=== PATIENT | female | born 1940 | race Caucasian/White ===

== ENCOUNTER → 2020-04-21 13:33 | Outpatient (BNVA) | payer BC, SELFPAY | PROVIDERS: PCP Family Medicine; Visit Provider Internal Medicine Cardiovascular Disease | DX: Z76.89 Persons encountering health services in other specified circumstances (principal) ==

== ENCOUNTER → 2020-05-27 10:34 | Outpatient (BNVA) | payer BC, SELFPAY | PROVIDERS: PCP Family Medicine; Visit Provider Internal Medicine ==

== ENCOUNTER 2020-05-27 11:09 | Outpatient (REF) | payer BC, SELFPAY ==
--- NOTE | 2020-05-27 17:04 | PFT_ITS ---
INDICATION: Cough. SPIROMETRY: The FEV1 to FVC 86% with an FEV1 of 2.06 L, which is 102% predicted, and an FVC of 2.4 L, which is 89% predicted. Bronchodilators were not used due to the fact the patient had used prior to this study. Maximum voluntary ventilation 101% predicted. LUNG VOLUMES: Total lung capacity 104% predicted with an expiratory reserve volume of only 26% predicted. DIFFUSION CAPACITY: DLCO 52% predicted. COMPARISONS: None. INTERPRETATION: No obstructive nor restrictive ventilatory defects identified. No bronchodilators were used. Normal maximum voluntary ventilation. Lung volumes are normal except for decrease in the expiratory reserve volume. The patient does have a moderate isolated diffusion impairment. Therefore, need to consider underlying pulmonary vascular condition, should also correct for hemoglobin. Clinical correlation is warranted. MD SADA Alvarez/JORGE / [id number]
== END 2020-05-27 11:10 | disposition home or self-care (01) ==
LOC: HO.RESP 11:09
PROVIDERS: Visit Provider Internal Medicine
DX: J44.9 Chronic obstructive pulmonary disease, unspecified (principal); R05 Cough
CPT/HCPCS: 94010; 94727; 94729

== ENCOUNTER 2020-06-25 19:36 | Inpatient (IN) | payer MEDICARE, BC, SELFPAY ==
[2020-06-25] VITALS (12 sets, daily range): BP systolic 159–232; BP diastolic 61–110; PULSE 70–96; RESP 16–38; TEMP 36.6–37.1; O2SAT 3–96; BMI 28.0
--- NOTE | ~2020-06-25 | CT_ITS ---
EXAMINATION: CT ANGIOGRAM OF THE CHEST WITH AND WITHOUT CONTRAST (CT PULMONARY ANGIOGRAM FOR PE) CLINICAL INFORMATION: Reason for Exam hypoxia COMPARISON: Previous chest x-ray most recent from yesterday TECHNIQUE: Prior to contrast administration, noncontrast localization images were obtained. Subsequently, multidetector volumetric imaging was performed from the thoracic inlet to below the diaphragms following the administration of 65 mL Omnipaque 350 intravenous contrast. No contrast reaction reported Sagittal, coronal, and MIP oblique sagittal reformatted images were obtained on the CT workstation, uploaded to PACS, and reviewed. This CT examination was performed using dose optimization techniques as appropriate, variously including the following: *Automated exposure control *Adjustment of mA and/or kV according to patient size (this includes techniques or standardized protocols for targeted exams where dose is matched to indication/reason for exam; i.e. extremities or head) *Use of iterative reconstruction technique Total exam dose-length product 280 mGy-cm FINDINGS: QUALITY OF STUDY/CONTRAST BOLUS: Satisfactory. PULMONARY ARTERIES: No central or segmental pulmonary emboli. Pulmonary arteries are upper normal, main pulmonary artery measuring 3 cm. THORACIC AORTA: No aneurysm or dissection. LUNG: There is bilateral lower lobe compressive atelectasis from the moderate sized pleural effusions. There is bilateral perihilar airspace disease. This is greatest in the left upper lobe. Differential would include pulmonary edema and pneumonia. PLEURA: There are moderate-sized bilateral pleural effusions. MEDIASTINUM: The heart is enlarged. No pericardial effusion. No hilar or mediastinal lymphadenopathy. No evidence of septal bowing or right heart strain. CHEST WALL/AXILLA: No axillary or internal mammary lymphadenopathy. OSSEOUS STRUCTURES: No acute or suspicious osseous abnormality. There are degenerative changes of the spine. UPPER ABDOMEN: There is reflux of contrast into the hepatic veins to suggest elevated right heart pressures. CT/CT angio chest PE protocol IMPRESSION: No evidence of pulmonary embolism. Enlarged heart and perihilar airspace disease, and moderate size bilateral pleural effusions suggestive of CHF. There is compressive atelectasis of the bilateral lower lobes from the pleural effusions. Airspace disease is greatest in the left upper lobe and superimposed infection cannot be excluded. VTE: negative
--- NOTE | ~2020-06-25 | XR_ITS ---
EXAMINATION: XR CHEST CLINICAL INFORMATION: Dyspnea COMPARISON: 01/21/2020 TECHNIQUE: Frontal view of the chest was obtained. FINDINGS: Compared to the prior study, the cardiac silhouette is slightly increased in size and there are bilateral pleural effusions right greater than left. In addition, there is upper zone redistribution and mild interstitial edema. Findings are highly suggestive of CHF. And associated infiltrate cannot be excluded at the left lung base. XR/XR chest 1V IMPRESSION: CHF with interstitial edema and bilateral pleural effusions. Associated infiltrates cannot be excluded at the left lung base.
--- NOTE | 2020-06-25 20:08 | ECG_ITS ---
Test Reason : HIGH BP Blood Pressure : / mmHG Vent. Rate : 076 BPM Atrial Rate : 076 BPM P-R Int : 184 ms QRS Dur : 154 ms QT Int : 464 ms P-R-T Axes : 019 -10 106 degrees QTc Int : 522 ms Sinus rhythm with Premature supraventricular complexes Left bundle branch block Abnormal ECG When compared to the previous EKG of No significant changes seen Referred By: Kofi Plata Electronically Signed By:Kofi Plata
--- NOTE | 2020-06-25 20:25 | ED_ITS ---
HPI - SOB/Dyspnea General Chief Complaint: Dyspnea Stated Complaint: sob Time Seen by Provider: 06/25/20 20:25 Source: patient Mode of arrival: ambulatory Limitations: no limitations History of Present Illness HPI Narrative: Patient history of mild hypersensitive asthma, CVA been feeling more short of breath for last 4 days feels less air in her lungs. Coughing+ No fever unable to take inhaler at home because feel not able to take deep breaths. Patient is saturating 85% on room air increased to 95% on 3 L blood pressure on arrival was 217/97 respiratory rate of 26 pulse 77 saturating 85% at room air afebrile. Patient received COVID vaccination last week. Patient denies any chest pain no leg swelling no history of CHF in the past Related Data Home Medications Medication Instructions Recorded Confirmed sertraline 100 mg tablet 100 mg PO DAILY 02/16/20 04/21/20 meloxicam 15 mg tablet 15 mg PO DAILY 02/17/20 04/21/20 flu vacc 2020-21(64yr 0.5 ml IM DIRECTED 04/27/20 up)-MF59C(PF) 60 mcg(15 mcgx4)/0.5 mL IM syringe Previous Rx's Medication Instructions Recorded albuterol sulfate 90 mcg/actuation 2 puff INHALATION Q6H PRN 30 Days 02/17/20 aerosol inhaler #18 g aspirin 81 mg tablet,delayed 81 mg PO DAILY 90 Days #90 tab 02/17/20 release atorvastatin 20 mg tablet 20 mg PO DAILY 90 Days #90 tab 02/17/20 hydralazine 50 mg tablet 50 mg PO BID 90 Days #180 tab 02/17/20 levothyroxine 25 mcg tablet 25 mcg PO DAILY 90 Days #90 tab 02/17/20 losartan 100 mg tablet 100 mg PO DAILY #90 tab 02/17/20 mometasone 50 mcg/actuation nasal 2 spray INTRANASAL DAILY 30 Days 02/17/20 spray #17 g cetirizine 10 mg tablet 10 mg PO DAILY 90 Days #90 tab 03/09/20 clonidine 0.2 mg/24 hr weekly 1 patch TRANSDERMAL QWEEK #4 ea 04/21/20 transdermal patch donepezil 10 mg tablet 10 mg PO DAILY 90 Days #90 tab 04/27/20 esomeprazole magnesium 20 mg 20 mg PO DAILY 90 Days #90 cap 04/27/20 capsule,delayed release memantine 28 mg capsule 28 mg PO DAILY 90 Days #90 ea 04/27/20 sprinkle,extended release 24hr benzonatate 100 mg capsule 100 mg PO BID-TID PRN 30 Days #60 05/27/20 cap amlodipine 2.5 mg tablet 2.5 mg PO DAILY 90 Days #90 tab 06/01/20 zafirlukast 20 mg tablet 20 mg PO Q12H #60 tab 06/03/20 Allergies Allergy/AdvReac Type Severity Reaction Status Date / Time latex [LATEX] Allergy Unknown RASH, ITCHY Verified 06/01/20 14:12 Review of Systems Review of Systems: Constitutional : No Weight loss, No Fever, No Chills ENT/Mouth : No sore throat, No Rhinorrhea Eyes: No Eye Pain, No Swelling Cardiovascular : No Chest Pain, no palpitations Respiratory : ++Cough, No Sputum, +++shortness of breath Gastrointestinal : no Nausea, No Vomiting, No Diarrhea, No abdominal Pain, no black stools Genitourinary : No Dysuria, No Urinary Frequency Musculoskeletal : No joint pain, No Myalgias, No Joint Swelling Skin : No Skin Lesions, No rash Neuro : No Weakness, No Numbness, No Dizziness, No Headache Psych : No Anxiety/Panic, No Depression Heme/Lymph: No Bruising, No Lymphadenopathy Endocrine : No Polyuria, No Polydipsia All other systems reviewed and are negative [facility] Past Medical History Medical History COPD (chronic obstructive pulmonary disease) Cough CVA (cerebral vascular accident) Surgical History History of hysterectomy Family History Family History Father No problems noted. Mother No problems noted. Brother No problems noted. Brother No problems noted. Sister No problems noted. Son No problems noted. Daughter No problems noted. Daughter No problems noted. Daughter No problems noted. Daughter No problems noted. Social History Social History Smoking Status: Former smoker Advance Directives: No Advance Directives Information Provided: No Physical Exam Vital Signs: Vital Signs: Last Vital Signs Temp 97.8 F 06/25/20 21:48 Pulse 74 06/25/20 23:37 Resp 20 06/25/20 23:37 BP 159/68 H 06/25/20 23:37 Pulse Ox 96 06/25/20 23:37 Body Mass Index 28.0 Const: General: well developed, in distress and ill appearing Nutritional Appearance: average body habitus Orientation/consciousness: patient oriented x3 HENMT: Head: Yes normocephalic and Yes atraumatic Ears: hearing grossly normal bilaterally Mouth: Normal oral and palatal mucosa present Eyes: General: appearance normal, both eyes and all related structures Conjunctivae: conjunctivae normal Sclerae: sclerae normal Pupils: Equal, round and reactive pupils present Neck: Neck: Yes normal visual inspection and Yes no JVD Thyroid: Thyroid normal Carotids: normal carotid upstroke Chest: Chest palpation & inspection: normal inspection of the chest Resp: Effort & Inspection: labored Auscultation: crackles bilateral, rales bilateral, no rhonchi, no wheezes and diminished lung sounds Cardio: Jugular venous distension: no JVD Rate: regular rate Rhythm: regular rhythm Heart sounds: S1 normal heart sound present and S2 normal heart sound present Peripheral pulses: Peripheral pulses 2+ throughout GI: Inspection: Yes normal to inspection Palpation (GI): Soft to palpation, nontender and no guarding Auscultation: normal bowel sounds : General: Yes no CVA tenderness Back/Spine/Pelvis: Back: no CVA tenderness Thoracic/Lumbar Spine: thoracic and lumbar spine normal to inspection Skin: General skin exam: no rashes or lesions noted Neuro: General: patient oriented x3 and no focal motor deficits Cranial nerves: Yes Equal, round and reactive pupils present Extrem: General: Yes normal to inspection, Yes no calf tenderness and No pedal edema MDM - SOB/Dyspnea MDM Narrative Medical decision making narrative: Patient with clinically CHF without any ischemic changes and cardiogram normal high sensitive troponin. Also had el evated blood pressure on arrival patient received IV Lasix and hydralazine breathing has improved will admit patient for CHF and accelerated hypertension Differential Diagnosis Differential diagnosis: Likely congestive heart failure and pneumonia Medical Records Attestation: I reviewed the patient's medical records. Lab Data Attestation: I reviewed the patient's lab results. Result diagrams: 06/25/20 20:45 06/25/20 20:45 Labs: Lab Results 06/25/20 06/25/2006/25/21 Range/Units 20:38 20:45 20:45 WBC 6.4 (4.8-10.8) X10*3/uL RBC 3.14 L (4.20-5.50) X10*6/uL Hgb 8.8 L (12.0-16.0) g/dl Hct 26.9 L (37-47) % MCV 85.7 (80-98) fL MCH 28.0 (27.0-33.0) pg MCHC 32.7 (31.0-35.0) g/dl RDW 14.2 (11.0-16.0) % Plt Count 191 (160-400) X10*3/uL MPV 9.4 (9.4-12.3) fL Immature Gran % (Auto) 0.9 H (0.0-0.4) % Neut % (Auto) 90.1 H (45-73) % Lymph % (Auto) 5.1 L (20-40) % [place] % (Auto) 2.8 (2-11) % Eos % (Auto) 0.6 (0-4) % Baso % (Auto) 0.5 (0-2) % Lymph # (Auto) 0.3 L (1.2-4.9) X10*3/uL [place] # (Auto) 0.2 (0.1-1.2) X10*3/uL Eos # (Auto) 0.0 (0.0-0.4) X10*3/uL Baso # (Auto) 0.0 (0.0-0.2) X10*3/uL Abs Immat Gran (auto) 0.06 H (0.00-0.03) X10*3/uL Absolute Neuts (auto) 5.8 (2.0-8.3) X10*3/uL Absolute Nucleated RBC 0.000 (0.0-0.012) X10*3/uL Nucleated RBC % (auto) 0.0 (0.0-0.2) /100WBC Smear Tech's Comments VERIFIED PT 13.8 H (10.8-13.0) SEC INR 1.2 H (0.9-1.1) APTT 39.2 H (24.1-38.0) SEC Hold Blue Top SEE NOTE Sodium (135-145) mmol/L Potassium (3.3-5.1) mmol/L Chloride (96-108) mmol/L Carbon Dioxide (22-29) mmol/L Anion Gap (12-20) BUN (9-16) mg/dL Creatinine (0.5-1.4) mg/dL Estim Creat Clear Calc Estimated GFR Random Glucose (60-115) mg/dL Lactic Acid (0.5-2.0) mmol/L Calcium (8.4-10.2) mg/dL Troponin I High Sens (<3.5-17.0) ng/L B-Natriuretic Peptide (<100) pg/mL Urine Color Urine Appearance Urine pH (5.0-8.0) Ur Specific [place] (1.005-1.025) Urine Protein (NEG-TRACE) MG/DL Urine Glucose (UA) (NEG) MG/DL Urine Ketones (NEG) MG/DL Urine Blood (NEG) Urine Nitrite (NEG) Ur Leukocyte Esterase (NEG) COVID-19 ([facility]ON) Negative (Negative) COVID-19 Clin Com See Note 06/25/20 06/25/20 06/25/20 Range/Units 20:45 20:45 20:53 WBC (4.8-10.8) X10*3/uL RBC (4.20-5.50) X10*6/uL Hgb (12.0-16.0) g/dl Hct (37-47) % MCV (80-98) fL MCH (27.0-33.0) pg MCHC (31.0-35.0) g/dl RDW (11.0-16.0) % Plt Count (160-400) X10*3/uL MPV (9.4-12.3) fL Immature Gran % (Auto) (0.0-0.4) % Neut % (Auto) (45-73) % Lymph % (Auto) (20-40) % [place] % (Auto) (2-11) % Eos % (Auto) (0-4) % Baso % (Auto) (0-2) % Lymph # (Auto) (1.2-4.9) X10*3/uL [place] # (Auto) (0.1-1.2) X10*3/uL Eos # (Auto) (0.0-0.4) X10*3/uL Baso # (Auto) (0.0-0.2) X10*3/uL Abs Immat Gran (auto) (0.00-0.03) X10*3/uL Absolute Neuts (auto) (2.0-8.3) X10*3/uL Absolute Nucleated RBC (0.0-0.012) X10*3/uL Nucleated RBC % (auto) (0.0-0.2) /100WBC Smear Tech's Comments PT (10.8-13.0) SEC INR (0.9-1.1) APTT (24.1-38.0) SEC Hold Blue Top Sodium 138 (135-145) mmol/L Potassium 3.1 L (3.3-5.1) mmol/L Chloride 107 (96-108) mmol/L Carbon Dioxide 20 L (22-29) mmol/L Anion Gap 14 (12-20) BUN 12 (9-16) mg/dL Creatinine 0.77 (0.5-1.4) mg/dL Estim Creat Clear Calc 60.6 Estimated GFR > 60 Random Glucose 123 H (60-115) mg/dL Lactic Acid 0.6 (0.5-2.0) mmol/L Calcium 8.0 L (8.4-10.2) mg/dL Troponin I High Sens 8.0 (<3.5-17.0) ng/L B-Natriuretic Peptide 850 H (<100) pg/mL Urine Color Urine Appearance Urine pH (5.0-8.0) Ur Specific [place] (1.005-1.025) Urine Protein (NEG-TRACE) MG/DL Urine Glucose (UA) (NEG) MG/DL Urine Ketones (NEG) MG/DL Urine Blood (NEG) Urine Nitrite (NEG) Ur Leukocyte Esterase (NEG) COVID-19 ([facility]NSON) (Negative) COVID-19 Clin Com 06/25/20 Range/Units 21:54 WBC (4.8-10.8) X10*3/uL RBC (4.20-5.50) X10*6/uL Hgb (12.0-16.0) g/dl Hct (37-47) % MCV (80-98) fL MCH (27.0-33.0) pg MCHC (31.0-35.0) g/dl RDW (11.0-16.0) % Plt Count (160-400) X10*3/uL MPV (9.4-12.3) fL Immature Gran % (Auto) (0.0-0.4) % Neut % (Auto) (45-73) % Lymph % (Auto) (20-40) % [place] % (Auto) (2-11) % Eos % (Auto) (0-4) % Baso % (Auto) (0-2) % Lymph # (Auto) (1.2-4.9) X10*3/uL [place] # (Auto) (0.1-1.2) X10*3/uL Eos # (Auto) (0.0-0.4) X10*3/uL Baso # (Auto) (0.0-0.2) X10*3/uL Abs Immat Gran (auto) (0.00-0.03) X10*3/uL Absolute Neuts (auto) (2.0-8.3) X10*3/uL Absolute Nucleated RBC (0.0-0.012) X10*3/uL Nucleated RBC % (auto) (0.0-0.2) /100WBC Smear Tech's Comments PT (10.8-13.0) SEC INR (0.9-1.1) APTT (24.1-38.0) SEC Hold Blue Top Sodium (135-145) mmol/L Potassium (3.3-5.1) mmol/L Chloride (96-108) mmol/L Carbon Dioxide (22-29) mmol/L Anion Gap (12-20) BUN (9-16) mg/dL Creatinine (0.5-1.4) mg/dL Estim Creat Clear Calc Estimated GFR Random Glucose (60-115) mg/dL Lactic Acid (0.5-2.0) mmol/L Calcium (8.4-10.2) mg/dL Troponin I High Sens (<3.5-17.0) ng/L B-Natriuretic Peptide (<100) pg/mL Urine Color YELLOW Urine Appearance CLEAR Urine pH 6.0 (5.0-8.0) Ur Specific [place] 1.010 (1.005-1.025) Urine Protein NEG (NEG-TRACE) MG/DL Urine Glucose (UA) NEG (NEG) MG/DL Urine Ketones NEG (NEG) MG/DL Urine Blood NEG (NEG) Urine Nitrite NEG (NEG) Ur Leukocyte Esterase NEG (NEG) COVID-19 (JOHNSON) (Negative) COVID-19 Clin Com ECG Data Attestation: I personally reviewed and interpreted this ECG as follows: Interpretation: Normal sinus rhythm heart rate 76 beats per minute left bundle- branch block left axis deviation no acute ST T-wave changes no change from previous EKG on 11/23 impression no acute ischemia Discharge Plan Discharge Clinical Impression: CHF (congestive heart failure) Qualifiers: Heart failure type: systolic Heart failure chronicity: acute Qualified Code(s): I50.21 - Acute systolic (congestive) heart failure Patient Disposition: Admitted As Inpatient
[2020-06-25 21:04] LABS: Basophils Percent Auto 0.5 % (0-2); Eosinophils Percent Auto 0.6 % (0-4); Hematocrit 26.9 % (37-47); Hemoglobin 8.8 g/dl (12.0-16.0); Imm Gran Abs Auto 0.06 X10*3/uL (0.00-0.03); Imm Gran Pct Auto 0.9 % (0.0-0.4); Lymphocytes Absolute Auto 0.3 X10*3/uL (1.2-4.9); Lymphocytes Percent Auto 5.1 % (20-40); MANUAL DIFF FLAG SCAN; Mean Corpuscular HGB Conc 32.7 g/dl (31.0-35.0); Mean Corpuscular Volume 85.7 fL (80-98); Mean Platelet Volume 9.4 fL (9.4-12.3); Monocytes Absolute Auto 0.2 X10*3/uL (0.1-1.2); Monocytes Percent Auto 2.8 % (2-11); Neutrophils Absolute Auto 5.8 X10*3/uL (2.0-8.3); Neutrophils Percent Auto 90.1 % (45-73); Platelet Count 191 X10*3/uL (160-400); Red Blood Count 3.14 X10*6/uL (4.20-5.50); Red Cell Distribution Width 14.2 % (11.0-16.0); SCAN SMEAR FLAG 1; White Blood Count 6.4 X10*3/uL (4.8-10.8)
[2020-06-25] MEDS: Nitroglycerin 2 % Oint 1 GM Packet 1 INCH TRANSDERMA (21:06)
[2020-06-25] MEDS: Furosemide 40 MG/4 ML VIAL IVPUSH (21:06)
[2020-06-25 21:20] LABS: COVID-19 Test Negative (Negative); IDNOW Serial# 9DD0AD1C
[2020-06-25 21:26] LABS: SLIDE REVIEW VERIFIED
[2020-06-25 21:29] LABS: Anion Gap 14 (12-20); Blood Urea Nitrogen 12 mg/dL (9-16); Carbon Dioxide 20 mmol/L (22-29); Chloride 107 mmol/L (96-108); Creatinine Clr Calc Pharmacy 60.6; Estimated Glomerular Filt Rate > 60; Glucose Random 123 mg/dL (60-115); Potassium 3.1 mmol/L (3.3-5.1); Sodium 138 mmol/L (135-145)
[2020-06-25 21:34] LABS: B Type Natriuretic Peptide 850 pg/mL (<100)
[2020-06-25 21:44] LABS: Lactic Acid 0.6 mmol/L (0.5-2.0)
--- NOTE | 2020-06-25 21:50 | PC.NURSE ---
RN AWARE OF PATIENT HIGH RESPIRATION AND HIGH BLOOD PRESSURE ,
--- NOTE | 2020-06-25 21:51 | PC.NURSE ---
GUTIERREZ CATHETER PUT IN BY THIS PCT .
--- NOTE | 2020-06-25 21:51 | PC.NURSE ---
PATIENT INCONIENT TIMES 2 WITH LOOSE BOWEL MOVEMENT .
[2020-06-25 22:23] LABS: Glucose Urine UA NEG (NEG); Leukocyte Esterase Urine NEG (NEG); Nitrite Urine NEG (NEG); Urine Blood NEG (NEG); Urine Ketones NEG (NEG); Urine Protein NEG (NEG-TRACE)
[2020-06-25 22:26] LABS: Appearance Urine CLEAR; Color Urine YELLOW
[2020-06-25] MEDS: hydrALAZINE HCl 20 MG/ML VIAL IVPUSH (22:26)
[2020-06-25 22:28] LABS: INTERNATIONAL NORM RATIO 1.2 (0.9-1.1); Prothrombin Time 13.8 SEC (10.8-13.0)
[2020-06-25 22:31] LABS: Partial Thromboplastin Time 39.2 SEC (24.1-38.0)
[2020-06-26] VITALS (18 sets, daily range): BP systolic 135–183; BP diastolic 60–80; PULSE 62–125; RESP 16–24; TEMP 36.2–37.4; O2SAT 94–97
--- NOTE | 2020-06-26 | ECG_ITS ---
Test Reason : CHF Blood Pressure : / mmHG Vent. Rate : 070 BPM Atrial Rate : 070 BPM P-R Int : 188 ms QRS Dur : 156 ms QT Int : 574 ms P-R-T Axes : 017 -30 146 degrees QTc Int : 619 ms Sinus rhythm with Premature atrial complexes Left axis deviation Left bundle branch block Abnormal ECG When compared with ECG of 25-JUN-2020 19:51, T wave inversion more evident in Anterolateral leads QT has lengthened Referred By: Kofi Plata Electronically Signed By:JESSICA GA MD
--- NOTE | 2020-06-26 00:22 | P.HPHOSP_ITS ---
History of Present Illness Date of Service: 06/26/20 Chief Complaint: SOB A 80-year-old female with a past medical history of hypertension, hyperlipidemia, hypothyroidism, dementia, asthma presented to the hospital with a chief complaint of shortness of breath patient reports that for the past 3-4 days she has been having shortness of breath which has been gradually worsening. Denies any cough fevers chills. Denies any numbness tingling. Denies any recent travel or sick contacts. Denies any chest pain palpitations. Review of all other systems is negative except mentioned above ER course: Per ER team patient was noted to be 85% on presentation with improvement of 94% on supplemental oxygen. A chest x-ray showed congestion consistent with CHF) knee onset CHF. Given Lasix. Also showed question pneum onia. Given nitropaste. Patient was noted to have elevated blood pressure her from hypertensive urgency given nitro paste with improvement in blood pressure. EKG was nonischemic. Admitted to the hospital for further [facility] Medical History COPD (chronic obstructive pulmonary disease) Cough CVA (cerebral vascular accident) Family History Father No problems noted. Mother No problems noted. Brother No problems noted. Brother No problems noted. Sister No problems noted. Son No problems noted. Daughter No problems noted. Daughter No problems noted. Daughter No problems noted. Daughter No problems noted. Surgical History History of hysterectomy Social History Alcohol intake: never Smoking Status: Never smoker Smoked in Last 30 Days: No Use of substances other than those prescribed or required for medical reasons: No Advance Directives: No Advance Directives Information Provided: No Meds Allergies Allergy/AdvReac Type Severity Reaction Status Date / Time latex [LATEX] Allergy Unknown RASH, ITCHY Verified 06/26/20 01:55 Active Medications: Current Medications Generic Name Dose Route Start Last Admin Trade Name Freq PRN Reason Stop Dose Admin Acetaminophen 650 mg 06/26/20 00:18 Acetaminophen 325 Mg Tablet PO Q6H PRN Pain, Mild (Pain Scale 1-3) Furosemide 20 mg 06/26/20 09:00 Furosemide 20 Mg/2 Ml Vial IVPUSH DAILY [facility] Protocol Heparin Sodium (Porcine) 5,000 unit 06/26/20 00:30 Heparin Sodium,Porcine 5,000 Unit/Ml Vial SUBCUT Q8H [facility] Potassium Chloride 10 meq in 100 mls @ 100 mls/hr 06/25/20 23:45 IV 06/26/20 01:44 Q1H [facility] Senna 17.2 mg 06/26/20 00:18 Sennosides 8.6 Mg Tablet PO BEDTIME PRN Constipation Sodium Chloride 3 ml 06/26/20 08:00 0.9 % Sodium Chloride Flush 3 Ml Syringe IVFLUSH QSHIFT [facility] Home Medications Medication Instructions Recorded Confirmed Last Taken Type sertraline 100 mg tablet 100 mg PO DAILY 02/16/20 06/26/20 06/25/20 History meloxicam 15 mg tablet 15 mg PO DAILY 02/17/20 06/26/20 06/25/20 History flu vacc 2020-21(64yr 0.5 ml IM DIRECTED 04/27/20 06/26/20 Unknown History up)-MF59C(PF) 60 mcg(15 mcgx4)/0.5 mL IM syringe betamethasone dipropionate 1 appl TOPICAL 06/26/20 06/25/20 History fluticasone propion-salmeterol 1 inh INHALATION BID 06/26/20 06/26/20 06/25/20 History [Wixela Inhub] Physical Exam Vital Signs and Narrative: Vital Signs: Last Vital Signs Temp 97.8 F 06/25/20 21:48 Pulse 70 06/25/20 22:26 Resp 16 06/25/20 21:48 BP 189/76 H 06/25/20 22:26 Pulse Ox 93 06/25/20 21:48 Body Mass Index 28.0 Gen: Appears be in no acute distress HEENT: NCAT, Moist mucosa. Pulmonary: Crackles bilaterally at the CVS: Normal S1-S2 Abdomen: BS+, Soft, Nontender Extremities: Warm well perfused Neuro: Alert and awake. Results Labs CBC and Chem 7: 06/25/20 20:45 06/25/20 20:45 Labs: Laboratory Results - last 24 hr 06/25/20 06/25/20 06/25/20 20:38 20:45 20:45 MCV 85.7 MCH 28.0 MCHC 32.7 RDW 14.2 Plt Count 191 MPV 9.4 Immature Gran % (Auto) 0.9 H Neut % (Auto) 90.1 H Lymph % (Auto) 5.1 L [place] % (Auto) 2.8 Eos % (Auto) 0.6 Baso % (Auto) 0.5 Lymph # (Auto) 0.3 L [place] # (Auto) 0.2 Eos # (Auto) 0.0 Baso # (Auto) 0.0 Abs Immat Gran (auto) 0.06 H Absolute Neuts (auto) 5.8 Absolute Nucleated RBC 0.000 Nucleated RBC % (auto) 0.0 Smear Tech's Comments VERIFIED PT 13.8 H INR 1.2 H APTT 39.2 H Hold Blue Top SEE NOTE Anion Gap Estim Creat Clear Calc Estimated GFR Random Glucose Lactic Acid Calcium Troponin I High Sens B-Natriuretic Peptide Urine Color Urine Appearance Urine pH Ur Specific [place] Urine Protein Urine Glucose (UA) Urine Ketones Urine Blood Urine Nitrite Ur Leukocyte Esterase COVID-19 ([facility]ON) Negative COVID-[employer] IT See Note 06/25/20 06/25/20 06/25/20 20:45 20:45 20:53 MCV MCH MCHC RDW Plt Count MPV Immature Gran % (Auto) Neut % (Auto) Lymph % (Auto) [place] % (Auto) Eos % (Auto) Baso % (Auto) Lymph # (Auto) [place] # (Auto) Eos # (Auto) Baso # (Auto) Abs Immat Gran (auto) Absolute Neuts (auto) Absolute Nucleated RBC Nucleated RBC % (auto) Smear Tech's Comments PT INR APTT Hold Blue Top Anion Gap 14 Estim Creat Clear Calc 60.6 Estimated GFR > 60 Random Glucose 123 H Lactic Acid 0.6 Calcium 8.0 L Troponin I High Sens 8.0 B-Natriuretic Peptide 850 H Urine Color Urine Appearance Urine pH Ur Specific [place] Urine Protein Urine Glucose (UA) Urine Ketones Urine Blood Urine Nitrite Ur Leukocyte Esterase COVID-19 ([facility]ON) COVID-Ring[employer] Com 06/25/20 21:54 MCV MCH MCHC RDW Plt Count MPV Immature Gran % (Auto) Neut % (Auto) Lymph % (Auto) [place] % (Auto) Eos % (Auto) Baso % (Auto) Lymph # (Auto) [place] # (Auto) Eos # (Auto) Baso # (Auto) Abs Immat Gran (auto) Absolute Neuts (auto) Absolute Nucleated RBC Nucleated RBC % (auto) Smear Tech's Comments PT INR APTT Hold Blue Top Anion Gap Estim Creat Clear Calc Estimated GFR Random Glucose Lactic Acid Calcium Troponin I High Sens B-Natriuretic Peptide Urine Color YELLOW Urine Appearance CLEAR Urine pH 6.0 Ur Specific [place] 1.010 Urine Protein NEG Urine Glucose (UA) NEG Urine Ketones NEG Urine Blood NEG Urine Nitrite NEG Ur Leukocyte Esterase NEG COVID-19 ([facility]ON) COVID-19 Clin Com Imaging Radiologist's Impressions: Impressions Chest X-Ray 06/25/20 20:08 IMPRESSION: CHF with interstitial edema and bilateral pleural effusions. Associated infiltrates cannot be excluded at the left lung base. Assessment and Plan (1) CHF (congestive heart failure): Status: Acute 80-year-old female with a past medical history of hypertension, hyperlipidemia, hypothyroidism, dementia, asthma presented to the hospital with a chief complaint of shortness of breath. Noted to be in mild CHF. Admitted to the hospital for further management. New onset CHF: I's and O's and daily weights. Cycle cardiac enzymes. Echocardiogram. Lasix 20 mg IV daily Cardiology consult for further recommendations Hypoxia: Likely in setting of CHF. COVID-[address] chest with PE protocol as well. Hypertensive urgency: Patient denies any headache the blurry visions. Given nitropaste. Improving. History of asthma: Duo palmiras p.r.n.. Pneumonia: Continue antibiotics. History of hypothyroidism: Continue home medications. History of dementia: Continue home medications For other conditions continue home meds. DVT prophylaxis: Subcu heparin Full code
[2020-06-26] MEDS: Heparin Sodium,Porcine 5,000 UNIT/ML VIAL 5000 UNIT SUBCUT ×2 (01:30→11:07)
[2020-06-26] MEDS: Potassium Chloride/H20 10 MEQ/100 ML PIGGYBACK 100 MEQ IV ×2 (01:31→02:50)
--- NOTE | 2020-06-26 06:39 | PC.NURSE ---
PATIENT SLEEPING AT THIS TIME, BUT EASILY AROUSABLE TO VOICE. PATIENT HAS BEEN ALERT & ORIENTED FOR THIS RN THROUGHOUT SHIFT. AROUND 2100, PATIENT HAD 2 LOOSE BOWEL MOVEMENTS AND WAS ALSO INCONTINENT OF URINE. BED LINEN CHANGE COMPLETED. URINARY CATHETER IN PLACE, DRAINING YELLOW URINE. 1000ml CLEAR YELLOW URINE DRAINING INTO GUTIERREZ CATHETER BAG. PATIENT MEDICATED ORDERED THROUGHOUT SHIFT AND DENIES PAIN. PATIENT ON 2LPM NASAL CANNULA, MAINTAINING SAT OF 95%. WHEN ON ROOM AIR, PATIENT BEGINS TO DESAT TO 88%. OXYGEN REMAINS AT 2LPM AT THIS TIME. PATIENT'S GRANDDAUGHTER (BABAK) ON FILE REQUESTING UPDATES, OKAYED BY PATIENT TO DISCUSS CARE/RESULTS. BABAK IS ALSO PATIENT'S HEALTHCARE PROXY. THIS RN TO CONTACT BABAK SHORTLY. WILL CONTINUE TO MONITOR.
[2020-06-26 07:25] LABS: INTERNATIONAL NORM RATIO 1.2 (0.9-1.1); Prothrombin Time 14.4 SEC (10.8-13.0)
[2020-06-26 07:26] LABS: Basophils Percent Auto 0.7 % (0-2); Eosinophils Percent Auto 0.5 % (0-4); Hematocrit 25.4 % (37-47); Hemoglobin 8.2 g/dl (12.0-16.0); Imm Gran Abs Auto 0.07 X10*3/uL (0.00-0.03); Imm Gran Pct Auto 1.2 % (0.0-0.4); Lymphocytes Absolute Auto 0.6 X10*3/uL (1.2-4.9); Lymphocytes Percent Auto 9.4 % (20-40); MANUAL DIFF FLAG SCAN; Mean Corpuscular HGB Conc 32.3 g/dl (31.0-35.0); Mean Corpuscular Hemoglobin 27.8 pg (27.0-33.0); Mean Corpuscular Volume 86.1 fL (80-98); Mean Platelet Volume 9.8 fL (9.4-12.3); Monocytes Absolute Auto 0.2 X10*3/uL (0.1-1.2); Monocytes Percent Auto 4.1 % (2-11); Neutrophils Percent Auto 84.1 % (45-73); Platelet Count 194 X10*3/uL (160-400); Red Blood Count 2.95 X10*6/uL (4.20-5.50); Red Cell Distribution Width 14.3 % (11.0-16.0); SCAN SMEAR FLAG 1; White Blood Count 5.9 X10*3/uL (4.8-10.8)
--- NOTE | 2020-06-26 07:39 | PC.NURSE ---
PT RETURNED FROM CT, ACESSED PATIENT NEEDS, EMPTIED GUTIERREZ BAG 2000ML
[2020-06-26] MEDS: iohexoL 350 MG/ML 100 ML INFUS..BTL 65 ML IV (07:43)
[2020-06-26 07:45] LABS: Anion Gap 14 (12-20); Blood Urea Nitrogen 12 mg/dL (9-16); Calcium 7.9 mg/dL (8.4-10.2); Carbon Dioxide 22 mmol/L (22-29); Chloride 106 mmol/L (96-108); Estimated Glomerular Filt Rate > 60; Glucose Random 99 mg/dL (60-115); Potassium 3.3 mmol/L (3.3-5.1); Sodium 139 mmol/L (135-145)
[2020-06-26 07:58] LABS: SLIDE REVIEW VERIFIED
[2020-06-26] MEDS: Furosemide 20 MG/2 ML VIAL IVPUSH ×2 (09:19→20:17)
[2020-06-26] MEDS: 0.9 % Sodium Chloride Flush 3 ML SYRINGE IVFLUSH ×2 (09:20→20:24)
[2020-06-26] MEDS: Loratadine 10 MG TABLET PO (09:21)
[2020-06-26] MEDS: hydrALAZINE HCl 50 MG TABLET PO ×3 (09:21→21:42)
[2020-06-26] MEDS: Sertraline HCL 100 MG TABLET PO (09:22)
[2020-06-26] MEDS: Levothyroxine Sodium 25 MCG TABLET PO (09:22)
[2020-06-26] MEDS: amLODIPine Besylate 2.5 MG TABLET PO (09:22)
[2020-06-26] MEDS: Aspirin Enteric Coated 81 MG TABLET.DR PO (09:22)
[2020-06-26] MEDS: Losartan Potassium 50 MG TABLET 100 MG PO (09:23)
--- NOTE | 2020-06-26 10:28 | P.CONCA_ITS ---
History of Present Illness History of Present Illness Date of Service: 06/26/20 Requesting physician: Brandan Tavares Consult reason: congestive heart failure Chief complaint: CHF Narrative: 80-year-old female with dyspnea x 3 days and presenting with CHF and elevated blood pressures. She has background history of hypertension, chronic left bundle-branch block and asthma. She said over the last 3 days she has been experiencing worsening sh ortness of breath. She used to inhalers but did not get any relief. She had no chest discomfort. With these symptoms she presented to us. Her blood pressure was significantly elevated and she was in heart failure. Since then she has received her home medications along with some IV blood pressure medications with some much improvement in her status. At the time of interview she was still significantly short of breath. She said she was taking her medications regularly. I spoke to her granddaughter who is a nurse and she said that patient was getting medications and she was personally taking care of the clonidine patch. I was concerned that she probably miss clonidine and that is why she is withdrawing from clonidine which has happened before with her in the past. Echocardiography was performed which is showing moderately reduced ejection fraction which is new. There is wall motion abnormality in the LAD territory with differentials of ischemic disease versus takotsubo cardiomyopathy. Her troponins were negative. ECG was not performed yet. She has chronic left bundle-branch block. She was started on CPAP in the ER because she was really short of breath. She also noticed to be anemic with hemoglobin of 8.2. No bleeding has been reported by the patient or family. Review of Systems Review of Systems: Shortness of breath Yes all other systems are reviewed and are negative [facility] Past Medical History Medical History COPD (chronic obstructive pulmonary disease) Cough CVA (cerebral vascular accident) Family History Family History Father No problems noted. Mother No problems noted. Brother No problems noted. Brother No problems noted. Sister No problems noted. Son No problems noted. Daughter No problems noted. Daughter No problems noted. Daughter No problems noted. Daughter No problems noted. Surgical History Surgical History History of hysterectomy Social History Social History Alcohol intake: never Smoking Status: Never smoker Smoked in Last 30 Days: No Use of substances other than those prescribed or required for medical reasons: No Advance Directives: No Advance Directives Information Provided: No Meds Allergies Allergy/AdvReac Type Severity Reaction Status Date / Time latex [LATEX] Allergy Unknown RASH, ITCHY Verified 06/26/20 01:55 Active Medications: Current Medications Generic Name Dose Route Start Last Admin Trade Name Freq PRN Reason Stop Dose Admin Acetaminophen 650 mg 06/26/20 00:18 Acetaminophen 325 Mg Tablet PO Q6H PRN Pain, Mild (Pain Scale 1-3) Albuterol Sulfate 2 puff 06/26/20 06:26 Albuterol Sulfate 90 Mcg 8 Gm Inhaler INHALE Q6H PRN bronchospasm Amlodipine Besylate 2.5 mg 06/26/20 09:00 06/26/20 09:22 Amlodipine Besylate 2.5 Mg Tablet PO 2.5 mg DAILY [facility] Administration Protocol Aspirin 81 mg 06/26/20 09:00 06/26/20 09:22 Aspirin Enteric Coated 81 Mg Tablet.Dr PO 81 mg DAILY [facility] Administration Atorvastatin Calcium 20 mg 06/26/20 09:00 Atorvastatin Calcium 20 Mg Tablet PO DAILY [facility] Benzonatate 100 mg 06/26/20 06:26 Benzonatate 100 Mg Capsule PO TID PRN cough Clonidine 0.2 mg 06/26/20 09:00 Clonidine 0.2 Mg Patch.Tdwk TRANSDERMA Sa@0900 [facility] Protocol Donepezil HCl 10 mg 06/26/20 09:00 Donepezil Hcl 10 Mg Tablet PO DAILY [facility] Furosemide 20 mg 06/26/20 09:00 06/26/20 09:19 Furosemide 20 Mg/2 Ml Vial IVPUSH 20 mg DAILY [facility] Administration Protocol Heparin Sodium (Porcine) 5,000 unit 06/26/20 00:30 06/26/20 01:30 Heparin Sodium,Porcine 5,000 Unit/Ml Vial SUBCUT 5,000 unit Q8H [facility] Administration Hydralazine HCl 50 mg 06/26/20 09:00 06/26/20 09:21 Hydralazine Hcl 50 Mg Tablet PO 50 mg BID [facility] Administration Protocol Levothyroxine Sodium 25 mcg 06/26/20 06:53 06/26/20 09:22 Levothyroxine Sodium 25 Mcg Tablet PO 25 mcg DAILY@0600 [facility] Administration Loratadine 10 mg 06/26/20 09:00 06/26/20 09:21 Loratadine 10 Mg Tablet PO 10 mg DAILY [facility] Administration Losartan Potassium 100 mg 06/26/20 09:00 06/26/20 09:23 Losartan Potassium 50 Mg Tablet PO 100 mg DAILY [facility] Administration Protocol Non-Formulary Medication 28 mg 06/26/20 09:00 Memantine PO DAILY [facility] Non-Formulary Medication 2 spray 06/26/20 09:00 Mometasone [Nasonex] NOSTRIL-B DAILY [facility] Non-Formulary Medication 20 mg 06/26/20 06:30 Zafirlukast PO Q12H [facility] Senna 17.2 mg 06/26/20 00:18 Sennosides 8.6 Mg Tablet PO BEDTIME PRN Constipation Sertraline HCl 100 mg 06/26/20 09:00 06/26/20 09:22 Sertraline Hcl 100 Mg Tablet PO 100 mg DAILY [facility] Administration Sodium Chloride 3 ml 06/26/20 08:00 06/26/20 09:20 0.9 % Sodium Chloride Flush 3 Ml Syringe IVFLUSH 3 ml QSHIFT [facility] Administration Home Medications Medication Instructions Recorded Confirmed Last Taken Type sertraline 100 mg tablet 100 mg PO DAILY 02/16/20 06/26/20 06/25/20 History meloxicam 15 mg tablet 15 mg PO DAILY 02/17/20 06/26/20 06/25/20 History flu vacc 2020-21(64yr 0.5 ml IM DIRECTED 04/27/20 06/26/20 Unknown History up)-MF59C(PF) 60 mcg(15 mcgx4)/0.5 mL IM syringe betamethasone dipropionate 1 appl TOPICAL 06/26/20 06/25/20 History fluticasone propion-salmeterol 1 inh INHALATION BID 06/26/20 06/26/20 06/25/20 History [Wixela Inhub] Physical Exam Vital Signs: Vital Signs: Last Vital Signs Temp 97.8 F 06/25/20 21:48 Pulse 73 06/26/20 09:26 Resp 24 H 06/26/20 09:26 BP 135/70 06/26/20 09:26 Pulse Ox 96 06/26/20 09:26 Body Mass Index 28.0 GENERAL APPEARANCE: Short of breath, somewhat confused. HEENT: unremarkable. HEAD: normocephalic, atraumatic. NECK/THYROID: no carotid bruit, no significant jugular venous distention. SKIN: no suspicious lesions, warm and dry. HEART: no murmurs, regular rate and rhythm, S1, S2 normal. LUNGS: Bilateral crackles to mid lung rothman. ABDOMEN: normal, bowel sounds present, soft, nontender, nondistended. EXTREMITIES: no clubbing, cyanosis, or edema. PERIPHERAL PULSES: equal. NEUROLOGIC: nonfocal, alert and oriented. PSYCH: mood/affect full range. Results Labs and Meds Result diagrams: 06/26/20 06:53 06/26/20 06:53 Lab results: Laboratory Results - last 24 hr 06/25/20 06/25/20 06/25/20 20:38 20:45 20:45 WBC 6.4 RBC 3.14 L Hgb 8.8 L Hct 26.9 L MCV 85.7 MCH 28.0 MCHC 32.7 RDW 14.2 Plt Count 191 MPV 9.4 Immature Gran % (Auto) 0.9 H Neut % (Auto) 90.1 H Lymph % (Auto) 5.1 L Rooks % (Auto) 2.8 Eos % (Auto) 0.6 Baso % (Auto) 0.5 Lymph # (Auto) 0.3 L Rooks # (Auto) 0.2 Eos # (Auto) 0.0 Baso # (Auto) 0.0 Abs Immat Gran (auto) 0.06 H Absolute Neuts (auto) 5.8 Absolute Nucleated RBC 0.000 Nucleated RBC % (auto) 0.0 Smear Tech's Comments VERIFIED PT 13.8 H INR 1.2 H APTT 39.2 H Hold Blue Top SEE NOTE Sodium Potassium Chloride Carbon Dioxide Anion Gap BUN Creatinine Estim Creat Clear Calc Estimated GFR Random Glucose Lactic Acid Calcium Troponin I High Sens B-Natriuretic Peptide Urine Color Urine Appearance Urine pH Ur Specific Yeoman Urine Protein Urine Glucose (UA) Urine Ketones Urine Blood Urine Nitrite Ur Leukocyte Esterase COVID-19 ([facility]) Negative COVID-19 Clin Com See Note 06/25/20 06/25/20 06/25/20 20:45 20:45 20:53 WBC RBC Hgb Hct MCV MCH MCHC RDW Plt Count MPV Immature Gran % (Auto) Neut % (Auto) Lymph % (Auto) Rooks % (Auto) Eos % (Auto) Baso % (Auto) Lymph # (Auto) Rooks # (Auto) Eos # (Auto) Baso # (Auto) Abs Immat Gran (auto) Absolute Neuts (auto) Absolute Nucleated RBC Nucleated RBC % (auto) Smear Tech's Comments PT INR APTT Hold Blue Top Sodium 138 Potassium 3.1 L Chloride 107 Carbon Dioxide 20 L Anion Gap 14 BUN 12 Creatinine 0.77 Estim Creat Clear Calc 60.6 Estimated GFR > 60 Random Glucose 123 H Lactic Acid 0.6 Calcium 8.0 L Troponin I High Sens 8.0 B-Natriuretic Peptide 850 H Urine Color Urine Appearance Urine pH Ur Specific Yeoman Urine Protein Urine Glucose (UA) Urine Ketones Urine Blood Urine Nitrite Ur Leukocyte Esterase COVID-19 ([facility]) COVSuperLikers 06/25/20 06/26/20 06/26/20 21:54 06:53 06:53 WBC 5.9 RBC 2.95 L Hgb 8.2 L Hct 25.4 L MCV 86.1 MCH 27.8 MCHC 32.3 RDW 14.3 Plt Count 194 MPV 9.8 Immature Gran % (Auto) 1.2 H Neut % (Auto) 84.1 H Lymph % (Auto) 9.4 L Rooks % (Auto) 4.1 Eos % (Auto) 0.5 Baso % (Auto) 0.7 Lymph # (Auto) 0.6 L Rooks # (Auto) 0.2 Eos # (Auto) 0.0 Baso # (Auto) 0.0 Abs Immat Gran (auto) 0.07 H Absolute Neuts (auto) 5.0 Absolute Nucleated RBC 0.000 Nucleated RBC % (auto) 0.0 Smear Tech's Comments VERIFIED PT 14.4 H INR 1.2 H APTT Hold Blue Top Sodium Potassium Chloride Carbon Dioxide Anion Gap BUN Creatinine Estim Creat Clear Calc Estimated GFR Random Glucose Lactic Acid Calcium Troponin I High Sens B-Natriuretic Peptide Urine Color YELLOW Urine Appearance CLEAR Urine pH 6.0 Ur Specific Yeoman 1.010 Urine Protein NEG Urine Glucose (UA) NEG Urine Ketones NEG Urine Blood NEG Urine Nitrite NEG Ur Leukocyte Esterase NEG COVID-19 ([facility]) COVID-[place] 06/26/20 06:53 WBC RBC Hgb Hct MCV MCH MCHC RDW Plt Count MPV Immature Gran % (Auto) Neut % (Auto) Lymph % (Auto) Rooks % (Auto) Eos % (Auto) Baso % (Auto) Lymph # (Auto) Rooks # (Auto) Eos # (Auto) Baso # (Auto) Abs Immat Gran (auto) Absolute Neuts (auto) Absolute Nucleated RBC Nucleated RBC % (auto) Smear Tech's Comments PT INR APTT Hold Blue Top Sodium 139 Potassium 3.3 Chloride 106 Carbon Dioxide 22 Anion Gap 14 BUN 12 Creatinine 0.82 Estim Creat Clear Calc 57.0 Estimated GFR > 60 Random Glucose 99 Lactic Acid Calcium 7.9 L Troponin I High Sens B-Natriuretic Peptide Urine Color Urine Appearance Urine pH Ur Specific Yeoman Urine Protein Urine Glucose (UA) Urine Ketones Urine Blood Urine Nitrite Ur Leukocyte Esterase COVID-19 ([facility]) COVID-19 Clin Com Imaging Radiologist's impression: Impressions Chest X-Ray 06/25/20 20:08 IMPRESSION: CHF with interstitial edema and bilateral pleural effusions. Associated infiltrates cannot be excluded at the left lung base. Chest CTA 06/26/20 07:26 IMPRESSION: No evidence of pulmonary embolism. Enlarged heart and perihilar airspace disease, and moderate size bilateral pleural effusions suggestive of CHF. There is compressive atelectasis of the bilateral lower lobes from the pleural effusions. Airspace disease is greatest in the left upper lobe and superimposed infection cannot be excluded. VTE: negative Assessment and Plan (1) Systolic heart failure: Status: Acute (2) Hypertension: Status: Acute (3) LBBB (left bundle branch block): Status: Acute 80-year-old female with complex presentation with the congestive heart failure, hypertension, regional wall motion abnormalities on echocardiography pointing to her underlying coronary disease versus takotsubo cardiomyopathy as well as anemia. Clinically she is in heart failure right now and has crackles in both lungs. She is quite distressed by that. We have started her on CPAP for this. She should get 40 mg IV Lasix now. I think she should stay on at least once a day Lasix going forward. I do not think this is significant volume overload which is leading to heart failure. I think this is purely hypertension related or underlying ischemic disease. I would not aggressively diurese her. I feel with blood pressure control and CPAP her symptoms should improve. Her blood pressure continues to be elevated. Home medications are resumed. I am increasing the hydralazine to 50 mg 3 times a day. I am adding some nitro paste to decrease the filling pressures and to improve her symptoms. In terms of her wall motion abnormality on the echocardiography I think the likely differentials are takotsubo cardiomyopathy versus ischemic heart disease. 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 Obviously this is a diagnosis by cardiac catheterization which I have explained to patient granddaughter who is a nurse in our hospital. Right now she is also anemic. No bleeding is reported by the patient. I would favor giving her a unit of blood and then consider starting her on heparin drip. She should get IV diuretics if she gets blood transfusion. We will follow along with you. Thank you for allowing me to participate in the care of your patient. Please feel free to contact me if you have any questions.
--- NOTE | 2020-06-26 10:58 | PC.NURSE ---
pt currently getting bedside echo
[2020-06-26] MEDS: Donepezil HCl 10 MG TABLET PO (11:37)
[2020-06-26] MEDS: Atorvastatin Calcium 20 MG TABLET PO (11:42)
[2020-06-26] MEDS: cloNIDine 0.2 MG PATCH.TDWK TRANSDERMA (11:42)
--- NOTE | 2020-06-26 13:00 | CA_ITS ---
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 The visually estimated ejection fraction is between 30-35%. - There is evidence of regional wall motion abnormalities. - Elevated filling pressures. - The left atrium is moderately dilated. - Differentials for cardiomyopathy include CAD vs Takotsubo cardiomyopathy. Findings Left Ventricle Normal left ventricular cavity size. There is moderately increased left ventricular wall thickness. The left ventricular systolic function is moderately decreased. The visually estimated ejection fraction is between 30 35%. There is evidence of regional wall motion abnormalities. There is paradoxical septal motion consistent with a left bundle branch block. Abnormal diastolic function is noted. Spectral Doppler is indicative of an impaired relaxation filling pattern. Elevated filling pressures. Wall Motion Rest Echo Findings The mid inferior and basal inferoseptal segments are hypokinetic. The entire apex, the mid anterior, mid anterolateral, mid inferoseptal, mid anteroseptal, and mid inferolateral segments are akinetic. Right Ventricle Normal right ventricular cavity size and systolic function. Atria The left atrium is moderately dilated. Aortic Valve There is a normal trileaflet aortic valve. There is mild calcification of the aortic valve. There is mild thickening of the aortic valve. There is no aortic valve stenosis. There is no aortic valve regurgitation. Mitral Valve The mitral valve appears normal. There is trace mitral valve regurgitation. There is no mitral valve stenosis. Pulmonic Valve The pulmonic valve is likely normal. Tricuspid Valve Normal tricuspid valve structure and function. There is trace tricuspid valve regurgitation. Normal right atrial pressure. There is no evidence of pulmonary hypertension. Great Vessels All visible segments of the aorta are normal in size. The pulmonary artery was not well visualized. Venous The inferior vena cava is normal in size and collapses greater than 50% with inspiration. Pericardium/Pleural Prominent epicardial adipose tissue noted. There is no evidence of pericardial effusion. Prior Study Comparison Significant changes compared to prior study dated: 12/03/2019. EF 30-35%, RWMA as described. Measurements 2D Linear Measurements IVSd: 1.35 0.6-0.9/0.6-1.0 cm LVIDd: 4.72 3.9-5.3/4.2-5.9 cm LVIDd Index: 2.59 2.4-3.2/2.2-3.1 cm/m2 LVIDs: 3.77 2.0-3.6 cm LVPWd: 1.33 0.7-1.1 cm Ao Root: 3.00 2.1-3.5 cm LA Diam: 3.60 2.7-3.8/3.0-4.0 cm LAIDs Index: 1.98 1.5-2.3 cm/m2 LV Mass: 312.07 67-162/88-224 g LV Mass Index: 171.47 43-95/49-115 g/m2 LVOT Diam: 2.10 3.0+(-)1.3 cm 2D Systolic Function EF 4C: 35.90 >55% EF 2C: 35.80 >55% EF BiP: 35.50 >55% Mitral Valve MV Pk E: 0.76 MV PK A: 1.14 MV Decel Time: 279.00 E/A: 0.70 E'Lateral: 4.79 E'Medial: 3.15 E/E' Med: 24.10 E/E' Lat: 15.80 PHT: 82.00 MVA PHT: 2.68 Decel Sarpy: 2.72 Aortic Valve AoV Pk Cortes: 1.79 AoV Mn Cortes: 1.09 AoV VTI: 0.38 AoV Pk Grad: 13.00 Aov Mn Grad: 6.00 KYLE Cont.VTI: 2.41 LVOT LVOT Pk Cortes: 1.24 LVOT Mn Cortes: 0.81 LVOT VTI: 0.26 LVOT Pk Grad: 6.00 LVOT Mn Grad: 3.00 LVOT Diam: 2.10 LVOT Area: 3.46 Diastolic Function MV Pk E: 0.76 MV Pk A: 1.14 E/A: 0.70 E'Medial: 3.15 E/E' Med: 24.10 E' Laterial: 4.79 E/E' Lat: 15.80 Tricuspid Valve TR Pk Cortes: 2.16 TR Pk Grad: 19.00 RA Press: 3.00 RVSP: 22.00 Great Vessels Aorta Ao Root-2D: 3.00 2.0-3.7 cm Ao Asc: 3.40 2.1-3.4 cm Pulmonary Valve PV Pk Cortes: 1.43 Peak PV Grad: 8.00 Updated in Other Vendor System with Status of Final Kofi Plata MD electronically signed on 06/26/2020 12:27:14 PM with status of Final
--- NOTE | 2020-06-26 13:37 | P.PNIM_ITS ---
Subjective Subjective Date of Service: 06/26/20 Interval History: Patient seen and examined at bedside patient was feeling short of breath placed on BiPAP for few hours per Cardiology patient reporting improvement in shortness of breath Review of Systems Constitutional : No Fever, No Chills ENT/Mouth : No sore throat, No Rhinorrhea Eyes: No Eye Pain, No Swelling Cardiovascular : No Chest Pain, no palpitations Respiratory : ++Cough, No Sputum, +++shortness of breath Gastrointestinal : no Nausea, No Vomiting, No Diarrhea, No abdominal Pain, no black stools Genitourinary : No Dysuria, No Urinary Frequency Musculoskeletal : No joint pain, No Myalgias, No Joint Swelling Skin : No Skin Lesions, No rash Neuro : No Weakness, No Numbness, No Dizziness, No Headache Psych : No Anxiety/Panic, No Depression Heme/Lymph: No Bruising, No Lymphadenopathy Endocrine : No Polyuria, No Polydipsia All other systems reviewed and are negative Physical Exam Vital Signs: Vital Signs: Last Vital Signs Temp 97.8 F 06/25/20 21:48 Pulse 73 06/26/20 09:26 Resp 24 H 06/26/20 10:51 BP 135/70 06/26/20 11:42 Pulse Ox 96 06/26/20 09:26 Body Mass Index 28.0 Const: General: well developed, in distress and ill appearing Nutritional Appearance: average body habitus Orientation/consciousness: patient oriented x3 HENMT: Head: Yes normocephalic and Yes atraumatic Ears: hearing grossly normal bilaterally Mouth: Normal oral and palatal mucosa present Eyes: General: appearance normal, both eyes and all related structures Conjunctivae: conjunctivae normal Sclerae: sclerae normal Pupils: Equal, round and reactive pupils present Neck: Neck: Yes normal visual inspection and Yes no JVD Thyroid: Thyroid normal Carotids: normal carotid upstroke Chest: Chest palpation & inspection: normal inspection of the chest Resp: Effort & Inspection: labored Auscultation: crackles bilateral, rales bilateral, no rhonchi, no wheezes and diminished lung sounds Cardio: Jugular venous distension: no JVD Rate: regular rate Rhythm: regular rhythm Heart sounds: S1 normal heart sound present and S2 normal heart sound present Peripheral pulses: Peripheral pulses 2+ throughout GI: Inspection: Yes normal to inspection Palpation (GI): Soft to palpation, nontender and no guarding Auscultation: normal bowel sounds : General: Yes no CVA tenderness Back/Spine/Pelvis: Back: no CVA tenderness Thoracic/Lumbar Spine: thoracic and lumbar spine normal to inspection Skin: General skin exam: no rashes or lesions noted Neuro: General: patient oriented x3 and no focal motor deficits Cranial nerves: Yes Equal, round and reactive pupils present Extrem: General: Yes normal to inspection, Yes no calf tenderness and No pedal edema Objective Data Current Medications Generic Name Dose Route Start Last Admin Trade Name Freq PRN Reason Stop Dose Admin Acetaminophen 650 mg 06/26/20 00:18 Acetaminophen 325 Mg Tablet PO Q6H PRN Pain, Mild (Pain Scale 1-3) Albuterol Sulfate 2 puff 06/26/20 06:26 Albuterol Sulfate 90 Mcg 8 Gm Inhaler INHALE Q6H PRN bronchospasm Amlodipine Besylate 2.5 mg 06/26/20 09:00 06/26/20 09:22 Amlodipine Besylate 2.5 Mg Tablet PO 2.5 mg DAILY [facility] Administration Protocol Aspirin 81 mg 06/26/20 09:00 06/26/20 09:22 Aspirin Enteric Coated 81 Mg Tablet.Dr PO 81 mg DAILY [facility] Administration Atorvastatin Calcium 20 mg 06/26/20 09:00 06/26/20 11:42 Atorvastatin Calcium 20 Mg Tablet PO 20 mg DAILY [facility] Administration Benzonatate 100 mg 06/26/20 06:26 Benzonatate 100 Mg Capsule PO TID PRN cough Clonidine 0.2 mg 06/26/20 10:52 06/26/20 11:42 Clonidine 0.2 Mg Patch.Tdwk TRANSDERMA 0.2 mg Sa@0900 [facility] Administration Protocol Donepezil HCl 10 mg 06/26/20 09:00 06/26/20 11:37 Donepezil Hcl 10 Mg Tablet PO 10 mg DAILY [facility] Administration Furosemide 20 mg 06/26/20 09:00 06/26/20 09:19 Furosemide 20 Mg/2 Ml Vial IVPUSH 20 mg DAILY [facility] Administration Protocol Heparin Sodium (Porcine) 5,000 unit 06/26/20 00:30 06/26/20 11:07 Heparin Sodium,Porcine 5,000 Unit/Ml Vial SUBCUT 5,000 unit Q8H [facility] Administration Hydralazine HCl 50 mg 06/26/20 09:00 06/26/20 09:21 Hydralazine Hcl 50 Mg Tablet PO 50 mg BID [facility] Administration Protocol Levothyroxine Sodium 25 mcg 06/26/20 06:53 06/26/20 09:22 Levothyroxine Sodium 25 Mcg Tablet PO 25 mcg DAILY@0600 [facility] Administration Loratadine 10 mg 06/26/20 09:00 06/26/20 09:21 Loratadine 10 Mg Tablet PO 10 mg DAILY [facility] Administration Losartan Potassium 100 mg 06/26/20 09:00 06/26/20 09:23 Losartan Potassium 50 Mg Tablet PO 100 mg DAILY [facility] 234 BEDS AT THE [facility] Administration Protocol Non-Formulary Medication 28 mg 06/26/20 09:00 Memantine PO DAILY COUNTS INCLUDE 234 BEDS AT THE [facility] Non-Formulary Medication 2 spray 06/26/20 09:00 Mometasone [Nasonex] NOSTRIL-B DAILY COUNTS INCLUDE 234 BEDS AT THE [facility] Non-Formulary Medication 20 mg 06/26/20 06:30 Zafirlukast PO Q12H COUNTS INCLUDE 234 BEDS AT THE [facility] Senna 17.2 mg 06/26/20 00:18 Sennosides 8.6 Mg Tablet PO BEDTIME PRN Constipation Sertraline HCl 100 mg 06/26/20 09:00 06/26/20 09:22 Sertraline Hcl 100 Mg Tablet PO 100 mg DAILY [facility] Administration Sodium Chloride 3 ml 06/26/20 08:00 06/26/20 09:20 0.9 % Sodium Chloride Flush 3 Ml Syringe IVFLUSH 3 ml QSHIFT COUNTS INCLUDE 234 BEDS AT THE [facility] Administration Labs CBC & Chem 7: 06/26/20 06:53 06/26/20 06:53 Assessment and Plan (1) CHF (congestive heart failure): Status: Acute Assessment and Plan: 80-year-old female with a past medical history of hypertension, hyperlipidemia, hypothyroidism, dementia, asthma presented to the hospital with a chief complaint of shortness of breath. Noted to be in mild CHF. Admitted to the hospital for further management. New onset systolic heart failure likely secondary to NSTEMI continue IV Lasix echocardiogram done shows EF 30-35% and regional wall motion abnormality monitor I's and O's monitor daily weights. cardiology consulted recommended continue IV diuresis Elevated troponin with regional wall motion abnormality likely NSTEMI initial troponin on admission was normal, second troponin 254 trend troponin monitor on telemetry will start heparin drip per Cardiology monitor PTT monitor CBC closely given anemia echocardiogram done shows EF 30-35% and regional wall motion abnormality Acute hypoxic respiratory failure Likely in setting of CHF. COVID-19 negative. CTA chest shows no PE but bilateral pleural effusion patient was placed on BiPAP for few hours with improvement in shortness of breath Hypertensive urgency blood pressure improved given nitropaste in the ER continue clonidine losartan and hydralazine History of asthma: continue Duo nebs p.r.n.. Anemia hemoglobin on admission 8.6 hemoglobin from November 23 was 10.7 denies any dark stool or active bleeding Will check stool for occult blood gastroenterology consult will transfuse 1 unit of PRBCs Pneumonia: Continue antibiotics. supportive management History of hypothyroidism: Continue levothyroxine History of dementia: Continue home medications DVT prophylaxis: heparin Full code
[2020-06-26 14:18] LABS: Troponin-I High Sensitivity 254.3 ng/L (<3.5-17.0)
[2020-06-26 15:04] LABS: Pt Ventilation O2% 3 L
[2020-06-26 15:07] LABS: ABG PCO2 29 mmHg (32-45); Base Excess ABG 0.8; HCO3 ABG 23 mmol/L (22-26); PO2 ABG 88 mmHg (83-108)
[2020-06-26 15:13] LABS: Hematocrit 27.8 % (37-47); Hemoglobin 8.8 g/dl (12.0-16.0); Mean Corpuscular HGB Conc 31.7 g/dl (31.0-35.0); Mean Corpuscular Hemoglobin 27.8 pg (27.0-33.0); Mean Corpuscular Volume 87.7 fL (80-98); Mean Platelet Volume 9.1 fL (9.4-12.3); Platelet Count 205 X10*3/uL (160-400); Red Blood Count 3.17 X10*6/uL (4.20-5.50); Red Cell Distribution Width 14.3 % (11.0-16.0)
[2020-06-26] MEDS: Furosemide 40 MG/4 ML VIAL IVPUSH (15:13)
[2020-06-26 15:20] LABS: INTERNATIONAL NORM RATIO 1.2 (0.9-1.1); Prothrombin Time 13.8 SEC (10.8-13.0)
[2020-06-26 15:23] LABS: PTT Heparin Drip 38.1 SEC (53-77.9)
[2020-06-26] MEDS: Heparin Sodium,Porcine/1/2NS 25,000 UNIT/250 ML IV.SOLN 11.02 UNIT IVCONT (15:28)
--- NOTE | 2020-06-26 16:15 | PC.NURSE ---
x1 attempt to give report- awaiting callback
[2020-06-26 17:21] LABS: OBS Int Ctl Valid YES; OBS1 NEG (NEG)
[2020-06-26] MEDS: Nitroglycerin 2 % Oint 1 GM Packet 1 INCH TRANSDERMA (20:20)
[2020-06-26 21:04] LABS: Troponin-I High Sensitivity 174.4 ng/L (<3.5-17.0)
[2020-06-26 21:57] LABS: PTT Heparin Drip 99.4 SEC (53-77.9)
[2020-06-27] VITALS (13 sets, daily range): BP systolic 134–182; BP diastolic 54–78; PULSE 62–81; RESP 16–18; TEMP 36.2–37.2; O2SAT 95–97
--- NOTE | 2020-06-27 04:21 | PC.NURSE ---
0320 pt had an episode of 8 beat v-tach. notified.continue to monitor.
[2020-06-27 05:01] LABS: Hematocrit 30.8 % (37-47); Hemoglobin 10.2 g/dl (12.0-16.0); Mean Corpuscular HGB Conc 33.1 g/dl (31.0-35.0); Mean Corpuscular Hemoglobin 28.6 pg (27.0-33.0); Mean Corpuscular Volume 86.3 fL (80-98); Mean Platelet Volume 9.6 fL (9.4-12.3); Platelet Count 209 X10*3/uL (160-400); Red Blood Count 3.57 X10*6/uL (4.20-5.50); Red Cell Distribution Width 13.8 % (11.0-16.0)
[2020-06-27 05:10] LABS: INTERNATIONAL NORM RATIO 1.2 (0.9-1.1); Prothrombin Time 14.4 SEC (10.8-13.0)
[2020-06-27 05:13] LABS: PTT Heparin Drip 74.9 SEC (53-77.9)
[2020-06-27 05:32] LABS: Troponin-I High Sensitivity 125.4 ng/L (<3.5-17.0)
--- NOTE | 2020-06-27 05:37 | PC.NURSE ---
0500 PTT-HD 74.9 NO CHANGE MADE.PTT-HD ORDERED FOR 11 AM.
[2020-06-27] MEDS: Levothyroxine Sodium 25 MCG TABLET PO (05:41)
[2020-06-27 05:54] LABS: Anion Gap 17 (12-20); Blood Urea Nitrogen 15 mg/dL (9-16); Calcium 8.3 mg/dL (8.4-10.2); Carbon Dioxide 24 mmol/L (22-29); Chloride 102 mmol/L (96-108); Creatinine Clr Calc Pharmacy 52.4; Estimated Glomerular Filt Rate > 60; Glucose Random 95 mg/dL (60-115); Iron 39 mcg/dL (30-160); Magnesium 1.5 mg/dL (1.6-2.6); Percent Iron Saturation 16 % (15-50); Potassium 2.9 mmol/L (3.3-5.1); Sodium 140 mmol/L (135-145); Total Iron Binding Capacity 251 mcg/dL (228-428); Unsaturated Iron Binding 212 ug/dL
--- NOTE | 2020-06-27 06:01 | PC.NURSE ---
0600 PT HAD A 6 BEAT V-TACH. NOTIFIED.PT HAS A CARDIOLOGY CONSULT ALREADY.TO LET AM DOCTOR AWARE.
[2020-06-27 06:16] LABS: Thyroid Stimulating Hormone 4.69 uIU/mL (0.32-4.0)
--- NOTE | 2020-06-27 07:53 | PM.GICN ---
History of Present Illness Data of Consult Service Date: 06/27/20 Requesting physician: Brandan Tavares Primary Care Provider: Unknown Physician HPI Reason for consult: anemia 80-year-old female with a past medical history of hypertension, hyperlipidemia, hypothyroidism, dementia, asthma who I am seeing for assessment for acute on chronic anemia. Initially presented with hx of 3-4 d of worsening SOB, noted to be hypoxic and imaging and clinical picture thought to be consistent with CHF exacerbation. Placed on BIPAP and diuretics given, BP controlled as was v elevated on admission. Trop also elevated and EF noted to be around 35% on echo. As part of w/u HGB also noted to be low t round 8 g/dl, baseline about 10 g/dl. She denies rectal bleeding, melena, vaginal bleeding, epistaxis or hematuria but does admit to poor appetite and nausea for 1 month, etiology not known. Denies abdominal pain, dysphagia or reflux. Breathing is improved currently but still needed 3 L of nasal O2. Review of Systems Review of Systems: Shortness of breath Yes all other systems are reviewed and are negative Cardiovascular: Cardiovascular: Reports no additional cardiovascular complaints, Denies chest pain at rest and Denies chest pain with activity [facility] Past Medical History Medical History COPD (chronic obstructive pulmonary disease) Cough CVA (cerebral vascular accident) Family History Family History Father No problems noted. Mother No problems noted. Brother No problems noted. Brother No problems noted. Sister No problems noted. Son No problems noted. Daughter No problems noted. Daughter No problems noted. Daughter No problems noted. Daughter No problems noted. Surgical History Surgical History History of hysterectomy Social History Social History Household Members: Spouse Housing: Condominium Alcohol intake: never Smoking Status: Never smoker service: No Current occupational status: retired Meds Allergies Allergy/AdvReac Type Severity Reaction Status Date / Time latex [LATEX] Allergy Unknown RASH, ITCHY Verified 06/26/20 01:55 Active Medications: Current Medications Generic Name Dose Route Start Last Admin Trade Name Freq PRN Reason Stop Dose Admin Acetaminophen 650 mg 06/26/20 00:18 Acetaminophen 325 Mg Tablet PO Q6H PRN Pain, Mild (Pain Scale 1-3) Albuterol Sulfate 2 puff 06/26/20 06:26 Albuterol Sulfate 90 Mcg 8 Gm Inhaler INHALE Q6H PRN bronchospasm Amlodipine Besylate 2.5 mg 06/26/20 09:00 06/26/20 09:22 Amlodipine Besylate 2.5 Mg Tablet PO 2.5 mg DAILY [facility] Administration Protocol Aspirin 81 mg 06/26/20 09:00 06/26/20 09:22 Aspirin Enteric Coated 81 Mg Tablet.Dr PO 81 mg DAILY [facility] Administration Atorvastatin Calcium 20 mg 06/26/20 09:00 06/26/20 11:42 Atorvastatin Calcium 20 Mg Tablet PO 20 mg DAILY [facility] Administration Benzonatate 100 mg 06/26/20 06:26 Benzonatate 100 Mg Capsule PO TID PRN cough Clonidine 0.2 mg 06/26/20 10:52 06/26/20 11:42 Clonidine 0.2 Mg Patch.Tdwk TRANSDERMA 0.2 mg Sa@0900 [facility] Administration Protocol Donepezil HCl 10 mg 06/26/20 09:00 06/26/20 11:37 Donepezil Hcl 10 Mg Tablet PO 10 mg DAILY [facility] Administration Doxycycline Hyclate 100 mg 06/26/20 15:00 06/27/20 02:44 Doxycycline Hyclate 100 Mg Tablet PO 100 mg Q12H [facility] Administration Furosemide 20 mg 06/26/20 18:00 06/26/20 20:17 Furosemide 20 Mg/2 Ml Vial IVPUSH 20 mg BID@0900,1800 [facility] Administration Protocol Hydralazine HCl 50 mg 06/26/20 15:00 06/26/20 21:42 Hydralazine Hcl 50 Mg Tablet PO 50 mg TID [facility] Administration Protocol Heparin Sodium/Sodium Chloride 25,000 unit in 250 mls @ 0 mls/hr 06/26/20 14:30 06/27/20 05:00 IVCONT 11 units/kg/hr .Q0M [facility] 8.66 mls/hr Titration Protocol Per Protocol Levothyroxine Sodium 25 mcg 06/26/20 06:53 06/27/20 05:41 Levothyroxine Sodium 25 Mcg Tablet PO 25 mcg DAILY@0600 [facility] Administration Loratadine 10 mg 06/26/20 09:00 06/26/20 09:21 Loratadine 10 Mg Tablet PO 10 mg DAILY [facility] Administration Losartan Potassium 100 mg 06/26/20 09:00 06/26/20 09:23 Losartan Potassium 50 Mg Tablet PO 100 mg DAILY [facility] Administration Protocol Nitroglycerin 1 inch 06/26/20 20:00 06/26/20 20:20 Nitroglycerin 2 % Oint 1 Gm Packet TRANSDERMA 1 inch RQ6H WHILE AWAKE [facility] Administration Non-Formulary Medication 28 mg 06/26/20 09:00 Memantine PO DAILY [facility] Non-Formulary Medication 2 spray 06/26/20 09:00 Mometasone [Nasonex] NOSTRIL-B DAILY [facility] Non-Formulary Medication 20 mg 06/26/20 06:30 Zafirlukast PO Q12H [facility] Senna 17.2 mg 06/26/20 00:18 Sennosides 8.6 Mg Tablet PO BEDTIME PRN Constipation Sertraline HCl 100 mg 06/26/20 09:00 06/26/20 09:22 Sertraline Hcl 100 Mg Tablet PO 100 mg DAILY [facility] Administration Sodium Chloride 3 ml 06/26/20 08:00 06/26/20 20:24 0.9 % Sodium Chloride Flush 3 Ml Syringe IVFLUSH 3 ml QSHIFT [facility] Administration Home Medications Medication Instructions Recorded Confirmed Last Taken Type sertraline 100 mg tablet 100 mg PO DAILY 02/16/20 06/26/20 06/25/20 History meloxicam 15 mg tablet 15 mg PO DAILY 02/17/20 06/26/20 06/25/20 History flu vacc 2020-21(64yr 0.5 ml IM DIRECTED 04/27/20 06/26/20 Unknown History up)-MF59C(PF) 60 mcg(15 mcgx4)/0.5 mL IM syringe betamethasone dipropionate 1 appl TOPICAL 06/26/20 06/25/20 History fluticasone propion-salmeterol 1 inh INHALATION BID 06/26/20 06/26/20 06/25/20 History [Wixela Inhub] Physical Exam Vital Signs: Vital Signs: Last Vital Signs Temp 97.9 F 06/27/20 03:23 Pulse 62 06/27/20 03:23 Resp 18 02/21/21 03:23 BP 166/78 H 06/27/20 03:23 Pulse Ox 95 06/27/20 03:23 Body Mass Index 28.0 Const: General: well developed, in distress and ill appearing Nutritional Appearance: average body habitus Orientation/consciousness: patient oriented x3 HENMT: Head: Yes normocephalic and Yes atraumatic Ears: hearing grossly normal bilaterally Mouth: Normal oral and palatal mucosa present Eyes: General: appearance normal, both eyes and all related structures Conjunctivae: conjunctivae normal Sclerae: sclerae normal Pupils: Equal, round and reactive pupils present Neck: Neck: Yes normal visual inspection and Yes no JVD Thyroid: Thyroid normal Carotids: normal carotid upstroke Chest: Chest palpation & inspection: normal inspection of the chest Resp: Effort & Inspection: able to speak in complete sentences and no nasal flaring Auscultation: crackles bilateral, rales bilateral, no rhonchi, no wheezes and diminished lung sounds Percussion: dullness Lower: right Cardio: Jugular venous distension: no JVD Rate: regular rate Rhythm: regular rhythm Heart sounds: S1 normal heart sound present and S2 normal heart sound present Peripheral pulses: Peripheral pulses 2+ throughout GI: Inspection: Yes normal to inspection Palpation (GI): Soft to palpation, nontender and no guarding Auscultation: normal bowel sounds : General: Yes no CVA tenderness Back/Spine/Pelvis: Back: no CVA tenderness Thoracic/Lumbar Spine: thoracic and lumbar spine normal to inspection Skin: General skin exam: no rashes or lesions noted Neuro: General: patient oriented x3 and no focal motor deficits Cranial nerves: Yes Equal, round and reactive pupils present Extrem: General: Yes normal to inspection, Yes no calf tenderness and No pedal edema Results Labs CBC & Chem 7: 06/27/20 04:50 06/27/20 04:50 Labs: Short CBC 06/26/20 06/26/20 06/27/20 Range/Units 06:53 15:05 04:50 WBC 5.9 7.0 8.0 (4.8-10.8) X10*3/uL Hgb 8.2 L 8.8 L 10.2 L (12.0-16.0) g/dl Hct 25.4 L 27.8 L 30.8 L (37-47) % Plt Count 194 205 209 (160-400) X10*3/uL BMP 06/27/20 04:50 Sodium 140 Potassium 2.9 L Chloride 102 Carbon Dioxide 24 BUN 15 Creatinine 0.89 Calcium 8.3 L Microbiology Microbiology Results: Microbiology 06/25/20 20:54 Blood - Venous Blood Culture - Preliminary No growth after 24 hours. 06/25/20 20:53 Blood - Venous Blood Culture - Preliminary No growth after 24 hours. Assessment and Plan (1) Acute on chronic anemia: Status: Acute 1/ Acute on chronic occult Gi blood loss anemia, no overt signs of blood loss. Anemia may have exacerbated her cardiac issues. She is improving with diuresis but still needs O2 PLAN: 1/ recommend further diuresis and weaning O2 as appropriate, once weaned then can plan for egd, colonoscopy, possibly Wed. 2/ meantime can use PPI -pantoprazole 40 mg bid 3/ if really needs anticoagulation for cardiac purposes then continue with close observation fo vitals and HGB 4/ check LDH, haptoglobin, retics and peripheral smear, b12, folic, ferritin
[2020-06-27] MEDS: Donepezil HCl 10 MG TABLET PO (09:08)
[2020-06-27] MEDS: Losartan Potassium 50 MG TABLET 100 MG PO (09:08)
[2020-06-27] MEDS: Atorvastatin Calcium 20 MG TABLET PO (09:08)
[2020-06-27] MEDS: hydrALAZINE HCl 50 MG TABLET PO ×3 (09:08→20:27)
[2020-06-27] MEDS: Aspirin Enteric Coated 81 MG TABLET.DR PO (09:08)
[2020-06-27] MEDS: Sertraline HCL 100 MG TABLET PO (09:08)
[2020-06-27] MEDS: Loratadine 10 MG TABLET PO (09:08)
[2020-06-27] MEDS: amLODIPine Besylate 2.5 MG TABLET PO ×2 (09:09→12:17)
[2020-06-27] MEDS: Furosemide 20 MG/2 ML VIAL IVPUSH (09:09)
[2020-06-27] MEDS: Nitroglycerin 2 % Oint 1 GM Packet 1 INCH TRANSDERMA ×3 (09:09→20:23)
[2020-06-27] MEDS: Potassium Chloride ER 20 MEQ TAB.ER.PRT 40 MEQ PO (09:09)
[2020-06-27] MEDS: 0.9 % Sodium Chloride Flush 3 ML SYRINGE IVFLUSH ×3 (09:09→20:27)
--- NOTE | 2020-06-27 10:51 | P.PNIM_ITS ---
Subjective Subjective Date of Service: 06/27/20 Interval History: Patient seen and examined at bedside. patient was reporting some improvement in shortness of breath Review of Systems Constitutional : No Fever, No Chills ENT/Mouth : No sore throat, No Rhinorrhea Eyes: No Eye Pain, No Swelling Cardiovascular : No Chest Pain, no palpitations Respiratory : ++Cough, No Sputum, +++shortness of breath Gastrointestinal : no Nausea, No Vomiting, No Diarrhea, No abdominal Pain, no black stools Genitourinary : No Dysuria, No Urinary Frequency Musculoskeletal : No joint pain, No Myalgias, No Joint Swelling Skin : No Skin Lesions, No rash Neuro : No Weakness, No Numbness, No Dizziness, No Headache Psych : No Anxiety/Panic, No Depression Heme/Lymph: No Bruising, No Lymphadenopathy Endocrine : No Polyuria, No Polydipsia All other systems reviewed and are negative Physical Exam Vital Signs: Vital Signs: Last Vital Signs Temp 98.1 F 06/27/20 09:01 Pulse 63 06/27/20 09:09 Resp 18 06/27/20 09:01 BP 165/72 H 06/27/20 09:09 Pulse Ox 95 06/27/20 09:01 Body Mass Index 28.0 Const: General: well developed, in distress and ill appearing Nutritional Appearance: average body habitus Orientation/consciousness: patient oriented x3 HENMT: Head: Yes normocephalic and Yes atraumatic Ears: hearing grossly normal bilaterally Mouth: Normal oral and palatal mucosa present Eyes: General: appearance normal, both eyes and all related structures Conjunctivae: conjunctivae normal Sclerae: sclerae normal Pupils: Equal, round and reactive pupils present Neck: Neck: Yes normal visual inspection and Yes no JVD Thyroid: Thyroid normal Carotids: normal carotid upstroke Chest: Chest palpation & inspection: normal inspection of the chest Resp: Effort & Inspection: labored Auscultation: crackles bilateral, rales bilateral, no rhonchi, no wheezes and diminished lung sounds Cardio: Jugular venous distension: no JVD Rate: regular rate Rhythm: regular rhythm Heart sounds: S1 normal heart sound present and S2 normal heart sound present Peripheral pulses: Peripheral pulses 2+ throughout GI: Inspection: Yes normal to inspection Palpation (GI): Soft to palpation, nontender and no guarding Auscultation: normal bowel sounds : General: Yes no CVA tenderness Back/Spine/Pelvis: Back: no CVA tenderness Thoracic/Lumbar Spine: thoracic and lumbar spine normal to inspection Skin: General skin exam: no rashes or lesions noted Neuro: General: patient oriented x3 and no focal motor deficits Cranial nerves: Yes Equal, round and reactive pupils present Extrem: General: Yes normal to inspection, Yes no calf tenderness and No pedal edema Objective Data Current Medications Generic Name Dose Route Start Last Admin Trade Name Freq PRN Reason Stop Dose Admin Acetaminophen 650 mg 06/26/20 00:18 Acetaminophen 325 Mg Tablet PO Q6H PRN Pain, Mild (Pain Scale 1-3) Albuterol Sulfate 2 puff 06/26/20 06:26 Albuterol Sulfate 90 Mcg 8 Gm Inhaler INHALE Q6H PRN bronchospasm Amlodipine Besylate 5 mg 06/27/20 10:00 Amlodipine Besylate 5 Mg Tablet PO DAILY [facility] Protocol Aspirin 81 mg 06/26/20 09:00 06/27/20 09:08 Aspirin Enteric Coated 81 Mg Tablet. PO 81 mg DAILY [facility] Administration Atorvastatin Calcium 20 mg 06/26/20 09:00 06/27/20 09:08 Atorvastatin Calcium 20 Mg Tablet PO 20 mg DAILY [facility] Administration Benzonatate 100 mg 06/26/20 06:26 Benzonatate 100 Mg Capsule PO TID PRN cough Clonidine 0.2 mg 06/26/20 10:52 06/26/20 11:42 Clonidine 0.2 Mg Patch.Tdwk TRANSDERMA 0.2 mg Sa@0900 [facility] Administration Protocol Donepezil HCl 10 mg 06/26/20 09:00 06/27/20 09:08 Donepezil Hcl 10 Mg Tablet PO 10 mg DAILY [facility] Administration Doxycycline Hyclate 100 mg 06/26/20 15:00 06/27/20 02:44 Doxycycline Hyclate 100 Mg Tablet PO 100 mg Q12H [facility] Administration Furosemide 20 mg 06/26/20 18:00 06/27/20 09:09 Furosemide 20 Mg/2 Ml Vial IVPUSH 20 mg BID@0900,1800 [facility] Administration Protocol Hydralazine HCl 50 mg 06/26/20 15:00 06/27/20 09:08 Hydralazine Hcl 50 Mg Tablet PO 50 mg TID [facility] Administration Protocol Heparin Sodium/Sodium Chloride 25,000 unit in 250 mls @ 0 mls/hr 06/26/20 14:30 06/27/20 05:00 IVCONT 11 units/kg/hr .Q0M [facility] 8.66 mls/hr Titration Protocol Per Protocol Levothyroxine Sodium 25 mcg 06/26/20 06:53 06/27/20 05:41 Levothyroxine Sodium 25 Mcg Tablet PO 25 mcg DAILY@0600 [facility] Administration Loratadine 10 mg 06/26/20 09:00 06/27/20 09:08 Loratadine 10 Mg Tablet PO 10 mg DAILY [facility] Administration Losartan Potassium 100 mg 06/26/20 09:00 06/27/20 09:08 Losartan Potassium 50 Mg Tablet PO 100 mg DAILY [facility] Administration Protocol Nitroglycerin 1 inch 06/26/20 20:00 06/27/20 09:09 Nitroglycerin 2 % Oint 1 Gm Packet TRANSDERMA 1 inch RQ6H WHILE AWAKE [facility] Administration Non-Formulary Medication 28 mg 06/26/20 09:00 Memantine PO DAILY [facility] Non-Formulary Medication 2 spray 06/26/20 09:00 Mometasone [Nasonex] NOSTRIL-B DAILY [facility] Non-Formulary Medication 20 mg 06/26/20 06:30 Zafirlukast PO Q12H [facility] Senna 17.2 mg 06/26/20 00:18 Sennosides 8.6 Mg Tablet PO BEDTIME PRN Constipation Sertraline HCl 100 mg 06/26/20 09:00 06/27/20 09:08 Sertraline Hcl 100 Mg Tablet PO 100 mg DAILY [facility] Administration Sodium Chloride 3 ml 06/26/20 08:00 06/27/20 09:09 0.9 % Sodium Chloride Flush 3 Ml Syringe IVFLUSH 3 ml QSHIFT [facility] Administration Labs CBC & Chem 7: 06/27/20 04:50 06/27/20 04:50 Microbiology Microbiology Results: Microbiology 06/25/20 20:54 Blood - Venous Blood Culture - Preliminary No growth after 24 hours. 06/25/20 20:53 Blood - Venous Blood Culture - Preliminary No growth after 24 hours. Assessment and Plan (1) CHF (congestive heart failure): Status: Acute Assessment and Plan: 80-year-old female with a past medical history of hypertension, hyperlipidemia, hypothyroidism, dementia, asthma presented to the hospital with a chief complaint of shortness of breath. Noted to be in mild CHF. Admitted to the hospital for further management. New onset systolic heart failure likely secondary to NSTEMI shortness of breath with some improvement continue IV Lasix echocardiogram done shows EF 30-35% and regional wall motion abnormality monitor I's and O's monitor daily weights. cardiology consulted recommended continue IV diuresis Elevated troponin with regional wall motion abnormality likely NSTEMI initial troponin on admission was normal, second troponin 254 trending down trend troponin monitor on telemetry continue heparin drip monitor PTT monitor CBC closely given anemia echocardiogram done shows EF 30-35% and regional wall motion abnormality hypokalemia replaced monitor potassium Acute hypoxic respiratory failure Likely in setting of CHF. COVID-19 negative. CTA chest shows no PE but bilateral pleural effusion patient was placed on BiPAP for few hours with improvement in shortness of breath Hypertensive urgency improving blood pressure improved continue clonidine losartan and hydralazine History of asthma: continue Duo nebs p.r.n.. Anemia hemoglobin on admission 8.6 received 1 unit of PRBCs given CHF hemoglobin improved to 10 denies any dark stool or active bleeding stool for occult blood pending gastroenterology consult Pneumonia: Continue antibiotics. supportive management History of hypothyroidism: Continue levothyroxine History of dementia: Continue home medications DVT prophylaxis: heparin Full code
[2020-06-27 11:26] LABS: PTT Heparin Drip 68.3 SEC (53-77.9)
--- NOTE | 2020-06-27 13:16 | P.PNCA_ITS ---
Subjective Subjective Date of Service: 06/27/20 Principal diagnosis: CHF, elevated BP, cardiomyopathy Interval history: She is saying she is feeling better today. She was given 1 unit of packed red blood cells last night. No chest pain. Blood pressure is improving. No orthopnea. Review of Systems Review of Systems No active symptoms right now. Yes all other systems are reviewed and are negative Physical Exam Vital Signs: Last Vital Signs Temp 98.9 F 06/27/20 11:59 Pulse 81 06/27/20 12:17 Resp 18 06/27/20 11:59 BP 135/54 L 06/27/20 12:17 Pulse Ox 95 06/27/20 11:59 Body Mass Index 28.0 GENERAL APPEARANCE: in no acute distress. HEENT: unremarkable. HEAD: normocephalic, atraumatic. NECK/THYROID: no carotid bruit, no jugular venous distention. Positive hepatojugular reflux. SKIN: no suspicious lesions, warm and dry. HEART: no murmurs, regular rate and rhythm, S1, S2 normal. LUNGS: Few crackles at bases. ABDOMEN: normal, bowel sounds present, soft, nontender, nondistended. EXTREMITIES: no clubbing, cyanosis, or edema. PERIPHERAL PULSES: equal. NEUROLOGIC: nonfocal, alert and oriented. PSYCH: mood/affect full range. Results Labs and Meds Result diagrams: 06/27/20 04:50 06/27/20 04:50 Lab results: Laboratory Results - last 24 hr 06/26/20 06/26/20 06/26/20 13:45 14:53 15:05 WBC 7.0 RBC 3.17 L Hgb 8.8 L Hct 27.8 L MCV 87.7 MCH 27.8 MCHC 31.7 RDW 14.3 Plt Count 205 MPV 9.1 L Absolute Nucleated RBC 0.000 Nucleated RBC % (auto) 0.0 PT INR PTT (Heparin Protocol) ABG pH 7.50 H ABG pCO2 29 L ABG pO2 88 ABG HCO3 23 ABG O2 Saturation 98.0 ABG Base Excess 0.8 Oxygen Given 3 L Sodium Potassium Chloride Carbon Dioxide Anion Gap BUN Creatinine Estim Creat Clear Calc Estimated GFR Random Glucose Calcium Magnesium Iron TIBC % Saturation Unsat Iron Binding Troponin I High Sens 254.3 H D TSH Stool Occult Blood Blood Type Antibody Screen Crossmatch 02/06/26/20 06/26/20 15:05 15:36 17:14 WBC RBC Hgb Hct MCV MCH MCHC RDW Plt Count MPV Absolute Nucleated RBC Nucleated RBC % (auto) PT 13.8 H INR 1.2 H PTT (Heparin Protocol) 38.1 L ABG pH ABG pCO2 ABG pO2 ABG HCO3 ABG O2 Saturation ABG Base Excess Oxygen Given Sodium Potassium Chloride Carbon Dioxide Anion Gap BUN Creatinine Estim Creat Clear Calc Estimated GFR Random Glucose Calcium Magnesium Iron TIBC % Saturation Unsat Iron Binding Troponin I High Sens TSH Stool Occult Blood NEG Blood Type A Positive Antibody Screen NEGATIVE Crossmatch See Detail 06/26/20 06/26/20 06/27/20 19:55 21:30 04:50 WBC RBC Hgb Hct MCV MCH MCHC RDW Plt Count MPV Absolute Nucleated RBC Nucleated RBC % (auto) PT INR PTT (Heparin Protocol) 99.4 H D ABG pH ABG pCO2 ABG pO2 ABG HCO3 ABG O2 Saturation ABG Base Excess Oxygen Given Sodium 140 Potassium 2.9 L Chloride 102 Carbon Dioxide 24 Anion Gap 17 BUN 15 Creatinine 0.89 Estim Creat Clear Calc 52.4 Estimated GFR > 60 Random Glucose 95 Calcium 8.3 L Magnesium 1.5 L Iron 39 TIBC 251 % Saturation 16 Unsat Iron Binding 212 Troponin I High Sens 174.4 H TSH 4.69 H Stool Occult Blood Blood Type Antibody Screen Crossmatch 06/27/20 06/27/20 06/27/20 04:50 04:50 04:50 WBC 8.0 RBC 3.57 L Hgb 10.2 L Hct 30.8 L MCV 86.3 MCH 28.6 MCHC 33.1 RDW 13.8 Plt Count 209 MPV 9.6 Absolute Nucleated RBC 0.000 Nucleated RBC % (auto) 0.0 PT 14.4 H INR 1.2 H PTT (Heparin Protocol) 74.9 D ABG pH ABG pCO2 ABG pO2 ABG HCO3 ABG O2 Saturation ABG Base Excess Oxygen Given Sodium Potassium Chloride Carbon Dioxide Anion Gap BUN Creatinine Estim Creat Clear Calc Estimated GFR Random Glucose Calcium Magnesium Iron TIBC % Saturation Unsat Iron Binding Troponin I High Sens 125.4 H TSH Stool Occult Blood Blood Type Antibody Screen Crossmatch 06/27/20 11:03 WBC RBC Hgb Hct MCV MCH MCHC RDW Plt Count MPV Absolute Nucleated RBC Nucleated RBC % (auto) PT INR PTT (Heparin Protocol) 68.3 ABG pH ABG pCO2 ABG pO2 ABG HCO3 ABG O2 Saturation ABG Base Excess Oxygen Given Sodium Potassium Chloride Carbon Dioxide Anion Gap BUN Creatinine Estim Creat Clear Calc Estimated GFR Random Glucose Calcium Magnesium Iron TIBC % Saturation Unsat Iron Binding Troponin I High Sens TSH Stool Occult Blood Blood Type Antibody Screen Crossmatch Progress Note: A&P Assessment and plan (1) Systolic heart failure: Status: Acute (2) Hypertension: Status: Acute (3) LBBB (left bundle branch block): Status: Acute Assessment and Plan: 80-year-old female with background history of hypertension, CVA and left bundle- branch block who presented with 3 days history of progressive shortness of breath with elevated blood pressures and came to [facility] for congestive heart failure. Echocardiography has shown moderately reduced ejection fraction with wall motion abnormality in the LAD territory with differentials of coronary artery disease versus takotsubo cardiomyopathy. Her troponin level is slightly abnormal. She has known chronic left bundle-branch block. She was treated with CPAP initially and was given IV diuretics. Her blood pressure control is improving with adjustment of medications. She was also noticed to be anemic with last comparison hemoglobin from November 2019. No GI bleed reported by the patient. She was given 1 unit of blood. Due to concern for wall motion abnormality and uncertainty whether this is true plaque rupture versus takotsubo cardiomyopathy, she was started on heparin drip. She has been stable on heparin at this point. Her amlodipine was increased to 5 mg this morning. Her blood pressure is responding well to that. She does not seem volume overloaded. I do not think she needs further IV diuretics. I think the heart failure is purely related to elevated blood pressure and afterload. She is hypokalemic and hypomagnesemic and she should get repletion for potassium and magnesium. For her anemia she was seen by Gastroenterology who are recommending her to undergo EGD and colonoscopy. I had a detailed discussion with the patient and her granddaughter about further management plan. In my opinion, we have to understand whether she truly had takotsubo cardiomyopathy or it was a plaque rupture in the left anterior descending artery. I think we should pursue a diagnostic cardiac catheterization on her. She is clinically looking better and can lay flat and I think she can tolerate the procedure. If in fact she has coronary disease then I think we treat that and then pursue EGD/colonoscopy on her. There is no history of black stools or blood in her stools. She had also has been quite stable on heparin drip and is not actively bleeding right now. I am not sure how she will react to anesthesia with this presentation if she truly had plaque rupture in LAD. The patient wishes to discuss this with her family to come to a conclusion. I think her blood pressure is well controlled on the current regimen and we should not titrated further. I am changing her Lasix to p.o. 40 mg once a day. We will follow along with you. Thank you for allowing me to participate in the care of your patient. Please feel free to contact me if you have any questions. Fall Risk Details Current Medications: Current Medications Generic Name Dose Route Start Last Admin Trade Name Freq PRN Reason Stop Dose Admin Acetaminophen 650 mg 06/26/20 00:18 Acetaminophen 325 Mg Tablet PO Q6H PRN Pain, Mild (Pain Scale 1-3) Albuterol Sulfate 2 puff 06/26/20 06:26 Albuterol Sulfate 90 Mcg 8 Gm Inhaler INHALE Q6H PRN bronchospasm Amlodipine Besylate 5 mg 06/27/20 10:00 06/27/20 12:17 Amlodipine Besylate 5 Mg Tablet PO Not Given DAILY RORY Protocol Aspirin 81 mg 06/26/20 09:00 06/27/20 09:08 Aspirin Enteric Coated 81 Mg Tablet.Dr PO 81 mg DAILY RORY Administration Atorvastatin Calcium 20 mg 06/26/20 09:00 06/27/20 09:08 Atorvastatin Calcium 20 Mg Tablet PO 20 mg DAILY RORY Administration Benzonatate 100 mg 06/26/20 06:26 Benzonatate 100 Mg Capsule PO TID PRN cough Clonidine 0.2 mg 06/26/20 10:52 06/26/20 11:42 Clonidine 0.2 Mg Patch.Tdwk TRANSDERMA 0.2 mg Sa@0900 RORY Administration Protocol Donepezil HCl 10 mg 06/26/20 09:00 06/27/20 09:08 Donepezil Hcl 10 Mg Tablet PO 10 mg DAILY RORY Administration Doxycycline Hyclate 100 mg 06/26/20 15:00 06/27/20 02:44 Doxycycline Hyclate 100 Mg Tablet PO 100 mg Q12H RORY Administration Furosemide 20 mg 06/26/20 18:00 06/27/20 09:09 Furosemide 20 Mg/2 Ml Vial IVPUSH 20 mg BID@0900,1800 [facility] Administration Protocol Hydralazine HCl 50 mg 06/26/20 15:00 06/27/20 09:08 Hydralazine Hcl 50 Mg Tablet PO 50 mg TID RORY Administration Protocol Heparin Sodium/Sodium Chloride 25,000 unit in 250 mls @ 0 mls/hr 06/26/20 14:30 06/27/20 05:00 IVCONT 11 units/kg/hr .Q0M RORY 8.66 mls/hr Titration Protocol Per Protocol Levothyroxine Sodium 25 mcg 06/26/20 06:53 06/27/20 05:41 Levothyroxine Sodium 25 Mcg Tablet PO 25 mcg DAILY@0600 RORY Administration Loratadine 10 mg 06/26/20 09:00 06/27/20 09:08 Loratadine 10 Mg Tablet PO 10 mg DAILY RORY Administration Losartan Potassium 100 mg 06/26/20 09:00 06/27/20 09:08 Losartan Potassium 50 Mg Tablet PO 100 mg DAILY RORY Administration Protocol Magnesium Oxide 400 mg 06/27/20 17:30 Magnesium Oxide 400 Mg Tablet PO BIDPC [facility] Nitroglycerin 1 inch 06/26/20 20:00 06/27/20 09:09 Nitroglycerin 2 % Oint 1 Gm Packet TRANSDERMA 1 inch RQ6H WHILE AWAKE RORY Administration Non-Formulary Medication 28 mg 06/26/20 09:00 Memantine PO DAILY [facility] Non-Formulary Medication 2 spray 06/26/20 09:00 Mometasone [Nasonex] NOSTRIL-B DAILY [facility] Non-Formulary Medication 20 mg 06/26/20 06:30 Zafirlukast PO Q12H RORY Senna 17.2 mg 06/26/20 00:18 Sennosides 8.6 Mg Tablet PO BEDTIME PRN Constipation Sertraline HCl 100 mg 06/26/20 09:00 06/27/20 09:08 Sertraline Hcl 100 Mg Tablet PO 100 mg DAILY RORY Administration Sodium Chloride 3 ml 06/26/20 08:00 06/27/20 09:09 0.9 % Sodium Chloride Flush 3 Ml Syringe IVFLUSH 3 ml QSHIFT RORY Administration Time Spent With Patient Time: Total time spent is greater than 50% in coordination of care (as documented) at patient's floor/unit and/or counseling patient: Time with patient: Greater than 35 minutes
--- NOTE | 2020-06-27 14:53 | MHC.CM.PN ---
CM MET WITH PT AND HER HCP WHO WAS PRESENT. PT RESIDES IN [facility] WITH HER . PT IS INDEPENDENT WITH ALL CARE AND USES A CANE ONLY WHEN SHE GOES OUT. [facility] PROVIDES A CLEANING PERSON ONCE EVERY TWO WEEKS FOR MOPPING AND HEAVY CLEANING. 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 PT REPORTS HER PCP IS AKILAH MORROW AND SHE HAS A HCP ON FILE NAMING HER GRAND DAUGHTER, BABAK AND SON IN LAW, MOY HER AGENTS. IMM WAS VERBALLY REVIEWED AND PT INDICATED UNDERSTANDING CURRENT DC PLAN IS HOME. PT IS AGREEABLE TO [facility] IF SERVICES ARE RECOMMENDED AT DC. FAMILY WILL PROVIDE TRANSPORTATION
[2020-06-27] MEDS: Magnesium Oxide 400 MG TABLET PO (17:20)
[2020-06-27] MEDS: Furosemide 40 MG TABLET PO (17:20)
[2020-06-27] MEDS: Heparin Sodium,Porcine/1/2NS 25,000 UNIT/250 ML IV.SOLN 8.66 UNIT IVCONT (20:22)
--- NOTE | 2020-06-28 | ECG_ITS ---
Test Reason : CP Blood Pressure : / mmHG Vent. Rate : 070 BPM Atrial Rate : 070 BPM P-R Int : 184 ms QRS Dur : 150 ms QT Int : 458 ms P-R-T Axes : 022 -33 124 degrees QTc Int : 494 ms Normal sinus rhythm Left axis deviation Left bundle branch block Abnormal ECG When compared with ECG of 27-JUN-2020 14:30, Premature atrial complexes are no longer Present T wave inversion no longer evident in Anterior leads QT has shortened Referred By: Nica Christie Electronically Signed By:JESSICA GA MD
[2020-06-28 04:00] VITALS: BP 154/59; PULSE 94; RESP 16; TEMP 36.6; O2SAT 97
[2020-06-28] MEDS: Levothyroxine Sodium 25 MCG TABLET PO (05:39)
[2020-06-28 06:10] LABS: Basophils Percent Auto 0.6 % (0-2); Eosinophils Absolute Auto 0.3 X10*3/uL (0.0-0.4); Hematocrit 30.8 % (37-47); Hemoglobin 9.9 g/dl (12.0-16.0); Imm Gran Abs Auto 0.03 X10*3/uL (0.00-0.03); Imm Gran Pct Auto 0.4 % (0.0-0.4); Lymphocytes Absolute Auto 0.5 X10*3/uL (1.2-4.9); Lymphocytes Percent Auto 6.9 % (20-40); MANUAL DIFF FLAG SCAN; Mean Corpuscular HGB Conc 32.1 g/dl (31.0-35.0); Mean Corpuscular Volume 87.3 fL (80-98); Mean Platelet Volume 9.3 fL (9.4-12.3); Monocytes Absolute Auto 0.3 X10*3/uL (0.1-1.2); Monocytes Percent Auto 4.5 % (2-11); Neutrophils Absolute Auto 5.7 X10*3/uL (2.0-8.3); Neutrophils Percent Auto 83.6 % (45-73); Platelet Count 217 X10*3/uL (160-400); Red Blood Count 3.53 X10*6/uL (4.20-5.50); Red Cell Distribution Width 14.3 % (11.0-16.0); SCAN SMEAR FLAG 1; White Blood Count 6.8 X10*3/uL (4.8-10.8)
[2020-06-28 06:29] LABS: Anion Gap 14 (12-20); Blood Urea Nitrogen 19 mg/dL (9-16); Calcium 8.2 mg/dL (8.4-10.2); Carbon Dioxide 24 mmol/L (22-29); Chloride 105 mmol/L (96-108); Creatinine Clr Calc Pharmacy 51.9; Estimated Glomerular Filt Rate > 60; Glucose Random 98 mg/dL (60-115); Potassium 3.2 mmol/L (3.3-5.1); Sodium 140 mmol/L (135-145)
[2020-06-28 06:52] LABS: SLIDE REVIEW VERIFIED
[2020-06-28 07:39] VITALS: BP 189/73; PULSE 67; RESP 19; TEMP 36.1; O2SAT 96
[2020-06-28] MEDS: Donepezil HCl 10 MG TABLET PO (09:28)
[2020-06-28] MEDS: Potassium Chloride ER 20 MEQ TAB.ER.PRT 40 MEQ PO (09:28)
[2020-06-28] MEDS: Sertraline HCL 100 MG TABLET PO (09:28)
[2020-06-28] MEDS: Furosemide 40 MG TABLET PO (09:28)
[2020-06-28] MEDS: amLODIPine Besylate 5 MG TABLET PO (09:28)
[2020-06-28] MEDS: hydrALAZINE HCl 50 MG TABLET PO (09:28)
[2020-06-28] MEDS: Atorvastatin Calcium 20 MG TABLET PO (09:28)
[2020-06-28] MEDS: Aspirin Enteric Coated 81 MG TABLET.DR PO (09:28)
[2020-06-28] MEDS: Loratadine 10 MG TABLET PO (09:28)
[2020-06-28] MEDS: Losartan Potassium 50 MG TABLET 100 MG PO (09:28)
[2020-06-28] MEDS: Magnesium Oxide 400 MG TABLET PO (09:28)
[2020-06-28 09:29] VITALS: PULSE 92
[2020-06-28] MEDS: Nitroglycerin 2 % Oint 1 GM Packet 1 INCH TRANSDERMA (09:29)
[2020-06-28] MEDS: 0.9 % Sodium Chloride Flush 3 ML SYRINGE IVFLUSH (09:29)
[2020-06-28] MEDS: Potassium Chloride ER 20 MEQ TAB.ER.PRT PO (09:35)
[2020-06-28 11:30] VITALS: BP 169/85; PULSE 65; RESP 17; TEMP 36.4; O2SAT 95
--- NOTE | 2020-06-28 11:30 | PM.DS ---
DS: Providers Provider Date of Service: 06/29/20 Date of admission: 06/26/20 00:18 Primary care physician: Unknown Physician Consults: 06/26/20 00:17 Consult to Cardiology Routine Consulting Provider: Kofi Plata Reason for consultation: chf 06/27/20 07:39 Consult to Gastroenterology Routine Consulting Provider: Dara Comer Reason for consultation: anemia DS: Diagnosis Discharge Diagnosis (1) Acute on chronic anemia: Status: Acute DS: Medications Discharge Medications Home Medications: Home Medications Medication Instructions Recorded Confirmed sertraline 100 mg tablet 100 mg PO DAILY 02/16/20 06/26/20 flu vacc 2020-21(65yr 0.5 ml IM DIRECTED 04/27/20 06/26/20 up)-MF59C(PF) 60 mcg(15 mcgx4)/0.5 mL IM syringe betamethasone dipropionate 1 appl TOPICAL 06/26/20 fluticasone propion-salmeterol 1 inh INHALATION BID 06/26/20 06/26/20 [Domenica Rondon] Previous Rx's Medication Instructions Recorded albuterol sulfate 90 mcg/actuation 2 puff INHALATION Q6H PRN 30 Days 02/17/20 aerosol inhaler #18 g aspirin 81 mg tablet,delayed 81 mg PO DAILY 90 Days #90 tab 02/17/20 release levothyroxine 25 mcg tablet 25 mcg PO DAILY 90 Days #90 tab 02/17/20 losartan 100 mg tablet 100 mg PO DAILY #90 tab 02/17/20 mometasone 50 mcg/actuation nasal 2 spray INTRANASAL DAILY 30 Days 02/17/20 spray #17 g cetirizine 10 mg tablet 10 mg PO DAILY 90 Days #90 tab 03/09/20 donepezil 10 mg tablet 10 mg PO DAILY 90 Days #90 tab 04/27/20 esomeprazole magnesium 20 mg 20 mg PO DAILY 90 Days #90 cap 04/27/20 capsule,delayed release memantine 28 mg capsule 28 mg PO DAILY 90 Days #90 ea 04/27/20 sprinkle,extended release 24hr benzonatate 100 mg capsule 100 mg PO BID-TID PRN 30 Days #60 05/27/20 cap zafirlukast 20 mg tablet 20 mg PO Q12H #60 tab 06/03/20 amlodipine 5 mg PO DAILY #30 tab 06/28/20 atorvastatin 20 mg PO DAILY #30 tab 06/28/20 clonidine 0.2 mg TRANSDERMAL Sa@0900 #10 ea 06/28/20 furosemide 40 mg PO DAILY #30 tab 06/28/20 hydralazine 50 mg PO TID #90 tab 06/28/20 nitroglycerin [Nitro-Bid] 1 inch TRANSDERMAL RQ6H WHILE 06/28/20 AWAKE #20 g DS: Summary Hospital Course Hospital Course: HPI 80-year-old female with a past medical history of hypertension, hyperlipidemia, hypothyroidism, dementia, asthma presented to the hospital with a chief complaint of shortness of breath patient reports that for the past 3-4 days she has been having shortness of breath which has been gradually worsening. Denies any cough fevers chills. Denies any numbness tingling. Denies any recent travel or sick contacts. Denies any chest pain palpitations. Review of all other systems is negative except mentioned above ER course: Per ER team patient was noted to be 85% on presentation with improvement of 94% on supplemental oxygen. A chest x-ray showed congestion consistent with CHF) knee onset CHF. Given Lasix. Also showed question pneumonia. Given nitropaste. Patient was noted to have elevated blood pressure her from hypertensive urgency given nitro paste with improvement in blood pressure. EKG was nonischemic. Admitted to the hospital for further Hospital course 80-year-old female admitted with Acute Congestive heart failure and Acute hypoxic respiratory failure, patient was started on IV Lasix, fluid restriction, Patient was placed temporarily on BiPAP with improvement and weaned down to 2 L of oxygen, patient's high sensitivity troponin trended up from 8 to 254 <154 , EKG shows chronic LBBB ,patient was seen by Cardiology patient was started on heparin drip for NSTEMI , Echocardiogram was done shows EF 30-35% with regional wall motion abnormality, patient was continued on heparin drip, patient was diuresed well with IV diuresis, Lasix were switched to p.o. 40 mg daily During the hospital course patient blood pressure remains uncontrolled , clonidine patch was increased to 0.2 mg, patient was started on nitro patch q.6 hours, hydralazine dose was increased from 15 mg b.i.d. to 15 mg t.i.d., amlodipine was increased from 2.5-5 mg, patient was continued on losartan 100 mg daily, blood pressure improved cardiology recommended transferring patient to [facility] for cardiac catheterization for NSTEMI, patient was stable transferred to [facility] for cardiac catheterization for NSTEMI patient was continued on heparin dripon transfer . Patient was also noted to be anemic on admission with hemoglobin around 8.2 on admission and baseline around 10, patient denies any dark-colored stool or active GI bleed, patient received 1 unit of PRBCs given CHF in NSTEMI, Hemoglobin improved to 10 and remains stable while on heparin drip, patient was seen by Gastroenterology recommended continue PPI and patient will need EGD and colonoscopy after the cardiac issues resolved, patient will need follow-up with Dr. Comer [facility] [place] patient on discharge Echocardiogram Conclusions: - The left ventricular systolic function is moderately decreased. The visually estimated ejection fraction is between 30-35%. - There is evidence of regional wall motion abnormalities. - Elevated filling pressures. - The left atrium is moderately dilated. - Differentials for cardiomyopathy include CAD vs Takotsubo cardiomyopathy. Findings Left Ventricle Normal left ventricular cavity size. There is moderately increased left ventricular wall thickness. The left ventricular systolic function is moderately decreased. The visually estimated ejection fraction is between 30 35%. There is evidence of regional wall motion abnormalities. There is paradoxical septal motion consistent with a left bundle branch block. Abnormal diastolic function is noted. Spectral Doppler is indicative of an impaired relaxation filling pattern. Elevated filling pressures. Wall Motion Rest Echo Findings The mid inferior and basal inferoseptal segments are hypokinetic. The entire apex, the mid anterior, mid anterolateral, mid inferoseptal, mid anteroseptal, and mid inferolateral segments are akinetic. Time Spent with Patient Time attestation: Total time spent providing and/or coordinating discharge services: Discharge coordination time: Greater than 30 minutes Physical Exam Vital Signs: Vital Signs: Last Vital Signs Temp 97.0 F 06/28/20 07:39 Pulse 92 06/28/20 09:29 Resp 19 06/28/20 07:39 BP 189/73 H 06/28/20 07:39 Pulse Ox 96 06/28/20 07:39 Body Mass Index 28.0 DS: Data Data Completed and Pending Labs on day of discharge: Laboratory Results - last 24 hr 06/27/20 06/28/20 06/28/20 11:03 05:45 05:45 WBC 6.8 RBC 3.53 L Hgb 9.9 L Hct 30.8 L MCV 87.3 MCH 28.0 MCHC 32.1 RDW 14.3 Plt Count 217 MPV 9.3 L Immature Gran % (Auto) 0.4 Neut % (Auto) 83.6 H Lymph % (Auto) 6.9 L [place] % (Auto) 4.5 Eos % (Auto) 4.0 Baso % (Auto) 0.6 Lymph # (Auto) 0.5 L [place] # (Auto) 0.3 Eos # (Auto) 0.3 Baso # (Auto) 0.0 Abs Immat Gran (auto) 0.03 Absolute Neuts (auto) 5.7 Absolute Nucleated RBC 0.000 Nucleated RBC % (auto) 0.0 Smear Tech's Comments VERIFIED PTT (Heparin Protocol) 68.3 Sodium 140 Potassium 3.2 L Chloride 105 Carbon Dioxide 24 Anion Gap 14 BUN 19 H Creatinine 0.90 Estim Creat Clear Calc 51.9 Estimated GFR > 60 Random Glucose 98 Calcium 8.2 L 06/28/20 05:45 WBC RBC Hgb Hct MCV MCH MCHC RDW Plt Count MPV Immature Gran % (Auto) Neut % (Auto) Lymph % (Auto) [place] % (Auto) Eos % (Auto) Baso % (Auto) Lymph # (Auto) [place] # (Auto) Eos # (Auto) Baso # (Auto) Abs Immat Gran (auto) Absolute Neuts (auto) Absolute Nucleated RBC Nucleated RBC % (auto) Smear Tech's Comments PTT (Heparin Protocol) 55.0 Sodium Potassium Chloride Carbon Dioxide Anion Gap BUN Creatinine Estim Creat Clear Calc Estimated GFR Random Glucose Calcium Preliminary micro results at discharge 06/25/20 20:54 Blood Culture - Preliminary Blood - Venous No growth after 48 hours. 06/25/20 20:53 Blood Culture - Preliminary Blood - Venous No growth after 48 hours. Discharge Plan Discharge Anticipated Discharge Date/Time: 06/28/20 11:08 Patient Disposition: Xfer Acute Care Hospital Referrals: [facility] [Outside] Physician,Unknown [Primary Care Provider] - Discharge Medications: New atorvastatin 20 mg Tablet 20 mg PO DAILY Qty: 30 RF: 0 clonidine 0.2 mg/24 hr Patch Weekly 0.2 mg transdermal Sa@0900 Qty: 10 RF: 0 hydralazine 50 mg Tablet 50 mg PO TID Qty: 90 RF: 0 Nitro-Bid 2 % Ointment 1 inch transdermal RQ6H WHILE AWAKE Qty: 20 RF: 0 amlodipine 5 mg Tablet 5 mg PO DAILY Qty: 30 RF: 0 furosemide 40 mg Tablet 40 mg PO DAILY Qty: 30 RF: 0 Continued sertraline 100 mg tablet 100 mg PO DAILY RF: 0 albuterol sulfate [Proventil HFA] 90 mcg/actuation HFA aerosol inhaler 2 puff inhalation Q6H PRN (Reason: bronchospasm) 30 Days Qty: 18 RF: 4 levothyroxine [Synthroid] 25 mcg tablet 25 mcg PO DAILY 90 Days Qty: 90 RF: 3 mometasone [Nasonex] 50 mcg/actuation spray,non-aerosol 2 spray intranasal DAILY 30 Days Qty: 17 RF: 3 aspirin [Adult Low Dose Aspirin] 81 mg tablet,delayed release (DR/EC) 81 mg PO DAILY 90 Days Qty: 90 RF: 3 losartan 100 mg tablet 100 mg PO DAILY Qty: 90 RF: 3 cetirizine [Zyrtec] 10 mg tablet 10 mg PO DAILY 90 Days Qty: 90 RF: 5 esomeprazole magnesium [Nexium] 20 mg capsule,delayed release(DR/EC) 20 mg PO DAILY 90 Days Qty: 90 RF: 3 zafirlukast 20 mg tablet 20 mg PO Q12H Qty: 60 RF: 5 fluticasone propion-salmeterol [Wixela Inhub] 500-50 mcg/dose blister with device 1 inh inhalation BID RF: 0 betamethasone dipropionate 0.05 % cream 1 appl topical RF: 0 flu vac 2020 [id number](PF) 60 mcg (15 mcg x 4)/0.5 mL syringe 0.5 ml IM DIRECTED RF: 0 memantine 28 mg capsule,sprinkle,ER 24hr 28 mg PO DAILY 90 Days Qty: 90 RF: 3 donepezil 10 mg tablet 10 mg PO DAILY 90 Days Qty: 90 RF: 3 benzonatate 100 mg capsule 100 mg PO BID-TID PRN (Reason: cough) 30 Days Qty: 60 RF: 2 Discontinued meloxicam [Mobic] 15 mg tablet 15 mg PO DAILY RF: 0 hydralazine 50 mg tablet 50 mg PO BID 90 Days Qty: 180 RF: 3 atorvastatin [Lipitor] 20 mg tablet 20 mg PO DAILY 90 Days Qty: 90 RF: 3 amlodipine 2.5 mg tablet 2.5 mg PO DAILY 90 Days Qty: 90 RF: 3 clonidine 0.2 mg/24 hr patch weekly 1 patch transdermal QWEEK Qty: 4 RF: 3 Discharge Orders: Discharge Order (Routine); Ordered 06/28/20 Ordered By: Brandan Tavares Activity on Discharge: As tolerated Stand Alone Forms: Patient Portal Discharge page Care Plan Goals: treat NSTEMi Health Concerns: NSTEMI heart failure Plan of Treatment: transfer to [facility] Discharge Date/Time: 06/28/20 14:43
--- NOTE | 2020-06-28 11:36 | MHC.CM.PN ---
PATIENT IS TRANSFERRED TO [facility] TODAY. HCP IS AWARE OF PLANS.
--- NOTE | 2020-06-28 12:13 | P.PNCA_ITS ---
Subjective Subjective Date of Service: 06/28/20 <ROBIN Soto - Last Filed: 06/28/20 12:39> 06/28/20 <Alcides Schwartz MD - Last Filed: 06/28/20 15:59> Principal diagnosis: CHF, elevated BP, elevated troponin, cardiomyopathy, <MICHELE Soto - Last Filed: 06/28/20 12:39> Interval history: Cardiology follow up for the above. Seen at 0845. Today she reports her breathing is improved to near normal. She has no chest pains or pressure. She denies palpitations or lightheadedness. No PND, edema. Slept well with HOB elevated around 30 degrees. <ROBIN Soto - Last Filed: 06/28/20 12:39> Review of Systems Review of Systems as above <ROBIN Soto - Last Filed: 06/28/20 12:39> Yes all other systems are reviewed and are negative <ROBIN Soto - Last Filed: 06/28/20 12:39> Physical Exam Vital Signs: Last Vital Signs Temp 97.6 F 06/28/20 11:30 Pulse 65 06/28/20 11:30 Resp 17 06/28/20 11:30 BP 169/85 H 06/28/20 11:30 Pulse Ox 95 06/28/20 11:30 Body Mass Index 28.0 <ROBIN Soto - Last Filed: 06/28/20 12:39> Const General: cooperative, no acute distress, alert and awake <ROBIN Soto - Last Filed: 06/28/20 12:39> Orientation/consciousness: patient oriented x3 <ROBIN Soto - Last Filed: 06/28/20 12:39> Neck Neck: Yes normal visual inspection and Yes no JVD <ROBIN Soto Last Filed: 06/28/20 12:39> Resp Other: Lung sound diminished posterior lung rothman. Clear anterior upper rothman. Wearing O2 3 liters <ROBIN Soto - Last Filed: 06/28/20 12:39> Effort & Inspection: normal respiratory effort, able to speak in complete sentences and not labored <MICHELE SotoC - Last Filed: 06/28/20 12:39> Cardio Palpation: normal PMI <MICHELE SotoC - Last Filed: 06/28/20 12:39> Rate: regular rate <MICHELE SotoC - Last Filed: 06/28/20 12:39> Rhythm: regular rhythm <MICHELE SotoC - Last Filed: 06/28/20 12:39> Heart sounds: S1 normal heart sound present and S2 normal heart sound present <MICHELE SotoC - Last Filed: 06/28/20 12:39> Peripheral pulses: Peripheral pulses 2+ throughout <MICHELE SotoC - Last Filed: 06/28/20 12:39> GI Inspection: Yes normal to inspection <MICHELE SotoC - Last Filed: 06/28/20 12:39> Skin General skin exam: no rashes or lesions noted <MICHELE SotoC - Last Filed: 06/28/20 12:39> Neuro General: patient oriented x3 <MICHELE SotoC - Last Filed: 06/28/20 12:39> Extrem General: Yes normal to inspection and No edema <MICHELE SotoC - Last Filed: 06/28/20 12:39> Results Labs and Meds Result diagrams: : 06/28/20 05:45 06/28/20 05:45 <MICHELE SotoC - Last Filed: 06/28/20 12:39> Lab results: Laboratory Results - last 24 hr 06/28/20 06/28/20 06/28/20 05:45 05:45 05:45 WBC 6.8 RBC 3.53 L Hgb 9.9 L Hct 30.8 L MCV 87.3 MCH 28.0 MCHC 32.1 RDW 14.3 Plt Count 217 MPV 9.3 L Immature Gran % (Auto) 0.4 Neut % (Auto) 83.6 H Lymph % (Auto) 6.9 L [place] % (Auto) 4.5 Eos % (Auto) 4.0 Baso % (Auto) 0.6 Lymph # (Auto) 0.5 L [place] # (Auto) 0.3 Eos # (Auto) 0.3 Baso # (Auto) 0.0 Abs Immat Gran (auto) 0.03 Absolute Neuts (auto) 5.7 Absolute Nucleated RBC 0.000 Nucleated RBC % (auto) 0.0 Smear Tech's Comments VERIFIED PTT (Heparin Protocol) 55.0 Sodium 140 Potassium 3.2 L Chloride 105 Carbon Dioxide 24 Anion Gap 14 BUN 19 H Creatinine 0.90 Estim Creat Clear Calc 51.9 Estimated GFR > 60 Random Glucose 98 Calcium 8.2 L <ROBIN Soto - Last Filed: 06/28/20 12:39> Progress Note: A&P Assessment and plan (1) Systolic heart failure: Status: Acute <ROBIN Soto - Last Filed: 06/28/20 12:39> Assessment and Plan: Admit with sob. Acute systolic HF. New finding of reduced EF. Echo shows EF 30-35%, WMA present. EKGs nondiagnostic for ischemia due to LBBB, which is not new. CMP could be ischemic Vs Takotsubo. She was diuresed with IV Lasix and then changed to PO. Breathing improved to near baseline. Still wearing O2 supplement. Lungs are dim posteriorly. She did have bilateral pleural effusions on admit which may persist. Plan to T[place] to [facility] [place] for cardiac cath tomorrow. Risks of the procedure reviewed with her. She has spoken with family and is agreeable to proceed. Report given to [facility] Hospitalist, They will call S3 when bed is available. Continue Heparin drip. Continue Lasix, aspirin, atorvastatin, amlodipine, hydralazine, NTP. Will start on Carvedilol 3.125mg bid. <ROBIN Soto - Last Filed: 06/28/20 12:39> Patient seen and examined. Case discussed with Nica Christie. Patient with abnormal EKG left bundle-branch block with new T-wave inversions. Patient with severe LV systolic dysfunction. Currently not having any overt heart failure. Has bilateral pleural effusion. Echocardiogram with wall motion abnormality. Underlying significant obstructive CAD needs to be ruled out. Other possibility includes takotsubo cardiomyopathy. Detailed discussion about risks, benefits, alternatives 2nd opinion to the procedure. She is agreeable for transfer to [facility]. Start Coreg 3.125 mg b.i.d. for better blood pressure control as well as neurohormonal modulation. Further treatment based on the findings of cardiac catheterization. Will follow up as outpatient. <Alcides Schwartz MD - Last Filed: 06/28/20 15:59> (2) LBBB (left bundle branch block): Status: Acute <ROBIN Soto - Last Filed: 06/28/20 12:39> Assessment and Plan: EKG today for comparison, still pending. ST/ T wave abnormality noted on 06/27 EKG <ROBIN Soto - Last Filed: 06/28/20 12:39> (3) NSTEMI (non-ST elevated myocardial infarction): Status: Acute <ROBIN Soto - Last Filed: 06/28/20 12:39> Assessment and Plan: Trop elevation - NSTEMI vs Takotsubo as above <ROBIN Soto - Last Filed: 06/28/20 12:39> (4) Troponin level elevated: Status: Acute <ROBIN Soto - Last Filed: 06/28/20 12:39> (5) Abnormal echocardiogram: Status: Acute <ROBIN Soto - Last Filed: 06/28/20 12:39> (6) Hypertension: Status: Acute <ROBIN Soto - Last Filed: 06/28/20 12:39> Assessment and Plan: BP elevated this admit. Home amlodipine and hydralazine have been i ncreased. NTP was added. Continues on usual Losartan, Clonidine. Carvedilol is being added. Continue close BP monitoring. If becomes hypotensive then Clonidine should be first med to reduce/stop. <ROBIN Soto - Last Filed: 06/28/20 12:39> (7) Acute on chronic anemia: Status: Acute <ROBIN Soto - Last Filed: 06/28/20 12:39> Assessment and Plan: Hgb 8.2 on admit. No reports of bleeding. Heme neg stool. Was given 1 unit PC. Heparin drip as above which she has tolerated. Hgb today 9.9. Had GI eval - recommendation for EGD and colonoscopy noted. Plan for cardiac eval/ cath as above first. <ROBIN Soto - Last Filed: 06/28/20 12:39> Fall Risk Details Current Medications: Current Medications Generic Name Dose Route Start Last Admin Trade Name Freq PRN Reason Stop Dose Admin Acetaminophen 650 mg 06/26/20 00:18 Acetaminophen 325 Mg Tablet PO Q6H PRN Pain, Mild (Pain Scale 1-3) Albuterol Sulfate 2 puff 06/26/20 06:26 Albuterol Sulfate 90 Mcg 8 Gm Inhaler INHALE Q6H PRN bronchospasm Amlodipine Besylate 5 mg 06/27/20 10:00 06/28/20 09:28 Amlodipine Besylate 5 Mg Tablet PO 5 mg DAILY RORY Administration Protocol Aspirin 81 mg 06/26/20 09:00 06/28/20 09:28 Aspirin Enteric Coated 81 Mg Tablet.Dr PO 81 mg DAILY RORY Administration Atorvastatin Calcium 20 mg 06/26/20 09:00 06/28/20 09:28 Atorvastatin Calcium 20 Mg Tablet PO 20 mg DAILY RORY Administration Benzonatate 100 mg 06/26/20 06:26 Benzonatate 100 Mg Capsule PO TID PRN cough Carvedilol 3.125 mg 06/28/20 12:15 Carvedilol 3.125 Mg Tablet PO BID RORY Protocol Clonidine 0.2 mg 06/26/20 10:52 06/26/20 11:42 Clonidine 0.2 Mg Patch.Tdwk TRANSDERMA 0.2 mg Sa@0900 RORY Administration Protocol Donepezil HCl 10 mg 06/26/20 09:00 06/28/20 09:28 Donepezil Hcl 10 Mg Tablet PO 10 mg DAILY RORY Administration Doxycycline Hyclate 100 mg 06/26/20 15:00 06/28/20 03:48 Doxycycline Hyclate 100 Mg Tablet PO 100 mg Q12H RORY Administration Furosemide 40 mg 06/27/20 17:00 06/28/20 09:28 Furosemide 40 Mg Tablet PO 40 mg DAILY RORY Administration Protocol Hydralazine HCl 50 mg 06/26/20 15:00 06/28/20 09:28 Hydralazine Hcl 50 Mg Tablet PO 50 mg TID RORY Administration Protocol Heparin Sodium/Sodium Chloride 25,000 unit in 250 mls @ 0 mls/hr 06/26/20 14:30 06/28/20 07:21 IVCONT 11 units/kg/hr .Q0M RORY 8.66 mls/hr Titration Protocol Per Protocol Levothyroxine Sodium 25 mcg 06/26/20 06:53 06/28/20 05:39 Levothyroxine Sodium 25 Mcg Tablet PO 25 mcg DAILY@0600 RORY Administration Loratadine 10 mg 06/26/20 09:00 06/28/20 09:28 Loratadine 10 Mg Tablet PO 10 mg DAILY RORY Administration Losartan Potassium 100 mg 06/26/20 09:00 06/28/20 09:28 Losartan Potassium 50 Mg Tablet PO 100 mg DAILY RORY Administration Protocol Magnesium Oxide 400 mg 06/27/20 17:30 06/28/20 09:28 Magnesium Oxide 400 Mg Tablet PO 400 mg BIDPC RORY Administration Nitroglycerin 1 inch 06/26/20 20:00 06/28/20 09:29 Nitroglycerin 2 % Oint 1 Gm Packet TRANSDERMA 1 inch RQ6H WHILE AWAKE RORY Administration Non-Formulary Medication 28 mg 06/26/20 09:00 Memantine PO DAILY [facility] Non-Formulary Medication 2 spray 06/26/20 09:00 Mometasone [Nasonex] NOSTRIL-B DAILY [facility] Non-Formulary Medication 20 mg 06/26/20 06:30 Zafirlukast PO Q12H RORY Senna 17.2 mg 06/26/20 00:18 Sennosides 8.6 Mg Tablet PO BEDTIME PRN Constipation Sertraline HCl 100 mg 06/26/20 09:00 06/28/20 09:28 Sertraline Hcl 100 Mg Tablet PO 100 mg DAILY RORY Administration Sodium Chloride 3 ml 06/26/20 08:00 06/28/20 09:29 0.9 % Sodium Chloride Flush 3 Ml Syringe IVFLUSH 3 ml QSHIFT RORY Administration <ROBIN Soto - Last Filed: 06/28/20 12:39> Time Spent With Patient Time: Total time spent is greater than 50% in coordination of care (as documented) at patient's floor/unit and/or counseling patient: <ROBIN Soto - Last Filed: 06/28/20 12:39> Time with patient: 15 - 24 minutes <ROBIN Soto - Last Filed: 06/28/20 12:39>
[2020-06-28 12:22] LABS: Magnesium 1.5 mg/dL (1.6-2.6)
[2020-06-28] MEDS: carvediloL 3.125 MG TABLET PO (12:46)
== END 2020-06-28 14:43 | disposition short-term general hospital (02) | DRG 280 ==
LOC: HO.ED 20:25 → HO.EDOVER 06-26 00:36 → HO.S3 06-26 16:00
PROVIDERS: Admitting Provider Hospitalist; Emergency Provider Internal Medicine; Visit Provider Internal Medicine
DX: I11.0 Hypertensive heart disease with heart failure (principal); I50.21 Acute systolic (congestive) heart failure; I21.4 Non-ST elevation (NSTEMI) myocardial infarction; J18.9 Pneumonia, unspecified organism; J96.01 Acute respiratory failure with hypoxia; E78.5 Hyperlipidemia, unspecified; E03.9 Hypothyroidism, unspecified; I44.7 Left bundle-branch block, unspecified; I16.0 Hypertensive urgency; E87.6 Hypokalemia; D64.9 Anemia, unspecified; F03.90 Unspecified dementia, unspecified severity, without behavioral disturbance, psychotic disturbance, mood disturbance, and anxiety; Z20.822 Contact with and (suspected) exposure to COVID-19; Z86.73 Personal history of transient ischemic attack (TIA), and cerebral infarction without residual deficits; Z79.51 Long term (current) use of inhaled steroids; Z79.82 Long term (current) use of aspirin; Z79.890 Hormone replacement therapy; Z79.899 Other long term (current) drug therapy
CPT/HCPCS: 36415; 36600; 71045; 71275; 80048; 81003; 82272; 82803; 83540; 83605; 83735; 83880; 84443; 84484; 85025; 85027; 85610; 85730; 86850; 86900; 86901; 86923; 87040; 87086; 87635; 93005; 93306; 96365; 96375; 99285; J1940; P9016; Q9967

== ENCOUNTER → 2020-07-21 15:07 | Outpatient (BNVA) | payer BC, SELFPAY | PROVIDERS: PCP Family Medicine; Visit Provider Internal Medicine Cardiovascular Disease | DX: I11.0 Hypertensive heart disease with heart failure (principal); I50.20 Unspecified systolic (congestive) heart failure; I21.4 Non-ST elevation (NSTEMI) myocardial infarction | CPT/HCPCS: 99212 ==

== ENCOUNTER 2020-07-26 11:02 | Outpatient (REF) | payer MEDICARE, BC, SELFPAY ==
[2020-07-26 13:56] LABS: Basophils Percent Auto 0.5 % (0-2); Eosinophils Absolute Auto 0.1 X10*3/uL (0.0-0.4); Eosinophils Percent Auto 2.4 % (0-4); Hematocrit 31.8 % (37-47); Hemoglobin 9.7 g/dl (12.0-16.0); Imm Gran Abs Auto 0.04 X10*3/uL (0.00-0.03); Imm Gran Pct Auto 0.7 % (0.0-0.4); Lymphocytes Absolute Auto 0.4 X10*3/uL (1.2-4.9); Lymphocytes Percent Auto 6.4 % (20-40); MANUAL DIFF FLAG SCAN; Mean Corpuscular HGB Conc 30.5 g/dl (31.0-35.0); Mean Corpuscular Hemoglobin 27.2 pg (27.0-33.0); Mean Corpuscular Volume 89.1 fL (80-98); Monocytes Absolute Auto 0.2 X10*3/uL (0.1-1.2); Monocytes Percent Auto 3.6 % (2-11); Neutrophils Percent Auto 86.4 % (45-73); Platelet Count 237 X10*3/uL (160-400); Red Blood Count 3.57 X10*6/uL (4.20-5.50); SCAN SMEAR FLAG 1; White Blood Count 5.8 X10*3/uL (4.8-10.8)
[2020-07-26 14:19] LABS: SLIDE REVIEW VERIFIED
[2020-07-26 14:54] LABS: TSH reflex Free T4 4.62 uIU/mL (0.32-4.0)
[2020-07-26 15:00] LABS: Alanine Aminotransferase 14 U/L (0-31); Albumin Level 3.8 g/dL (3.5-5.0); Alkaline Phosphatase 134 U/L (39-117); Anion Gap 16 (12-20); Aspartate Amino Transferase 17 U/L (5-31); Bilirubin Total 0.6 mg/dL (0.0-1.0); Blood Urea Nitrogen 35 mg/dL (9-16); Calcium 8.9 mg/dL (8.4-10.2); Carbon Dioxide 22 mmol/L (22-29); Chloride 104 mmol/L (96-108); Estimated Glomerular Filt Rate 26; Glucose Random 101 mg/dL (60-115); Potassium 6.6 mmol/L (3.3-5.1); Sodium 135 mmol/L (135-145); Total Protein 6.7 g/dL (6.5-8.0)
[2020-07-26 15:43] LABS: Free T4 (Free Thyroxine) 0.94 ng/dL (0.71-1.85)
== END 2020-07-26 11:03 | disposition home or self-care (01) ==
LOC: HO.WFDLDS 11:02
PROVIDERS: Visit Provider Family Medicine
DX: Z13.89 Encounter for screening for other disorder (principal)
CPT/HCPCS: 36415; 80053; 84439; 84443; 85025

== ENCOUNTER 2020-07-26 16:08 | Inpatient (IN) | payer MEDICARE, BC, SELFPAY ==
--- NOTE | ~2020-07-26 | XR_ITS ---
EXAMINATION: XR CHEST CLINICAL INFORMATION: Cough. COMPARISON: Chest x-ray 06/25/2020 TECHNIQUE: Frontal portable view of the chest was obtained. 9:16 PM FINDINGS: Lungs are clear. No pulmonary vascular congestion. There is no pleural effusion. The heart size is normal. The cardiac and mediastinal contours are normal. There is a small hiatal hernia. There are calcifications of the thoracic aorta. There is no acute osseous abnormality. XR/XR chest 1V IMPRESSION: Unremarkable examination.
[2020-07-26 16:13] VITALS: BP 104/41; PULSE 63; RESP 16; TEMP 36.4; O2SAT 97; BMI 25.4
--- NOTE | 2020-07-26 16:20 | ECG_ITS ---
Test Reason : ELEVATED K Blood Pressure : / mmHG Vent. Rate : 063 BPM Atrial Rate : 063 BPM P-R Int : 218 ms QRS Dur : 160 ms QT Int : 458 ms P-R-T Axes : 032 -41 087 degrees QTc Int : 468 ms Sinus rhythm with 1st degree A-V block Left axis deviation Left bundle branch block Abnormal ECG When compared with ECG of 28-JUN-2020 12:17, LA interval has increased T wave inversion less evident in Lateral leads Referred By: Generic ED Physician Electronically Signed By:BON NAPOLES
[2020-07-26 16:44] LABS: Basophils Percent Auto 0.4 % (0-2); Eosinophils Absolute Auto 0.1 X10*3/uL (0.0-0.4); Eosinophils Percent Auto 1.3 % (0-4); Hematocrit 28.4 % (37-47); Imm Gran Abs Auto 0.03 X10*3/uL (0.00-0.03); Imm Gran Pct Auto 0.6 % (0.0-0.4); Lymphocytes Absolute Auto 0.4 X10*3/uL (1.2-4.9); Lymphocytes Percent Auto 7.4 % (20-40); MANUAL DIFF FLAG SCAN; Mean Corpuscular HGB Conc 31.7 g/dl (31.0-35.0); Mean Corpuscular Hemoglobin 27.9 pg (27.0-33.0); Mean Corpuscular Volume 87.9 fL (80-98); Mean Platelet Volume 9.8 fL (9.4-12.3); Monocytes Absolute Auto 0.2 X10*3/uL (0.1-1.2); Monocytes Percent Auto 3.6 % (2-11); Neutrophils Absolute Auto 4.1 X10*3/uL (2.0-8.3); Neutrophils Percent Auto 86.7 % (45-73); Platelet Count 196 X10*3/uL (160-400); Red Blood Count 3.23 X10*6/uL (4.20-5.50); Red Cell Distribution Width 15.9 % (11.0-16.0); SCAN SMEAR FLAG 1; White Blood Count 4.7 X10*3/uL (4.8-10.8)
--- NOTE | 2020-07-26 16:51 | ED_ITS ---
HPI - General Adult General Chief complaint: Recheck/Abnormal Lab/Rx Stated complaint: abnormal labs Time Seen by Provider: 07/26/20 16:47 Source: patient and family Mode of arrival: ambulatory Limitations: no limitations History of Present Illness HPI narrative: Patient with coronary artery disease congestive heart failure had cardiac stent placed on 06/29/20 since then she has been feeling weak and tired she is on potassium 40 mg daily since then today she had the labs done which showed potassium 6.6 and creatinine of 1.83 her usual creatinine was 0.9. Patient has poor appetite and bad taste no chest pain or shortness of breath feels weak and tired Related Data Home Medications Medication Instructions Recorded Confirmed sertraline 100 mg tablet 100 mg PO BEDTIME 02/16/20 07/26/20 atorvastatin 80 mg tablet 80 mg PO BEDTIME 07/20/20 07/26/20 fluticasone furoate 200 1 inh INHALATION BEDTIME 07/20/20 07/26/20 mcg-vilanterol 25 mcg/dose inhalation powder aspirin [Adult Low Dose Aspirin] 81 mg PO BEDTIME 07/26/20 07/26/20 clonidine 0.2 mg TRANSDERMAL SA@2100 07/26/20 07/26/20 donepezil 10 mg PO BEDTIME 07/26/20 07/26/20 mometasone [Nasonex] 2 spray INTRANASAL BEDTIME 07/26/20 07/26/20 Previous Rx's Medication Instructions Recorded levothyroxine 25 mcg tablet 25 mcg PO DAILY 90 Days #90 tab 02/17/20 losartan 100 mg tablet 100 mg PO DAILY #90 tab 02/17/20 esomeprazole magnesium 20 mg 20 mg PO DAILY 90 Days #90 cap 04/27/20 capsule,delayed release amlodipine 10 mg tablet 10 mg PO DAILY #30 tab 07/23/20 clopidogrel 75 mg tablet 75 mg PO DAILY #30 tab 07/23/20 furosemide 40 mg tablet 40 mg PO DAILY #30 tab 07/23/20 hydralazine 50 mg tablet 50 mg PO TID #90 tab 07/23/20 magnesium oxide 400 mg PO BID #60 cap 07/23/20 memantine 10 mg tablet 10 mg PO BID #60 tab 07/23/20 montelukast 10 mg tablet 10 mg PO BEDTIME #30 tab 07/23/20 potassium chloride 10 mEq 40 meq PO DAILY #120 tab 07/23/20 tablet,extended release spironolactone 50 mg tablet 50 mg PO QAM #30 tab 07/23/20 Allergies Allergy/AdvReac Type Severity Reaction Status Date / Time latex [LATEX] Allergy Unknown RASH, ITCHY Verified 07/26/20 16:13 Review of Systems Review of Systems: Constitutional : No Weight loss, No Fever, No Chills ENT/Mouth : No sore throat, No Rhinorrhea Eyes: No Eye Pain, No Swelling Cardiovascular : No Chest Pain, no palpitations Respiratory : No Cough, No Sputum, no shortness of breath Gastrointestinal : no Nausea, No Vomiting, No Diarrhea, No abdominal Pain, no black stools Genitourinary : No Dysuria, No Urinary Frequency Musculoskeletal : No joint pain, No Myalgias, No Joint Swelling Skin : No Skin Lesions, No rash Neuro : No Weakness, No Numbness, No Dizziness, No Headache Psych : No Anxiety/Panic, No Depression Heme/Lymph: No Bruising, No Lymphadenopathy Endocrine : No Polyuria, No Polydipsia All other systems reviewed and are negative [facility] Past Medical History Medical History COPD (chronic obstructive pulmonary disease) Cough CVA (cerebral vascular accident) H/O placement of stent in anterior descending branch of left coronary artery Surgical History History of hysterectomy Family History Family History Father No problems noted. Mother No problems noted. Brother No problems noted. Brother No problems noted. Sister No problems noted. Son No problems noted. Daughter No problems noted. Daughter No problems noted. Daughter No problems noted. Daughter No problems noted. Social History Social History Household Members: Spouse Housing: Assisted Living Facility Do you presently have visiting nurse or other home services: No Alcohol intake: never Smoking Status: Former smoker Smoked in Last 30 Days: No Use of substances other than those prescribed or required for medical reasons: No Have you been hit, kicked, punched, or otherwise hurt by someone within the past year? If so, by whom?: No Do you feel safe in your current relationship?: Yes Is there a partner from a previous relationship who is making you feel unsafe now?: No Are you made to feel afraid or neglected: No Advance Directives: No Advance Directives Information Provided: No Do you have thoughts of harming others: None Do you have a plan to hurt others: No Plan Recently lost weight without trying: No service: No Current occupational status: retired Physical Exam Vital Signs: Vital Signs: Last Vital Signs Temp 98 F 07/26/20 22:58 Pulse 66 07/26/20 22:58 Resp 19 07/26/20 22:58 BP 151/59 H 07/26/20 22:58 Pulse Ox 99 07/26/20 22:58 Body Mass Index 25.4 Appearance: Alert. Oriented X3. No acute distress. Eyes: Pupils equal, round and reactive to light. ENT: Pharynx normal. Neck: Normal inspection. Neck supple. CVS: Normal heart rate and rhythm. Pulses normal. Respiratory: No respiratory distress. Breath sounds normal. Abdomen: Soft and nontender. Bowel sounds are present, no mass palpable, no CVA tenderness Skin: Skin warm and dry. Normal skin color. Normal skin turgor. Extremities: No lower extremity edema. Neuro: Oriented X 3. No motor deficit. No sensory deficit. Course Course Course Narrative: Patient repeat lab showed improved potassium to 5.7 now patient received insulin and calcium gluconate and p.o. Kayexalate. Will admit patient for acute renal failure and hyperkalemia Medical Decision Making MDM Narrative Medical decision making narrative: Patient acute renal failure with elevated potassium etiology not very clear other than patient taking p.o. potassium and had a cardiac catheterization a month ago. Will give patient IV fluids calcium gluconate IV insulin IV and Kayexalate by mouth and repeated chemistry plan to admit patient for further evaluation for acute renal failure with hyperkalemia Lab Data Lab results reviewed: Yes I reviewed the patient's lab results. Result diagrams: 07/26/20 16:35 07/26/20 19:43 Labs: Lab Results 07/26/20 07/26/20 07/26/20 Range/Units 16:35 16:35 16:35 WBC 4.7 L (4.8-10.8) X10*3/uL RBC 3.23 L (4.20-5.50) X10*6/uL Hgb 9.0 L (12.0-16.0) g/dl Hct 28.4 L (37-47) % MCV 87.9 (80-98) fL MCH 27.9 (27.0-33.0) pg MCHC 31.7 (31.0-35.0) g/dl RDW 15.9 (11.0-16.0) % Plt Count 196 (160-400) X10*3/uL MPV 9.8 (9.4-12.3) fL Immature Gran % (Auto) 0.6 H (0.0-0.4) % Neut % (Auto) 86.7 H (45-73) % Lymph % (Auto) 7.4 L (20-40) % [place] % (Auto) 3.6 (2-11) % Eos % (Auto) 1.3 (0-4) % Baso % (Auto) 0.4 (0-2) % Lymph # (Auto) 0.4 L (1.2-4.9) X10*3/uL [place] # (Auto) 0.2 (0.1-1.2) X10*3/uL Eos # (Auto) 0.1 (0.0-0.4) X10*3/uL Baso # (Auto) 0.0 (0.0-0.2) X10*3/uL Abs Immat Gran (auto) 0.03 (0.00-0.03) X10*3/uL Absolute Neuts (auto) 4.1 (2.0-8.3) X10*3/uL Absolute Nucleated RBC 0.000 (0.0-0.012) X10*3/uL Nucleated RBC % (auto) 0.0 (0.0-0.2) /100WBC Hold Blue Top SEE NOTE Sodium (135-145) mmol/L Potassium (3.3-5.1) mmol/L Chloride (96-108) mmol/L Carbon Dioxide (22-29) mmol/L Anion Gap (12-20) BUN (9-16) mg/dL Creatinine (0.5-1.4) mg/dL Estim Creat Clear Calc Estimated GFR POC Glucose (60-115) mg/dL Random Glucose (60-115) mg/dL Calcium (8.4-10.2) mg/dL Troponin I High Sens 4.4 D (<3.5-17.0) ng/L 07/26/20 07/26/20 07/26/20 Range/Units 16:37 18:45 19:43 WBC (4.8-10.8) X10*3/uL RBC (4.20-5.50) X10*6/uL Hgb (12.0-16.0) g/dl Hct (37-47) % MCV (80-98) fL MCH (27.0-33.0) pg MCHC (31.0-35.0) g/dl RDW (11.0-16.0) % Plt Count (160-400) X10*3/uL MPV (9.4-12.3) fL Immature Gran % (Auto) (0.0-0.4) % Neut % (Auto) (45-73) % Lymph % (Auto) (20-40) % [place] % (Auto) (2-11) % Eos % (Auto) (0-4) % Baso % (Auto) (0-2) % Lymph # (Auto) (1.2-4.9) X10*3/uL [place] # (Auto) (0.1-1.2) X10*3/uL Eos # (Auto) (0.0-0.4) X10*3/uL Baso # (Auto) (0.0-0.2) X10*3/uL Abs Immat Gran (auto) (0.00-0.03) X10*3/uL Absolute Neuts (auto) (2.0-8.3) X10*3/uL Absolute Nucleated RBC (0.0-0.012) X10*3/uL Nucleated RBC % (auto) (0.0-0.2) /100WBC Hold Blue Top Sodium 135 138 (135-145) mmol/L Potassium 6.5 H* 5.7 H (3.3-5.1) mmol/L Chloride 105 109 H (96-108) mmol/L Carbon Dioxide 19 L 18 L (22-29) mmol/L Anion Gap 18 17 (12-20) BUN 39 H 37 H (9-16) mg/dL Creatinine 2.25 H 2.04 H (0.5-1.4) mg/dL Estim Creat Clear Calc 19.1 21.1 Estimated GFR 21 23 POC Glucose 96 (60-115) mg/dL Random Glucose 111 140 H (60-115) mg/dL Calcium 8.5 8.7 (8.4-10.2) mg/dL Troponin I High Sens (<3.5-17.0) ng/L ECG Data Attestation: I personally reviewed and interpreted this ECG as follows: Interpretation: Normal sinus rhythm heart rate 63 beats per minute left axis deviation left bundle branch block slight tenting of T-waves in lateral leads no acute ischemia Discharge Plan Discharge Clinical Impression: Acute hyperkalemia Acute renal failure Qualifiers: Acute renal failure type: unspecified Qualified Code(s): N17.9 - Acute kidney failure, unspecified Patient Disposition: Admitted As Inpatient Interventions: Admission Worksheet (ED) Last Done: 07/27/20 00:23 Discharge Date/Time: 07/26/20 23:30
[2020-07-26] MEDS: 0.9 % Sodium Chloride 1,000 ML 999 ML IVCONT (17:02)
[2020-07-26] MEDS: Calcium Gluconate/NaCl,Iso-Osm 2 GM/100 ML PLAST..BAG IV (17:04)
[2020-07-26] MEDS: Sodium Polystyrene Sulfon/Sorb 15 GM/60 ML ORAL.SUSP 30 GM PO (17:06)
[2020-07-26 17:15] LABS: Blood Urea Nitrogen 39 mg/dL (9-16); Calcium 8.5 mg/dL (8.4-10.2); Creatinine Clr Calc Pharmacy 19.1; Estimated Glomerular Filt Rate 21; Glucose Random 111 mg/dL (60-115)
[2020-07-26 17:17] LABS: Troponin-I High Sensitivity 4.4 ng/L (<3.5-17.0)
[2020-07-26 17:26] LABS: Anion Gap 18 (12-20); Carbon Dioxide 19 mmol/L (22-29); Chloride 105 mmol/L (96-108); Potassium 6.5 mmol/L (3.3-5.1); Sodium 135 mmol/L (135-145)
[2020-07-26] MEDS: Insulin Regular, Human 100 UNIT/ML 3 ML VIAL IVPUSH (18:48)
[2020-07-26 18:49] LABS: Glucose, Whole Blood 96 mg/dL (60-115)
[2020-07-26 18:56] VITALS: BP 136/40; PULSE 76; RESP 18
[2020-07-26 20:00] VITALS: BP 139/52; PULSE 70; RESP 15; O2SAT 95
[2020-07-26 20:06] LABS: Anion Gap 17 (12-20); Blood Urea Nitrogen 37 mg/dL (9-16); Calcium 8.7 mg/dL (8.4-10.2); Carbon Dioxide 18 mmol/L (22-29); Chloride 109 mmol/L (96-108); Creatinine Clr Calc Pharmacy 21.1; Estimated Glomerular Filt Rate 23; Glucose Random 140 mg/dL (60-115); Potassium 5.7 mmol/L (3.3-5.1); Sodium 138 mmol/L (135-145)
--- NOTE | 2020-07-26 20:10 | PC.NURSE ---
Hospitalist at bedside to evaluate the patient for admission to the floor
--- NOTE | 2020-07-26 21:18 | PM.IMHP ---
History of Present Illness Date of Service: 07/26/20 Chief Complaint: generalized weakness This is an 80-year-old female with past medical history of CAD status post stent placed on 06/29/2020, hypertension, CHF, dementia, hypothyroidism, depression who presents to the hospital for generalized weakness. Patient has been at acute rehab after placement of stent on the of last month but has not been doing too well for the past few days. She has been feeling generally weak, and has had diarrhea once daily, she has had low appetite and oral intake, and is complaining of urinary urgency for the past 1 month. She also has a cough, that is productive this been going on for few days, no fever no chills, no chest pain, no shortness of breath, no abdominal pain, no urinary symptoms except the urgency, no frequency, dysuria, and no lower extremity edema. Patient's potassium on 06/28 was found to be 3.2, patient was discharged with potassium supplement home. She reports that she has been taking 40 mg mEq every day. On arrival to the ED patient vitals are significant for temp of 97.5?, heart rate of 63, respiratory rate of 16, blood pressure 104/41, satting 97% on room air, Labs are significant for WBC count of 4.7, hemoglobin of 9, hematocrit of 28.4, potassium of 6.6, with no EKG changes, chloride of 109, BUN of 37, creatinine of 2.25 from a baseline of 0.9, troponin negative, UA negative, chest x-ray negative for any acute disease Past medical history per EMR and confirmed with patient Review of Systems Review of Systems: Yes all other systems are reviewed and are negative [facility] Medical History (Updated 07/27/20 @ 05:03 by Vidal Us MD) Asthma CHF (congestive heart failure) COPD (chronic obstructive pulmonary disease) Cough CVA (cerebral vascular accident) Dementia H/O placement of stent in anterior descending branch of left coronary artery History of non-ST elevation myocardial infarction (NSTEMI) Hypertension Hypothyroidism LBBB (left bundle branch block) Systolic heart failure Family History Father No problems noted. Mother No problems noted. Brother No problems noted. Brother No problems noted. Sister No problems noted. Son No problems noted. Daughter No problems noted. Daughter No problems noted. Daughter No problems noted. Daughter No problems noted. Surgical History History of hysterectomy Social History Household Members: Spouse Housing: Assisted Living Facility Do you presently have visiting nurse or other home services: No Alcohol intake: never Smoking Status: Former smoker Smoked in Last 30 Days: No Use of substances other than those prescribed or required for medical reasons: No Have you been hit, kicked, punched, or otherwise hurt by someone within the past year? If so, by whom?: No Do you feel safe in your current relationship?: Yes Is there a partner from a previous relationship who is making you feel unsafe now?: No Are you made to feel afraid or neglected: No Advance Directives: No Advance Directives Information Provided: No Do you have thoughts of harming others: None Do you have a plan to hurt others: No Plan Recently lost weight without trying: No service: No Current occupational status: retired [employer] Allergies Allergy/AdvReac Type Severity Reaction Status Date / Time latex [LATEX] Allergy Unknown RASH, ITCHY Verified 07/26/20 16:13 Active Medications: Current Medications Generic Name Dose Route Start Last Admin Trade Name Freq PRN Reason Stop Dose Admin Pharmacy Consult 1 each 07/26/20 19:03 Consult Rx Perform Med Rec MISCELLANE ONCE PRN Consult order Home Medications Medication Instructions Recorded Confirmed Last Taken Type sertraline 100 mg tablet 100 mg PO BEDTIME 02/16/20 07/26/20 06/25/20 History atorvastatin 80 mg tablet 80 mg PO BEDTIME 07/20/20 07/26/20 Unknown History fluticasone furoate 200 1 inh INHALATION BEDTIME 07/20/20 07/26/20 Unknown History mcg-vilanterol 25 mcg/dose inhalation powder aspirin [Adult Low Dose Aspirin] 81 mg PO BEDTIME 07/26/20 07/26/20 Unknown History clonidine 0.2 mg TRANSDERMAL SA@2100 07/26/20 07/26/20 Unknown History donepezil 10 mg PO BEDTIME 07/26/20 07/26/20 Unknown History mometasone [Nasonex] 2 spray INTRANASAL BEDTIME 07/26/20 07/26/20 Unknown History Physical Exam Vital Signs and Narrative: Vital Signs: Last Vital Signs Temp 97.5 F 07/26/20 16:13 Pulse 70 07/26/20 20:00 Resp 15 07/26/20 20:00 BP 139/52 L 07/26/20 20:00 Pulse Ox 95 07/26/20 20:00 Body Mass Index 25.4 Const: General: cooperative, no acute distress and ill appearing Orientation/consciousness: patient oriented x3 Eyes: General: appearance normal, both eyes and all related structures Resp: Effort & Inspection: normal respiratory effort and able to speak in complete sentences Auscultation: clear to auscultation bilaterally Cardio: Rate: regular rate Rhythm: regular rhythm GI: Palpation (GI): Soft to palpation Auscultation: normal bowel sounds Skin: General skin exam: no rashes or lesions noted Neuro: General: patient oriented x3 Cognition (Neuro): normal cognition Extrem: General: Yes normal to inspection and Yes no pedal edema Results Labs CBC and Chem 7: 07/26/20 16:35 07/27/20 00:42 Labs: Laboratory Results - last 24 hr 07/26/20 07/26/20 07/26/20 16:35 16:35 16:35 MCV 87.9 MCH 27.9 MCHC 31.7 RDW 15.9 Plt Count 196 MPV 9.8 Immature Gran % (Auto) 0.6 H Neut % (Auto) 86.7 H Lymph % (Auto) 7.4 L Fleming % (Auto) 3.6 Eos % (Auto) 1.3 Baso % (Auto) 0.4 Lymph # (Auto) 0.4 L Fleming # (Auto) 0.2 Eos # (Auto) 0.1 Baso # (Auto) 0.0 Abs Immat Gran (auto) 0.03 Absolute Neuts (auto) 4.1 Absolute Nucleated RBC 0.000 Nucleated RBC % (auto) 0.0 Hold Blue Top SEE NOTE Anion Gap Estim Creat Clear Calc Estimated GFR POC Glucose Random Glucose Calcium Troponin I High Sens 4.4 D 07/26/20 07/26/20 07/26/20 16:37 18:45 19:43 MCV MCH MCHC RDW Plt Count MPV Immature Gran % (Auto) Neut % (Auto) Lymph % (Auto) Fleming % (Auto) Eos % (Auto) Baso % (Auto) Lymph # (Auto) Fleming # (Auto) Eos # (Auto) Baso # (Auto) Abs Immat Gran (auto) Absolute Neuts (auto) Absolute Nucleated RBC Nucleated RBC % (auto) Hold Blue Top Anion Gap 18 17 Estim Creat Clear Calc 19.1 21.1 Estimated GFR 21 23 POC Glucose 96 Random Glucose 111 140 H Calcium 8.5 8.7 Troponin I High Sens Assessment and Plan (1) JESUS (acute kidney injury): Status: Acute (2) Dehydration: Status: Acute (3) Hyperkalemia: Status: Acute (4) Diarrhea: Status: Acute (5) Generalized weakness: Status: Acute This is an 80-year-old female with past medical history of CAD status post stent last month, CHF, hypothyroidism, asthma, hypertension who presents to the hospital with generalized weakness found to have JESUS # JESUS - most likely secondary to dehydration, due to low oral intake and diarrhea - slightly improved with IV fluids received in the ED - continue IV fluids - hold off on a any nephrotoxic agent at this time, including her antihypertensive and resume once her creatinine returns to baseline - follow BMP # diarrhea - patient complaining of diarrhea for the past few days with 1 episode daily - will send for stool cultures - rule out C diff # hyperkalemia - no EKG changes - was taking 40 mEq of potassium daily - will stop potassium supplement - received insulin and glucose in the ED as well as Kayexalate with improvement of her potassium - follow BMP q.12 hours - IV fluids # generalized weakness - no evidence of infection, UA negative, chest x-ray negative, afebrile, no leukocytosis - most likely secondary to dehydration and poor oral intake - will start on IV fluids - PT OT # coronary artery disease - status post stent - continue DAPT a statin # CHF - no exacerbation - will hold off on spironolactone, lisinopril, and Lasix due to JESUS - resume once creatinine function back to baseline # hypertension - stable - will hold off losartan, lisinopril, and furosemide due to JESUS - continue hydralazine and amlodipine - monitor BP # hypothyroidism - continue levothyroxine
--- NOTE | 2020-07-26 21:47 | PC.NURSE ---
report given. Imc overflow pt
[2020-07-26 22:15] LABS: COVID-19 Test Negative (Negative)
[2020-07-26 22:52] LABS: Glucose Urine UA NEG (NEG); Leukocyte Esterase Urine NEG (NEG); Nitrite Urine NEG (NEG); PH 5.5 (5.0-8.0); Specific Gravity - Urine 1.015 (1.005-1.025); Urine Blood NEG (NEG); Urine Ketones NEG (NEG); Urine Protein NEG (NEG-TRACE)
[2020-07-26 22:54] LABS: Appearance Urine CLEAR; Color Urine STRAW
[2020-07-26] MEDS: 0.9 % Sodium Chloride Flush 3 ML SYRINGE IVFLUSH (22:57)
[2020-07-26] MEDS: Lactated Ringers 1,000 ML 100 ML IVCONT (22:57)
[2020-07-26 22:58] VITALS: BP 151/59; PULSE 66; RESP 19; TEMP 36.6; O2SAT 99
[2020-07-26 23:15] VITALS: BMI 24.3
[2020-07-27] VITALS (10 sets, daily range): BP systolic 116–152; BP diastolic 48–61; PULSE 58–67; RESP 14–18; TEMP 36.3–37.5; O2SAT 93–96
[2020-07-27 01:14] LABS: Potassium 5.2 mmol/L (3.3-5.1)
[2020-07-27] MEDS: Omeprazole 20 MG CAPSULE.DR PO (05:28)
[2020-07-27 06:52] LABS: Basophils Percent Auto 0.8 % (0-2); Eosinophils Absolute Auto 0.2 X10*3/uL (0.0-0.4); Eosinophils Percent Auto 6.3 % (0-4); Hemoglobin 8.4 g/dl (12.0-16.0); Imm Gran Abs Auto 0.03 X10*3/uL (0.00-0.03); Imm Gran Pct Auto 0.8 % (0.0-0.4); Lymphocytes Absolute Auto 0.6 X10*3/uL (1.2-4.9); Lymphocytes Percent Auto 16.3 % (20-40); MANUAL DIFF FLAG SCAN; Mean Corpuscular HGB Conc 31.1 g/dl (31.0-35.0); Mean Corpuscular Hemoglobin 27.4 pg (27.0-33.0); Mean Corpuscular Volume 87.9 fL (80-98); Monocytes Absolute Auto 0.2 X10*3/uL (0.1-1.2); Monocytes Percent Auto 5.8 % (2-11); Neutrophils Absolute Auto 2.5 X10*3/uL (2.0-8.3); Platelet Count 172 X10*3/uL (160-400); Red Blood Count 3.07 X10*6/uL (4.20-5.50); SCAN SMEAR FLAG 1; White Blood Count 3.6 X10*3/uL (4.8-10.8)
[2020-07-27 07:07] LABS: Anion Gap 17 (12-20); Blood Urea Nitrogen 30 mg/dL (9-16); Calcium 8.2 mg/dL (8.4-10.2); Carbon Dioxide 20 mmol/L (22-29); Chloride 107 mmol/L (96-108); Creatinine Clr Calc Pharmacy 28.1; Estimated Glomerular Filt Rate 36; Glucose Random 99 mg/dL (60-115); Potassium 4.6 mmol/L (3.3-5.1); Sodium 139 mmol/L (135-145)
[2020-07-27 07:29] LABS: SLIDE REVIEW VERIFIED
[2020-07-27] MEDS: Clopidogrel Bisulfate 75 MG TABLET PO (07:57)
[2020-07-27] MEDS: hydrALAZINE HCl 50 MG TABLET PO ×3 (07:58→20:47)
[2020-07-27] MEDS: amLODIPine Besylate 10 MG TABLET PO (07:58)
[2020-07-27] MEDS: Magnesium Oxide 400 MG TABLET PO ×2 (07:58→20:47)
[2020-07-27] MEDS: Memantine HCl 10 MG TABLET PO ×2 (07:59→20:47)
[2020-07-27] MEDS: Levothyroxine Sodium 25 MCG TABLET PO (07:59)
[2020-07-27] MEDS: Fluticasone/Vilanterol 200/25 BLST.W.DEV 1 PUFF INHALE (08:01)
[2020-07-27] MEDS: 0.9 % Sodium Chloride Flush 3 ML SYRINGE IVFLUSH (09:10)
[2020-07-27] MEDS: Lactated Ringers 1,000 ML 100 ML IVCONT (09:10)
--- NOTE | 2020-07-27 11:34 | MHC.CM.PN ---
IMM 07/27/20, EMR REVIEWED, PT ADMITTED W/ JESUS AND DEHYDRATION, CM MET W/PT WHO IS ALERT AND ORIENTED AND REPORTS SHE LIVES W/HER AT [facility], PT REPORTS SHE IS INDEPENDENT AT HOME AND ONLY HAS A CLEANING LADY EVERY TWO WEEKS WHICH IS PROVIDED BY [facility], PT REPORTS THEY ALSO PROVIDE A LIGHT BREAKFAST AND DINNERS, PT DID REQUEST CM CALL GRANDDAUGHTER BABAK AT [employer] 11:20AM ([phone]) AND ASK HER TO VISIT, WHEN CM CONTACTED PT'S GRANDDAUGHTER SHE HAD JUST LEFT PT'S ROOM, GRANDDAUGHTER REPORTED PT WAS STARTED W/[facility] FOR [facility] AND HOME OT/PT LAST WEEK AND REFERRAL FOR RESUMPTION OF CARE SENT. DISCHARGE PLAN: HOME W/[facility] FOR [facility], HOME OT/PT, FAMILY FOR TRANSPORT. HCP: MOY MCKEON ([place]) [phone] ALTERANTE: BABAK HERNANDEZ [phone] PCP: AKILAH MORROW
--- NOTE | 2020-07-27 12:26 | HO.PM.IMPN ---
Subjective Subjective Date of Service: 07/27/20 <Frannie Ly NP - Last Filed: 07/27/20 15:41> 07/27/20 <Rustam Mattson MD - Last Filed: 07/27/20 16:01> Interval History: Follow up for diarrhea. She had formed stool today and feels well. <Frannie Ly NP - Last Filed: 07/27/20 15:41> Physical Exam Vital Signs: Vital Signs: Last Vital Signs Temp 98.0 F 07/27/20 11:08 Pulse 61 07/27/20 11:08 Resp 18 07/27/20 11:08 BP 116/58 L 07/27/20 11:08 Pulse Ox 96 07/27/20 11:08 Body Mass Index 24.3 <Frannie Ly NP - Last Filed: 07/27/20 15:41> Appearing in no acute distress lung sounds are clear to auscultation heart regular rate rhythm, clear S1, S2 positive bowel sounds, abdomen is soft, nontender neuro patient is alert x3, no focal deficits <Frannie Ly NP - Last Filed: 07/27/20 15:41> Objective Data Current Medications Generic Name Dose Route Start Last Admin Trade Name Freq PRN Reason Stop Dose Admin Acetaminophen 650 mg 07/26/20 21:48 Acetaminophen 325 Mg Tablet PO Q6H PRN Pain, Mild (Pain Scale 1-3) Amlodipine Besylate 10 mg 07/27/20 09:00 07/27/20 07:58 Amlodipine Besylate 10 Mg Tablet PO 10 mg DAILY [facility] Administration Protocol Aspirin 81 mg 07/27/20 21:00 Aspirin Enteric Coated 81 Mg Tablet. PO BEDTIME [facility] Atorvastatin Calcium 80 mg 07/27/20 21:00 Atorvastatin Calcium 80 Mg Tablet PO BEDTIME [facility] Clonidine 0.2 mg 07/31/20 21:00 Clonidine 0.2 Mg Patch.Tdwk TRANSDERMA SA@2100 [facility] Protocol Clopidogrel Bisulfate 75 mg 07/27/20 09:00 07/27/20 07:57 Clopidogrel Bisulfate 75 Mg Tablet PO 75 mg DAILY [facility] Administration Docusate Sodium 100 mg 07/26/20 21:48 Docusate Sodium 100 Mg Capsule PO DAILY PRN Constipation Donepezil HCl 10 mg 07/27/20 21:00 Donepezil Hcl 10 Mg Tablet PO BEDTIME [facility] Fluticasone/Vilanterol 1 puff 07/27/20 08:00 07/27/20 08:01 Fluticasone/Vilanterol 200/25 Blst.W.Dev INHALE 1 puff RDAILY [facility] Administration Hydralazine HCl 50 mg 07/27/20 09:00 07/27/20 07:58 Hydralazine Hcl 50 Mg Tablet PO 50 mg TID [facility] Administration Protocol Lactated Ringer's 1,000 mls @ 100 mls/hr 07/26/20 21:48 07/27/20 09:10 Lr IVCONT 100 mls/hr .Q10H [facility] Administration Levothyroxine Sodium 25 mcg 07/27/20 09:00 07/27/20 07:59 Levothyroxine Sodium 25 Mcg Tablet PO 25 mcg DAILY@0600 [facility] Administration Magnesium Oxide 400 mg 07/27/20 09:00 07/27/20 07:58 Magnesium Oxide 400 Mg Tablet PO 400 mg BID [facility] Administration Memantine 10 mg 07/27/20 09:00 07/27/20 07:59 Memantine Hcl 10 Mg Tablet PO 10 mg BID [facility] Administration Montelukast Sodium 10 mg 07/27/20 21:00 Montelukast Sodium 10 Mg Tablet PO BEDTIME [facility] Non-Formulary Medication 2 spray 07/27/20 21:00 Mometasone [Nasonex] NOSTRIL-B BEDTIME [facility] Omeprazole 20 mg 07/27/20 06:30 07/27/20 05:28 Omeprazole 20 Mg Capsule.Dr PO 20 mg DAILY@0630 [facility] Administration Ondansetron HCl 4 mg 07/26/20 21:48 Ondansetron Hcl 4 Mg/2 Ml Vial IVPUSH Q8H PRN Nausea and Vomiting Pharmacy Consult 1 each 07/26/20 19:03 Consult Rx Perform Med Rec MISCELLANE ONCE PRN Consult order Sertraline HCl 100 mg 07/27/20 21:00 Sertraline Hcl 100 Mg Tablet PO BEDTIME [facility] Sodium Chloride 3 ml 07/27/20 00:00 07/27/20 09:10 0.9 % Sodium Chloride Flush 3 Ml Syringe IVFLUSH 3 ml QSHIFT [facility] Administration <Frannie Ly NP - Last Filed: 07/27/20 15:41> Labs CBC & Chem 7: : 07/27/20 06:06 07/27/20 06:06 <Frannie Ly NP - Last Filed: 07/27/20 15:41> Assessment and Plan (1) JESUS (acute kidney injury): Status: Acute <Frannie Ly NP - Last Filed: 07/27/20 15:41> (2) Dehydration: Status: Acute <Frannie Ly NP - Last Filed: 07/27/20 15:41> (3) Hyperkalemia: Status: Acute <Frannie Ly NP - Last Filed: 07/27/20 15:41> (4) Diarrhea: Status: Acute <Frannie yL NP - Last Filed: 07/27/20 15:41> (5) Generalized weakness: Status: Acute <Frannie Ly NP - Last Filed: 07/27/20 15:41> Assessment and Plan: This is an 80-year-old female with past medical history of CAD status post stent last month, CHF, hypothyroidism, asthma, hypertension who presents to the hospital with generalized weakness found to have JESUS # JESUS - most likely secondary to dehydration, due to low oral intake and diarrhea - slightly improved with IV fluids received in the ED - continue IV fluids - hold off on a any nephrotoxic agent at this time, including her antihypertensive and resume once her creatinine returns to baseline - follow BMP - Home with services when medically safe # diarrhea-Formed stool today - patient complaining of diarrhea for the past few days with 1 episode daily - Cx pending - rule out C diff # hyperkalemia. Resolved. received insulin and glucose in the ED as well as Kayexalate with improvement of her potassium - no EKG changes - was taking 40 mEq of potassium daily, stop. - follow BMP q.12 hours - IV fluids # generalized weakness - no evidence of infection, UA negative, chest x-ray negative, afebrile, no leukocytosis - most likely secondary to dehydration and poor oral intake - will start on IV fluids - PT/OT # coronary artery disease - status post stent - continue asa and statin # CHF - no exacerbation - will hold off on spironolactone, lisinopril, and Lasix due to JESUS - resume once creatinine function back to baseline # hypertension - stable - will hold off losartan, lisinopril, and furosemide due to JESUS - continue hydralazine and amlodipine - monitor BP # hypothyroidism - continue levothyroxine Attending: Dr. Mattson <Frannie Ly NP - Last Filed: 07/27/20 15:41>
[2020-07-27] MEDS: Aspirin Enteric Coated 81 MG TABLET.DR PO (20:47)
[2020-07-27] MEDS: Atorvastatin Calcium 80 MG TABLET PO (20:47)
[2020-07-27] MEDS: Donepezil HCl 10 MG TABLET PO (20:47)
[2020-07-27] MEDS: Sertraline HCL 100 MG TABLET PO (20:47)
[2020-07-27] MEDS: Montelukast Sodium 10 MG TABLET PO (20:47)
[2020-07-28] VITALS (8 sets, daily range): BP systolic 135–162; BP diastolic 45–77; PULSE 59–78; RESP 14–16; TEMP 36.2–37.6; O2SAT 92–95
[2020-07-28] MEDS: 0.9 % Sodium Chloride Flush 3 ML SYRINGE IVFLUSH ×2 (00:46→09:23)
[2020-07-28] MEDS: Omeprazole 20 MG CAPSULE.DR PO (06:19)
[2020-07-28] MEDS: Levothyroxine Sodium 25 MCG TABLET PO (06:19)
[2020-07-28] MEDS: Fluticasone/Vilanterol 200/25 BLST.W.DEV 1 PUFF INHALE (07:28)
[2020-07-28] MEDS: Memantine HCl 10 MG TABLET PO (09:20)
[2020-07-28] MEDS: Clopidogrel Bisulfate 75 MG TABLET PO (09:20)
[2020-07-28] MEDS: amLODIPine Besylate 10 MG TABLET PO (09:20)
[2020-07-28] MEDS: Magnesium Oxide 400 MG TABLET PO (09:20)
[2020-07-28] MEDS: hydrALAZINE HCl 50 MG TABLET PO (09:21)
[2020-07-28 09:34] LABS: Blood Urea Nitrogen 19 mg/dL (9-16); Calcium 8.2 mg/dL (8.4-10.2); Creatinine Clr Calc Pharmacy 37.7; Estimated Glomerular Filt Rate 50; Glucose Random 140 mg/dL (60-115)
[2020-07-28 09:45] LABS: Anion Gap 15 (12-20); Carbon Dioxide 24 mmol/L (22-29); Chloride 103 mmol/L (96-108); Potassium 3.8 mmol/L (3.3-5.1); Sodium 138 mmol/L (135-145)
--- NOTE | 2020-07-28 11:08 | P.DS_ITS ---
DS: Providers Provider Date of Service: 07/28/20 <MAMTA Silveira - Last Filed: 07/28/20 11:17> 07/28/20 <Rustam Mattson MD - Last Filed: 07/28/20 14:24> Date of admission: 07/26/20 21:17 <MAMTA Silveira - Last Filed: 07/28/20 11:17> Primary care physician: Claus Lockwood MD <MAMTA Silveira - Last Filed: 07/28/20 11:17> DS: Diagnosis Discharge Diagnosis (1) JESUS (acute kidney injury): Status: Acute <MAMTA Silveira - Last Filed: 07/28/20 11:17> (2) Dehydration: Status: Acute <MAMTA Silveira - Last Filed: 07/28/20 11:17> (3) Hyperkalemia: Status: Acute <MAMTA Silveira - Last Filed: 07/28/20 11:17> (4) Diarrhea: Status: Acute <MAMTA Silveira - Last Filed: 07/28/20 11:17> (5) Generalized weakness: Status: Acute <MAMTA Silveira - Last Filed: 07/28/20 11:17> DS: Medications Discharge Medications Home Medications: Home Medications Medication Instructions Recorded Confirmed sertraline 100 mg tablet 100 mg PO BEDTIME 02/16/20 07/26/20 atorvastatin 80 mg tablet 80 mg PO BEDTIME 07/20/20 07/26/20 fluticasone furoate 200 1 inh INHALATION BEDTIME 07/20/20 07/26/20 mcg-vilanterol 25 mcg/dose inhalation powder aspirin [Adult Low Dose Aspirin] 81 mg PO BEDTIME 07/26/20 07/26/20 clonidine 0.2 mg TRANSDERMAL SA@2100 07/26/20 07/26/20 donepezil 10 mg PO BEDTIME 07/26/20 07/26/20 mometasone [Nasonex] 2 spray INTRANASAL BEDTIME 07/26/20 07/26/20 Previous Rx's Medication Instructions Recorded levothyroxine 25 mcg tablet 25 mcg PO DAILY 90 Days #90 tab 02/17/20 losartan 100 mg tablet 100 mg PO DAILY #90 tab 02/17/20 esomeprazole magnesium 20 mg 20 mg PO DAILY 90 Days #90 cap 04/27/20 capsule,delayed release amlodipine 10 mg tablet 10 mg PO DAILY #30 tab 07/23/20 clopidogrel 75 mg tablet 75 mg PO DAILY #30 tab 07/23/20 furosemide 40 mg tablet 40 mg PO DAILY #30 tab 07/23/20 hydralazine 50 mg tablet 50 mg PO TID #90 tab 07/23/20 magnesium oxide 400 mg PO BID #60 cap 07/23/20 memantine 10 mg tablet 10 mg PO BID #60 tab 07/23/20 montelukast 10 mg tablet 10 mg PO BEDTIME #30 tab 07/23/20 spironolactone 50 mg tablet 50 mg PO QAM #30 tab 07/23/20 <MAMTA Silveira - Last Filed: 07/28/20 11:17> DS: Summary Hospital Course Hospital Course: This is an 80-year-old female with history of coronary artery disease status post stent, CHF, hypothyroidism, asthma, hypertension who presented with generalized weakness found JESUS and hyperkalemia. JESUS with thought to be secondary to dehydration, decreased p.o. intake and diarrhea. Her renal function improved with IV fluid. Her losartan, Lasix, Aldactone were initially held due to JESUS. Creatinine has improved from 2.25 to 1.05, hyperkalemia resolved and she is now stable for discharge. Her diarrhea has also resolved. Lasix and spironolactone should be held for the next 1 week. Potassium supplementation has been discontinued. She should repeat labs in 1 week and call PCP to schedule follow-up appointment. Attending Attestation: Patient seen and examined independently and I was present during sinha portion of E/M service. Agree with MAMTA Patel's history, physical, assessment, and plan. Pt improved on IVF alone. Stool formed, C. Diff testing not performed. Restarted Losartan as BP was rounding back. Also noted by family to be apenic during sleep at time in the past, referred to Pulmonary as outpatient for sleep study. <MAMTA Silveira - Last Filed: 07/28/20 11:17> Time Spent with Patient Time attestation: Total time spent providing and/or coordinating discharge services: <MAMTA Silveira - Last Filed: 07/28/20 11:17> Discharge coordination time: Greater than 30 minutes <MAMTA Silveira - Last Filed: 07/28/20 11:17> Physical Exam Vital Signs: Vital Signs: Last Vital Signs Temp 99.7 F 07/28/20 08:00 Pulse 59 07/28/20 09:46 Resp 14 07/28/20 08:00 BP 162/72 H 07/28/20 09:46 Pulse Ox 94 07/28/20 08:00 Body Mass Index 24.3 <MAMTA Silveira - Last Filed: 07/28/20 11:17> Const: Nutritional Appearance: well nourished <MAMTA Silveira - Last Filed: 07/28/20 11:17> HENMT: Head: Yes normocephalic and Yes atraumatic <MAMTA Silveira - Last Filed: 07/28/20 11:17> Eyes: Sclerae: sclerae normal <MAMTA Silveira - Last Filed: 07/28/20 11:17> Chest: Chest palpation & inspection: normal inspection of the chest <MAMTA Silveira - Last Filed: 07/28/20 11:17> Resp: Effort & Inspection: normal respiratory effort and no respiratory distress <MAMTA Silveira - Last Filed: 07/28/20 11:17> Cardio: Rate: regular rate <MAMTA Silveira - Last Filed: 07/28/20 11:17> Rhythm: regular rhythm <MAMTA Silveira - Last Filed: 07/28/20 11:17> GI: Palpation (GI): Soft to palpation and nontender <MAMTA Silveira - Last Filed: 07/28/20 11:17> Skin: General skin exam: no rashes or lesions noted <MAMTA Silveira - Last Filed: 07/28/20 11:17> Neuro: Cranial nerves: Yes CN's II-XII intact bilaterally and Yes Bilaterally intact EOM present <MAMTA Silveira - Last Filed: 07/28/20 11:17> Extrem: General: Yes normal to inspection <MAMTA Silveira - Last Filed: 07/28/20 11:17> DS: Data Data Completed and Pending Completed studies during hospitalization [Text1]: Procedures Transfusion of Nonautologous Red Blood Cells into Peripheral Vein, Percutaneous Approach (06/26/20) <MAMTA Silveira - Last Filed: 07/28/20 11:17> Labs on day of discharge: Laboratory Results - last 24 hr 07/28/20 08:41 Sodium 138 Potassium 3.8 Chloride 103 Carbon Dioxide 24 Anion Gap 15 BUN 19 H Creatinine 1.05 Estim Creat Clear Calc 37.7 Estimated GFR 50 Random Glucose 140 H D Calcium 8.2 L <MAMTA Silveira - Last Filed: 07/28/20 11:17> Discharge Plan Discharge Patient Disposition: Home Health Service <MAMTA Silveira - Last Filed: 07/28/20 11:17> Referrals: [facility] [Outside] ([facility], HOME PT/PT) Claus Lockwood MD [Primary Care Provider] - 1 Week (Please call and schedule a follow up appointment.) Mark Ly MD [Physician] - (Sleep study per family request) <MAMTA Silveira - Last Filed: 07/28/20 11:17> Discharge Medications: Continued sertraline 100 mg tablet 100 mg PO BEDTIME RF: 0 levothyroxine [Synthroid] 25 mcg tablet 25 mcg PO DAILY 90 Days Qty: 90 RF: 3 losartan 100 mg tablet 100 mg PO DAILY Qty: 90 RF: 3 esomeprazole magnesium [Nexium] 20 mg capsule,delayed release(DR/EC) 20 mg PO DAILY 90 Days Qty: 90 RF: 3 montelukast 10 mg tablet 10 mg PO BEDTIME Qty: 30 RF: 2 amlodipine 10 mg tablet 10 mg PO DAILY Qty: 30 RF: 2 clopidogrel 75 mg tablet 75 mg PO DAILY Qty: 30 RF: 2 hydralazine 50 mg tablet 50 mg PO TID Qty: 90 RF: 2 memantine 10 mg tablet 10 mg PO BID Qty: 60 RF: 2 magnesium oxide 400 mg magnesium capsule 400 mg PO BID Qty: 60 RF: 2 clonidine 0.2 mg/24 hr patch weekly 0.2 mg transdermal SA@2100 RF: 0 donepezil 10 mg tablet 10 mg PO BEDTIME RF: 0 aspirin [Adult Low Dose Aspirin] 81 mg tablet,delayed release (DR/EC) 81 mg PO BEDTIME RF: 0 mometasone [Nasonex] 50 mcg/actuation spray,non-aerosol 2 spray intranasal BEDTIME RF: 0 atorvastatin 80 mg tablet 80 mg PO BEDTIME RF: 0 Breo Ellipta 200-25 mcg/dose blister with device 1 inh inhalation BEDTIME RF: 0 Held spironolactone 50 mg tablet 50 mg PO QAM Qty: 30 RF: 2 Hold Instructions: Resume on 08/04/20. furosemide 40 mg tablet 40 mg PO DAILY Qty: 30 RF: 2 Hold Instructions: Resume on 08/04/20. Discontinued potassium chloride 10 mEq tablet extended release 40 meq PO DAILY Qty: 120 RF: 2 <MAMTA Silveira - Last Filed: 07/28/20 11:17> Discharge Orders: Discharge Order (Routine); Ordered 07/28/20 Ordered By: Binta Davalos <MAMTA Silveira - Last Filed: 07/28/20 11:17> Diet: advance to usual diet <MAMTA Silveira - Last Filed: 07/28/20 11:17> advance to usual diet <Rustam Mattson MD - Last Filed: 07/28/20 14:24> Activity on Discharge: As tolerated <MAMTA Silveira - Last Filed: 07/28/20 11:17> As tolerated <Rustam Mattson MD - Last Filed: 07/28/20 14:24> Stand Alone Forms: Patient Portal Discharge page <MAMTA Silveira - Last Filed: 07/28/20 11:17> Other Ambulatory Orders: Basic Metabolic Panel (Routine) Timeframe: [id number] Facility: [facility] - Location: Laboratory Ordered By: Binta Davalos <MAMTA Silveira - Last Filed: 07/28/20 11:17> Care Plan Goals: See below <MAMTA Silveira - Last Filed: 07/28/20 11:17> Health Concerns: JESUS Hyperkalemia <MAMTA Silveira - Last Filed: 07/28/20 11:17> Plan of Treatment: Acute kidney injury - kidney function has improved. Resume taking your spironolactone and Lasix 1 week from now (08/04) Hyperkalemia- Resolved. Please stop taking potassium replacement. Please call your PCP to schedule a follow up appointment and to follow your kidney function and potassium levels. Recheck your labs in one week as ordered. <MAMTA Silveira - Last Filed: 07/28/20 11:17> Discharge Date/Time: 07/28/20 12:50 <MAMTA Silveira - Last Filed: 07/28/20 11:17>
[2020-07-28] MEDS: Losartan Potassium 50 MG TABLET 100 MG PO (11:40)
--- NOTE | 2020-07-28 13:58 | MHC.CM.PN ---
PT DISCHARGED TODAY HOME W/[facility] FOR SN, HOME OT/PT, [facility] FOR TRANSPORT.
== END 2020-07-28 12:50 | disposition home health service (06) | DRG 641 ==
LOC: HO.ED 19:50 → HO.S3 21:35
PROVIDERS: Physician Assistant Medical; Admitting Provider Internal Medicine; Emergency Provider Internal Medicine; PCP Family Medicine; Visit Provider Family Medicine
DX: E87.5 Hyperkalemia (principal); N17.9 Acute kidney failure, unspecified; E03.9 Hypothyroidism, unspecified; F03.90 Unspecified dementia, unspecified severity, without behavioral disturbance, psychotic disturbance, mood disturbance, and anxiety; I25.10 Atherosclerotic heart disease of native coronary artery without angina pectoris; I11.0 Hypertensive heart disease with heart failure; E86.0 Dehydration; Z86.73 Personal history of transient ischemic attack (TIA), and cerebral infarction without residual deficits; I50.9 Heart failure, unspecified; J44.9 Chronic obstructive pulmonary disease, unspecified; Z20.822 Contact with and (suspected) exposure to COVID-19; Z95.5 Presence of coronary angioplasty implant and graft; Z79.02 Long term (current) use of antithrombotics/antiplatelets; Z79.52 Long term (current) use of systemic steroids; Z79.82 Long term (current) use of aspirin; Z79.890 Hormone replacement therapy; Z79.899 Other long term (current) drug therapy
CPT/HCPCS: 36415; 71045; 80048; 80053; 81003; 82947; 84132; 84439; 84443; 84484; 85025; 87635; 93005; 96365; 96366; 96375; 97116; 97162; 97530; 99284; 99285; J0610

== ENCOUNTER 2020-08-04 10:22 | Outpatient (REF) | payer MEDICARE, BC, SELFPAY ==
[2020-08-04 11:12] LABS: Alanine Aminotransferase 21 U/L (0-31); Albumin Level 3.4 g/dL (3.5-5.0); Alkaline Phosphatase 109 U/L (39-117); Anion Gap 18 (12-20); Aspartate Amino Transferase 20 U/L (5-31); Bilirubin Total 0.3 mg/dL (0.0-1.0); Blood Urea Nitrogen 25 mg/dL (9-16); Calcium 8.3 mg/dL (8.4-10.2); Carbon Dioxide 22 mmol/L (22-29); Chloride 101 mmol/L (96-108); Estimated Glomerular Filt Rate 48; Glucose Random 120 mg/dL (60-115); Potassium 4.3 mmol/L (3.3-5.1); Sodium 137 mmol/L (135-145); Total Protein 5.9 g/dL (6.5-8.0)
== END 2020-08-04 10:23 | disposition home or self-care (01) ==
LOC: HO.LNP 10:22
PROVIDERS: Visit Provider Family Medicine
DX: Z13.89 Encounter for screening for other disorder (principal)
CPT/HCPCS: 80053

== ENCOUNTER 2020-08-04 15:08 | Outpatient (REF) | payer BC, SELFPAY ==
--- NOTE | ~2020-08-04 | US_ITS ---
EXAMINATION: US RETROPERITONEAL LIMITED (RENAL ONLY) CLINICAL INFORMATION: Essential hypertension. COMPARISON: None TECHNIQUE: Routine jc-scale imaging of kidneys was performed. Subsequently, retroperitoneal Doppler imaging of the abdominal aorta and kidneys was performed. FINDINGS: RIGHT KIDNEY: 9.8 x 4.1 x 4.2 cm (SAG x AP x TRV). The kidney is normal in size, contour, and echogenicity. Renal cortical thickness is normal. There 2 anechoic cysts in the midpole measuring 0.3 x 0.3 x 0.3 cm and 2.4 x 1.8 x 2.3 cm. No echogenic stones or hydronephrosis seen. LEFT KIDNEY: 9.8 x 4.3 x 3.7 cm (SAG x AP x TRV). The kidney is normal in size, contour, and echogenicity. Renal cortical thickness is normal. No calculi or focal parenchymal lesions. No hydronephrosis. There is an anechoic cyst in the upper pole measuring 0.9 x 0.8 x 0.8 cm. On Doppler exam, RIGHT KIDNEY: Renal artery velocity proximal segment measures 133 cm/s, mid segment measures to 212 cm/s, distal segment measures 262 cm/s. The average resistive index is 0.8. Due to elevated mid aorta systolic velocity of 110 cm/s, renal artery ratio cannot be calculated. LEFT KIDNEY: Renal artery velocity proximal segment measures 79.3 cm/s, mid segment measures 200 cm/s, distal segment measures 197 cm/s. Average resistive index is 0.82. The renal artery ratio cannot be calculated due to elevated peak systolic velocity of mid abdominal aorta of 110 cm/s. US/US renal doppler IMPRESSION: Elevated renal artery velocities in the right kidney and increased resistive index more so than the left kidney, suspicious for renal artery narrowing. The renal aortic ratio cannot be calculated due to elevated aortic velocity. If BUN, GFR and creatinine are normal, further evaluation with CTA or MRA with contrast is recommended. The left kidney velocities and resistive index are within normal limits. There are bilateral renal cysts but no echogenic renal calculi or hydronephrosis.
== END 2020-08-04 15:09 | disposition home or self-care (01) ==
LOC: HO.US 15:08
PROVIDERS: Visit Provider Internal Medicine Cardiovascular Disease
DX: I10 Essential (primary) hypertension (principal)
CPT/HCPCS: 76775; 80053; 93975

== ENCOUNTER 2020-08-11 14:09 | Outpatient (REF) | payer BC, SELFPAY ==
--- NOTE | ~2020-08-11 | XR_ITS ---
EXAMINATION: XR CHEST CLINICAL INFORMATION: Cough COMPARISON: Previous chest x-rays most recent July 2020 TECHNIQUE: 2 views of the chest were obtained. FINDINGS: The cardiac silhouette is enlarged but stable. There may be pulmonary venous redistribution. The lungs are clear. There are small bilateral pleural effusions. Bony structures are unremarkable. XR/XR chest 2V IMPRESSION: Enlarged heart, pulmonary venous redistribution and small bilateral pleural effusions. Findings are suggestive of mild CHF.
[2020-08-11 18:37] LABS: Anion Gap 13 (12-20); Blood Urea Nitrogen 39 mg/dL (9-16); Calcium 8.4 mg/dL (8.4-10.2); Carbon Dioxide 25 mmol/L (22-29); Chloride 103 mmol/L (96-108); Estimated Glomerular Filt Rate 30; Glucose Random 134 mg/dL (60-115); Potassium 4.8 mmol/L (3.3-5.1); Sodium 136 mmol/L (135-145)
== END 2020-08-11 14:10 | disposition home or self-care (01) ==
LOC: HO.XRAY 14:09
PROVIDERS: PCP Family Medicine; Visit Provider Family Medicine
DX: Z00.00 Encounter for general adult medical examination without abnormal findings (principal); R05 Cough; E87.5 Hyperkalemia
CPT/HCPCS: 36415; 71046; 80048

== ENCOUNTER → 2020-08-19 15:26 | Outpatient (BNVA) | payer BC, MEDICARE, SELFPAY | PROVIDERS: PCP Family Medicine; Visit Provider Internal Medicine Cardiovascular Disease ==

== ENCOUNTER 2020-08-24 08:28 | Outpatient (REF) | payer BC, MEDICARE, SELFPAY ==
[2020-08-24 12:07] LABS: B Type Natriuretic Peptide 41 pg/mL (<100)
[2020-08-24 12:09] LABS: Anion Gap 15 (12-20); Blood Urea Nitrogen 35 mg/dL (9-16); Calcium 9.2 mg/dL (8.4-10.2); Carbon Dioxide 26 mmol/L (22-29); Chloride 101 mmol/L (96-108); Estimated Glomerular Filt Rate 33; Glucose Random 99 mg/dL (60-115); Potassium 4.5 mmol/L (3.3-5.1); Sodium 137 mmol/L (135-145)
== END 2020-08-24 08:29 | disposition home or self-care (01) ==
LOC: HO.WFDLDS 08:28
PROVIDERS: Physician Assistant Medical; Visit Provider Family Medicine
DX: E87.5 Hyperkalemia (principal); N17.9 Acute kidney failure, unspecified; I50.9 Heart failure, unspecified
CPT/HCPCS: 36415; 80048; 83880

== ENCOUNTER → 2020-09-09 14:22 | Outpatient (BNVA) | payer BC, MEDICARE, SELFPAY | PROVIDERS: PCP Family Medicine; Visit Provider Internal Medicine Cardiovascular Disease ==

== ENCOUNTER 2020-09-14 07:48 | Outpatient (REF) | payer BC, MEDICARE, SELFPAY ==
--- NOTE | ~2020-09-14 | XR_ITS ---
EXAMINATION: XR KNEE, LEFT CLINICAL INFORMATION: Left knee pain. COMPARISON: None. TECHNIQUE: 3 views of the left knee. 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 The prosthetic components are in satisfactory alignment. There is severe loss of medial and moderate loss of lateral compartment left knee joint space. There is moderate medial compartment periarticular spurring. On the single lateral view of the left knee, there is moderate loss of patellofemoral compartment joint space with inferior patellar spurring and mild suprapatellar joint effusion. There is a small anterior superior patellar enthesophyte at the insertion of the quadriceps tendon. There are no loose bodies identified. XR/XR knee LT 3V IMPRESSION: Severe degenerative changes medial and moderate degenerative changes lateral and patellofemoral compartments left knee. Mild suprapatellar joint effusion seen. There is a total right knee prosthesis with prosthetic components in satisfactory alignment.
== END 2020-09-14 07:49 | disposition home or self-care (01) ==
LOC: HO.HOSX 07:48
PROVIDERS: Visit Provider Physician Assistant
DX: M17.12 Unilateral primary osteoarthritis, left knee (principal); Z96.651 Presence of right artificial knee joint
CPT/HCPCS: 73562

== ENCOUNTER → 2020-09-15 14:56 | Outpatient (REF) | payer BC, MEDICARE, SELFPAY ==
--- NOTE | 2020-09-15 15:03 | CA_ITS ---
Transthoracic Echocardiogram Patient (Last, First, Middle): Ann Webster, Gender: Female Date of : 1940 Age: 80 Procedure Date: 09/15/2020 Procedure Type: Transthoracic Echocardiogram Location: OP Height: 162.56 cm Weight: 62.14 kg BSA: 1.67 m2 Heart Rate: bpm BP: 134 / 68 mmHg Brake Drum Molder: Referring MD: Kofi Plata MD Glove Parts Inspector: Alcides Schwartz MD Symptoms: I50.20 - Unspecified systolic (congestive) heart failure Study Quality: Good ECG Rhythm: Sinus Conclusions: - 1. Normal LV systolic function with moderate LVH with impaired relaxation filling pattern 2. Normal cardiac valvular Doppler 3. Normal RV systolic pressure 4. Trivial pericardial effusion Findings Left Ventricle Normal left ventricular size and systolic function. There is moderately increased left ventricular wall thickness. The visually estimated ejection fraction is between 60-65%. Spectral Doppler is indicative of an impaired relaxation filling pattern. E/E prime ratio is between 8 and 15 consistent with indeterminate filling pressures. Right Ventricle Normal right ventricular cavity size and systolic function. Atria The left atrium is likely dilated. There is lipomatous hypertrophy of the interatrial septum. There is no evidence of interatrial shunt. The right atrium is normal in size. Aortic Valve Normal aortic valve structure and function. There is no aortic valve stenosis. There is no aortic valve regurgitation. Mitral Valve Normal mitral valve structure and function. There is mild mitral annular calcification. There is trace mitral valve regurgitation. There is no mitral valve stenosis. Pulmonic Valve The pulmonic valve is likely normal. There is trace pulmonic valve regurgitation. Tricuspid Valve Normal tricuspid valve structure. There is trace tricuspid valve regurgitation. The right ventricular systolic pressure is normal. The right ventricular systolic pressure is 13 mmHg. There is no evidence of pulmonary hypertension. Great Vessels All visible segments of the aorta are normal in size. The pulmonary artery was not well visualized. Venous The inferior vena cava is normal in size and collapses greater than 50% with inspiration. Pericardium/Pleural There is a trivial loculated pericardial effusion overlying the left ventricle. Measurements 2D Linear Measurements IVSd: 1.49 0.6-0.9/0.6-1.0 cm LVIDd: 4.22 3.9-5.3/4.2-5.9 cm LVIDd Index: 2.53 2.4-3.2/2.2-3.1 cm/m2 LVIDs: 2.39 2.0-3.6 cm LVPWd: 1.35 0.7-1.1 cm LV Mass: 287.81 67-162/88-224 g LV Mass Index: 172.34 43-95/49-115 g/m2 Mitral Valve MV Pk E: 0.64 MV PK A: 1.18 MV Decel Time: 269.00 E/A: 0.50 E'Lateral: 5.51 E'Medial: 4.25 E/E' Med: 15.10 E/E' Lat: 11.60 PHT: 79.00 MVA PHT: 2.78 Decel Comal: 2.38 Diastolic Function MV Pk E: 0.64 MV Pk A: 1.18 E/A: 0.50 E'Medial: 4.25 E/E' Med: 15.10 E' Laterial: 5.51 E/E' Lat: 11.60 Tricuspid Valve TR Pk Cortes: 1.58 TR Pk Grad: 10.00 RA Press: 3.00 RVSP: 13.00 Updated in Other Vendor System with Status of Final Alcides Schwartz MD electronically signed on 09/16/2020 9:02:55 AM with status of Final
== END ==
LOC: HO.CARD 14:56
PROVIDERS: PCP Family Medicine; Visit Provider Internal Medicine Cardiovascular Disease
DX: I50.20 Unspecified systolic (congestive) heart failure (principal)
CPT/HCPCS: 93308

== ENCOUNTER → 2020-11-01 15:19 | Outpatient (BNVA) | payer BC, MEDICARE, SELFPAY | PROVIDERS: PCP Family Medicine; Referring Provider Family Medicine; Visit Provider Internal Medicine Cardiovascular Disease ==

== ENCOUNTER → 2020-11-16 15:45 | Outpatient (BNVA) | payer BC, SELFPAY | PROVIDERS: PCP Family Medicine; Visit Provider Physician Assistant | DX: M17.12 Unilateral primary osteoarthritis, left knee (principal); I11.0 Hypertensive heart disease with heart failure; I50.20 Unspecified systolic (congestive) heart failure; E03.9 Hypothyroidism, unspecified; Z87.891 Personal history of nicotine dependence; Z91.040 Latex allergy status | CPT/HCPCS: 20610 ==

== ENCOUNTER → 2021-02-16 14:29 | Outpatient (BNVA) | payer BC, MEDICARE, SELFPAY | PROVIDERS: PCP Family Medicine; Referring Provider Family Medicine; Visit Provider Internal Medicine Cardiovascular Disease ==

== ENCOUNTER 2021-03-07 18:25 | Outpatient (REF) | payer BC, SELFPAY ==
[2021-03-07 18:42] LABS: Appearance Urine CLEAR; Color Urine YELLOW; Glucose Urine UA NEG (NEG); Leukocyte Esterase Urine 2+ (NEG); Nitrite Urine NEG (NEG); Specific Gravity - Urine <= 1.005 (1.005-1.025); Urine Blood NEG (NEG); Urine Ketones NEG (NEG); Urine Protein NEG (NEG-TRACE)
[2021-03-07 18:50] LABS: Bacteria Urine TRACE /LPF; RBC Urine 0 /HPF (0); Squamous Epithelial Cell Urine 1+ /LPF
== END 2021-03-07 18:26 | disposition home or self-care (01) ==
LOC: HO.LNP 18:25
PROVIDERS: Visit Provider Family Medicine
DX: R30.0 Dysuria (principal)
CPT/HCPCS: 81001; 87086

== ENCOUNTER → 2021-05-23 13:50 | Outpatient (BNVA) | payer BC, SELFPAY | PROVIDERS: PCP Family Medicine; Referring Provider Family Medicine; Visit Provider Internal Medicine Cardiovascular Disease | DX: I50.9 Heart failure, unspecified (principal); I25.2 Old myocardial infarction | CPT/HCPCS: 93005 ==

== ENCOUNTER 2021-07-21 07:51 | Outpatient (REF) | payer BC, SELFPAY ==
[2021-07-21 11:16] LABS: MANUAL DIFF FLAG NO
[2021-07-21 11:26] LABS: Basophils Absolute Auto 0.1 X10*3/uL (0.0-0.2); Eosinophils Absolute Auto 0.2 X10*3/uL (0.0-0.4); Eosinophils Percent Auto 3.8 % (0-4); Hematocrit 33.9 % (37.0-47.0); Hemoglobin 10.8 g/dl (12.0-16.0); Imm Gran Abs Auto 0.06 X10*3/uL (0.00-0.03); Lymphocytes Absolute Auto 0.7 X10*3/uL (1.2-4.9); Lymphocytes Percent Auto 12.2 % (20-40); Mean Corpuscular HGB Conc 31.9 g/dl (31.0-35.0); Mean Corpuscular Hemoglobin 30.4 pg (27.0-33.0); Mean Corpuscular Volume 95.5 fL (80.0-98.0); Mean Platelet Volume 10.5 fL (9.4-12.3); Monocytes Absolute Auto 0.3 X10*3/uL (0.1-1.2); Monocytes Percent Auto 4.8 % (2-11); Neutrophils Absolute Auto 4.6 x10*3/uL (2.0-8.3); Neutrophils Percent Auto 77.2 % (45-73); Platelet Count 207 X10*3/uL (160-400); Red Blood Count 3.55 X10*6/uL (4.20-5.50); Red Cell Distribution Width 13.2 % (11.0-16.0)
[2021-07-21 11:48] LABS: Alanine Aminotransferase 23 U/L (0-31); Albumin Level 4.1 g/dL (3.5-5.0); Alkaline Phosphatase 145 U/L (39-117); Anion Gap 14 (12-20); Aspartate Amino Transferase 22 U/L (5-31); Bilirubin Total 0.3 mg/dL (0.0-1.0); Blood Urea Nitrogen 26 mg/dL (9-16); Carbon Dioxide 25 mmol/L (22-29); Chloride 105 mmol/L (96-108); Cholesterol 102 mg/dL; Estimated Glomerular Filt Rate 39; Glucose Fasting 92 mg/dL (60-99); HDL Cholesterol 44 mg/dL; LDL Cholesterol Calculated 41 mg/dl; Potassium 4.4 mmol/L (3.3-5.1); Sodium 140 mmol/L (135-145); Total Protein 6.4 g/dL (6.5-8.0); Triglycerides 89 mg/dL
[2021-07-21 11:54] LABS: TSH reflex Free T4 4.86 uIU/mL (0.32-4.0)
[2021-07-21 12:45] LABS: Appearance Urine CLEAR; Color Urine YELLOW; Glucose Urine UA NEG (NEG); Leukocyte Esterase Urine 1+ (NEG); Nitrite Urine NEG (NEG); PH 6.5 (5.0-8.0); Specific Gravity - Urine <= 1.005 (1.005-1.025); Urine Blood NEG (NEG); Urine Ketones NEG (NEG); Urine Protein NEG (NEG-TRACE)
[2021-07-21 12:48] LABS: Free T4 (Free Thyroxine) 0.82 ng/dL (0.71-1.85)
[2021-07-21 12:58] LABS: Creatinine Urine 48.11 mg/dL; Microalbum/Creatinine Ratio Ur 35.3 ug/mg cr
[2021-07-21 13:10] LABS: RBC Urine 0-2 /HPF (0)
[2021-07-21 13:14] LABS: Bacteria Urine TRACE /LPF; Squamous Epithelial Cell Urine TRACE /LPF
== END 2021-07-21 07:52 | disposition home or self-care (01) ==
LOC: HO.WFDLDS 07:51
PROVIDERS: Visit Provider Family Medicine
DX: Z00.00 Encounter for general adult medical examination without abnormal findings (principal); I10 Essential (primary) hypertension
CPT/HCPCS: 36415; 80053; 80061; 81001; 81003; 82043; 84439; 84443; 85025

== ENCOUNTER → 2021-09-09 13:01 | Outpatient (BNVA) | payer BC, SELFPAY | PROVIDERS: PCP Family Medicine | DX: Z13.89 Encounter for screening for other disorder (principal) ==

== ENCOUNTER → 2021-09-19 14:39 | Outpatient (BNVA) | payer BC, SELFPAY | PROVIDERS: PCP Family Medicine; Visit Provider Physician Assistant | DX: I11.0 Hypertensive heart disease with heart failure (principal); I50.9 Heart failure, unspecified; I20.8 Other forms of angina pectoris; M17.12 Unilateral primary osteoarthritis, left knee | CPT/HCPCS: 20610; 99212 ==

== ENCOUNTER 2021-10-28 08:51 | Outpatient (REF) | payer BC, SELFPAY ==
[2021-10-28 10:54] LABS: MANUAL DIFF FLAG NO
[2021-10-28 11:03] LABS: Basophils Absolute Auto 0.1 X10*3/uL (0.0-0.2); Eosinophils Absolute Auto 0.2 X10*3/uL (0.0-0.4); Eosinophils Percent Auto 2.5 % (0-4); Hemoglobin 10.9 g/dl (12.0-16.0); Imm Gran Abs Auto 0.04 X10*3/uL (0.00-0.03); Imm Gran Pct Auto 0.7 % (0.0-0.4); Lymphocytes Absolute Auto 0.5 X10*3/uL (1.2-4.9); Lymphocytes Percent Auto 7.9 % (20-40); Mean Corpuscular HGB Conc 32.1 g/dl (31.0-35.0); Mean Corpuscular Hemoglobin 29.9 pg (27.0-33.0); Mean Corpuscular Volume 93.4 fL (80.0-98.0); Mean Platelet Volume 10.1 fL (9.4-12.3); Monocytes Absolute Auto 0.3 X10*3/uL (0.1-1.2); Monocytes Percent Auto 5.5 % (2-11); Neutrophils Absolute Auto 4.9 x10*3/uL (2.0-8.3); Neutrophils Percent Auto 82.4 % (45-73); Platelet Count 225 X10*3/uL (160-400); Red Blood Count 3.64 X10*6/uL (4.20-5.50); Red Cell Distribution Width 13.5 % (11.0-16.0)
[2021-10-28 11:18] LABS: Alanine Aminotransferase 22 U/L (0-31); Albumin Level 4.2 g/dL (3.5-5.0); Alkaline Phosphatase 130 U/L (39-117); Anion Gap 13 (12-20); Aspartate Amino Transferase 20 U/L (5-31); Bilirubin Total 0.5 mg/dL (0.0-1.0); Blood Urea Nitrogen 34 mg/dL (9-16); Calcium 8.9 mg/dL (8.4-10.2); Carbon Dioxide 26 mmol/L (22-29); Chloride 104 mmol/L (96-108); Estimated Glomerular Filt Rate 32; Glucose Fasting 95 mg/dL (60-99); Potassium 4.6 mmol/L (3.3-5.1); Sodium 138 mmol/L (135-145); Total Protein 6.6 g/dL (6.5-8.0)
[2021-10-28 11:32] LABS: Thyroid Stimulating Hormone 4.04 uIU/mL (0.32-4.0)
[2021-10-28 11:38] LABS: TSH reflex Free T4 3.97 uIU/mL (0.32-4.0)
[2021-10-28 11:56] LABS: Creatinine Urine 34.89 mg/dL
[2021-10-29 22:27] LABS: Triiodothyronine T3 Total 72 ng/dL (76-181)
== END 2021-10-28 08:52 | disposition home or self-care (01) ==
LOC: HO.WFDLDS 08:51
PROVIDERS: Visit Provider Family Medicine
DX: Z00.00 Encounter for general adult medical examination without abnormal findings (principal); I12.9 Hypertensive chronic kidney disease with stage 1 through stage 4 chronic kidney disease, or unspecified chronic kidney disease; N18.9 Chronic kidney disease, unspecified; E03.9 Hypothyroidism, unspecified; R05.9 Cough, unspecified
CPT/HCPCS: 36415; 80053; 82043; 84443; 84480; 85025

== ENCOUNTER 2021-10-28 09:34 | Outpatient (REF) | payer BC, SELFPAY ==
--- NOTE | ~2021-10-28 | XR_ITS ---
EXAMINATION: XR CHEST CLINICAL INFORMATION: Other specified symptoms and signs involving the circulatory and respiratory system COMPARISON: Previous chest x-ray August 2020 TECHNIQUE: 2 views of the chest were obtained. FINDINGS: The heart does not appear enlarged. There is a small air-fluid level projecting over the heart questionable for esophageal hernia. Hilar and mediastinal contours are otherwise unremarkable. The lungs are clear. There is no pleural effusion or pneumothorax. There are degenerative changes of the spine. XR/XR chest 2V IMPRESSION: No evidence for acute disease in the chest. Probable small esophageal hernia.
== END 2021-10-28 09:35 | disposition home or self-care (01) ==
LOC: HO.XRAY 09:34
PROVIDERS: PCP Family Medicine; Visit Provider Family Medicine
DX: R09.89 Other specified symptoms and signs involving the circulatory and respiratory systems (principal); R05.9 Cough, unspecified
CPT/HCPCS: 71046

== ENCOUNTER 2021-11-17 18:16 | Outpatient (REF) | payer BC, SELFPAY | END 2021-11-17 18:17 | disposition home or self-care (01) | LOC: HO.LNP 18:16 | PROVIDERS: Visit Provider Nurse Practitioner Family | DX: N39.0 Urinary tract infection, site not specified (principal); R39.9 Unspecified symptoms and signs involving the genitourinary system | CPT/HCPCS: 87086; 87088; 87186 ==

== ENCOUNTER → 2022-01-25 15:13 | Outpatient (BNVA) | payer BC, SELFPAY | PROVIDERS: PCP Family Medicine; Referring Provider Family Medicine; Visit Provider Internal Medicine Cardiovascular Disease | DX: I20.8 Other forms of angina pectoris (principal); I10 Essential (primary) hypertension | CPT/HCPCS: 93005 ==

== ENCOUNTER → 2022-06-09 13:49 | Outpatient (BNVA) | payer BC, SELFPAY | PROVIDERS: PCP Family Medicine; Visit Provider Nurse Practitioner Family | DX: Z13.89 Encounter for screening for other disorder (principal) ==

== ENCOUNTER → 2022-06-27 16:04 | Outpatient (BNVA) | payer BC, SELFPAY | PROVIDERS: PCP Family Medicine; Visit Provider Internal Medicine | DX: Z13.89 Encounter for screening for other disorder (principal) ==

== ENCOUNTER 2022-06-28 14:13 | Outpatient (REF) | payer BC, SELFPAY | END 2022-06-28 14:14 | disposition home or self-care (01) | LOC: HO.LAB 14:13 | PROVIDERS: PCP Family Medicine; Visit Provider Internal Medicine | DX: R21 Rash and other nonspecific skin eruption (principal) | CPT/HCPCS: 87040 ==

== ENCOUNTER 2022-08-28 13:54 | Outpatient (REF) | payer BC, SELFPAY ==
--- NOTE | ~2022-08-28 | US_ITS ---
EXAMINATION: US VENOUS ULTRASOUND WITH DOPPLER LOWER EXTREMITY, RIGHT CLINICAL INFORMATION: Swelling COMPARISON: None available. TECHNIQUE: Ultrasound of the deep veins is performed from the hip to the calf with compression sonography and color and pulse Doppler assessment. Spectral analysis with color-flow imaging is performed. FINDINGS: There is normal venous compression and respiratory variation and augmented flow. The visualized common femoral vein, superficial femoral vein, profunda femoral vein, popliteal vein, and the trifurcation region shows no evidence of deep venous thrombosis. There is no significant popliteal fossa cyst. The contralateral left common femoral vein is patent. US/US venous duplex LE RT IMPRESSION: No DVT demonstrated in the right lower extremity.
== END 2022-08-28 13:55 | disposition home or self-care (01) ==
LOC: HO.US 13:54
PROVIDERS: PCP Family Medicine; Visit Provider Internal Medicine Cardiovascular Disease
DX: M79.89 Other specified soft tissue disorders (principal)
CPT/HCPCS: 93971

== ENCOUNTER → 2022-08-31 14:48 | Outpatient (BNVA) | payer BC, SELFPAY | PROVIDERS: PCP Family Medicine; Referring Provider Family Medicine; Visit Provider Nurse Practitioner Family | DX: Z13.89 Encounter for screening for other disorder (principal) ==

== ENCOUNTER 2022-12-22 10:46 | Outpatient (AMB) | payer BC, SELFPAY ==
--- NOTE | 2022-12-22 10:53 | A.OFFVIS_ITS ---
Intake Intake Visit Reasons: follow up in office in 6 months with PVR Intake Note: Patient presents for follow up OAB/[facility] Medication: Myrbetriq Blood Thinner: aspirin PVR: 0ml Dobby Looms Pegger Required: No Accompanied by: Unknown Allergies latex [LATEX] Allergy (Unknown, Verified 12/23/22 17:54) RASH, ITCHY Medication List - Last Reconciled 12/23/22 by TERESA Mann- albuterol sulfate 90 mcg/actuation (Proventil HFA) 2 puffs inhalation Q4-6H PRN amlodipine 10 mg PO DAILY 90 days amoxicillin 875 mg PO ONCE PRN 1 day aspirin 81 mg PO DAILY atorvastatin 80 mg PO BEDTIME 90 days betamethasone dipropionate 0.05% 1 appl topical BID 30 days cetirizine 10 mg PO DAILY PRN 30 days clonidine 1 patch topical QWEEK donepezil 10 mg PO DAILY fluticasone furoate-vilanterol 100-25 mcg/dose (Breo Ellipta) 1 inh inhalation DAILY 30 days furosemide 40 mg PO DAILY hydralazine 50 mg See Protocol PO BID 30 days levothyroxine (Synthroid) 37.5 mcg (1.5 x 25 mcg) PO DAILY 90 days magnesium oxide 400 mg PO BID 90 days memantine 10 mg PO BID 90 days mirabegron ER (Myrbetriq) 25 mg PO DAILY 90 days mometasone 50 mcg/actuation 2 sprays intranasal BID 30 days montelukast 10 mg PO BEDTIME 90 days olopatadine 0.2% (Pataday Once Daily Relief) 1 drp ophthalmic (eye) BEDTIME 30 days omeprazole 20 mg PO DAILY 90 days prednisone 40 mg (2 x 20 mg) PO DAILY 4 days sertraline 100 mg PO BEDTIME 90 days spironolactone 50 mg PO DAILY 90 days HPI HPI Comments History of Present Illness Details Ann Padilla is a 82 year old female patient of Dr. Lockwood who is accompanied by her daughter at todays visit. She has a past medical history of asthma, CHF/systolic heart failure, COPD, CVA, dementia, NSTEMI, hypertension, hypothyroidism, left bundle-branch block, and overactive bladder. She is being followed up on today regarding her overactive bladder and recurrent urinary tract infections. When asked patient reports to be doing and feeling well. She reports to be happy with her current voiding parameters on Myrbetriq 25 mg daily. She denies any urinary issues or concerns at this time. Of note, patient was switched from Gemtesa to Myrbetriq due to cost. She denies any UTI like symptoms or having had a UTI since her last follow up. She denies urinary urgency, urinary frequency, incontinence, nocturia, hematuria, dysuria, foul smelling urine, changes to urinary stream, flank pain, fever, and or chills. In office urinalysis results reviewed with the patient today. PVR 0ml's. She discuss living at [facility] with her in the independent living and has help from her daughters. She otherwise offers no other issues or con cerns at this time. [facility] Medical History Asthma CHF (congestive heart failure) COPD (chronic obstructive pulmonary disease) Cough CVA (cerebral vascular accident) Dementia H/O placement of stent in anterior descending branch of left coronary artery History of non-ST elevation myocardial infarction (NSTEMI) Hypertension Hypothyroidism LBBB (left bundle branch block) OAB (overactive bladder) Rash Systolic heart failure Surgical History History of hysterectomy History of knee replacement procedure of right knee Hx of cataract surgery Hx of heart artery stent Family History Father No problems noted. Mother No problems noted. Brother No problems noted. Brother No problems noted. Sister No problems noted. Son No problems noted. Daughter No problems noted. Daughter No problems noted. Daughter No problems noted. Daughter No problems noted. Social History Household Members: Spouse Housing: Assisted Living Facility Do you presently have visiting nurse or other home services: No Alcohol intake: never Patient Tobacco Use Status: Former Tobacco user e-Cigarette/Vaping Use: Never Used Second Hand Smoke Exposure: No service: No Current occupational status: retired Current occupational exposures/hazards: No Cognitive needs: No Hearing needs: No Vision needs: No Review of Systems Const Reports as per HPI Eyes Reports no additional complaints ENT Reports no additional complaints Card Reports as per HPI Resp Reports as per HPI GI Reports no additional complaints Reports as per HPI Neuro Reports as per [facility] Psych Reports as per [facility] Endo Reports no additional complaints Physical Exam Const General: cooperative, healthy appearing, comfortable, no acute distress, well developed, alert and awake Orientation/consciousness: patient oriented x3 Limitations: ambulation with walker HEENT Head: Yes normal to inspection, Yes normocephalic and Yes atraumatic Ears: hearing grossly normal bilaterally Eyes General: appearance normal, both eyes and all related structures Neck Neck: Yes normal visual inspection and Yes trachea midline Chest Chest palpation & inspection: normal inspection of the chest Resp Effort & Inspection: normal respiratory effort and able to speak in complete sentences Cardio Rate: regular rate GI Inspection: Yes normal to inspection General: Yes no CVA tenderness Back/Spine/Pelvis Back: no CVA tenderness Skin General skin exam: no rashes or lesions noted Neuro General: patient oriented x3 Extrem General: Yes normal to inspection Psych Appearance: grossly normal and well kempt Mental Status: mental status grossly normal Speech and movement: Normal speech and movement present and Clear speech present Affect: normal affect Attitude: cooperative Thought process: Normal thought process present Thought content: Normal thought content present Insight: Fair insight present (Psych) Judgement: Fair judgement present (Psych) Office Procedures Post Void Residual Post Residual Void Post Void Residual (PVR): 0 [id number]-[id number] Void Residual by ultrasound Results AMB Urinalysis, Automated UA Leukoctes 15 Stephany/uL Last Edit by [employer] on 12/22/22 11:17 UA Nitrite Last Edit by [employer] on 12/22/22 11:17 UA Urobilinogen 0.2 mg/dL Last Edit by [employer] on 12/22/22 11:17 UA Protein 0 mg/dL Last Edit by [employer] on 12/22/22 11:17 UA pH 6.5 Last Edit by [employer] on 12/22/22 11:17 UA Blood 0 Chalino/uL Last Edit by [employer] on 12/22/22 11:17 UA Specific [place] 1.010 Last Edit by [employer] on 12/22/22 11:17 UA Ketone Last Edit by [employer] on 12/22/22 11:17 UA Bilirubin 0 mg/dL Last Edit by [employer] on 12/22/22 11:17 UA Glucose 0 mg/dL Last Edit by Diamond Yarbrough on 12/22/22 11:17 Results Reviewed Results Reviewed: Laboratory Last Values Urine pH (Auto) 6.5 12/22/22 10:55 Specific [place] (Auto) 1.010 12/22/22 10:55 Urine Protein (Auto) 0 mg/dL 12/22/22 10:55 Glucose (UA)(Auto) 0 mg/dL 12/22/22 10:55 Urine Blood (Auto) 0 Chal[place]/uL 12/22/22 10:55 Urine Bilirubin (Auto) 0 mg/dL 12/22/22 10:55 Urine Urobilinogen (Auto) 0.2 mg/dL 12/22/22 10:55 Leukocyte Esterase (Auto) 15 Stephany/uL 12/22/22 10:55 Assessment & Plan Assessment & Plan (1) OAB (overactive bladder): Code(s): N32.81 - Overactive bladder Plan In office urinalysis results reviewed with the patient today. PVR 0 mL. Continue Myrbetriq 25 mg daily as patient reports to be happy with current voiding parameters. Patient denies any urinary issues or concerns at this time. Discussed UTI prevention with D mannose supplement, vitamin-C, increasing fluid intake, behavioral therapy with timed voiding, perineal hygiene and postcoital voiding, and management of constipation with stool softeners and increased fiber intake. Follow-up in 1 year with PVR; or sooner with any issues, concerns, and or questions. Orders: Orders AMB Urinalysis Automated 12/22/22 Z13.9 - Encounter for screening, unspecified AMB Post Void Residual by ultrasound 12/22/22 N39.0 - Urinary tract infection, site not specified Patient Instructions: The patient had an opportunity to ask questions regarding the treatment plan. All questions were answered. Physical exam, labs, and imaging were discussed and reviewed in detail. As well as risks, benefits, and discussion of treatment choices. No major barriers to understanding were identified. The patient expressed understanding and agreement with the above treatment plan. The patient was made aware they should contact our office by phone for worsening of their current condition, the appearance of new symptoms, or with any questions or concerns. Compliance is encouraged with any medications and follow up testing that is ordered. It is a privilege to be allowed the opportunity to participate in? your urological care.? Again, if you have any questions or concerns If you have any questions or concerns please do not hesitate to contact me. The office is [phone]. This note is constructed using voice recognition software. While every effort has been made to ensure accuracy showplace manager errors may have been included. Yours sincerely, JAYA Mann Coding Level of Care Code Est Pt Level 3 (28553) Diagnoses OAB (overactive bladder) N32.81 CPT Codes Post Residual Void - PVR CPT Code: 06761-Nyxj Void Residual by ultrasound ([id number])
== END 2022-12-22 12:11 | disposition home or self-care (01) ==
PROVIDERS: PCP Family Medicine; Visit Provider Nurse Practitioner Family
DX: N32.81 Overactive bladder (principal)
CPT/HCPCS: 99213

== ENCOUNTER → 2022-12-22 10:46 | Outpatient (BNVA) | payer BC, SELFPAY | PROVIDERS: Visit Provider Nurse Practitioner Family | DX: N32.81 Overactive bladder (principal) | CPT/HCPCS: 51798; 81003 ==

== ENCOUNTER 2022-12-25 10:58 | Outpatient (AMB) | payer BC, SELFPAY ==
--- NOTE | 2022-12-25 11:01 | MHC.OFFVIS ---
Intake Vital Signs 12/25/22 11:02 Height 5 ft 5 in Weight 149 lb 14.629 oz BMI 24.9 BP 140/62 H Blood Pressure Location Lt brachial Position Sitting Pulse 65 Pulse Source Pulse Oximeter Pulse Oximetry (%) 97 Oxygen Delivery Method Room Air Intake Visit Reasons: Cough Allergies latex [LATEX] Allergy (Unknown, Verified 12/25/22 11:22) RASH, ITCHY Medication List - Last Reconciled 12/25/22 by Belén Sierra MD albuterol sulfate 90 mcg/actuation (Proventil HFA) 2 puffs inhalation Q4-6H PRN amlodipine 10 mg PO DAILY 90 days amoxicillin 875 mg PO ONCE PRN 1 day aspirin 81 mg PO DAILY atorvastatin 80 mg PO BEDTIME 90 days betamethasone dipropionate 0.05% 1 appl topical BID 30 days cetirizine 10 mg PO DAILY PRN 30 days clonidine 1 patch topical QWEEK donepezil 10 mg PO DAILY fluticasone furoate-vilanterol 100-25 mcg/dose (Breo Ellipta) 1 inh inhalation DAILY 30 days furosemide 40 mg PO DAILY hydralazine 50 mg See Protocol PO BID 30 days levothyroxine (Synthroid) 37.5 mcg (1.5 x 25 mcg) PO DAILY 90 days magnesium oxide 400 mg PO BID 90 days memantine 10 mg PO BID 90 days mirabegron ER (Myrbetriq) 25 mg PO DAILY 90 days mometasone 50 mcg/actuation 2 sprays intranasal BID 30 days montelukast 10 mg PO BEDTIME 90 days olopatadine 0.2% (Pataday Once Daily Relief) 1 drp ophthalmic (eye) BEDTIME 30 days omeprazole 20 mg PO DAILY 90 days prednisone 40 mg (2 x 20 mg) PO DAILY 4 days sertraline 100 mg PO BEDTIME 90 days spironolactone 50 mg PO DAILY 90 days Do you need a note to return to daycare/school/sports/work: No HPI Cough HPI Details 82 years old very pleasant female, comes for follow-up after 6 months for her bronchial asthma. She has been very stable without any respiratory infection are any increase in respiratory symptoms. Has intermittent bouts of cough which or helped by taking Mucinex p.r.n.. No wheezing attacks. No shortness of breath as she does not walk around much. Uses Breo-100 1 inhalation daily. Has not needed to use the rescue inhaler. [facility] Medical History Asthma CHF (congestive heart failure) COPD (chronic obstructive pulmonary disease) Cough CVA (cerebral vascular accident) Dementia H/O placement of stent in anterior descending branch of left coronary artery History of non-ST elevation myocardial infarction (NSTEMI) Hypertension Hypothyroidism LBBB (left bundle branch block) OAB (overactive bladder) Rash Systolic heart failure Surgical History History of hysterectomy History of knee replacement procedure of right knee Hx of cataract surgery Hx of heart artery stent Family History Father No problems noted. Mother No problems noted. Brother No problems noted. Brother No problems noted. Sister No problems noted. Son No problems noted. Daughter No problems noted. Daughter No problems noted. Daughter No problems noted. Daughter No problems noted. Social History Household Members: Spouse Housing: Assisted Living Facility Do you presently have visiting nurse or other home services: No Alcohol intake: never Patient Tobacco Use Status: Former Tobacco user e-Cigarette/Vaping Use: Never Used Second Hand Smoke Exposure: No service: No Current occupational status: retired Current occupational exposures/hazards: No Cognitive needs: No Hearing needs: No Vision needs: No Review of Systems Const All systems reviewed & are unremarkable except as noted in HPI and below ENT Reports nasal congestion and Reports nasal discharge Card Denies chest pain and Reports dyspnea on exertion (mild, as the activity is generally slow .) Resp Reports cough (as decribed above) and Reports dyspnea on exertion (mild, as the activity is generally slow .) Neuro Reports memory loss Psych Reports memory loss Physical Exam Vital Signs: Last Vital Signs Pulse 65 12/25/22 11:02 BP 140/62 H 12/25/22 11:02 Pulse Ox 97 12/25/22 11:02 Oxygen Delivery Method Room Air 12/25/22 11:02 BMI result Body Mass Index 24.9 Const General: healthy appearing, comfortable, no acute distress, alert, awake and other (but slow in conversation . ) Orientation/consciousness: patient oriented x3 HEENT Head: Yes normal to inspection General nose exam: No nasal polyps present and No nasal discharge present Face and sinus: Yes sinuses nontender Mouth: oropharynx normal Throat: Yes posterior oropharynx normal Eyes General: appearance normal, both eyes and all related structures Neck Neck: Yes normal visual inspection, Yes no lymphadenopathy, Yes trachea midline and Yes no JVD Thyroid: Thyroid normal Chest Chest palpation & inspection: normal inspection of the chest, normal palpation of entire chest wall and no tenderness Resp Effort & Inspection: prolonged expiratory phase Auscultation: no crackles, no rales, no wheezes and diminished lung sounds Cardio Palpation: normal PMI Rate: regular rate Rhythm: regular rhythm Heart sounds: no gallops and no murmurs Peripheral pulses: Peripheral pulses 2+ throughout GI Palpation (GI): Soft to palpation, nontender, No hepatosplenomegaly present and no masses Auscultation: normal bowel sounds Back/Spine/Pelvis Thoracic/Lumbar Spine: thoracic and lumbar spine normal to inspection Skin General skin exam: no rashes or lesions noted Neuro General: patient oriented x3 and no focal motor deficits Cranial nerves: Yes CN's II-XII intact bilaterally Extrem General: Yes normal to inspection, Yes no clubbing, cyanosis or edema, Yes no calf tenderness and No venous stasis dermatitis Psych Appearance: grossly normal and well kempt Speech and movement: Normal speech and movement present Assessment & Plan Assessment & Plan (1) COPD (chronic obstructive pulmonary disease): Comment: PULMONARY FUNCTION TEST DID NOT GO ALONG WITH COPD. WORKING DX : HYPERSENSITIVITY BRONCHIAL ASTHMA IS MORE LIKELY . [place] : BREO 100-251 INHALATION DAILY , IS ADVISED. PROVENTIL HFA 2 PUFFS Q 4-6 HOURS ONLY P.R.N.. 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 SHE DOES NOT HAVE ANY EVIDENCE OF SIGNIFICANT OBSTRUCTIVE AIRWAY DISORDER. SOMETIME SHE HAS A FEELING OF THICK MUCUS WHICH SHE CAN ARE CLEAR, I SUGGESTED THAT SHE SHOULD USE LIQUID MUCINEX 200 MG B.I.D..THIS HAS BEEN VERY HELPFUL . PATIENT WOULD LIKE TO BE SEEN MORE OFTEN, AND I THINK Q 6 MONTHS WILL BE OKAY. Code(s): R05 - Cough Coding Level of Care Code Est Pt Level 3 (62394) Diagnoses COPD (chronic obstructive pulmonary disease) J44.9 Cough R05
[2022-12-25 11:02] VITALS: BP 140/62; PULSE 65; O2SAT 97; BMI 24.9
== END 2022-12-25 11:24 | disposition home or self-care (01) ==
PROVIDERS: PCP Family Medicine; Visit Provider Internal Medicine
DX: J44.9 Chronic obstructive pulmonary disease, unspecified (principal); R05.9 Cough, unspecified
CPT/HCPCS: 99213

== ENCOUNTER → 2022-12-25 10:58 | Outpatient (BNVA) | payer BC, SELFPAY | PROVIDERS: PCP Family Medicine; Visit Provider Internal Medicine ==

== ENCOUNTER 2023-01-30 15:29 | Outpatient (AMB) | payer BC, SELFPAY ==
[2023-01-30 15:37] VITALS: BP 108/48; PULSE 63; RESP 14; TEMP 37.1; O2SAT 96; BMI 25.0
--- NOTE | 2023-01-30 15:37 | MHC.PC.OV ---
Vital Signs 01/30/23 15:37 Height 5 ft 5 in Weight 150 lb 8 oz BMI 25.0 BP 108/48 L Blood Pressure Location Rt brachial Position Sitting Respiration 14 Pulse 63 Pulse Source Pulse Oximeter Temp 98.7 F Temp Source Oral Pulse Oximetry (%) 96 Oxygen Delivery Method Room Air Intake Visit Reasons: f/u chronic conditions Intake Note: Patient is here to follow up with chronic conditions. Patient is accompanied by her and her daughter. Patient reports bruising on bilateral legs and reports she does not fall a lot or bump into anything. Daughter reports patients legs previously appeared raw and she saw [facility] and was prescribed a topical steroid cream. [facility] Office Assistant Required: No Accompanied by: Self / Same As Patient Allergies latex [LATEX] Allergy (Unknown, Verified 01/30/23 16:03) RASH, ITCHY Tobacco use date assessed: 06/27/22 Fall risk assessment: No Falls in past year Last assessed Fall Risk: 01/30/23 Dental Screening Dental Screen Date: 01/30/23 Did you have a dental visit in the last 12 months?: Yes Did you have a dental problem in the last 6 months where you did not have access to dental care?: No Was dental information given to patient?: Patient has dentist HPI f/u chronic conditions HPI Details 83 y/o female presents to f/u chronic conditions. Pt reports bruising bilateral legs. Pt denies any nose bleeds, excessive bleeding, blood in stools. Had seen Pulmonology Dr. Sierra - they report breathing issues is more of an asthmatic bronchitis than a COPD. Pt reports an ongoing rash. Had seen [facility] and was prescribed a topical steroid cream. [facility] Medical History Rash OAB (overactive bladder) H/O placement of stent in anterior descending branch of left coronary artery Dementia Hypothyroidism History of non-ST elevation myocardial infarction (NSTEMI) Systolic heart failure CHF (congestive heart failure) COPD (chronic obstructive pulmonary disease) Cough Asthma CVA (cerebral vascular accident) Hypertension LBBB (left bundle branch block) Surgical History Hx of heart artery stent History of knee replacement procedure of right knee Hx of cataract surgery History of hysterectomy Family History Father No problems noted. Mother No problems noted. Brother No problems noted. Brother No problems noted. Sister No problems noted. Son No problems noted. Daughter No problems noted. Daughter No problems noted. Daughter No problems noted. Daughter No problems noted. Social History Household Members: Spouse Housing: Assisted Living Facility Do you presently have visiting nurse or other home services: No Alcohol intake: never Patient Tobacco Use Status: Former Tobacco user e-Cigarette/Vaping Use: Never Used Second Hand Smoke Exposure: No service: No Current occupational status: retired Current occupational exposures/hazards: No Cognitive needs: No Hearing needs: No Vision needs: No Questionnaire ANNA-7 AMB Questionnaire ANNA-7 Date ANNA - 7 assessed: 06/27/22 Source: Developed by Drs. Rashad Ramirez, Carola Rutherford, Jaun Reeves and colleagues, with an educational berto from [employer]. Physical exam (Primary Care) Vital Signs: Last Vital Signs Temp 98.7 F 01/30/23 15:37 Pulse 63 01/30/23 15:37 Resp 14 01/30/23 15:37 BP 108/48 L 01/30/23 15:37 Pulse Ox 96 01/30/23 15:37 Oxygen Delivery Method Room Air 01/30/23 15:37 BMI result Body Mass Index 25.0 Tobacco/Smoking Status: Tobacco use Status Tobacco use date assessed 06/27/22 01/30/23 15:38 Patient Tobacco Use Status Former Tobacco user 01/30/23 15:38 e-Cigarette/Vaping Use Never Used 01/30/23 15:38 Assessment and Plan Assessment & Plan (1) Asthma: Comment: Patient does have history consistent with reactive airways, [place]: See under COPD Code(s): J45.909 - Unspecified asthma, uncomplicated Plan: Hypersensitivity bronchial asthma Avoid triggers Continue Zyrtec and Singulair Continue inhaled meds (2) Dermatitis: Code(s): L30.9 - Dermatitis, unspecified Plan: Eczema and dermatitis of lower extremities Physician Coder changed betamethasone to triamcinolone which is helping. She has difficulty applying this and would benefit from VNA assistance Should also be using a moisturizer twice a day Follow-up with Dermatology as recommended (3) Bruising: Code(s): T14.8XXA - Other injury of unspecified body region, initial encounter Plan: Appears to be due to thinning skin as she ages along with scratching from dermatitis and some bumps. She has no bleeding of her gums and no nose bleeds. Also no GI bleeding. Does not appear to be a coagulopathy. She is on aspirin which may be contributing to this a little. (4) Immunization counseling: Code(s): Z71.85 - Encounter for immunization safety counseling Plan: Due for flu shot, COVID shot and can get pneumonia shot at her pharmacy. Coding Level of Care Code Est Pt Level 4 (01782) Diagnoses Asthma J45.909 Dermatitis L30.9 Bruising T14.8XXA Immunization counseling Z71.85
== END 2023-01-30 17:04 | disposition home or self-care (01) ==
PROVIDERS: PCP Family Medicine; Visit Provider Family Medicine
DX: J45.909 Unspecified asthma, uncomplicated (principal); L30.9 Dermatitis, unspecified; T14.8XXA Other injury of unspecified body region, initial encounter; Z71.85 Encounter for immunization safety counseling
CPT/HCPCS: 99214

== ENCOUNTER 2023-02-09 14:53 | Outpatient (AMB) | payer BC, SELFPAY ==
--- NOTE | 2023-02-09 14:54 | MHC.OFFVIS ---
Intake Intake Visit Reasons: OV, L knee follow up Intake Note: Patient presents at home for her telehealth appt followup s/p left knee gel injection. This gave her great relief an is looking for repeat gel injections. Allergies latex [LATEX] Allergy (Unknown, Verified 01/30/23 16:03) RASH, ITCHY HPI OV, L knee follow up HPI Details Patient presents at home for her telehealth appt followup s/p left knee gel injection. This gave her great relief an is looking for repeat gel injections. [facility] Medical History Rash OAB (overactive bladder) H/O placement of stent in anterior descending branch of left coronary artery Dementia Hypothyroidism History of non-ST elevation myocardial infarction (NSTEMI) Systolic heart failure CHF (congestive heart failure) COPD (chronic obstructive pulmonary disease) Cough Asthma CVA (cerebral vascular accident) Hypertension LBBB (left bundle branch block) Surgical History Hx of heart artery stent History of knee replacement procedure of right knee Hx of cataract surgery History of hysterectomy Family History Father No problems noted. Mother No problems noted. Brother No problems noted. Brother No problems noted. Sister No problems noted. Son No problems noted. Daughter No problems noted. Daughter No problems noted. Daughter No problems noted. Daughter No problems noted. Social History Household Members: Spouse Housing: Assisted Living Facility Do you presently have visiting nurse or other home services: No Alcohol intake: never Patient Tobacco Use Status: Former Tobacco user e-Cigarette/Vaping Use: Never Used Second Hand Smoke Exposure: No service: No Current occupational status: retired Current occupational exposures/hazards: No Cognitive needs: No Hearing needs: No Vision needs: No Review of Systems Const All systems reviewed & are unremarkable except as noted in HPI and below Physical Exam Extrem Other: Left knee normal to inspection. No ecchymosis, erythema, or joint effusion. Full knee ROM. NVI. Assessment & Plan Assessment & Plan (1) Osteoarthritis of left knee: Code(s): M17.12 - Unilateral primary osteoarthritis, left knee Plan: Ms. Webster is an 81-year-old female who presents in the office for an evaluation of the left knee. The patient received her last Gel One injection on 09/14/2020. The patient reports that she had great relief with this injection and would like to begin the process to petition the insurance company for repeat gel injections. Follow up will be pending gel injection approval, or sooner if needed. Plan Scribed for Gypsy Arauz PA-C by Nory Jauregui medical device sales representative, on 09/19/2021. I, Gypsy Arauz PA-C, have personally reviewed and agreed with the information entered by the medical device sales representative. Telehealth Telehealth Location of provider rendering services: practice address Location of patient: address on file Patient Identification confirmed using: Name, : Yes Telehealth method: voice only Patient verbally consented to treatment: Yes Patient verbally consented to billing insurance company: Yes Patient informed of any privacy concerns related to visit: Yes Minutes spent on Phone/Video with Pt.: 10 Coding Level of Care Code Tele Est Pt Level 3 (13995) Diagnoses Osteoarthritis of left knee M17.12
== END 2023-02-09 14:58 | disposition home or self-care (01) ==
LOC: HO.HOS 14:53
PROVIDERS: PCP Family Medicine; Visit Provider Physician Assistant
DX: M17.12 Unilateral primary osteoarthritis, left knee (principal)
CPT/HCPCS: 99441

== ENCOUNTER → 2023-02-09 14:53 | Outpatient (BNVA) | payer BC, SELFPAY | PROVIDERS: PCP Family Medicine; Visit Provider Physician Assistant ==

== ENCOUNTER → 2023-02-28 14:07 | Outpatient (BNVA) | payer BC, SELFPAY | PROVIDERS: PCP Family Medicine; Referring Provider Family Medicine; Visit Provider Internal Medicine Cardiovascular Disease ==

== ENCOUNTER 2023-05-03 11:48 | Outpatient (AMB) | payer BC, SELFPAY ==
[2023-05-03 12:06] VITALS: BP 126/62; PULSE 61; RESP 13; O2SAT 96; BMI 25.1
--- NOTE | 2023-05-03 12:06 | A.OFFPC_ITS ---
Vital Signs 05/03/23 12:06 Height 5 ft 5 in Weight 151 lb BMI 25.1 BP 126/62 Blood Pressure Location Rt brachial Position Sitting Respiration 13 Pulse 61 Pulse Source Pulse Oximeter Pulse Oximetry (%) 96 Oxygen Delivery Method Room Air Intake Visit Reasons: f/u chronic conditions Intake Note: Patient is here to follow up hypertension, hypersensitivity bronchial asthma and eczema. Referral made for VNA for application of steroid creams and moisturizers on her legs as she is unable to reach her lower legs to apply this consistently. Patient needs refills on asthma inhalers. Patient reports rash on legs bilaterally, worse on the right leg. 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 Pt reports rash on legs bilaterally, worse on R leg. She reports she has seen dermatology and had been diagnosed with eczema. They also report her scalp has been irritating her. They question whether or not her hypertensive medications could be causing these. Blood pressure today 126/62. She is on hydralazine 50mg b.i.d., amlodipine 10mg, spironolactone 50mg daily. Her around . She states she has good family support and does note that she feels like she needs to re-establish her identity but is taking as much time as she needs for this. HPI Comments History of Present Illness Details Documentation assistance for Claus Lockwood MD, was provided by Kenn Dixon,? Retail Department Reset on 05/03/2023 1:08 PM CECI. I, Dr. Lockwood, have read, observed, and verified documentation. [facility] Medical History Rash OAB (overactive bladder) H/O placement of stent in anterior descending branch of left coronary artery Dementia Hypothyroidism History of non-ST elevation myocardial infarction (NSTEMI) Systolic heart failure CHF (congestive heart failure) COPD (chronic obstructive pulmonary disease) Cough Asthma CVA (cerebral vascular accident) Hypertension LBBB (left bundle branch block) Surgical History Hx of heart artery stent History of knee replacement procedure of right knee Hx of cataract surgery History of hysterectomy Family History Father No problems noted. Mother No problems noted. Brother No problems noted. Brother No problems noted. Sister No problems noted. Son No problems noted. Daughter No problems noted. Daughter No problems noted. Daughter No problems noted. Daughter No problems noted. Social History Household Members: Spouse Housing: Assisted Living Facility Do you presently have visiting nurse or other home services: No Alcohol intake: never Patient Tobacco Use Status: Former Tobacco user e-Cigarette/Vaping Use: Never Used Second Hand Smoke Exposure: No service: No Current occupational status: retired Current occupational exposures/hazards: No Cognitive needs: No Hearing needs: No Vision needs: No Questionnaire ANNA-7 AMB Questionnaire ANNA-7 Date ANNA - 7 assessed: 06/27/22 Source: Developed by Drs. Rashad Ramirez, Carola Rutherford, Jaun Reeves and colleagues, with an educational berto from [employer]. Review of Systems Const Denies chills, Denies fatigue, Denies fever(s), Denies headache(s) and Denies weakness ENT Denies dizziness and Denies headache(s) Card Denies dyspnea Resp Denies cough, Denies dyspnea, Denies wheezing and Denies other (shortness of breath) Musc Denies numbness and Denies tingling Skin/Breast Reports rash Neuro Denies dizziness, Denies headache(s), Denies numbness, Denies tingling and Denies weakness Psych Denies anxiety and Denies depression Endo Denies fatigue Aller/Immun Denies wheezing Physical exam (Primary Care) Vital Signs: Last Vital Signs Pulse 61 05/03/23 12:06 Resp 13 05/03/23 12:06 BP 126/62 05/03/23 12:06 Pulse Ox 96 05/03/23 12:06 Oxygen Delivery Method Room Air 05/03/23 12:06 BMI result Body Mass Index 25.1 Tobacco/Smoking Status: Tobacco use Status Tobacco use date assessed 06/27/22 05/03/23 12:12 Patient Tobacco Use Status Former Tobacco user 05/03/23 12:12 e-Cigarette/Vaping Use Never Used 05/03/23 12:12 Const General: well developed; No acute distress Nutritional Appearance: well nourished Orientation/consciousness: patient oriented x3 HENMT Head: Yes normocephalic and Yes atraumatic Eyes General: appearance normal, both eyes and all related structures Pupils: Equal, round and reactive pupils present EOM: EOMs intact bilaterally Resp Effort & Inspection: normal respiratory effort Auscultation: clear to auscultation bilaterally Cardio Rate: regular rate Rhythm: regular rhythm Heart sounds: S1 normal heart sound present, S2 normal heart sound present, no gallops, no murmurs and no rubs Neuro General: patient oriented x3 and gait normal Cranial nerves: Yes Equal, round and reactive pupils present Psych Affect: normal affect Assessment and Plan Assessment & Plan (1) Essential hypertension: Code(s): I10 - Essential (primary) hypertension Plan: Blood?pressure?is?well?controlled.??Goal?is?less?than 130/80 Continue?current?medication?regimen (2) CAD (coronary artery disease): Code(s): I25.10 - Atherosclerotic heart disease of [place] coronary artery without angina pectoris Plan: Stable Follow-up?with?Cardiology?as?recommended (3) Reactive airway disease: Code(s): J45.909 - Unspecified asthma, uncomplicated Plan: Continue?inhaled?medications.??Lungs?are?clear?today. Will?refill?medication (4) Eczema: Code(s): L30.9 - Dermatitis, unspecified Plan: Ongoing,?severe?dermatitis?or?eczema?on?bilateral?shins. Will?change?to?clobetasol Call?or?return?to?office?if?worsening?or?not?improving (5) Acute adjustment disorder: Code(s): F43.20 - Adjustment disorder, unspecified Plan: Patient?recently?lost?her??Carlos We?discussed?family?support?and?also?briefly?discussed?therapy?and?medications?w hich?are?available?if?she?needs?them. Medications: New clobetasol 0.05% 1 appl topical BID 2 weeks 60 grams 2RF fluticasone propion-salmeterol 250-50 mcg/dose (Wixela Inhub) 1 inh inhalation Q12H 30 days 60 ea 3RF Refilled albuterol sulfate 90 mcg/actuation (Proventil HFA) 2 puffs inhalation Q4-6H PRN 8.5 grams 5RF shortness of breath or wheezing J45.909 - Unspecified asthma, uncomplicated Discontinued fluticasone furoate-vilanterol 100-25 mcg/dose (Breo Ellipta) Discontinued Reason: Doctor's Order 1 inh inhalation DAILY 60 ea 3RF COPD 30 days Coding Level of Care Code Est Pt Level 4 (34502) Diagnoses Essential hypertension I10 CAD (coronary artery disease) I25.10 Reactive airway disease J45.909 Eczema L30.9 Acute adjustment disorder F43.20
== END 2023-05-03 13:12 | disposition home or self-care (01) ==
PROVIDERS: PCP Family Medicine; Visit Provider Family Medicine
DX: I10 Essential (primary) hypertension (principal); I25.10 Atherosclerotic heart disease of native coronary artery without angina pectoris; J45.909 Unspecified asthma, uncomplicated; L30.9 Dermatitis, unspecified; F43.20 Adjustment disorder, unspecified
CPT/HCPCS: 99214

== ENCOUNTER 2023-05-04 12:50 | Outpatient (AMB) | payer BC, SELFPAY ==
--- NOTE | 2023-05-04 12:53 | A.OFFVIS_ITS ---
Intake Vital Signs 05/04/23 12:55 Height 5 ft 5 in Weight 151 lb BMI 25.1 Intake Visit Reasons: EP,Gel inject of left knee, last injection 09/19/21 Intake Note: Ann is an 83 year old female who presents today for a Left knee gel one injection. Patient states that her right knee is causing her pain as well, she also had her right knee replaced about 15 years ago. Allergies latex [LATEX] Allergy (Unknown, Verified 05/04/23 12:55) RASH, ITCHY HPI EP,Gel inject of left knee, last injection 09/19/21 HPI Details 83-year-old female who returns to the [facility] today for a follow-up of left knee pain. She had her last injection on 09/19/21. She states she has pain in her right knee as well. She has a history of right TKA about 15 years ago. COUNT INCLUDES THE [facility] Medical History Rash OAB (overactive bladder) H/O placement of stent in anterior descending branch of left coronary artery Dementia Hypothyroidism History of non-ST elevation myocardial infarction (NSTEMI) Systolic heart failure CHF (congestive heart failure) COPD (chronic obstructive pulmonary disease) Cough Asthma CVA (cerebral vascular accident) Hypertension LBBB (left bundle branch block) Surgical History Hx of heart artery stent History of knee replacement procedure of right knee Hx of cataract surgery History of hysterectomy Family History Father No problems noted. Mother No problems noted. Brother No problems noted. Brother No problems noted. Sister No problems noted. Son No problems noted. Daughter No problems noted. Daughter No problems noted. Daughter No problems noted. Daughter No problems noted. Social History (Reviewed 01/30/23 @ 16:08 by Cathy Langford, [facility]) Household Members: Spouse Housing: Assisted Living Facility Do you presently have visiting nurse or other home services: No Alcohol intake: never Patient Tobacco Use Status: Former Tobacco user e-Cigarette/Vaping Use: Never Used Second Hand Smoke Exposure: No service: No Current occupational status: retired Current occupational exposures/hazards: No Cognitive needs: No Hearing needs: No Vision needs: No Review of Systems Const All systems reviewed & are unremarkable except as noted in HPI and below Physical Exam Vital Signs: BMI result Body Mass Index 25.1 Extrem Other: Left knee: Skin intact, no erythema or joint effusion. Tenderness along the med ial and lateral joint line. Full ROM with crepitus. Negative Deyanira?s. No ligamentous laxity. NVI. Office Procedures Joint Injection/Drain Joint Injection/Drain Details: gel one Primary Site: left knee Prep: site was prepped using aseptic technique, ethochloride spray was applied and injection warnings given Injected: in the joint Approach Used: anterolateral Procedure: The patient tolerated the procedure well Coding 20869 - Glenohumeral/Tronchanteric Bursa/Intraarticular Procedure code (CPT) selection complete Assessment & Plan Assessment & Plan (1) Osteoarthritis of left knee: Code(s): M17.12 - Unilateral primary osteoarthritis, left knee Qualifiers: Osteoarthritis type: primary Qualified Code(s): M17.12 - Unilateral primary osteoarthritis, left knee Plan We discussed options today which include steroid injection. They did consent to move forward with the left knee injection, which was tolerated well. I recommended rest, ice and elevation and OTC anti-inflammatories PRN for discomfort. If symptoms persist or worsens, patient will contact the office, ot herwise follow-up as needed. Patient Instructions: Scribed for Odayls Wagner PA-C, by Micheal James medical technologist prn, on 05/04/2023 at 1:00 PM EST. IOdalys PA-C, have personally reviewed and agree with the information entered by the scribe. Coding Level of Care Code Procedure Only Diagnoses Primary osteoarthritis of left knee M17.12 Osteoarthritis type: primary CPT Codes Coding - Joint 7: 71974 - Glenohumeral/Tronchanteric Bursa/Intraarticular ([id number])
[2023-05-04 12:55] VITALS: BMI 25.1
== END 2023-05-04 13:06 | disposition home or self-care (01) ==
PROVIDERS: PCP Family Medicine; Visit Provider Physician Assistant
DX: M17.12 Unilateral primary osteoarthritis, left knee (principal)
CPT/HCPCS: 20610

== ENCOUNTER → 2023-05-04 12:50 | Outpatient (BNVA) | payer BC, SELFPAY | PROVIDERS: PCP Family Medicine; Visit Provider Physician Assistant | DX: M17.12 Unilateral primary osteoarthritis, left knee (principal); Z96.651 Presence of right artificial knee joint | CPT/HCPCS: 20610; J7326 ==

== ENCOUNTER 2023-06-15 11:41 | Outpatient (AMB) | payer BC, SELFPAY ==
--- NOTE | 2023-06-15 11:45 | AM.OFFWIN_ITS ---
Intake Vital Signs 06/15/23 11:46 Height 5 ft 5 in Weight 149 lb 4 oz BMI 24.8 BP 130/62 Blood Pressure Location Rt brachial Position Sitting Pulse 67 Pulse Source Pulse Oximeter Pulse Oximetry (%) 95 Oxygen Delivery Method Room Air Intake Visit Reasons: Hives Intake Note: Patient is here today for hives all over body, very itchy. no new diet, no new soap, no new medication, no new plants. OTC benadrly tried with some relief and aquafor cream. Patient Tobacco Use Status: Former Tobacco user Dinner Cook Required: No Dehydrogenation Operator: Present Accompanied by: Daughter Allergies latex [LATEX] Allergy (Unknown, Verified 06/15/23 12:01) RASH, ITCHY Medication List - Last Reconciled 06/15/23 by Sherry Cole, [facility]- albuterol sulfate 90 mcg/actuation (Proventil HFA) 2 puffs inhalation Q4-6H PRN amlodipine 10 mg PO DAILY 90 days amoxicillin 875 mg PO ONCE PRN 1 day aspirin 81 mg PO DAILY atorvastatin 80 mg PO BEDTIME 90 days cetirizine 10 mg PO DAILY PRN 30 days clobetasol 0.05% 1 appl topical BID 2 weeks clonidine 1 patch topical QWEEK donepezil 10 mg PO DAILY fluticasone propion-salmeterol 250-50 mcg/dose (Wixela Inhub) 1 inh inhalation Q12H 30 days furosemide 40 mg PO DAILY hydralazine 50 mg See Protocol PO BID 30 days levothyroxine (Synthroid) 37.5 mcg (1.5 x 25 mcg) PO DAILY 90 days magnesium oxide 400 mg PO BID 90 days memantine 10 mg PO BID 90 days mirabegron ER (Myrbetriq) 25 mg PO DAILY 90 days mometasone 50 mcg/actuation 2 sprays intranasal BID 30 days montelukast 10 mg PO BEDTIME 90 days omeprazole 20 mg PO DAILY 90 days prednisone 40 mg (2 x 20 mg) PO DAILY 4 days sertraline 100 mg PO BEDTIME 90 days spironolactone 50 mg PO DAILY 90 days triamcinolone acetonide 0.1% appl topical Do you need a note to return to daycare/school/sports/work: No HPI HPI Comments History of Present Illness Details 83-year-old female who presents today wi th her daughter for chief complaints of a new onset hives like rash affecting her trunk front and back, bilat legs, bilat arms, bilat hands that started yesterday. The patient reports that she is a poor historian as her memory is not that good. The daughter does not provide a great deal of history however they both tell me this rash is new. She took Benadryl x1 yesterday with some relief. Review of her chart however shows that she was seen by infectious disease 06/28/2022 for this same exact rash. It was thought that she could have Edmond disease at that time. She was also referred to Dermatology for the same exact rash 08/24/2022 [place] [facility]ology referral reviewed. Also reports chronicity of this rash. It was deemed dermatitis of uncertain etiology at that time. It also looks like she was seen by her primary care provider several times in 2022 for this same rash. She states that she does have clobetasol cream that she uses sometimes as presc ribed by the natural resource technician. She is also on prednisone 40 mg daily she reports this for her breathing. She does take a daily Zyrtec. She denies any new exposures that includes environmental, topical, food. Denies travel. Denies any exposure to others with similar rash. Denies systemic symptoms. Reports that her breathing is fine. Her swallowing is fine. COUNTS INCLUDE 234 BEDS AT THE [facility] Medical History Rash OAB (overactive bladder) H/O placement of stent in anterior descending branch of left coronary artery Dementia Hypothyroidism History of non-ST elevation myocardial infarction (NSTEMI) Systolic heart failure CHF (congestive heart failure) COPD (chronic obstructive pulmonary disease) Cough Asthma CVA (cerebral vascular accident) Hypertension LBBB (left bundle branch block) Surgical History Hx of heart artery stent History of knee replacement procedure of right knee Hx of cataract surgery History of hysterectomy Family History Father No problems noted. Mother No problems noted. Brother No problems noted. Brother No problems noted. Sister No problems noted. Son No problems noted. Daughter No problems noted. Daughter No problems noted. Daughter No problems noted. Daughter No problems noted. Social History Household Members: Spouse Housing: Assisted Living Facility Do you presently have visiting nurse or other home services: No Alcohol intake: never Patient Tobacco Use Status: Former Tobacco user e-Cigarette/Vaping Use: Never Used Second Hand Smoke Exposure: No service: No Current occupational status: retired Current occupational exposures/hazards: No Cognitive needs: No Hearing needs: No Vision needs: No Review of Systems Const All systems reviewed & are unremarkable except as noted in HPI and below Physical Exam Vital Signs: Last Vital Signs Pulse 67 06/15/23 11:46 BP 130/62 06/15/23 11:46 Pulse Ox 95 06/15/23 11:46 Oxygen Delivery Method Room Air 06/15/23 11:46 BMI result Body Mass Index 24.8 Const Other: Awake alert oriented in no acute distress accompanied by her daughter erythematous superficial plaques with clear dusky centers, confluent in nature annular borders affecting posterior and anterior trunk sparing the breasts and face. Bilateral lower extremities worse on the right lower leg than the left lower leg, right upper extremity worse than the left upper extremity. No signs or symptoms associated with secondary infectious process Assessment & Plan Assessment & Plan (1) Urticaria: Code(s): L50.9 - Urticaria, unspecified Plan: This appears to be chronic in nature. I have placed a stat referral to Allergy and immunology. I have prescribed hydroxyzine to use to help the itch. The Allergy group I referred her to was literally across the street. I told the daughter to bring her there and perhaps they can see her for a same-day visit. This is a chronic and not acute issue after review of the chart and needs follow-up with the same care provider for treatment. This note is constructed using voice recognition software. While every effort has been made to ensure accuracy in tinner automatic, still errors may have been included Sometimes, these errors may affect the content or meaning of the given sentence . Total time spent caring for the patient today was 60 minutes. This includes time spent before the visit reviewing the chart, time spent during the visit, and time spent after the visit on documentation Orders: Referrals Allergy & Immunology Referral L50.9 - Urticaria, unspecified Medications: New hydroxyzine HCl 25 mg PO QID PRN 40 tabs 0RF itching Coding Level of Care Code Est Pt Level 5 (17436) Diagnoses Urticaria L50.9
[2023-06-15 11:46] VITALS: BP 130/62; PULSE 67; O2SAT 95; BMI 24.8
== END 2023-06-15 12:35 | disposition home or self-care (01) ==
PROVIDERS: PCP Family Medicine; Visit Provider Nurse Practitioner Family
DX: L50.9 Urticaria, unspecified (principal)
CPT/HCPCS: 99215

== ENCOUNTER 2023-07-02 15:46 | Outpatient (AMB) | payer BC, SELFPAY ==
--- NOTE | 2023-07-02 16:04 | MHC.OFFVIS ---
Intake Vital Signs 07/02/23 16:05 Height 5 ft 5 in Weight 147 lb BMI 24.5 BP 130/52 L Blood Pressure Location Lt brachial Position Sitting Pulse 66 Pulse Source Pulse Oximeter Pulse Oximetry (%) 95 Oxygen Delivery Method Room Air Intake Visit Reasons: Cough Intake Note: pt is here for follow up and states she is using mucinex DM every night and it seems to take care of it. 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 Allergies latex [LATEX] Allergy (Unknown, Verified 07/02/23 16:28) RASH, ITCHY Medication List - Last Reconciled 07/02/23 by Belén Sierra MD albuterol sulfate 90 mcg/actuation (Proventil HFA) 2 puffs inhalation Q4-6H PRN amlodipine 10 mg PO DAILY 90 days amoxicillin 875 mg PO ONCE PRN 1 day aspirin 81 mg PO DAILY atorvastatin 80 mg PO BEDTIME 90 days cetirizine 10 mg PO DAILY PRN 30 days clobetasol 0.05% 1 appl topical BID 2 weeks clonidine 1 patch topical QWEEK donepezil 10 mg PO DAILY fluticasone propion-salmeterol 250-50 mcg/dose (Wixela Inhub) 1 inh inhalation Q12H 30 days furosemide 40 mg PO DAILY hydralazine 50 mg See Protocol PO BID 30 days hydroxyzine HCl 25 mg PO QID PRN levothyroxine (Synthroid) 37.5 mcg (1.5 x 25 mcg) PO DAILY 90 days magnesium oxide 400 mg PO BID 90 days memantine 10 mg PO BID 90 days mirabegron ER (Myrbetriq) 25 mg PO DAILY 90 days mometasone 50 mcg/actuation 2 sprays intranasal BID 30 days montelukast 10 mg PO BEDTIME 90 days omeprazole 20 mg PO DAILY 90 days sertraline 100 mg PO BEDTIME 90 days spironolactone 50 mg PO DAILY 90 days triamcinolone acetonide 0.1% appl topical Do you need a note to return to daycare/school/sports/work: No HPI Cough HPI Details 83 YEARS OLD VERY PLEASANT FEMALE IS HERE FOR FOLLOW-UP AFTER 6 MONTHS. HER MAIN COMPLAINT IS INTERMITTENT COUGH, . WITH SOME WHEEZING SHE IS KNOWN TO HAVE MILD CHRONIC OBSTRUCTIVE PULMONARY DISEASE. HAS DONE VERY WELL WITH THE USE OF BREO-100 ONCE A DAY. HOWEVER IT IS NOW CHANGED TO WIXELA 250-50, SHE IS STILL USING ONLY. 1 INHALATION A DAY SHE DOES HAVE VENTOLIN ON HAND BUT USES ONLY RARELY. HER COUGH BOUTS AT NIGHT OR CONTROLLED BY TAKING MUCINEX DM. 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 SO SHE REMEMBERS. ME WELL SINCE THOSE DAYS FORMERLY [facility], [facility] Medical History Rash OAB (overactive bladder) H/O placement of stent in anterior descending branch of left coronary artery Dementia Hypothyroidism History of non-ST elevation myocardial infarction (NSTEMI) Systolic heart failure CHF (congestive heart failure) COPD (chronic obstructive pulmonary disease) Cough Asthma CVA (cerebral vascular accident) Hypertension LBBB (left bundle branch block) Surgical History Hx of heart artery stent History of knee replacement procedure of right knee Hx of cataract surgery History of hysterectomy Family History Father No problems noted. Mother No problems noted. Brother No problems noted. Brother No problems noted. Sister No problems noted. Son No problems noted. Daughter No problems noted. Daughter No problems noted. Daughter No problems noted. Daughter No problems noted. Social History Household Members: Spouse Housing: Assisted Living Facility Do you presently have visiting nurse or other home services: No Alcohol intake: never Patient Tobacco Use Status: Former Tobacco user e-Cigarette/Vaping Use: Never Used Second Hand Smoke Exposure: No service: No Current occupational status: retired Current occupational exposures/hazards: No Cognitive needs: No Hearing needs: No Vision needs: No Review of Systems Const All systems reviewed & are unremarkable except as noted in HPI and below ENT Reports nasal congestion and Reports nasal discharge Card Denies chest pain and Reports dyspnea on exertion (mild, as the activity is generally slow .) Resp Reports cough (as decribed above) and Reports dyspnea on exertion (mild, as the activity is generally slow .) Neuro Reports memory loss Psych Reports memory loss Physical Exam Vital Signs: Last Vital Signs Pulse 66 07/02/23 16:05 BP 130/52 L 07/02/23 16:05 Pulse Ox 95 07/02/23 16:05 Oxygen Delivery Method Room Air 07/02/23 16:05 BMI result Body Mass Index 24.5 Const General: healthy appearing, comfortable, no acute distress, alert, awake and other (but slow in conversation . ) Orientation/consciousness: patient oriented x3 HEENT Head: Yes normal to inspection General nose exam: No nasal polyps present and No nasal discharge present Face and sinus: Yes sinuses nontender Mouth: oropharynx normal Throat: Yes posterior oropharynx normal Eyes General: appearance normal, both eyes and all related structures Neck Neck: Yes normal visual inspection, Yes no lymphadenopathy, Yes trachea midline and Yes no JVD Thyroid: Thyroid normal Chest Chest palpation & inspection: normal inspection of the chest, normal palpation of entire chest wall and no tenderness Resp Effort & Inspection: prolonged expiratory phase Auscultation: no crackles, no rales, no wheezes and diminished lung sounds Cardio Palpation: normal PMI Rate: regular rate Rhythm: regular rhythm Heart sounds: no gallops and no murmurs Peripheral pulses: Peripheral pulses 2+ throughout GI Palpation (GI): Soft to palpation, nontender, No hepatosplenomegaly present and no masses Auscultation: normal bowel sounds Back/Spine/Pelvis Thoracic/Lumbar Spine: thoracic and lumbar spine normal to inspection Skin General skin exam: no rashes or lesions noted Neuro General: patient oriented x3 and no focal motor deficits Cranial nerves: Yes CN's II-XII intact bilaterally Extrem General: Yes normal to inspection, Yes no clubbing, cyanosis or edema, Yes no calf tenderness and No venous stasis dermatitis Psych Appearance: grossly normal and well kempt Speech and movement: Normal speech and movement present Assessment & Plan Assessment & Plan (1) Asthma: Comment: Patient does have history consistent with reactive airways, TX: See under COPD Code(s): J45.909 - Unspecified asthma, uncomplicated Plan: ABOVE (2) Seasonal allergies: Comment: TX : SHE HAS SOME NASAL CONGESTION WITH POSTNASAL DRIP AND COUGH, USUALLY AT THE CHANGE. OF SEASONS, CONTROLLED WITH P.R.N. USE OF ANTIHISTAMINIC AGENT, . AND MONTELUKAST 10 MG DAILY Code(s): J30.2 - Other seasonal allergic rhinitis Plan: CONTINUE MONTELUKAST 10 MG DAILY. USE CETIRIZINE 10 MG ONCE A DAY P.R.N. (3) COPD (chronic obstructive pulmonary disease): Comment: PULMONARY FUNCTION TEST DID NOT GO ALONG WITH COPD. WORKING DX : HYPERSENSITIVITY BRONCHIAL ASTHMA IS MORE LIKELY . TX : Code(s): J44.9 - Chronic obstructive pulmonary disease, unspecified Plan: WIXELA 250-50. ONE INHALATION ONLY ONCE A DAY. AND INCREASED TO B.I.D. IF SYMPTOMS GET. ANY WORSE Coding Level of Care Code Est Pt Level 3 (10709) Diagnoses Asthma J45.909 Seasonal allergies J30.2 COPD (chronic obstructive pulmonary disease) J44.9
[2023-07-02 16:05] VITALS: BP 130/52; PULSE 66; O2SAT 95; BMI 24.5
== END 2023-07-02 16:25 | disposition home or self-care (01) ==
PROVIDERS: PCP Family Medicine; Visit Provider Internal Medicine
DX: J45.909 Unspecified asthma, uncomplicated (principal)
CPT/HCPCS: 99213

== ENCOUNTER → 2023-07-02 15:46 | Outpatient (BNVA) | payer BC, SELFPAY | PROVIDERS: PCP Family Medicine; Visit Provider Internal Medicine ==

== ENCOUNTER 2023-12-24 11:06 | Outpatient (AMB) | payer BC, SELFPAY ==
[2023-12-24 11:24] VITALS: BP 130/58; PULSE 65; O2SAT 96; BMI 25.7
--- NOTE | 2023-12-24 11:24 | MHC.OFFVIS ---
Vital Signs 12/24/23 11:24 Height 5 ft 5 in Weight 154 lb 5.177 oz BMI 25.7 BP 130/58 L Blood Pressure Location Lt brachial Position Sitting Pulse 65 Pulse Source Pulse Oximeter Pulse Oximetry (%) 96 Oxygen Delivery Method Room Air Intake Visit Reasons: Cough Intake Note: pt is here for follow up and states she feels good. 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 Allergies latex [LATEX] Allergy (Unknown, Verified 12/24/23 11:38) RASH, ITCHY Medication List - Last Reconciled 12/24/23 by Belén Sierra MD albuterol sulfate 90 mcg/actuation (Proventil HFA) 2 puffs inhalation Q4-6H PRN amlodipine 10 mg PO DAILY 90 days amoxicillin 875 mg PO ONCE PRN 1 day aspirin 81 mg PO DAILY 90 days atorvastatin 80 mg PO BEDTIME 90 days cetirizine 10 mg PO DAILY PRN 30 days clobetasol 0.05% 1 appl topical BID 2 weeks clonidine 1 patch topical QWEEK donepezil 10 mg PO DAILY fluticasone propion-salmeterol 250-50 mcg/dose (Wixela Inhub) 1 inh inhalation Q12H 30 days furosemide 40 mg PO DAILY hydralazine 50 mg See Protocol PO BID 30 days hydroxyzine HCl 25 mg PO QID PRN levothyroxine (Synthroid) 37.5 mcg (1.5 x 25 mcg) PO DAILY 90 days magnesium oxide 400 mg PO BID 90 days memantine 10 mg PO BID 90 days mirabegron ER (Myrbetriq) 25 mg PO DAILY 90 days mometasone 50 mcg/actuation 2 sprays intranasal BID 30 days montelukast 10 mg PO BEDTIME 90 days omeprazole 20 mg PO DAILY 90 days sertraline 100 mg PO BEDTIME 90 days spironolactone 50 mg PO DAILY 90 days triamcinolone acetonide 0.1% appl topical Do you need a note to return to daycare/school/sports/work: No HPI HPI Cough: Details: THIS 83 YEARS OLD VERY PLEASANT FEMALE COMES AFTER 6 MONTHS FOR FOLLOW-UP. SHE HAS ONLY MILD AMOUNT OF COUGH DURING THE DAYTIME AND SOMEWHAT WORSE AT NIGHT, WHICH IS RELIEVED BY TAKING MUCINEX 1 TABLET AT NIGHT. SHE CONTINUES TO USE WIXELA INHALER TWICE A DAY AND USES ALBUTEROL INHALER ONLY ONCE IN A WHILE. SHE HAS FREQUENT NASAL CONGESTION WITH SOME POSTNASAL DISCHARGE WHICH IS CONTROLLED WITH THE USE OF MONTELUKAST 10 MG AT NIGHT AND CETIRIZINE 10 MG P.R.N. RESPIRATORY COLE HAS REMAINED VERY STABLE WITHOUT ANY ACUTE EXACERBATION. HER BALANCE IS POOR AND SHE HAS TO USE THE WALKER, LUCKILY SHE HAS HAD NO FALLS. SHE DOES HAVE SOME MENTAL IMPAIRMENT AND IS ON MEMANTINE 10 MG B.I.D. [facility] Medical History Rash OAB (overactive bladder) H/O placement of stent in anterior descending branch of left coronary artery Dementia Hypothyroidism History of non-ST elevation myocardial infarction (NSTEMI) Systolic heart failure CHF (congestive heart failure) COPD (chronic obstructive pulmonary disease) Cough Asthma CVA (cerebral vascular accident) Hypertension LBBB (left bundle branch block) Surgical History Hx of heart artery stent History of knee replacement procedure of right knee Hx of cataract surgery History of hysterectomy Family History Father No problems noted. Mother No problems noted. Brother No problems noted. Brother No problems noted. Sister No problems noted. Son No problems noted. Daughter No problems noted. Daughter No problems noted. Daughter No problems noted. Daughter No problems noted. Social History Household Members: Spouse Housing: Assisted Living Facility Do you presently have visiting nurse or other home services: No Alcohol intake: never Patient Tobacco Use Status: Former Tobacco user e-Cigarette/Vaping Use: Never Used Second Hand Smoke Exposure: No service: No Current occupational status: retired Current occupational exposures/hazards: No Cognitive needs: No Hearing needs: No Vision needs: No Review of Systems Const All systems reviewed & are unremarkable except as noted in HPI and below ENT Reports nasal congestion and Reports nasal discharge Card Denies chest pain and Reports dyspnea on exertion (mild, as the activity is generally slow .) Resp Reports cough (as decribed above) and Reports dyspnea on exertion (mild, as the activity is generally slow .) Neuro Reports memory loss Psych Reports memory loss Physical Exam Vital Signs: Last Vital Signs Pulse 65 12/24/23 11:24 BP 130/58 L 12/24/23 11:24 Pulse Ox 96 12/24/23 11:24 Oxygen Delivery Method Room Air 12/24/23 11:24 BMI result Body Mass Index 25.7 Const General: healthy appearing, comfortable, no acute distress, alert, awake and other (but slow in conversation . ) Orientation/consciousness: patient oriented x3 HEENT Head: Yes normal to inspection General nose exam: No nasal polyps present and No nasal discharge present Face and sinus: Yes sinuses nontender Mouth: oropharynx normal Throat: Yes posterior oropharynx normal Eyes General: appearance normal, both eyes and all related structures Neck Neck: Yes normal visual inspection, Yes no lymphadenopathy, Yes trachea midline and Yes no JVD Thyroid: Thyroid normal Chest Chest palpation & inspection: normal inspection of the chest, normal palpation of entire chest wall and no tenderness Resp Effort & Inspection: prolonged expiratory phase Auscultation: no crackles, no rales, no wheezes and diminished lung sounds Cardio Palpation: normal PMI Rate: regular rate Rhythm: regular rhythm Heart sounds: no gallops and no murmurs Peripheral pulses: Peripheral pulses 2+ throughout GI Palpation (GI): Soft to palpation, nontender, No hepatosplenomegaly present and no masses Auscultation: normal bowel sounds Back/Spine/Pelvis Thoracic/Lumbar Spine: thoracic and lumbar spine normal to inspection Skin General skin exam: no rashes or lesions noted Neuro General: patient oriented x3 and no focal motor deficits Cranial nerves: Yes CN's II-XII intact bilaterally Extrem General: Yes normal to inspection, Yes no clubbing, cyanosis or edema, Yes no calf tenderness and No venous stasis dermatitis Psych Appearance: grossly normal and well kempt Speech and movement: Normal speech and movement present Assessment & Plan Assessment & Plan (1) Seasonal allergies: Comment: TX : SHE HAS SOME NASAL CONGESTION WITH POSTNASAL DRIP AND COUGH, USUALLY AT THE CHANGE OF SEASONS, CONTROLLED WITH P.R.N. USE OF ANTIHISTAMINIC AGENT, . AND MONTELUKAST 10 MG DAILY Code(s): J30.2 - Other seasonal allergic rhinitis Category: Medical Plan: CONTINUE TO TAKE MONTELUKAST 10 MG DAILY, AND CETIRIZINE 10 MG ONCE A DAY P.R.N.. (2) Asthma: Comment: Patient does have history consistent with reactive airways, Code(s): J45.909 - Unspecified asthma, uncomplicated Category: Medical Plan: [place]: See under COPD (3) COPD (chronic obstructive pulmonary disease): Comment: PULMONARY FUNCTION TEST DID NOT GO ALONG WITH COPD. WORKING DX : HYPERSENSITIVITY BRONCHIAL ASTHMA IS MORE LIKELY . Code(s): J44.9 - Chronic obstructive pulmonary disease, unspecified Category: Medical Plan: WIXELA 250-51 INHALATION B.I.D. ALBUTEROL HFA 2 PUFFS Q 6 HOURS P.R.N. 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 SHE DOES NOT HAVE ANY EVIDENCE OF SIGNIFICANT OBSTRUCTIVE AIRWAY DISORDER. SOMETIME SHE HAS A FEELING OF THICK MUCUS WHICH SHE CAN ARE CLEAR, Code(s): R05 - Cough Category: Medical Plan: I SUGGESTED THAT SHE SHOULD USE LIQUID MUCINEX 200 MG B.I.D..THIS HAS BEEN VERY HELPFUL . PATIENT WOULD LIKE TO BE SEEN MORE OFTEN, AND I THINK Q 6 MONTHS WILL BE OKAY. Coding Level of Care Code Est Pt Level 3 (91257) Diagnoses Seasonal allergies J30.2 Asthma J45.909 COPD (chronic obstructive pulmonary disease) J44.9 Cough R05
== END 2023-12-24 11:40 | disposition home or self-care (01) ==
PROVIDERS: PCP Family Medicine; Visit Provider Internal Medicine
DX: R05.9 Cough, unspecified (principal); J45.909 Unspecified asthma, uncomplicated
CPT/HCPCS: 99213

== ENCOUNTER → 2023-12-24 11:06 | Outpatient (BNVA) | payer BC, SELFPAY | PROVIDERS: PCP Family Medicine; Visit Provider Internal Medicine ==

== ENCOUNTER 2024-01-16 08:45 | Outpatient (AMB) | payer BC, SELFPAY ==
--- NOTE | 2024-01-16 08:52 | MHC.PC.OV ---
Vital Signs 01/16/24 08:55 Height 5 ft 5 in Weight 155 lb 2 oz BMI 25.8 BP 120/58 L Blood Pressure Location Lt brachial Position Sitting Respiration 16 Pulse 54 Pulse Source Pulse Oximeter Temp 97.7 F Temp Source Tympanic Pulse Oximetry (%) 95 Oxygen Delivery Method Room Air Intake Visit Reasons: MEDICATION FOLLOW UP/REFILLS /HTN Intake Note: F/U htn and med refill Allergies latex [LATEX] Allergy (Unknown, Verified 01/16/24 08:53) RASH, ITCHY Medication List - Last Reconciled 01/16/24 by Claus Lockwood MD albuterol sulfate 90 mcg/actuation (Proventil HFA) 2 puffs inhalation Q4-6H PRN amlodipine 10 mg PO DAILY 90 days amoxicillin 875 mg PO ONCE PRN 1 day aspirin 81 mg PO DAILY 90 days atorvastatin 80 mg PO BEDTIME 90 days cetirizine 10 mg PO DAILY PRN 30 days clobetasol 0.05% 1 appl topical BID 2 weeks clonidine 1 patch topical QWEEK donepezil 10 mg PO DAILY fluticasone propion-salmeterol 250-50 mcg/dose (Wixela Inhub) 1 inh inhalation Q12H 30 days furosemide 40 mg PO DAILY hydralazine 50 mg See Protocol PO BID 30 days hydroxyzine HCl 25 mg PO QID PRN levothyroxine (Synthroid) 37.5 mcg (1.5 x 25 mcg) PO DAILY 90 days magnesium oxide 400 mg PO BID 90 days memantine 10 mg PO BID 90 days mirabegron ER (Myrbetriq) 25 mg PO DAILY 90 days mometasone 50 mcg/actuation 2 sprays intranasal BID 30 days montelukast 10 mg PO BEDTIME 90 days omeprazole 20 mg PO DAILY 90 days sertraline 100 mg PO BEDTIME 90 days spironolactone 50 mg PO DAILY 90 days triamcinolone acetonide 0.1% appl topical Tobacco use date assessed: 06/27/22 Dental Screening Dental Screen Date: 01/30/23 HPI MEDICATION FOLLOW UP/REFILLS /HTN HPI Details 84 y/o female presents to f/u hypertension, chronic conditions. Recently seen Pulmonology - per note pulmonary function test did not go along with COPD. Hypersensitivity bronchial asthma more likely. Blood pressure today 120/58, 54p. She is on spironolactone 50mg, amlodipine 10mg daily. Ongoing issues of eczema - had prescribed her clobetasol and is also now on hydroxyzine. [facility] Medical History Rash OAB (overactive bladder) H/O placement of stent in anterior descending branch of left coronary artery Dementia Hypothyroidism History of non-ST elevation myocardial infarction (NSTEMI) Systolic heart failure CHF (congestive heart failure) COPD (chronic obstructive pulmonary disease) Cough Asthma CVA (cerebral vascular accident) Hypertension LBBB (left bundle branch block) Surgical History Hx of heart artery stent History of knee replacement procedure of right knee Hx of cataract surgery History of hysterectomy Family History Father No problems noted. Mother No problems noted. Brother No problems noted. Brother No problems noted. Sister No problems noted. Son No problems noted. Daughter No problems noted. Daughter No problems noted. Daughter No problems noted. Daughter No problems noted. Social History Household Members: Spouse Housing: Assisted Living Facility Do you presently have visiting nurse or other home services: No Alcohol intake: never Patient Tobacco Use Status: Former Tobacco user e-Cigarette/Vaping Use: Never Used Second Hand Smoke Exposure: No service: No Current occupational status: retired Current occupational exposures/hazards: No Cognitive needs: No Hearing needs: No Vision needs: No Questionnaire ANNA-7 AMB Questionnaire ANNA-7 Date ANNA - 7 assessed: 06/27/22 Source: Developed by Drs. Rashad Ramirez, Carola Rutherford, Jaun Reeves and colleagues, with an educational berto from [employer]. Review of Systems Const Denies chills, Denies fatigue, Denies fever(s), Denies headache(s) and Denies weakness ENT Denies dizziness and Denies headache(s) Card Denies chest pain, Denies lightheadedness, Denies dyspnea and Denies other (Palpitations) Resp Denies cough, Denies dyspnea, Denies wheezing and Denies other ( shortness of breath) Musc Denies numbness and Denies tingling Neuro Denies dizziness, Denies headache(s), Denies numbness, Denies tingling, Denies paresthesias and Denies weakness Psych Denies anxiety and Denies depression Endo Denies fatigue Aller/Immun Denies wheezing Physical exam (Primary Care) Vital Signs: Last Vital Signs Temp 97.7 F 01/16/24 08:55 Pulse 54 01/16/24 08:55 Resp 16 01/16/24 08:55 BP 120/58 L 01/16/24 08:55 Pulse Ox 95 01/16/24 08:55 Oxygen Delivery Method Room Air 01/16/24 08:55 BMI result Body Mass Index 25.8 Tobacco/Smoking Status: Tobacco use Status Tobacco use date assessed 06/27/22 01/16/24 08:58 Patient Tobacco Use Status Former Tobacco user 01/16/24 08:58 e-Cigarette/Vaping Use Never Used 01/16/24 08:58 Const General: no acute distress and well developed Nutritional Appearance: well nourished Orientation/consciousness: patient oriented x3 [facility]: Yes normocephalic and Yes atraumatic Eyes General: appearance normal, both eyes and all related structures Pupils: Equal, round and reactive pupils present EOM: EOMs intact bilaterally Resp Effort & Inspection: normal respiratory effort Auscultation: clear to auscultation bilaterally Cardio Rate: regular rate Rhythm: regular rhythm Heart sounds: S1 normal heart sound present, S2 normal heart sound present, no gallops, no murmurs and no rubs Neuro General: patient oriented x3 and gait normal Cranial nerves: Yes Equal, round and reactive pupils present Psych Affect: normal affect Assessment and Plan Assessment & Plan (1) Essential hypertension: Code(s): I10 - Essential (primary) hypertension Plan: Blood?pressure?is?controlled.??Goal?is?less?than?130/80. Continue?current?medications (2) CAD (coronary artery disease): Code(s): I25.10 - Atherosclerotic heart disease of [place] coronary artery without angina pectoris Plan: Stable Follow-up?with?Cardiology?as?recommended (3) Eczema: Code(s): L30.9 - Dermatitis, unspecified Plan: Ongoing?eczema/contact?dermatitis?and?pruritus Her?daughter?is?concerned?that?this?may?have?an?underlying?medication?reaction?for?a?cause. Reviewed?medications?with?patient?and?her?daughter. Furosemide?and?spironolactone?can?cause?rash?and?pruritus?however?these?are?important?medications?for?this?patient?for?her?blood?pressure?and?CHF. Advise?she?discuss?these?medications?with?Cardiology. Ultimately?her?skin?looks?better?than?prior?visits. Continue?hydroxyzine?and?clobetasol?for?now. (4) Reactive airway disease: Code(s): J45.909 - Unspecified asthma, uncomplicated Plan: Lungs?are?clear.??Patient?is?breathing?well Follow-up?with?pulmonology?as?recommended Medications: Refilled mometasone 50 mcg/actuation administer into each nostril 2 sprays intranasal BID 30 days 17 grams 3RF Coding Level of Care Code Est Pt Level 4 (20170) Diagnoses Essential hypertension I10 CAD (coronary artery disease) I25.10 Eczema L30.9 Reactive airway disease J45.909
[2024-01-16 08:55] VITALS: BP 120/58; PULSE 54; RESP 16; TEMP 36.5; O2SAT 95; BMI 25.8
== END 2024-01-16 09:35 | disposition home or self-care (01) ==
PROVIDERS: PCP Family Medicine; Visit Provider Family Medicine
DX: I10 Essential (primary) hypertension (principal); I25.10 Atherosclerotic heart disease of native coronary artery without angina pectoris; L30.9 Dermatitis, unspecified; J45.909 Unspecified asthma, uncomplicated
CPT/HCPCS: 99214

== ENCOUNTER 2024-01-30 15:31 | Outpatient (AMB) | payer BC, SELFPAY ==
--- NOTE | 2024-01-30 15:31 | MHC.OFFVIS ---
Intake Visit Reasons: one year follow up Intake Note: Patient presents for follow up OAB/uti Urology Medication: Myrbetriq Blood Thinner: aspirin PVR: 0ml Yeast Pusher Required: No Accompanied by: Unknown Allergies latex [LATEX] Allergy (Unknown, Verified 01/30/24 15:48) RASH, ITCHY Medication List - Last Reconciled 01/30/24 by Thu Gallegos CARTRIDGE ASSEMBLER- albuterol sulfate 90 mcg/actuation (Proventil HFA) 2 puffs inhalation Q4-6H PRN amlodipine 10 mg PO DAILY 90 days amoxicillin 875 mg PO ONCE PRN 1 day aspirin 81 mg PO DAILY 90 days atorvastatin 80 mg PO BEDTIME 90 days cetirizine 10 mg PO DAILY PRN 30 days clobetasol 0.05% 1 appl topical BID 2 weeks clonidine 1 patch topical QWEEK donepezil 10 mg PO DAILY fluticasone propion-salmeterol 250-50 mcg/dose (Wixela Inhub) 1 inh inhalation Q12H 30 days furosemide 40 mg PO DAILY hydralazine 50 mg See Protocol PO BID 30 days levothyroxine (Synthroid) 37.5 mcg (1.5 x 25 mcg) PO DAILY 90 days magnesium oxide 400 mg PO BID 90 days memantine 10 mg PO BID 90 days mirabegron ER (Myrbetriq) 25 mg PO DAILY 90 days mometasone 50 mcg/actuation 2 sprays intranasal BID 30 days montelukast 10 mg PO BEDTIME 90 days omeprazole 20 mg PO DAILY 90 days sertraline 100 mg PO BEDTIME 90 days spironolactone 50 mg PO DAILY 90 days triamcinolone acetonide 0.1% appl topical HPI Comments Details: Ann Padilla is a 84 year old female patient of Dr. Lockwood who is accompanied by her [facility]. She has a past medical history of asthma, CHF/systolic heart failure, COPD, CVA, dementia, NSTEMI, hypertension, hypothyroidism, left bundle-branch block, and overactive bladder. She is being followed up on today regarding her overactive bladder and recurrent urinary tract infections. In discussion with the patient today she reports feeling Gemtesa was better and feels more helpful in treating her lower urinary tract symptoms. She reports although she is compliant with Myrbetriq 25 mg daily she continues with episodes of urinary incontinence at night as well as urinary frequency. Of note, gemtesa was stopped due to increase in co-pay of 100 dollars. When asked she currently denies any UTI like symptoms. She reports last urinary tract infection was 2-3 years ago. She reports feeling lower urinary tract symptoms are variable and discusses at times she is able to perform ADL's and or go to congregational with no bothersome urinary issues or concerns. We discussed bladder triggers/irritants. We discussed urodynamics for further assessment evaluation. When asked she denies hematuria, dysuria, foul smelling urine, changes to urinary stream, flank pain, fever, and or chills. She discuss living at [facility] with her in the independent living and has help from her daughters. She otherwise offers no other issues or concerns at this time. [facility] Medical History Rash OAB (overactive bladder) H/O placement of stent in anterior descending branch of left coronary artery Dementia Hypothyroidism History of non-ST elevation myocardial infarction (NSTEMI) Systolic heart failure CHF (congestive heart failure) COPD (chronic obstructive pulmonary disease) Cough Asthma CVA (cerebral vascular accident) Hypertension LBBB (left bundle branch block) Surgical History Hx of heart artery stent History of knee replacement procedure of right knee Hx of cataract surgery History of hysterectomy Family History Father No problems noted. Mother No problems noted. Brother No problems noted. Brother No problems noted. Sister No problems noted. Son No problems noted. Daughter No problems noted. Daughter No problems noted. Daughter No problems noted. Daughter No problems noted. Social History Household Members: Spouse Housing: Assisted Living Facility Do you presently have visiting nurse or other home services: No Alcohol intake: never Patient Tobacco Use Status: Former Tobacco user e-Cigarette/Vaping Use: Never Used Second Hand Smoke Exposure: No service: No Current occupational status: retired Current occupational exposures/hazards: No Cognitive needs: No Hearing needs: No Vision needs: No Review of Systems Const Reports as per HPI Eyes Reports no additional complaints ENT Reports no additional complaints Card Reports as per HPI Resp Reports as per [facility] GI Reports no additional complaints Reports as per [facility] Neuro Reports as per [facility] Psych Reports as per [facility] Endo Reports no additional complaints Physical Exam Const General: cooperative Orientation/consciousness: patient oriented x3 Resp Effort & Inspection: normal respiratory effort Neuro General: patient oriented x3 Psych Speech and movement: Clear speech present Affect: normal affect Attitude: cooperative Thought process: Normal thought process present Thought content: Normal thought content present Insight: Fair insight present (Psych) Judgement: Fair judgement present (Psych) Telehealth Telehealth Telehealth Platform: [employer] Location of provider rendering services: practice address Location of patient: address on file Patient Identification confirmed using: Name, : Yes Telehealth method: voice only Patient verbally consented to treatment: Yes Patient verbally consented to billing insurance company: Yes Patient informed of any privacy concerns related to visit: Yes Minutes spent on Phone/Video with Pt.: 22 Assessment & Plan Assessment & Plan (1) OAB (overactive bladder): Code(s): N32.81 - Overactive bladder Category: Medical (2) Urinary incontinence: Code(s): R32 - Unspecified urinary incontinence Category: Medical Plan Continue Myrbetriq 25 mg daily as discussed and prescribed. Start VESIcare 5 mg daily as discussed and prescribed. We discussed at length potential causes of lower urinary tract symptoms patient is experiencing. Discuss trial of another medication verses dual therapy verses in office urodynamics for further assessment evaluation; risks and benefits of these interventions were discussed. She denies any UTI like symptoms. Discussed possible near future retroperitoneal ultrasound for further assessment evaluation. Discussed bladder triggers/irritants. Follow-up in 6 weeks with PVR; or sooner with any issues, concerns, and or questions. Medications: New solifenacin (Vesicare) 5 mg PO DAILY 30 tabs 2RF 30 days Patient Instructions: The patient had an opportunity to ask questions regarding the treatment plan. All questions were answered. Physical exam, labs, and imaging were discussed and reviewed in detail. As well as risks, benefits, and discussion of treatment choices. No major barriers to understanding were identified. The patient expressed understanding and agreement with the above treatment plan. The patient was made aware they should contact our office by phone for worsening of their current condition, the appearance of new symptoms, or with any questions or concerns. Compliance is encouraged with any medications and follow up testing that is ordered. It is a privilege to be allowed the opportunity to participate in? your urological care.? Again, if you have any questions or concerns If you have any questions or concerns please do not hesitate to contact me. The office is [phone]. This note is constructed using voice recognition software. While every effort has been made to ensure accuracy electric needle specialist errors may have been included. Yours sincerely, JAYA Mann Coding Level of Care Code Tele Est Pt Level 4 (91722) Complex EM visit Add On G2211 Diagnoses OAB (overactive bladder) N32.81 Urinary incontinence R32 Time Spent (min) 22
== END 2024-01-30 16:38 | disposition home or self-care (01) ==
PROVIDERS: PCP Family Medicine; Visit Provider Nurse Practitioner Family
DX: N32.81 Overactive bladder (principal); R32 Unspecified urinary incontinence
CPT/HCPCS: 99214

== ENCOUNTER → 2024-01-30 15:31 | Outpatient (BNVA) | payer BC, SELFPAY | PROVIDERS: PCP Family Medicine; Visit Provider Nurse Practitioner Family ==

== ENCOUNTER 2024-03-20 15:36 | Outpatient (AMB) | payer BC, SELFPAY ==
--- NOTE | 2024-03-20 16:04 | A.OFFVIS_ITS ---
Intake Visit Reasons: 6W PVR- Intake Note: Patient presents today for follow up on: OAB/uti Urology Medication: Myrbetriq, vesicare Blood Thinner: aspirin PVR: 145ml's Flask Maker Required: No Accompanied by: Unknown Allergies latex [LATEX] Allergy (Unknown, Verified 03/20/24 19:03) RASH, ITCHY Medication List - Last Reconciled 03/20/24 by JAYA Mann albuterol sulfate 90 mcg/actuation (Proventil HFA) 2 puffs inhalation Q4-6H PRN amlodipine 10 mg PO DAILY 90 days amoxicillin 875 mg PO ONCE PRN 1 day aspirin 81 mg PO DAILY 90 days atorvastatin 80 mg PO BEDTIME 90 days cetirizine 10 mg PO DAILY PRN 30 days clobetasol 0.05% 1 appl topical BID 2 weeks clonidine 1 patch topical QWEEK donepezil 10 mg PO DAILY fluticasone propion-salmeterol 250-50 mcg/dose (Wixela Inhub) 1 inh inhalation Q12H 30 days furosemide 40 mg PO DAILY hydralazine 50 mg See Protocol PO BID 30 days levothyroxine (Synthroid) 37.5 mcg (1.5 x 25 mcg) PO DAILY 90 days magnesium oxide 400 mg PO BID 90 days memantine 10 mg PO BID 90 days mirabegron ER (Myrbetriq) 25 mg PO DAILY 90 days mometasone 50 mcg/actuation 2 sprays intranasal BID 30 days montelukast 10 mg PO BEDTIME 90 days omeprazole 20 mg PO DAILY 90 days sertraline 100 mg PO BEDTIME 90 days solifenacin (Vesicare) 5 mg PO DAILY 30 days spironolactone 50 mg PO DAILY 90 days triamcinolone acetonide 0.1% appl topical HPI Comments Details: Ann Padilla is a 84 year old female patient of Dr. Lockwood [facility] She has a past medical history of asthma, CHF/systolic heart failure, COPD, CVA, dementia, NSTEMI, hypertension, hypothyroidism, left bundle-branch block, and overactive bladder. She presents to the office today for follow-up of her overactive bladder. Of note, patient was seen approximately 6 weeks ago at which time she was started on VESIcare in addition to her 25 mg of Myrbetriq daily. In discussion with the patient today she reports since been helpful in lower urinary tract symptoms she had been experiencing. She does continue to report feeling Gemtetsa was more helpful in treating her lower urinary tract symptoms however she has since stopped taking the medication due to increase in co-payment of approximately 100 dollars. Unable to obtain urine for urinalysis as patient was unable to void however PVR 145 mL. We discussed increase in PVR and correlation with overactive bladder medications. We discussed urodynamics for further assessment evaluation. When asked she denies hematuria, dysuria, foul smelling urine, changes to urinary stream, flank pain, fever, and or chills. She discuss living at [facility] with her in the independent living and has help from her daughters. She otherwise offers no other issues or concerns at this time. [facility] Medical History Rash OAB (overactive bladder) H/O placement of stent in anterior descending branch of left coronary artery Dementia Hypothyroidism History of non-ST elevation myocardial infarction (NSTEMI) Systolic heart failure CHF (congestive heart failure) COPD (chronic obstructive pulmonary disease) Cough Asthma CVA (cerebral vascular accident) Hypertension LBBB (left bundle branch block) Surgical History Hx of heart artery stent History of knee replacement procedure of right knee Hx of cataract surgery History of hysterectomy Family History Father No problems noted. Mother No problems noted. Brother No problems noted. Brother No problems noted. Sister No problems noted. Son No problems noted. Daughter No problems noted. Daughter No problems noted. Daughter No problems noted. Daughter No problems noted. Social History Household Members: Spouse Housing: Assisted Living Facility Do you presently have visiting nurse or other home services: No Alcohol intake: never Patient Tobacco Use Status: Former Tobacco user e-Cigarette/Vaping Use: Never Used Second Hand Smoke Exposure: No service: No Current occupational status: retired Current occupational exposures/hazards: No Cognitive needs: No Hearing needs: No Vision needs: No Review of Systems Const Reports as per [facility] Eyes Reports no additional complaints ENT Reports no additional complaints Card Reports as per [facility] Resp Reports as per [facility] GI Reports no additional complaints Reports as per HPI Neuro Reports as per [facility] Psych Reports as per [facility] Endo Reports no additional complaints Physical Exam Const General: cooperative, healthy appearing, comfortable, no acute distress, well developed, alert and awake Orientation/consciousness: patient oriented x3 Limitations: ambulation with walker HEENT Head: Yes normal to inspection, Yes normocephalic and Yes atraumatic Ears: hearing grossly normal bilaterally Eyes General: appearance normal, both eyes and all related structures Neck Neck: Yes normal visual inspection and Yes trachea midline Chest Chest palpation & inspection: normal inspection of the chest Resp Effort & Inspection: normal respiratory effort Cardio Rate: regular rate GI Inspection: Yes normal to inspection General: Yes no CVA tenderness Back/Spine/Pelvis Back: no CVA tenderness Skin General skin exam: no rashes or lesions noted Neuro General: patient oriented x3 Extrem General: Yes normal to inspection Psych Appearance: grossly normal and well kempt Mental Status: mental status grossly normal Speech and movement: Clear speech present Affect: normal affect Attitude: cooperative Thought process: Normal thought process present Thought content: Normal thought content present Insight: Fair insight present (Psych) Judgement: Fair judgement present (Psych) Office Procedures Post Void Residual Post Residual Void Post Void Residual (PVR): 145 [id number] Void Residual by ultrasound Assessment & Plan Assessment & Plan (1) Urinary incontinence: Code(s): R32 - Unspecified urinary incontinence Category: Medical (2) OAB (overactive bladder): Code(s): N32.81 - Overactive bladder Category: Medical Plan Unable to obtain urine for urinalysis PVR 147ml's. We discussed correlation of increased PVR and overactive bladder medication. Discussed possible discontinuation of dual therapy if PVR remains elevated. We discussed affects of increased PVR. Continue Myrbetriq and VESIcare as prescribed. Follow-up with nursing in 2 weeks for PVR. Will reassess follow-up appointment at time of nursing visit. Orders: Orders AMB Post Void Residual by ultrasound Today R32 - Unspecified urinary incontinence Patient Instructions: The patient had an opportunity to ask questions regarding the treatment plan. All questions were answered. Physical exam, labs, and imaging were discussed and reviewed in detail. As well as risks, benefits, and discussion of treatment choices. No major barriers to understanding were identified. The patient expressed understanding and agreement with the above treatment plan. The patient was made aware they should contact our office by phone for worsening of their current condition, the appearance of new symptoms, or with any questions or concerns. Compliance is encouraged with any medications and follow up testing that is ordered. It is a privilege to be allowed the opportunity to participate in? your urological care.? Again, if you have any questions or concerns If you have any questions or concerns please do not hesitate to contact me. The office is [phone]. This note is constructed using voice recognition software. While every effort has been made to ensure accuracy machine wedger errors may have been included. Yours sincerely, JAYA Mann Coding Level of Care Code Est Pt Level 3 (71014) Complex EM visit Add On G2211 Diagnoses Urinary incontinence R32 OAB (overactive bladder) N32.81 CPT Codes Post Residual Void - PVR CPT Code: 30366-Bbng Void Residual by ultrasound ([id number])
== END 2024-03-20 16:30 | disposition home or self-care (01) ==
PROVIDERS: PCP Family Medicine; Visit Provider Nurse Practitioner Family
DX: R32 Unspecified urinary incontinence (principal); N32.81 Overactive bladder
CPT/HCPCS: 99213

== ENCOUNTER → 2024-03-20 | Outpatient (BNVA) | payer BC, SELFPAY | PROVIDERS: PCP Family Medicine; Visit Provider Nurse Practitioner Family | DX: R32 Unspecified urinary incontinence (principal); N32.81 Overactive bladder; Z79.899 Other long term (current) drug therapy | CPT/HCPCS: 51798 ==

== ENCOUNTER → 2024-04-07 11:23 | Outpatient (BNVA) | payer BC, SELFPAY | PROVIDERS: PCP Family Medicine; Visit Provider Nurse Practitioner Family | DX: N32.81 Overactive bladder (principal); R32 Unspecified urinary incontinence | CPT/HCPCS: 51798 ==

== ENCOUNTER 2024-04-16 11:13 | Outpatient (REF) | payer BC, SELFPAY ==
--- NOTE | ~2024-04-16 | XR_ITS ---
EXAMINATION: XR CHEST CLINICAL INFORMATION: R05 - Cough COMPARISON: Chest x-ray on 10/28/2021 TECHNIQUE: 2 views of the chest were obtained. FINDINGS: No significant abnormality is noted involving the heart, lungs, mediastinum, bony thorax or soft tissues. Moderate hiatal hernia. XR/XR chest 2V IMPRESSION: No acute disease. Electronically signed by: Abby Manzanares MD 04/16/2024 08:16 PM [facility]
== END 2024-04-16 11:14 | disposition home or self-care (01) ==
LOC: HO.XRAY 11:13
PROVIDERS: PCP Family Medicine; Visit Provider Family Medicine
DX: R05.9 Cough, unspecified (principal)
CPT/HCPCS: 71046

== ENCOUNTER 2024-04-16 11:13 | Outpatient (AMB) | payer BC, SELFPAY ==
--- NOTE | 2024-04-16 11:29 | A.OFFPC_ITS ---
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 Blood pressure today 116/50, 57p. She is on amlodipine 10mg, spironolactone 50mg daily. Reports an ongoing rash/eczema. Reports cough after eating. [facility] Medical History Rash OAB (overactive bladder) H/O placement of stent in anterior descending branch of left coronary artery Dementia Hypothyroidism History of non-ST elevation myocardial infarction (NSTEMI) Systolic heart failure CHF (congestive heart failure) COPD (chronic obstructive pulmonary disease) Cough Asthma CVA (cerebral vascular accident) Hypertension LBBB (left bundle branch block) Surgical History Hx of heart artery stent History of knee replacement procedure of right knee Hx of cataract surgery History of hysterectomy Family History Father No problems noted. Mother No problems noted. Brother No problems noted. Brother No problems noted. Sister No problems noted. Son No problems noted. Daughter No problems noted. Daughter No problems noted. Daughter No problems noted. Daughter No problems noted. Social History Household Members: Spouse Housing: Assisted Living Facility Do you presently have visiting nurse or other home services: No Alcohol intake: never Patient Tobacco Use Status: Former Tobacco user e-Cigarette/Vaping Use: Never Used Second Hand Smoke Exposure: No service: No Current occupational status: retired Current occupational exposures/hazards: No Cognitive needs: No Hearing needs: No Vision needs: No Questionnaire PHQ-9 Over the last 2 weeks, how often have you been bothered by any of the following problems? 1. Little interest or pleasure in doing things: not at all 2. Feeling down, depressed, or hopeless: not at all 3. Trouble falling or staying asleep, or sleeping too much: several days 4. Feeling tired or having little energy: several days 5. Poor appetite or overeating: not at all 6. Feeling bad about yourself - or that you are a failure or have let yourself or your family down: not at all 7. Trouble concentrating on things, such as reading the newspaper or watching television: several days 8. Moving or speaking so slowly that other people could have noticed. Or the opposite - being so fidgety or restless that you have been moving around a lot more than usual: not at all 9. Thoughts that you would be better off or of hurting yourself in some way: not at all Total score: 3 Source: Developed by Drs. Rashad Ramirez, Carola Rutherford, Jaun Reeves and colleagues, with an educational berto from [employer]. Thrive Questionnaire Date Thrive assessed: 04/10/24 I am a: Patient What is your living situation today?: I have a steady place to live Within the past 12 months, did the food you bought not last and you didn't have the money to get more?: Never true Within the past 12 months, did you worry whether your food would run out before you got money to buy more?: Never true Do you have trouble paying for medicines?: No Do you have trouble getting transportation to medical appointments?: No Do you have trouble paying your heating and electricity bill?: No Do you have trouble taking care of your child, family member or friend?: No Do you have trouble with day-to-day activities such as bathing, preparing meals, shopping, managing finances, etc.?: No Are you currently unemployed and looking for a job?: No Are you interested in more education?: No Please select the resources that you would like help with: None Currently or been in a relationship where the following occur: No concerns reported THRIVE Score: 0 AUDIT C Alcohol Use Questionnaire (AUDIT-C) 1. How often do you have a drink containing alcohol?: Monthly or less 2. How many drinks containing alcohol do you have on a typical day when you are drinking?: 1 or 2 3. How often do you have six or more drinks on one occasion?: Never Total Score: 1 ANNA-7 AMB Questionnaire ANNA-7 Date ANNA - 7 assessed: 06/27/22 Feeling nervous, anxious, or on edge: 1 = Several days Not being able to stop or control worryin = Not at all Worrying too much about different things: 0 = Not at all Trouble relaxin = Not at all Being so restless that it is hard to sit still: 0 = Not at all Becoming easily annoyed or irritable: 0 = Not at all Feeling afraid as if something awful might happen: 0 = Not at all Total ANNA-7 score (0-4 normal; 5-9 mild; 10-14 moderate; 15-21 severe): 1 Source: Developed by Drs. Rashad Ramirez, Carola Rutherford, Jaun Reeves and colleagues, with an educational berto from [employer]. Review of Systems Const Denies chills, Denies fatigue, Denies fever(s), Denies headache(s) and Denies weakness ENT Denies dizziness and Denies headache(s) Card Denies dyspnea Resp Reports cough, Denies dyspnea and Denies wheezing Musc Denies numbness and Denies tingling Skin/Breast Reports rash Neuro Denies dizziness, Denies headache(s), Denies numbness, Denies tingling and Denies weakness Psych Denies anxiety and Denies depression Endo Denies fatigue Aller/Immun Denies wheezing Physical exam (Primary Care) Vital Signs: Last Vital Signs Temp 97.8 F 04/16/24 11:39 Pulse 57 04/16/24 11:39 Resp 14 04/16/24 11:39 BP 116/50 L 04/16/24 11:39 Pulse Ox 96 04/16/24 11:39 Oxygen Delivery Method Room Air 04/16/24 11:39 BMI result Body Mass Index 26.0 Tobacco/Smoking Status: Tobacco use Status Tobacco use date assessed 06/27/22 04/16/24 11:30 Patient Tobacco Use Status Former Tobacco user 04/16/24 11:30 e-Cigarette/Vaping Use Never Used 04/16/24 11:30 PHQ-9: PHQ-9 Score PHQ-9: Total score 3 04/16/24 11:30 Thrive Assessment: Date of Thrive Assessment Date Thrive assessed 04/10/24 04/16/24 11:30 Currently or been in a relationship where the following occur: No concerns reported Const General: well developed; No acute distress Nutritional Appearance: well nourished Orientation/consciousness: patient oriented x3 HENMT Head: Yes normocephalic and Yes atraumatic Eyes General: appearance normal, both eyes and all related structures Pupils: Equal, round and reactive pupils present EOM: EOMs intact bilaterally Resp Other: Crackles at L base Effort & Inspection: normal respiratory effort Auscultation: not clear to auscultation bilaterally Neuro General: patient oriented x3 and gait normal Cranial nerves: Yes Equal, round and reactive pupils present Psych Affect: normal affect Coding Level of Care Code Est Pt Level 4 (40786) Diagnoses Essential hypertension I10 CAD (coronary artery disease) I25.10 Asthma J45.909 Eczema L30.9 Cough R05 Abnormal lung sounds R09.89 Assessment & Plan Assessment & Plan (1) Essential hypertension: Code(s): I10 - Essential (primary) hypertension Category: Medical Plan: Blood?pressure?is?controlled.??Goal?is?less?than?130/80 Continue?current?medications (2) CAD (coronary artery disease): Code(s): I25.10 - Atherosclerotic heart disease of [place] coronary artery without angina pectoris Category: Medical Plan: Stable (3) Asthma: Comment: Patient does have history consistent with reactive airways, Code(s): J45.909 - Unspecified asthma, uncomplicated Category: Medical Plan: No?wheezing?but?patient?does?have?a?recent?cough.??She?notes?that?it?is?worse ?after?eating?in?bed. Continue?inhaled?medications He?does?have?mild?crackles?at?base?and?checking?an?x-ray - see?below (4) Eczema: Code(s): L30.9 - Dermatitis, unspecified Category: Medical Plan: Encouraged?good?hydration?as?tolerated Use?moisturizer?cream?liberally Use?steroid?cream?twice?a?day?for?flare-ups Follow-up?with?dermatology Send?a?script?for?betamethasone (5) Cough: Code(s): R05 - Cough Category: Medical Plan: Worsening?cough?with?patient?notes?is?worse?after?dinner?at?bedtime Giving?her?a?script?for?famotidine?to?decrease?acid?reduction?dinner However?patient?does?have?mild?crackles?at?left?base?an?and?shaky?chest?x-ray.?? Will?start?her?on?a?Z-Nakul?and?discontinue?if?chest?x-ray?negative (6) Abnormal lung sounds: Code(s): R09.89 - Other specified symptoms and signs involving the circulatory and respiratory systems Category: Medical Plan: As?above Orders: Orders XR chest 2V Today R05 - Cough Medications: New famotidine 20 mg PO DAILY 14 days 14 tabs 0RF betamethasone valerate 0.1% 1 appl topical BID 14 days PRN 45 grams 2RF skin irritation azithromycin (Zithromax Z-Nakul) take 500 mg today (day 1), then 250 mg for 4 days (days 2-5) PO 5 days 6 tabs 0RF
[2024-04-16 11:39] VITALS: BP 116/50; PULSE 57; RESP 14; TEMP 36.6; O2SAT 96; BMI 26.0
== END 2024-04-16 12:32 | disposition home or self-care (01) ==
PROVIDERS: PCP Family Medicine; Visit Provider Family Medicine
DX: I10 Essential (primary) hypertension (principal); I25.10 Atherosclerotic heart disease of native coronary artery without angina pectoris; J45.909 Unspecified asthma, uncomplicated; L30.9 Dermatitis, unspecified; R05.9 Cough, unspecified; R09.89 Other specified symptoms and signs involving the circulatory and respiratory systems

== ENCOUNTER → 2024-04-18 14:34 | Outpatient (BNVA) | payer BC, SELFPAY | PROVIDERS: PCP Family Medicine; Visit Provider Family Medicine ==

== ENCOUNTER → 2024-04-18 14:34 | Outpatient (BNVA) | payer BC, SELFPAY | PROVIDERS: PCP Family Medicine; Visit Provider Family Medicine | DX: R09.89 Other specified symptoms and signs involving the circulatory and respiratory systems (principal); R05 Cough ==

== ENCOUNTER 2024-06-05 14:26 | Outpatient (AMB) | payer BC, SELFPAY ==
--- NOTE | 2024-06-05 14:36 | MHC.OFFVIS ---
Intake Visit Reasons: 6 Wk follow up Intake Note: Patient presents today for follow up on: OAB/[facility] Medication: Myrbetriq, vesicare Blood Thinner: aspirin PVR: 110ml's Concrete Block Layer Required: No Accompanied by: Daughter Allergies peanut Allergy (Severe, Verified 06/05/24 15:38) Facial Swelling latex [LATEX] Allergy (Unknown, Verified 06/05/24 15:38) RASH, ITCHY Medication List - Last Reconciled 06/05/24 by TERESA Mann- albuterol sulfate 90 mcg/actuation (Proventil HFA) 2 puffs inhalation Q4-6H PRN amlodipine 10 mg PO DAILY 90 days amoxicillin 875 mg PO ONCE PRN 1 day aspirin 81 mg PO DAILY 90 days atorvastatin 80 mg PO BEDTIME 90 days azithromycin (Zithromax Z-Nakul) take 500 mg today (day 1), then 250 mg for 4 days (days 2-5) PO 5 days betamethasone valerate 0.1% 1 appl topical BID PRN 14 days cetirizine 10 mg PO DAILY PRN 30 days clonidine 1 patch topical QWEEK donepezil 10 mg PO DAILY famotidine 20 mg PO DAILY 14 days fluticasone propion-salmeterol 250-50 mcg/dose (Wixela Inhub) 1 inh inhalation Q12H 30 days furosemide 40 mg PO DAILY hydralazine 50 mg See Protocol PO BID 30 days levothyroxine (Synthroid) 37.5 mcg (1.5 x 25 mcg) PO DAILY 90 days magnesium oxide 400 mg PO BID 90 days memantine 10 mg PO BID 90 days mometasone 50 mcg/actuation 2 sprays intranasal BID 30 days montelukast 10 mg PO BEDTIME 90 days omeprazole 20 mg PO DAILY 90 days sertraline 100 mg PO BEDTIME 90 days spironolactone 50 mg PO DAILY 90 days HPI Comments Details: Ann Padilla is a 84 year old female patient of Dr. Lockwood who is accompanied by her daughter at today's office visit. She has a past medical history of asthma, CHF/systolic heart failure, COPD, CVA, dementia, NSTEMI, hypertension, hypothyroidism, left bundle-branch block, and overactive bladder. She presents to the office today for follow-up of her overactive bladder. In discussion with the patient today she reports having stopped VESIcare and Myrbetriq due to increased postvoid residuals and feels that although she has not been taking any urological medications she has not had any bothersome urinary issues or concerns. She reports feeling episodes of incontinence she had been experiencing have subsided as she has been performing timed/scheduled voiding. She reports getting up 1 time per night. She otherwise denies urinary urgency, urinary frequency, incontinence, nocturia, hematuria, dysuria, foul smelling urine, changes to urinary stream, flank pain, fever, and or chills. She is happy with her current voiding parameters. In office urinalysis results reviewed with the patient today. PVR 110 mL. She has also previously trialed Gemtesa however had increased copayments of over 100 dollars. She continues to live at [facility] with her in the independent living. She otherwise offers no other issues or concerns at this time. [facility] Medical History Rash OAB (overactive bladder) H/O placement of stent in anterior descending branch of left coronary artery Dementia Hypothyroidism History of non-ST elevation myocardial infarction (NSTEMI) Systolic heart failure CHF (congestive heart failure) COPD (chronic obstructive pulmonary disease) Cough Asthma CVA (cerebral vascular accident) Hypertension LBBB (left bundle branch block) Surgical History Hx of heart artery stent History of knee replacement procedure of right knee Hx of cataract surgery History of hysterectomy Family History Father No problems noted. Mother No problems noted. Brother No problems noted. Brother No problems noted. Sister No problems noted. Son No problems noted. Daughter No problems noted. Daughter No problems noted. Daughter No problems noted. Daughter No problems noted. Social History Household Members: Spouse Housing: Assisted Living Facility Do you presently have visiting nurse or other home services: No Alcohol intake: never Patient Tobacco Use Status: Former Tobacco user e-Cigarette/Vaping Use: Never Used Second Hand Smoke Exposure: No service: No Current occupational status: retired Current occupational exposures/hazards: No Cognitive needs: No Hearing needs: No Vision needs: No Review of Systems Const Reports as per [facility] Eyes Reports no additional complaints ENT Reports no additional complaints Card Reports as per [facility] Resp Reports as per [facility] GI Reports no additional complaints Reports as per [facility] Neuro Reports as per [facility] Psych Reports as per [facility] Endo Reports no additional complaints Physical Exam Const General: cooperative, healthy appearing, comfortable, no acute distress, well developed, alert and awake Orientation/consciousness: patient oriented x3 Limitations: ambulation with walker HEENT Head: Yes normal to inspection, Yes normocephalic and Yes atraumatic Ears: hearing grossly normal bilaterally Eyes General: appearance normal, both eyes and all related structures Neck Neck: Yes normal visual inspection and Yes trachea midline Chest Chest palpation & inspection: normal inspection of the chest Resp Effort & Inspection: normal respiratory effort Cardio Rate: regular rate GI Inspection: Yes normal to inspection General: Yes no CVA tenderness Back/Spine/Pelvis Back: no CVA tenderness Skin General skin exam: no rashes or lesions noted Neuro General: patient oriented x3 Extrem General: Yes normal to inspection Psych Appearance: grossly normal and well kempt Mental Status: mental status grossly normal Speech and movement: Clear speech present Affect: normal affect Attitude: cooperative Thought process: Normal thought process present Thought content: Normal thought content present Insight: Fair insight present (Psych) Judgement: Fair judgement present (Psych) Office Procedures Post Void Residual Post Residual Void Post Void Residual (PVR): 110 31524-[id number] Void Residual by ultrasound Results AMB Urinalysis, Automated UA Leukoctes 0 Stephany/uL Last Edit by [employer] on 06/05/24 15:02 UA Nitrite Last Edit by [employer] on 06/05/24 15:02 UA Urobilinogen 0.2 mg/dL Last Edit by [employer] on 06/05/24 15:02 UA Protein 15 mg/dL Last Edit by [employer] on 06/05/24 15:02 UA pH 6.0 Last Edit by [employer] on 06/05/24 15:02 UA Blood 0 Chalino/uL Last Edit by [employer] on 06/05/24 15:02 UA Specific [place] 1.010 Last Edit by [employer] on 06/05/24 15:02 UA Ketone Last Edit by [employer] on 06/05/24 15:02 UA Bilirubin 0 mg/dL Last Edit by Diamond Yarbrough on 06/05/24 15:02 UA Glucose 0 mg/dL Last Edit by Diamond Yarbrough on 06/05/24 15:02 Results Reviewed Results Reviewed: Laboratory Last Values Urine pH (Auto) 6.0 06/05/24 15:01 Specific [place] (Auto) 1.010 06/05/24 15:01 Urine Protein (Auto) 15 mg/dL 06/05/24 15:01 Glucose (UA)(Auto) 0 mg/dL 06/05/24 15:01 Urine Blood (Auto) 0 Chalino/uL 06/05/24 15:01 Urine Bilirubin (Auto) 0 mg/dL 06/05/24 15:01 Urine Urobilinogen (Auto) 0.2 mg/dL 06/05/24 15:01 Leukocyte Esterase (Auto) 0 Stephany/uL 06/05/24 15:01 Assessment & Plan Assessment & Plan (1) Urinary incontinence: Code(s): R32 - Unspecified urinary incontinence Category: Medical (2) OAB (overactive bladder): Code(s): N32.81 - Overactive bladder Category: Medical Plan In office urinalysis results reviewed with the patient today; as noted above. PVR 110 mL. Continue timed/scheduled voiding. Will continue with surveillance monitoring. We discussed bladder triggers/irritants. Patient currently denies any bothersome urinary issues or concerns. She reports be happy with current voiding parameters. Follow-up in 3 months; or sooner with any issues, concerns, and or questions. Orders: Orders AMB Urinalysis Automated Today Z13.9 - Encounter for screening, unspecified AMB Post Void Residual by ultrasound Today R32 - Unspecified urinary incontinence Patient Instructions: The patient had an opportunity to ask questions regarding the treatment plan. All questions were answered. Physical exam, labs, and imaging were discussed and reviewed in detail. As well as risks, benefits, and discussion of treatment choices. No major barriers to understanding were identified. The patient expressed understanding and agreement with the above treatment plan. The patient was made aware they should contact our office by phone for worsening of their current condition, the appearance of new symptoms, or with any questions or concerns. Compliance is encouraged with any medications and follow up testing that is ordered. It is a privilege to be allowed the opportunity to participate in? your urological care.? Again, if you have any questions or concerns If you have any questions or concerns please do not hesitate to contact me. The office is [phone]. This note is constructed using voice recognition software. While every effort has been made to ensure accuracy senior service technician errors may have been included. Yours sincerely, JAYA Mann Coding Level of Care Code Est Pt Level 3 (58703) Complex EM visit Add On G2211 Diagnoses Urinary incontinence R32 OAB (overactive bladder) N32.81 CPT Codes Post Residual Void - PVR CPT Code: 47072-[id number] Void Residual by ultrasound ([id number])
--- OUTSIDE RECORDS SUMMARY | 2024-06-05 18:23 | XMS_ITS | Patient Health Record ---
Author Organization [facility] Billing Info Address [address] [place] [address] [place] [address] Care Team Providers Care Plant Propagator Name Role Phone DR TERRENCE NATH Primary Care Provider Unavai lable Allergies Allergen (clinical drug ingredient) Drug/Non Drug Allergy documented on EMR Reaction Allergy Type Onset Date Status LATEX itching Drug Allergy Active Reason For Referral No Information Medications Medication SIG (Take, Route, Frequency, Duration) Notes Start Date End Date Status Zafirlukast 20 MG 1 tablet Orally Twic e a day for 90 days Active Mobic 15 MG 1 tablet Orally Once a day for 90 days 05/25/2017 Active HydrALAZINE HCl 50 MG 1 tablet with food Orally Two times a day for 90 days 01/15/2019 Active Hyzaar 100-25 MG 1 tablet Orally Once a day for 90 days Active Lipitor 40 MG 1 tablet Orally Once a day for 30 day(s) Active Advair Diskus 500-50 MCG/DOSE 1 inhalati on orally Twice a day for 90 days Active Namzaric 21-10 MG 1 capsule in the evening Orally Once a day for 30 day(s) Active Clonidine HCl 0.2 MG 1 tablet Orally Twi ce a day Active Hydrochlorothiazide 25 MG 1 tablet in th e morning Orally Once a day for 30 day(s) Active Nexium 20 MG 1 capsule Orally Onc e a day Active Proventil HFA 108 (90 Base) MCG/ACT 2 puffs as needed Inhalation every 4 hrs for 90 days Active Synthroid 25 MCG 1 tablet on an empty stomach in the morning Orally Once a day Active Aspirin 81 MG 1 tablet Orally Once a day for 30 day(s) Active Nasonex 50 MCG/ACT 2 sprays in each nostril Nasally Once a day for 90 days Active Losartan Potassium 100 MG 1 tablet Orall y Once a day for 30 day(s) Active HydrALAZINE HCl 100 MG TAKE 1 TABLET BY MOUTH TWICE A DAY W/FOOD for 90 Active Immunizations Vaccine Route Administration Date Status Comme nts PNEUMOCOCCAL 13 CONJ ([id number]) IM Intramuscular 04/16/2015 Administered FLU (Past vaccine of unknown type) Unknown 08/21/2013 Administered FLU (Past vaccine of unknown type) Unknown 02/07/2017 Administered PNEUMOCOCCAL (Past vaccine of unknown type) Unknown 08/21/2013 Administered TDAP (BOOSTRIX) IM Intramuscular 02/18/2016 Administered zFLU 3V (FLUZONE HIGH DOSE), 65 YRS+, NO PRES - ALL PAYORS IM Intramuscular 03/25/2014 Administered Double Dose zFLU 3V (FLUZONE HIGH DOSE), 65 YRS+, NO PRES - ALL PAYORS IM Intramuscular 03/01/2015 Administered Problems Problem Type SNOMED Code ICD Code Onset Dates Problem Status W/U Status Risk Notes Problem 539292622 Other hyperlipidemia (E78.4) Active confirmed Problem 9603392 Unspecified osteoarthritis, unspecified site (M19.90) Active confirmed Problem 55008193 Pain in left kne e (M25.562) Active confirmed pt to follow up with ortho Problem 755794525 Localized edema (R60.0) Active confirmed Problem 481678666 Asthma (J45.909) Active confirmed Problem 503398510 SOB (shortness o f breath) (R06.02) Active confirmed Problem 08298962 Essential hypertension (I10) Active confirmed Problem 045157271 TIA (transient ischemic attack) (G45.9) Active confirmed Problem 374904772 Unsteady gait (R26.81) Active confirmed Problem Amnesia (40510254) Memory changes (R41.3) Active confirmed Problem 00407208 LBBB (left bundl e branch block) (I44.7) Active confirmed Problem 470198415 Non-cardiac ches t pain (R07.89) Active confirmed Problem 895403500 Acute hand eczem a (L30.9) 09/23/19 17 Active confirmed Problem 52976185 Bakers cyst, lef t (M71.22) 07/15/19 17 Active confirmed Problem 235122849 Seasonal allergi c rhinitis, unspecified allergic rhinitis trigger (J30.2) Active confirmed Plan Of Treatment Future Test Test Name Order Date Basic Metabolic Panel (8) ([id number] ) 12/27/2017 US- CAROTID DOPPLER (59163)(AIC-CAROTID) 03/17/2019 Insurance Providers Payer Name Payer Address Payer Phone Subscriber Number Group Number Insured Name Patient Relationship to Insured Coverage Start Date Coverage End Date [facility] [employer] [address] [place] [address] [id number] Carlos King Spouse - patient is the spouse of the insured 5 6 Medications Administered Medication Instructions Date of Administration Dosage Notes Methylprednisolone Acetate 4 0 mg (Depo Medrol) 02/29/2016 1 mL Dexamethasone Na Phosphate 02/29/2016 1 mL Medical (General) History Medical History History ICD Code 1. Noncardiac chest pain a. 10/1999 stress echocardiog taina: [facility] cardiology: No resting wall motion abnormalities. No exercise-induced abnormalities. b. 01/22/2009 Exercise stress test: Abnormal stress test, normal perfusion, EF 55%. c. 07/13/2016 Echocardiogram: Left ventricle: Systolic function was normal. Ejection fraction was estimated in the range of 55% to 65%. There was no regional wall motion abnormalities. d. 09/12/16 Nuclear Stress T est: SPECT images show no evidence of persistent or reversible perfusion defect. Wall motion is normal. Ejection fraction is calculated at 68%. 2. Hyperlipidemia 3. Hypertension 4. Menopausal and postmenopausal disorde r 5. Asthma 6. Colon polyp 7. TIA a. 03/25/2019 echo: Normal w all motion and ejection fraction estimated at 55-65%. There were no regional wall motion abnormalities. Wall thickness mildly to moderately increased. Doppler parameters show grade 1 diastolic dysfunction b. 03/25/2019 carotid ultras ound: Atherosclerotic changes without hemodynamically significant stenosis Surgical History Surgery Date(Month/Year) Hysterectomy; BSO 1982 Total right knee replacement 2009 colonoscopy colon polyps 2006 Pterygium of left Eye 08/2015 Cataract Removal on Both Eyes 11/2015 Hospitalization History Reason Date(Month/Year) childbirth X's 4 TIA 03/2019
== END 2024-06-05 15:32 | disposition home or self-care (01) ==
PROVIDERS: PCP Family Medicine; Visit Provider Nurse Practitioner Family
DX: R32 Unspecified urinary incontinence (principal); N32.81 Overactive bladder; Z13.9 Encounter for screening, unspecified
CPT/HCPCS: 99213

== ENCOUNTER → 2024-06-05 14:26 | Outpatient (BNVA) | payer BC, SELFPAY | PROVIDERS: PCP Family Medicine; Visit Provider Nurse Practitioner Family | DX: N32.81 Overactive bladder (principal); R32 Unspecified urinary incontinence | CPT/HCPCS: 51798; 81003 ==

== ENCOUNTER 2024-06-06 10:34 | Emergency (ER) | payer BC, SELFPAY ==
--- NOTE | ~2024-06-06 | XR_ITS ---
EXAMINATION: XR KNEE, RIGHT CLINICAL INFORMATION: pain, injury COMPARISON: 09/14/2020. TECHNIQUE: Two views of the right knee. FINDINGS: There has been a total right knee arthroplasty. Femoral condyle and tibial components are intact, anatomically aligned, without evidence of periprosthetic lucency or fracture. No focal bone lesions. There is prepatellar soft tissue swelling overlying the patellar tendon suggestive of a small hematoma. There is a tiny joint effusion. Soft tissues demonstrate vascular calcifications. XR/XR knee RT 2V IMPRESSION: 1. Right knee arthroplasty without complication. No fracture or malalignment. 2. Prepatellar soft tissue hematoma suspected. Electronically signed by: Tom Rizzo MD 06/06/2024 11:43 AM [facility]
--- NOTE | ~2024-06-06 | CT_ITS ---
EXAMINATION: CT HEAD WITHOUT CONTRAST CLINICAL INFORMATION: Head trauma, fall. COMPARISON: None available. TECHNIQUE: Contiguous axial imaging was performed from the skull base to vertex without intravenous administration of contrast. This CT examination was performed using dose optimization techniques as appropriate, variously including the following: *Automated exposure control *Adjustment of mA and/or kV according to patient size (this includes techniques or standardized protocols for targeted exams where dose is matched to indication/reason for exam; i.e. extremities or head) *Use of iterative reconstruction technique FINDINGS: There is no evidence of intracranial hemorrhage or extra-axial fluid collection. There is no mass effect, or edema. No CT evidence of acute territorial infarct. Ventricles, sulci, and cisterns are normal in size and configuration for patient age. No hydrocephalus. No midline shift. Negative hyperdense MCA sign. Negative insular ribbon sign. There are moderate patchy and confluent foci of white matter hypoattenuation in the deep white matter, keeping with small vessel ischemic changes. There are numerous old lacunar type infarctions in the bilateral ganglial capsular regions and thalami. There is atheromatous calcification of the bilateral carotid siphons and V4 segments vertebral arteries bilaterally. Globes and orbital contents image normally. There've been bilateral lens replacements. Extra cranial soft tissues demonstrate mild focal right temporal scalp swelling. The paranasal sinuses, mastoid air cells, and tympanic cavities are normally aerated. No suspicious bony abnormalities. CT/CT head/brain wo IV con IMPRESSION: 1. No acute intracranial abnormalities. Chronic changes as detailed. 2. No fractures evident. 3. Small focus of right temporal scalp soft tissue swelling. Electronically signed by: Tom Rizzo MD 06/06/2024 01:07 PM [facility]
--- NOTE | ~2024-06-06 | CT_ITS ---
EXAMINATION: CT CERVICAL SPINE WITHOUT CONTRAST CLINICAL INFORMATION: Fall, head strike COMPARISON: None available. TECHNIQUE: Spiral CT imaging of the cervical spine was performed in the axial plane without IV contrast. Sagittal, coronal, and thin section axial reformatted images were constructed from the axial data set. This CT examination was performed using dose optimization techniques as appropriate, variously including the following: *Automated exposure control *Adjustment of mA and/or kV according to patient size (this includes techniques or standardized protocols for targeted exams where dose is matched to indication/reason for exam; i.e. extremities or head) *Use of iterative reconstruction technique FINDINGS: There is a mild right convex scoliosis. There is a normal lordosis. There is no fracture, compression deformity, evidence of traumatic subluxation, or suspicious bone lesion. The craniocervical junction and C1-2 articulation are intact and normally aligned. Moderate degenerative disc changes most notable at C5-6 and C6-7. There is a 2 mm degenerative anterolisthesis C7 on T1. This appears based on degenerative facet and disc changes. Normal facet alignment. Mild multilevel degenerative facet changes left greater than right, most significant on the right C7-T1 and T1-T2. No noncontrast CT evidence of a large disc herniation or central canal stenosis. There is no prevertebral soft tissue abnormality. There are moderate left greater than right carotid bulb calcifications. The thyroid is normal in appearance. The imaged lung apices are clear bilaterally. There are mild bilateral foci of pleural-based scarring with centrilobular emphysematous changes. CT/CT cervical spine wo IV con IMPRESSION: 1. No CT evidence of acute cervical spine fracture or injury. 2. Mild to moderate degenerative spondylosis. 3. Additional ancillary findings as discussed. Electronically signed by: Tom Rizzo MD 06/06/2024 01:16 PM [facility]
[2024-06-06 10:47] VITALS: BP 115/54; BP 132/58; PULSE 52; PULSE 59; RESP 18; TEMP 36.5; O2SAT 95; BMI 36.3
--- NOTE | 2024-06-06 10:47 | ED_ITS ---
HPI - General Adult General Chief complaint: Fall Stated complaint: FALL,+HS,+COLLAR PER EMS Time Seen by Provider: 06/06/24 10:47 Source: patient, family (patient's granddaughter) and EMS Mode of arrival: EMS Limitations: no limitations History of Present Illness ED Provider: Vero Santana PA-C HPI narrative: Patient is an 84 year old assigned female at with a history of CAD, COPD, eczema, hypothyroidism, CHF, HTN, NSTEMI, and right knee replacement presenting to the emergency department today after a trip and fall. Patient states that she got out of bed, walked around her bed, felt her legs get weak and fell onto her right knee. Patient states that she also hit her head but did not lose consciousness. Patient denies any dizziness, lightheadedness, abdominal pain, nausea, vomiting, fever, chills, blurry vision, double vision, loss of vision, chest pain, difficulty breathing, shortness of breath, back pain, night sweats, pain with urination, increased urinary frequency, increased urinary urgency, blood in her urine or stool, syncope or a near syncopal episode, bowel incontinence, bladder incontinence, or any other complaints at this time. Relieving factors: none Exacerbating factors: none Associated symptoms: denies other symptoms Treatments prior to arrival: none Related Data Previous Rx's ?Medication ?Instructions ?Recorded cetirizine 10 mg tablet 10 mg PO DAILY PRN allergy 06/20/22 symptoms 30 days #30 tabs amoxicillin 875 mg tablet 875 mg PO ONCE PRN Dental 10/27/22 procedure 1 day #1 tab albuterol sulfate 90 mcg/actuation 2 puff inhalation Q4-6H PRN 05/03/23 aerosol inhaler (Proventil HFA) shortness of breath or wheezing #8.5 grams magnesium oxide 400 mg PO BID 90 days #180 caps 07/30/23 aspirin 81 mg tablet,delayed 81 mg PO DAILY 90 days #90 tabs 12/18/23 release fluticasone 250 mcg-salmeterol 50 1 inh inhalation Q12H 30 days #60 04/10/24 mcg/dose blistr powdr for ea inhalation (Wixela Inhub) azithromycin 250 mg tablet See Rx Instructions PO .COMPLEX 5 04/16/24 (Zithromax Z-Nakul) days #6 tabs betamethasone valerate 0.1 % 1 appl topical BID PRN skin 04/16/24 topical cream irritation 14 days #45 grams famotidine 20 mg tablet 20 mg PO DAILY 14 days #14 tabs 04/16/24 atorvastatin 80 mg tablet 80 mg PO BEDTIME 90 days #90 tabs 04/29/24 furosemide 40 mg tablet 40 mg PO DAILY #90 tabs 04/29/24 omeprazole 20 mg capsule,delayed 20 mg PO DAILY 90 days #90 caps 04/29/24 release donepezil 10 mg tablet 10 mg PO DAILY #90 tabs 05/01/24 sertraline 100 mg tablet 100 mg PO BEDTIME 90 days #90 tabs 05/01/24 amlodipine 10 mg tablet 10 mg PO DAILY 90 days #90 tabs 05/30/24 clonidine 0.2 mg/24 hr weekly 1 patch topical QWEEK #4 patches 05/30/24 transdermal patch hydralazine 50 mg tablet 50 mg PO BID 30 days #60 tabs 05/30/24 levothyroxine 25 mcg tablet 37.5 mcg (1.5 x 25 mcg) PO DAILY 05/30/24 (Synthroid) 90 days #135 tabs memantine 10 mg tablet 10 mg PO BID 90 days #180 tabs 05/30/24 mometasone 50 mcg/actuation nasal 2 spray intranasal BID 30 days #17 05/30/24 spray grams montelukast 10 mg tablet 10 mg PO BEDTIME 90 days #90 tabs 05/30/24 spironolactone 50 mg tablet 50 mg PO DAILY 90 days #90 tabs 05/30/24 amoxicillin 875 mg-potassium 1 tab PO BID 10 days #20 tabs 06/06/24 clavulanate 125 mg tablet Allergies Allergy/AdvReac Type Severity Reaction Status Date / Time peanut Allergy Severe Facial Verified 06/06/24 10:49 Swelling latex [LATEX] Allergy Unknown RASH, ITCHY Verified 06/06/24 10:49 Review of Systems 2 Constitutional: Constitutional: Reports no additional constitutional complaints, Denies chills, Denies fever(s) and Denies night sweats Eyes: Eyes: Reports no additional eye complaints, Denies blurry vision, Denies change in vision, Denies diplopia, Denies eye discharge, Denies loss of vision and Denies eye pain ENT: Denies dizziness Cardiovascular: Cardiovascular: Reports no additional cardiovascular complaints, Denies chest pain, Denies lightheadedness, Denies Loss of Consciousness and Denies dyspnea Respiratory: Respiratory: Reports no additional respiratory complaints and Denies dyspnea Gastrointestinal: Gastrointestinal: Reports no additional gastrointestinal complaints, Denies abdominal pain, Denies melena, Denies hematochezia, Denies change in bowel habits and Denies change in stool character Genitourinary: Genitourinary: Denies hematuria, Denies urinary frequency, Denies dysuria, Denies urinary incontinence, Denies urinary hesitancy and Denies urinary urgency Musculoskeletal: Musculoskeletal: Reports no additional musculoskeletal complaints, Denies numbness and Denies tingling Comments: right knee pain Neurologic: Denies dizziness, Denies loss of vision, Denies numbness and Denies tingling Psychiatric: Psychiatric: Reports no additional psychiatric complaints Endocrine: Endocrine: Reports no additional endocrine complaints Hematologic/Lymphatic: Hematologic/Lymphatic: Reports no additional hematologic/lymphatic complaints Allergic/Immunologic: Allergic/Immunologic: Reports no additional allergic/immunologic complaints [facility] Past Medical History Attestation statement: The following information was validated with the patient. (all information validated with the patient's granddaughter) Source: old records reviewed, obtained from family (patient's granddaughter provided additional history and confirmed the history provided by the patient) and nursing notes reviewed Medical History (Updated 06/06/24 @ 14:21 by MAMTA Marcus) Dermatitis Contact dermatitis Rash Rash Respiratory failure Cough Cough Abnormal lung sounds Productive cough Cellulitis Acute on chronic anemia UTI (urinary tract infection) Dysuria Increased frequency of urination Dehydration JESUS (acute kidney injury) Hypokalemia Hyperkalemia Troponin level elevated Essential hypertension OAB (overactive bladder) H/O placement of stent in anterior descending branch of left coronary artery Dementia Hypothyroidism History of non-ST elevation myocardial infarction (NSTEMI) Systolic heart failure CHF (congestive heart failure) COPD (chronic obstructive pulmonary disease) Asthma CVA (cerebral vascular accident) Hypertension LBBB (left bundle branch block) Surgical History Hx of heart artery stent History of knee replacement procedure of right knee Hx of cataract surgery History of hysterectomy Family History Family History Father No problems noted. Mother No problems noted. Brother No problems noted. Brother No problems noted. Sister No problems noted. Son No problems noted. Daughter No problems noted. Daughter No problems noted. Daughter No problems noted. Daughter No problems noted. Social History Social History Household Members: Spouse Housing: Assisted Living Facility Do you presently have visiting nurse or other home services: No Alcohol intake: former Patient Tobacco Use Status: Former Tobacco user Smoked in Last 30 Days: No e-Cigarette/Vaping Use: Never Used Second Hand Smoke Exposure: No Use of substances other than those prescribed or required for medical reasons: No Advance Directives: No Advance Directives Information Provided: Yes Do you have a plan to hurt others: No Plan service: No Current occupational status: retired Current occupational exposures/hazards: No Cognitive needs: No Hearing needs: No Vision needs: No Physical Exam ED Vital Signs: Vital Signs - 24 hr 06/06/24 10:47 06/06/24 11:10 06/06/24 11:13 Temperature 97.7 F Pulse Rate 52 50 51 Respiratory Rate 18 18 Blood Pressure 115/54 L 115/54 L Pulse Oximetry 95 97 Oxygen Delivery Method Room Air 06/06/24 13:37 06/06/24 14:33 Temperature 97.4 F 97.4 F Pulse Rate 48 L 48 L Respiratory Rate 17 17 Blood Pressure 129/69 129/69 Pulse Oximetry 97 97 Oxygen Delivery Method Room Air Room Air BMI result Body Mass Index 36.3 Const General: cooperative, no acute distress, alert and awake Nutritional Appearance: well nourished Orientation/consciousness: patient oriented x3 Limitations: no limitations [facility] Head: Yes normal to inspection and Yes atraumatic Ears: hearing grossly normal bilaterally and external ears normal General nose exam: Normal external nose present, no nasal discharge noted and no epistaxis Face and sinus: Yes normal facial exam, No abrasion and No laceration Mouth: Normal oral and palatal mucosa present, no drooling and no muffled voice Eyes General: appearance normal, both eyes and all related structures Periorbital: periorbital findings normal Eyelids: Yes eyelids normal Conjunctivae: conjunctivae normal Pupils: Equal, round and reactive pupils present EOM: EOMs intact bilaterally Neck Neck: Yes normal visual inspection, Yes full ROM and Yes no lymphadenopathy Chest Chest palpation & inspection: normal inspection of the chest Resp Effort & Inspection: normal respiratory effort and able to speak in complete sentences GI Inspection: Yes normal to inspection Neuro General: patient oriented x3 and moves all extremities Cranial nerves: Yes Equal, round and reactive pupils present Cognition (Neuro): normal cognition Extrem Other: General: Yes full ROM and Yes capillary refill normal Psych Appearance: grossly normal Mental Status: mental status grossly normal Affect: normal affect Attitude: cooperative Thought process: Normal thought process present Thought content: Normal thought content present Insight: Good insight present (Psych) Medications Administered Discontinued Medications Generic Name Dose Route Start Last Admin Trade Name Danny PRN Reason Stop Dose Admin Amoxicillin/Clavulanate Potassium 875 mg 06/06/24 14:14 06/06/24 14:22 Amoxicillin/Potassium Clav 875 Mg Tablet PO 06/06/24 14:15 875 mg ONCE ONE Administration Diphtheria/Tetanus/Acell Pertussis 0.5 ml 06/06/24 10:59 06/06/24 12:24 Diphth,Pertus(Acell),Tet Adult 0.5 Ml Syringe IM 06/06/24 11:00 0.5 ml .ONCE ONE Administration Lidocaine HCl 15 ml 06/06/24 12:57 06/06/24 13:30 Lidocaine Hcl 1 % Mpf 5 Ml Vial SUBCUT 06/06/24 12:58 15 ml ONCE ONE Administration Procedures Laceration Laceration 1: Side (If applicable): right Size (cm): 7.5 Description: irregular Depth: simple, single layer Local Anesthetic: lidocaine 1% Amount of anesthesia used (mL): 10 Pre-repair: wound explored and deep structures intact Skin layer closed with: other (prolene) Size (cm): 4-0 Number of sutures: 6 Technique: simple, interrupted Medical Decision Making Medical Decision Making MDM Narrative: Patient is an 84 year old assigned female at with a history of CAD, COPD, eczema, hypothyroidism, CHF, HTN, NSTEMI, and right knee replacement presenting to the emergency department today after a trip and fall. Patient's physical exam was as noted in the physical exam portion of this note. Patient's blood work was unremarkable. Patient's EKG was unremarkable. Patient's right knee x-ray showed no acute process. Patient's CT head and c-spine showed no acute process. I explained my physical exam findings as well as all test results to the patient and the patient's granddaughter. I answered all questions asked by the patient and the patient's granddaughter. I repaired the patient's right knee laceration with 6 sutures and numerous steri strips. Patient's laceration repair was complicated by a developing hematoma of the knee. I was able to remove the clots and approximate the wound edges. After the wound was approximated, the area was covered with an ABD pad and an KAMLA wrap compression dressing. I stressed the importance of the patient taking her medication as directed (either prescribed or as the over the counter packaging recommends) - and holding her ASA for 3 days while the right knee hematoma resolves. I stressed the importance of the patient following up with her primary care provider. I stressed the importance of the patient returning to the emergency department immediately if her symptoms were to worsen or if she were to develop any dizziness, shortness of breath, difficulty breathing, chest pain, blurry vision, loss of vision, nausea, vomiting, abdominal pain, fever, chills, back pain, or any other complaints. Patient and the patient's granddaughter verbalized agreement and understanding with this treatment plan and discharge. Differential Diagnosis Differential Diagnoses: The differential diagnosis associated with the presentation includes Fall Laceration Fracture Admission/Observation Consideration of admission/observation: Escalation of care including admission/observation considered Patient would have been admitted to the hospital had her work up had any findings where hospital admission was appropriate and her clinical presentation warranted hospital admission. Lab Data [facility] Lab Attestation statement: I reviewed the patient's lab results. My interpretation of these results are in the [facility] Rationale portion of this note. 06/06/24 11:06 06/06/24 11:06 Labs: Lab Results 06/06/24 Range/Units 11:06 WBC 4.3 L (4.8-10.8) X10*3/uL RBC 3.95 L (4.20-5.50) X10*6/uL Hgb 10.3 L (12.0-16.0) g/dl Hct 33.0 L (37.0-47.0) % MCV 83.5 (80.0-98.0) fL MCH 26.1 L (27.0-33.0) pg MCHC 31.2 (31.0-35.0) g/dl RDW 16.1 H (11.0-16.0) % Plt Count 188 (160-400) X10*3/uL MPV 9.9 (9.4-12.3) fL Immature Gran % (Auto) 0.9 H (0.0-0.4) % Neut % (Auto) 75.0 H (45-73) % Lymph % (Auto) 12.9 L (20-40) % [place] % (Auto) 6.3 (2-11) % Eos % (Auto) 4.0 (0-4) % Baso % (Auto) 0.9 (0-2) % Lymph # (Auto) 0.6 L (1.2-4.9) X10*3/uL [place] # (Auto) 0.3 (0.1-1.2) X10*3/uL Eos # (Auto) 0.2 (0.0-0.4) X10*3/uL Baso # (Auto) 0.0 (0.0-0.2) X10*3/uL Abs Immat Gran (auto) 0.04 H (0.00-0.03) X10*3/uL Absolute Neuts (auto) 3.2 (2.0-8.3) x10*3/uL Absolute Nucleated RBC 0.000 (0.0-0.012) X10*3/uL Nucleated RBC % (auto) 0.0 (0.0-0.2) /100WBC PT 11.6 (10.9-12.4) SEC INR 1.0 (0.9-1.1) APTT 30.9 (26.0-36.8) SEC Sodium 142 (135-145) mmol/L Potassium 4.6 (3.3-5.1) mmol/L Chloride 109 H (96-108) mmol/L Carbon Dioxide 25 (22-29) mmol/L Anion Gap 13 (12-20) BUN 31 H (9-16) mg/dL Creatinine 1.47 H (0.5-1.4) mg/dL Estim Creat Clear Calc 31.5 Estimated GFR 34 Random Glucose 96 (60-115) mg/dL Calcium 9.4 (8.4-10.2) mg/dL Magnesium 2.9 H (1.6-2.6) mg/dL Total Bilirubin 0.5 (0.0-1.0) mg/dL AST 28 (5-31) U/L ALT 21 (0-31) U/L Alkaline Phosphatase 149 H (39-117) U/L Troponin I High Sens < 2.7 (<3.5-17.0) ng/L Total Protein 7.0 (6.5-8.0) g/dL Albumin 4.0 (3.5-5.0) g/dL Independent Interpretation I performed an independent interpretation of an: EKG, Plain X-Ray and CT Scan Interpretation: My interpretation is in agreement with the radiologist's impression of these imaging studies. L Report Number: [id number]: Total DLP = 719.08 mGy-cm EXAMINATION: CT HEAD WITHOUT CONTRAST CLINICAL INFORMATION: Head trauma, fall. COMPARISON: None available. TECHNIQUE: Contiguous axial imaging was performed from the skull base to vertex without intravenous administration of contrast. This CT examination was performed using dose optimization techniques as appropriate, variously including the following: *Automated exposure control *Adjustment of mA and/or kV according to patient size (this includes techniques or standardized protocols for targeted exams where dose is matched to indication/reason for exam; i.e. extremities or head) *Use of iterative reconstruction technique FINDINGS: There is no evidence of intracranial hemorrhage or extra-axial fluid collection. There is no mass effect, or edema. No CT evidence of acute territorial infarct. Ventricles, sulci, and cisterns are normal in size and configuration for patient age. No hydrocephalus. No midline shift. Negative hyperdense MCA sign. Negative insular ribbon sign. There are moderate patchy and confluent foci of white matter hypoattenuation in the deep white matter, keeping with small vessel ischemic changes. There are numerous old lacunar type infarctions in the bilateral ganglial capsular regions and thalami. There is atheromatous calcification of the bilateral carotid siphons and V4 segments vertebral arteries bilaterally. Globes and orbital contents image normally. There've been bilateral lens replacements. Extra cranial soft tissues demonstrate mild focal right temporal scalp swelling. The paranasal sinuses, mastoid air cells, and tympanic cavities are normally aerated. No suspicious bony abnormalities. CT/CT head/brain wo IV con IMPRESSION: 1. No acute intracranial abnormalities. Chronic changes as detailed. 2. No fractures evident. 3. Small focus of right temporal scalp soft tissue swelling. Electronically signed by: Tom Rizzo MD 06/06/2024 01:07 PM EST RP Dictated By: Tom Rizzo MD Signed By: Electronically signed by Tom Rizzo MD 06/06/24 1307 EXAMINATION: XR KNEE, RIGHT CLINICAL INFORMATION: pain, injury COMPARISON: 09/14/2020. TECHNIQUE: Two views of the right knee. FINDINGS: There has been a total right knee arthroplasty. Femoral condyle and tibial components are intact, anatomically aligned, without evidence of periprosthetic lucency or fracture. No focal bone lesions. There is prepatellar soft tissue swelling overlying the patellar tendon suggestive of a small hematoma. There is a tiny joint effusion. Soft tissues demonstrate vascular calcifications. XR/XR knee RT 2V IMPRESSION: 1. Right knee arthroplasty without complication. No fracture or malalignment. 2. Prepatellar soft tissue hematoma suspected. Electronically signed by: Tom Rizzo MD 06/06/2024 11:43 AM EST RP Dictated By: Tom Rizzo MD Signed By: Electronically signed by Tom Rizzo MD 06/06/24 1143 Report Number: [id number]: Total DLP = 243.65 mGy-cm EXAMINATION: CT CERVICAL SPINE WITHOUT CONTRAST CLINICAL INFORMATION: Fall, head strike COMPARISON: None available. TECHNIQUE: Spiral CT imaging of the cervical spine was performed in the axial plane without IV contrast. Sagittal, coronal, and thin section axial reformatted images were constructed from the axial data set. This CT examination was performed using dose optimization techniques as appropriate, variously including the following: *Automated exposure control *Adjustment of mA and/or kV according to patient size (this includes techniques or standardized protocols for targeted exams where dose is matched to indication/reason for exam; i.e. extremities or head) *Use of iterative reconstruction technique FINDINGS: There is a mild right convex scoliosis. There is a normal lordosis. There is no fracture, compression deformity, evidence of traumatic subluxation, or suspicious bone lesion. The craniocervical junction and C1-2 articulation are intact and normally aligned. Moderate degenerative disc changes most notable at C5-6 and C6-7. There is a 2 mm degenerative anterolisthesis C7 on T1. This appears based on degenerative facet and disc changes. Normal facet alignment. Mild multilevel degenerative facet changes left greater than right, most significant on the right C7-T1 and T1-T2. No noncontrast CT evidence of a large disc herniation or central canal stenosis. There is no prevertebral soft tissue abnormality. There are moderate left greater than right carotid bulb calcifications. The thyroid is normal in appearance. The imaged lung apices are clear bilaterally. There are mild bilateral foci of pleural-based scarring with centrilobular emphysematous changes. CT/CT cervical spine wo IV con IMPRESSION: 1. No CT evidence of acute cervical spine fracture or injury. 2. Mild to moderate degenerative spondylosis. 3. Additional ancillary findings as discussed. Electronically signed by: Tom Rizzo MD 06/06/2024 01:16 PM [facility] Dictated By: Tom Rizzo MD Signed By: Electronically signed by Tom Rizzo MD 06/06/24 1316 Vent. Rate: 49 BPM Atrial Rate: 49 BPM P-R Int: 210 ms QRS Dur: 152 ms QT Int: 540 ms P-R-T Axes: 30 -21 67 degrees QTcB Int: 487 ms Sinus bradycardia with 1st degree A-V block Left bundle branch block When compared with ECG of 26-Jul-2020 16:54, No significant change was found DD/ 1255 Radiology Impression Discussion of test interpretation with radiology: I have reviewed the radiologist's reading. Independent Historian Clinical information obtained from an independent historian. History obtained from or confirmed by: EMS (EMS provided additional history and confirmed the history provided by the patient.) and Other (Patient's granddaughter provided additional history and confirmed the history provided by the patient.) Prescription Management I considered prescription management with: Antibiotic (patient prescribed an antibiotic given her knee laceration is over prior knee replacement.) Critical Care Time Critical Care Time Critical Care Time: Yes Total Critical Care Time: 38 Attestation: I spent 38 minutes of Critical Care Time with this patient. This does not include time spent on separately reported billable procedures. Discharge Plan Discharge Clinical Impression: Fall, Knee laceration Patient Disposition: Home, Self-Care Instructions: Care For Your Stitches (DC), Laceration (DC), Fall Prevention for Older Adults (ED), Steristrips (ED) Additional Instructions: Keep the dressing on your knee for the next 3 days. However, IF your right lower extremity starts to tingle, feel numb, have any change in sensation or color - IMMEDIATELY loosen the outer KAMLA wraps. If you find yourself loosening the KAMLA wraps to the point of seeing the banadage underneath - STOP and return to the ER immediately. Every time you are stationary - your right lower extremity should be elevated. Please hold your aspirin for the next 3 days. Have your (6) sutures removed in 10-14 days. Follow up with your primary care provider and the wound center. Take your antibiotic as prescribed. Return to the emergency department immediately if your symptoms worsen or if you develop any dizziness, shortness of breath, difficulty breathing, chest pain, blurry vision, loss of vision, nausea, vomiting, abdominal pain, fever, chills, back pain, or any other complaints. Prescriptions: New amoxicillin-pot clavulanate 875-125 mg tablet 1 tab PO BID 10 Days Qty: 20 0RF No Action magnesium oxide 400 mg magnesium capsule 400 mg PO BID 90 Days Qty: 180 3RF aspirin 81 mg tablet,delayed release (DR/EC) 81 mg PO DAILY 90 Days Qty: 90 3RF fluticasone propion-salmeterol [Wixela Inhub] 250-50 mcg/dose blister with device 1 inh inhalation Q12H 30 Days Qty: 60 0RF furosemide 40 mg tablet 40 mg PO DAILY Qty: 90 0RF atorvastatin 80 mg tablet 80 mg PO BEDTIME 90 Days Qty: 90 0RF omeprazole 20 mg capsule,delayed release(DR/EC) 20 mg PO DAILY 90 Days Qty: 90 0RF sertraline 100 mg tablet 100 mg PO BEDTIME 90 Days Qty: 90 0RF donepezil 10 mg tablet 10 mg PO DAILY Qty: 90 0RF amlodipine 10 mg tablet 10 mg PO DAILY 90 Days Qty: 90 0RF levothyroxine [Synthroid] 25 mcg tablet 37.5 mcg PO DAILY 90 Days Qty: 135 0RF spironolactone 50 mg tablet 50 mg PO DAILY 90 Days Qty: 90 0RF memantine 10 mg tablet 10 mg PO BID 90 Days Qty: 180 0RF montelukast 10 mg tablet 10 mg PO BEDTIME 90 Days Qty: 90 0RF mometasone 50 mcg/actuation spray,non-aerosol 2 spray intranasal BID 30 Days Qty: 17 0RF Rx Instructions: administer into each nostril hydralazine 50 mg tablet 50 mg PO BID 30 Days Qty: 60 0RF Protocol: Hold for SBP< HOLD for SBP < : 90 clonidine 0.2 mg/24 hr patch weekly 1 patch topical QWEEK Qty: 4 0RF cetirizine 10 mg tablet 10 mg PO DAILY PRN (Reason: allergy symptoms) 30 Days Qty: 30 2RF amoxicillin 875 mg tablet 875 mg PO ONCE PRN (Reason: Dental procedure) 1 Days Qty: 1 0RF albuterol sulfate [Proventil HFA] 90 mcg/actuation HFA aerosol inhaler 2 puff inhalation Q4-6H PRN (Reason: shortness of breath or wheezing) Qty: 8.5 5RF azithromycin [Zithromax Z-Nakul] 250 mg tablet See Rx Instructions PO .COMPLEX 5 Days Qty: 6 0RF Rx Instructions: take 500 mg today (day 1), then 250 mg for 4 days (days 2-5) PO famotidine 20 mg tablet 20 mg PO DAILY 14 Days Qty: 14 0RF betamethasone valerate 0.1 % cream 1 appl topical BID PRN (Reason: skin irritation) 14 Days Qty: 45 2RF Referrals: [facility] [place] Wound Care Management [Provider Group] (Call to establish and follow up with the wound center.) Claus Lockwood MD [Primary Care Provider] - Interventions: ED Discharge Assessment Last Done: 06/06/24 14:33 Discharge Date/Time: 06/06/24 14:33 Print Language: Wolof
--- NOTE | 2024-06-06 10:56 | ECG_ITS ---
Test Reason : fall Blood Pressure : */* mmHG Vent. Rate : 49 BPM Atrial Rate : 49 BPM P-R Int : 210 ms QRS Dur : 152 ms QT Int : 540 ms P-R-T Axes : 30 -21 67 degrees QTcB Int : 487 ms Sinus bradycardia with 1st degree A-V block Left bundle branch block Abnormal ECG When compared with ECG of 26-Jul-2020 16:54, No significant change was found Referred By: Vero Santana Electronically Signed By: BON N[place]
[2024-06-06 11:10] VITALS: BP 115/54; PULSE 50; RESP 18; O2SAT 97
[2024-06-06 11:11] LABS: MANUAL DIFF FLAG NO
[2024-06-06 11:12] LABS: Basophils Percent Auto 0.9 % (0-2); Eosinophils Absolute Auto 0.2 X10*3/uL (0.0-0.4); Hemoglobin 10.3 g/dl (12.0-16.0); Imm Gran Abs Auto 0.04 X10*3/uL (0.00-0.03); Imm Gran Pct Auto 0.9 % (0.0-0.4); Lymphocytes Absolute Auto 0.6 X10*3/uL (1.2-4.9); Lymphocytes Percent Auto 12.9 % (20-40); Mean Corpuscular HGB Conc 31.2 g/dl (31.0-35.0); Mean Corpuscular Hemoglobin 26.1 pg (27.0-33.0); Mean Corpuscular Volume 83.5 fL (80.0-98.0); Mean Platelet Volume 9.9 fL (9.4-12.3); Monocytes Absolute Auto 0.3 X10*3/uL (0.1-1.2); Monocytes Percent Auto 6.3 % (2-11); Neutrophils Absolute Auto 3.2 x10*3/uL (2.0-8.3); Platelet Count 188 X10*3/uL (160-400); Red Blood Count 3.95 X10*6/uL (4.20-5.50); Red Cell Distribution Width 16.1 % (11.0-16.0); White Blood Count 4.3 X10*3/uL (4.8-10.8)
[2024-06-06 11:13] VITALS: PULSE 51
--- NOTE | 2024-06-06 11:18 | PC.NURSE ---
PERRLA, no blood in ear. Hand grasps strong and equal. Family at bedside
[2024-06-06 11:24] LABS: Prothrombin Time 11.6 SEC (10.9-12.4)
[2024-06-06 11:26] LABS: Partial Thromboplastin Time 30.9 SEC (26.0-36.8)
[2024-06-06 11:33] LABS: Alanine Aminotransferase 21 U/L (0-31); Alkaline Phosphatase 149 U/L (39-117); Anion Gap 13 (12-20); Aspartate Amino Transferase 28 U/L (5-31); Bilirubin Total 0.5 mg/dL (0.0-1.0); Blood Urea Nitrogen 31 mg/dL (9-16); Calcium 9.4 mg/dL (8.4-10.2); Carbon Dioxide 25 mmol/L (22-29); Chloride 109 mmol/L (96-108); Creatinine Clr Calc Pharmacy 31.5; Estimated Glomerular Filt Rate 34; Glucose Random 96 mg/dL (60-115); Magnesium 2.9 mg/dL (1.6-2.6); Potassium 4.6 mmol/L (3.3-5.1); Sodium 142 mmol/L (135-145)
[2024-06-06 11:39] LABS: Troponin-I High Sensitivity < 2.7 ng/L (<3.5-17.0)
[2024-06-06] MEDS: Diphth,Pertus(ACell),Tet Adult 0.5 ML SYRINGE IM (12:24)
--- NOTE | 2024-06-06 13:29 | PC.NURSE ---
Pt's c collar removed per PAAbelinoC; CT c spine WNL
[2024-06-06] MEDS: Lidocaine HCl 1 % MPF 5 ML VIAL 15 ML SUBCUT (13:30)
[2024-06-06 13:37] VITALS: BP 129/69; PULSE 48; RESP 17; TEMP 36.3; O2SAT 97
[2024-06-06] MEDS: Amoxicillin/Potassium Clav 875 MG TABLET PO (14:22)
[2024-06-06 14:33] VITALS: BP 129/69; PULSE 48; RESP 17; TEMP 36.3; O2SAT 97
== END 2024-06-06 14:33 | disposition home or self-care (01) ==
PROVIDERS: Physician Assistant Medical; Emergency Provider Emergency Medicine; PCP Family Medicine
DX: S81.011A Laceration without foreign body, right knee, initial encounter (principal); R51.9 Headache, unspecified; M54.2 Cervicalgia; M25.561 Pain in right knee; R10.2 Pelvic and perineal pain; R00.1 Bradycardia, unspecified; W01.10XA Fall on same level from slipping, tripping and stumbling with subsequent striking against unspecified object, initial encounter; Y93.89 Activity, other specified; Y92.89 Other specified places as the place of occurrence of the external cause; Y99.8 Other external cause status; Z23 Encounter for immunization; Z79.899 Other long term (current) drug therapy
CPT/HCPCS: 12032; 36415; 70450; 72125; 73560; 80053; 83735; 84484; 85025; 85610; 85730; 90471; 90715; 93005; 99284; J2003

== ENCOUNTER → 2024-06-06 10:55 | Outpatient (BNV) | payer BC, SELFPAY | PROVIDERS: Emergency Provider Emergency Medicine; PCP Family Medicine; Visit Provider Radiology Diagnostic Radiology | DX: M25.561 Pain in right knee (principal); S09.90XA Unspecified injury of head, initial encounter | CPT/HCPCS: 70450; 72125; 73560 ==

== ENCOUNTER → 2024-06-06 10:56 | Outpatient (BNV) | payer BC, SELFPAY | PROVIDERS: Emergency Provider Emergency Medicine; PCP Family Medicine; Visit Provider Internal Medicine | DX: I44.0 Atrioventricular block, first degree (principal); I44.7 Left bundle-branch block, unspecified; R00.1 Bradycardia, unspecified | CPT/HCPCS: 93010 ==

== ENCOUNTER 2024-06-24 15:26 | Outpatient (AMB) | payer BC, SELFPAY ==
[2024-06-24 15:41] VITALS: BP 120/54; PULSE 59; O2SAT 96; BMI 26.3
--- NOTE | 2024-06-24 15:41 | MHC.OFFVIS ---
Vital Signs 06/24/24 15:41 Height 5 ft 4 in Weight 153 lb 3.54 oz BMI 26.3 BP 120/54 L Blood Pressure Location Lt brachial Position Sitting Pulse 59 Pulse Source Pulse Oximeter Pulse Oximetry (%) 96 Oxygen Delivery Method Room Air Intake Visit Reasons: Cough Intake Note: pt is here for follow up and cough is better, using mucinex at night. Supervisor Sample Preparation Required: No Allergies peanut Allergy (Severe, Verified 06/24/24 15:47) Facial Swelling latex [LATEX] Allergy (Unknown, Verified 06/24/24 15:47) [facility]ASH, [facility] Medical History (Updated 06/07/24 @ 00:02 by Marce Patel) Dermatitis Contact dermatitis Rash Rash Respiratory failure Cough Cough Abnormal lung sounds Productive cough Cellulitis Acute on chronic anemia UTI (urinary tract infection) Dysuria Increased frequency of urination Dehydration JESUS (acute kidney injury) Hypokalemia Hyperkalemia Troponin level elevated Essential hypertension OAB (overactive bladder) H/O placement of stent in anterior descending branch of left coronary artery Dementia Hypothyroidism History of non-ST elevation myocardial infarction (NSTEMI) Systolic heart failure CHF (congestive heart failure) COPD (chronic obstructive pulmonary disease) Asthma CVA (cerebral vascular accident) Hypertension LBBB (left bundle branch block) Surgical History Hx of heart artery stent History of knee replacement procedure of right knee Hx of cataract surgery History of hysterectomy Family History Father No problems noted. Mother No problems noted. Brother No problems noted. Brother No problems noted. Sister No problems noted. Son No problems noted. Daughter No problems noted. Daughter No problems noted. Daughter No problems noted. Daughter No problems noted. Social History Household Members: Spouse Housing: Assisted Living Facility Do you presently have visiting nurse or other home services: No Alcohol intake: former Patient Tobacco Use Status: Former Tobacco user e-Cigarette/Vaping Use: Never Used Second Hand Smoke Exposure: No service: No Current occupational status: retired Current occupational exposures/hazards: No Cognitive needs: No Hearing needs: No Vision needs: No Coding
--- NOTE | 2024-06-24 16:00 | A.OFFVIS_ITS ---
Vital Signs 06/24/24 15:41 06/24/24 16:01 Height 5 ft 4 in Weight 153 lb 3.54 oz BMI 26.3 26.3 BP 120/54 L Blood Pressure Location Lt brachial Position Sitting Pulse 59 Pulse Source Pulse Oximeter Pulse Oximetry (%) 96 Oxygen Delivery Method Room Air Intake Visit Reasons: Cough Allergies peanut Allergy (Severe, Verified 06/24/24 16:00) Facial Swelling latex [LATEX] Allergy (Unknown, Verified 06/24/24 16:00) RASH, ITCHY Medication List - Last Reconciled 06/24/24 by Belén Sierra MD albuterol sulfate 90 mcg/actuation (Proventil HFA) 2 puffs inhalation Q4-6H PRN amlodipine 10 mg PO DAILY 90 days amoxicillin 875 mg PO ONCE PRN 1 day amoxicillin-pot clavulanate 875-125 mg 1 tab PO BID 10 days aspirin 81 mg PO DAILY 90 days atorvastatin 80 mg PO BEDTIME 90 days betamethasone valerate 0.1% 1 appl topical BID PRN 14 days cetirizine 10 mg PO DAILY PRN 30 days clonidine 1 patch topical QWEEK donepezil 10 mg PO DAILY famotidine 20 mg PO DAILY 14 days fluticasone propion-salmeterol 250-50 mcg/dose (Wixela Inhub) 1 inh inhalation Q12H 30 days furosemide 40 mg PO DAILY hydralazine 50 mg See Protocol PO BID 30 days levothyroxine (Synthroid) 37.5 mcg (1.5 x 25 mcg) PO DAILY 90 days magnesium oxide 400 mg PO BID 90 days memantine 10 mg PO BID 90 days mometasone 50 mcg/actuation 2 sprays intranasal BID PRN montelukast 10 mg PO BEDTIME 90 days omeprazole 20 mg PO DAILY 90 days sertraline 100 mg PO BEDTIME 90 days spironolactone 50 mg PO DAILY 90 days Do you need a note to return to daycare/school/sports/work: No HPI HPI Cough: Details: Ann is 85 years old very pleasant lady, lives in an assisted living . Facility in [place] She is here for follow-up for her mild COPD. Since her last visit she has quit using Wixela. She uses albuterol only p.r.n. .which is once in a while She denies any shortness of breath cough or wheezing. Her daughter from [place] , is visiting and sleeping in her apartment. She describes that her mom has long respiratory pauses when she is sleeping. Ann say is that she sleeps well and she does not want to be worked up for sleep apnea. [facility] Medical History Dermatitis Contact dermatitis Rash Rash Respiratory failure Cough Cough Abnormal lung sounds Productive cough Cellulitis Acute on chronic anemia UTI (urinary tract infection) Dysuria Increased frequency of urination Dehydration JESUS (acute kidney injury) Hypokalemia Hyperkalemia Troponin level elevated Essential hypertension OAB (overactive bladder) H/O placement of stent in anterior descending branch of left coronary artery Dementia Hypothyroidism History of non-ST elevation myocardial infarction (NSTEMI) Systolic heart failure CHF (congestive heart failure) COPD (chronic obstructive pulmonary disease) Asthma CVA (cerebral vascular accident) Hypertension LBBB (left bundle branch block) Surgical History Hx of heart artery stent History of knee replacement procedure of right knee Hx of cataract surgery History of hysterectomy Family History Father No problems noted. Mother No problems noted. Brother No problems noted. Brother No problems noted. Sister No problems noted. Son No problems noted. Daughter No problems noted. Daughter No problems noted. Daughter No problems noted. Daughter No problems noted. Social History Household Members: Spouse Housing: Assisted Living Facility Do you presently have visiting nurse or other home services: No Alcohol intake: former Patient Tobacco Use Status: Former Tobacco user e-Cigarette/Vaping Use: Never Used Second Hand Smoke Exposure: No service: No Current occupational status: retired Current occupational exposures/hazards: No Cognitive needs: No Hearing needs: No Vision needs: No Review of Systems Const All systems reviewed & are unremarkable except as noted in HPI and below ENT Reports nasal congestion and Reports nasal discharge Card Denies chest pain and Reports dyspnea on exertion (mild, as the activity is generally slow .) Resp Reports cough (as decribed above) and Reports dyspnea on exertion (mild, as the activity is generally slow .) Neuro Reports memory loss Psych Reports memory loss Physical Exam Vital Signs: Last Vital Signs Pulse 59 06/24/24 15:41 BP 120/54 L 06/24/24 15:41 Pulse Ox 96 06/24/24 15:41 Oxygen Delivery Method Room Air 06/24/24 15:41 BMI result Body Mass Index 26.3 Const General: healthy appearing, comfortable, no acute distress, alert, awake and other (but slow in conversation . ) Orientation/consciousness: patient oriented x3 HEENT Head: Yes normal to inspection General nose exam: No nasal polyps present and No nasal discharge present Face and sinus: Yes sinuses nontender Mouth: oropharynx normal Throat: Yes posterior oropharynx normal Eyes General: appearance normal, both eyes and all related structures Neck Neck: Yes normal visual inspection, Yes no lymphadenopathy, Yes trachea midline and Yes no JVD Thyroid: Thyroid normal Chest Chest palpation & inspection: normal inspection of the chest, normal palpation of entire chest wall and no tenderness Resp Effort & Inspection: prolonged expiratory phase Auscultation: no crackles, no rales, no wheezes and diminished lung sounds Cardio Palpation: normal PMI Rate: regular rate Rhythm: regular rhythm Heart sounds: no gallops and no murmurs Peripheral pulses: Peripheral pulses 2+ throughout GI Palpation (GI): Soft to palpation, nontender, No hepatosplenomegaly present and no masses Auscultation: normal bowel sounds Back/Spine/Pelvis Thoracic/Lumbar Spine: thoracic and lumbar spine normal to inspection Skin General skin exam: no rashes or lesions noted Neuro General: patient oriented x3 and no focal motor deficits Cranial nerves: Yes CN's II-XII intact bilaterally Extrem General: Yes normal to inspection, Yes no clubbing, cyanosis or edema, Yes no calf tenderness and No venous stasis dermatitis Psych Appearance: grossly normal and well kempt Speech and movement: Normal speech and movement present Quality Reporting (2019) Adult ([facility] 138/06/28/68) Body Mass Index: 26.3 Assessment & Plan Assessment & Plan (1) Seasonal allergies: Comment: [place] : SHE HAS SOME NASAL CONGESTION WITH POSTNASAL DRIP AND COUGH, USUALLY AT THE CHANGE OF SEASONS, CONTROLLED WITH P.R.N. USE OF ANTIHISTAMINIC AGENT, . AND MONTELUKAST 10 MG DAILY, ALSO USES MOMETASONE 50 MCG 2 SPRAY INTRANASAL B.I.D. BUT ONLY P.R.N.. Code(s): J30.2 - Other seasonal allergic rhinitis Category: Medical Plan: CONTINUE MONTELUKAST 10 MG DAILY. MOMETASONE 50 MCG 2 SPRAY INTRANASAL B.I.D., P.R.N. FOR NASAL CONGESTION (2) Asthma: Comment: PATIENT HAS HISTORY OF INTERMITTENT BOUTS OF COUGH SECONDARY TO REACTIVE AIRWAYS SHE HAD REQUIRED USING WIXELA OR ADVAIR IN THE PAST, BUT NOW HAS USES ONLY ALBUTEROL P.R.N. IF SHE HAS PERSISTENT COUGH. Code(s): J45.909 - Unspecified asthma, uncomplicated Category: Medical Plan: ALBUTEROL HFA 1 OR 2 PUFFS Q 6 HOURS P.R.N.. Coding Level of Care Code Est Pt Level 3 (58716) Diagnoses Seasonal allergies J30.2 Asthma J45.909
[2024-06-24 16:01] VITALS: BMI 26.3
--- OUTSIDE RECORDS SUMMARY | 2024-06-24 16:19 | XMS_ITS | Patient Health Record ---
Author Organization [facility] Billing Info Address [address] [place] [address] [place] [address] Care Team Providers Care Etcher Enameling Name Role Phone DR TERRENCE NATH Primary [...] Date Status Comme nts PNEUMOCOCCAL 13 CONJ ([id number]) IM Intramuscular 04/16/2015 Administered FLU (Past vaccine [...] Problem Status W/U Status Risk Notes Problem 589069540 Other hyperlipidemia (E78.4) Active confirmed Problem 7314145 Unspecified osteoarthritis, unspecified site (M19.90) Active confirmed Problem 79080432 Pain in left kne e (M25.562) Active confirmed pt to follow up with ortho Problem 546658614 Localized edema (R60.0) Active confirmed Problem 720587270 Asthma (J45.909) Active confirmed Problem 190488101 SOB (shortness o f breath) (R06.02) Active confirmed Problem 69191628 Essential hypertension (I10) Active confirmed Problem 183795867 TIA (transient ischemic attack) (G45.9) Active confirmed Problem 768078406 Unsteady gait (R26.81) Active confirmed Problem Amnesia (40237978) Memory changes (R41.3) Active confirmed Problem 65334704 LBBB (left bundl e branch block) (I44.7) Active confirmed Problem 666338232 Non-cardiac ches t pain (R07.89) Active confirmed Problem 643831415 Acute hand eczem a (L30.9) 09/23/19 17 Active confirmed Problem 52758658 Bakers cyst, lef t (M71.22) 07/15/19 17 Active confirmed Problem 534026712 Seasonal allergi c rhinitis, unspecified allergic rhinitis trigger (J30.2) Active confirmed Plan Of Treatment Future Test Test Name Order Date Basic Metabolic Panel (8) ([id number] ) 12/27/2017 [place]- CAROTID DOPPLER ([id number])(AIC-CAROTID) 03/17/2019 Insurance Providers Payer Name Payer Address Payer Phone Subscriber Number Group Number Insured Name Patient Relationship to Insured Coverage Start Date Coverage End Date [facility] [employer]AN [address] [place] [address] [id number] Carlos King Spouse - patient is the spouse of the insured 5 6 Medications Administered Medication Instructions Date of Administration Dosage Notes Methylprednisolone Acetate 4 0 mg (Depo Medrol) 02/29/2016 1 mL Dexamethasone Na Phosphate 02/29/2016 1 mL Medical (General) History Medical History History ICD Code 1. Noncardiac chest pain a. 10/1999 stress echocardiog taina: [facility] cardiology: No resting wall motion abnormalities. No [...] hemodynamically significant stenosis Surgical History Surgery Date(Month/Year) Cataract Removal on Both Eyes 11/2015 Pterygium of left Eye 08/2015 colonoscopy colon polyps 2006 Total right knee replacement 2009 Hysterectomy; BSO 1982 Hospitalization History Reason Date(Month/Year) childbirth X's 4 TIA 03/2019
== END 2024-06-24 16:15 | disposition home or self-care (01) ==
PROVIDERS: PCP Family Medicine; Visit Provider Internal Medicine
DX: J45.909 Unspecified asthma, uncomplicated (principal)
CPT/HCPCS: 99213

== ENCOUNTER → 2024-06-24 15:26 | Outpatient (BNVA) | payer BC, SELFPAY | PROVIDERS: PCP Family Medicine; Visit Provider Internal Medicine ==

== ENCOUNTER 2024-07-23 14:47 | Outpatient (RCR) | payer BC, SELFPAY | END 2024-07-23 15:00 | disposition home or self-care (01) | LOC: HO.WCC 14:47 | PROVIDERS: PCP Family Medicine; Visit Provider Colon & Rectal Surgery | DX: S81.011A Laceration without foreign body, right knee, initial encounter (principal); I10 Essential (primary) hypertension; M06.9 Rheumatoid arthritis, unspecified; Z87.891 Personal history of nicotine dependence | CPT/HCPCS: 11042; 97597; 99212; 99213 ==

== ENCOUNTER 2024-08-25 14:00 | Outpatient (AMB) | payer BC, SELFPAY ==
--- OUTSIDE RECORDS SUMMARY | 2024-08-25 14:04 | XMS_ITS | Patient Health Record ---
Author Organization [facility] Billing Info Address [address] [place] [address] [place] [address] Care Team Providers Care Vision Specialist Name Role Phone DR TERRENCE NATH Primary [...] Date Status Comme nts PNEUMOCOCCAL 13 CONJ ([id number]) IM Intramuscular 04/16/2015 Administered FLU (Past vaccine [...] Problem Status W/U Status Risk Notes Problem 583056236 Other hyperlipidemia (E78.4) Active confirmed Problem 4762512 Unspecified osteoarthritis, unspecified site (M19.90) Active confirmed Problem 00806871 Pain in left kne e (M25.562) Active confirmed pt to follow up with ortho Problem 848322724 Localized edema (R60.0) Active confirmed Problem 532661409 Asthma (J45.909) Active confirmed Problem 772076614 SOB (shortness o f breath) (R06.02) Active confirmed Problem 02306481 Essential hypertension (I10) Active confirmed Problem 990190702 TIA (transient ischemic attack) (G45.9) Active confirmed Problem 872657513 Unsteady gait (R26.81) Active confirmed Problem Amnesia (37493173) Memory changes (R41.3) Active confirmed Problem 52211397 LBBB (left bundl e branch block) (I44.7) Active confirmed Problem 884236967 Non-cardiac ches t pain (R07.89) Active confirmed Problem 545748150 Acute hand eczem a (L30.9) 09/23/19 17 Active confirmed Problem 66513231 Bakers cyst, lef t (M71.22) 07/15/19 17 Active confirmed Problem 434029342 Seasonal allergi c rhinitis, unspecified allergic rhinitis trigger (J30.2) Active confirmed Plan Of Treatment Future Test Test Name Order Date Basic Metabolic Panel (8) ([id number] ) 12/27/2017 [place]- CAROTID DOPPLER ([id number])(AIC-CAROTID) 03/17/2019 Insurance Providers Payer Name Payer Address Payer Phone Subscriber Number Group Number Insured Name Patient Relationship to Insured Coverage Start Date Coverage End Date [facility] [employer] PLAN [address] [place] [address] [id number] Carlos King Spouse - patient is the spouse of the insured 5 6 Medications Administered Medication Instructions Date of Administration Dosage Notes zMethylprednisolone Acetate 40 mg (Depo Medrol) 02/29/2016 1 mL Dexamethasone Na Phosphate 02/29/2016 1 mL Medical (General) History Medical History History ICD Code 1. Noncardiac chest pain a. 10/1999 stress echocardiog taina: [facility] cardiology: No resting wall motion abnormalities. [...]
--- NOTE | 2024-08-25 14:05 | MHC.PC.OV ---
Vital Signs 08/25/24 14:17 Height 5 ft 4 in Weight 154 lb 4 oz BMI 26.5 BP 120/60 Blood Pressure Location Rt brachial Position Sitting Respiration 14 Pulse 60 Pulse Source Pulse Oximeter Temp 97.4 F Temp Source Oral Pulse Oximetry (%) 95 Oxygen Delivery Method Room Air Intake Visit Reasons: Extended exam with f/u labs and health maint Intake Note: patient is scheduled for extended exam Quarantine Inspector Required: No Buffing Wheel Former Automatic: Present Accompanied by: Grand Child Is last menstrual period known: No Post menopausal: Yes Patient : No Allergies peanut Allergy (Severe, Verified 08/25/24 14:13) Facial Swelling latex [LATEX] Allergy (Unknown, Verified 08/25/24 14:13) RASH, ITCHY Medication List - Last Reconciled 08/25/24 by Claus Lockwood MD albuterol sulfate 90 mcg/actuation (Proventil HFA) 2 puffs inhalation Q4-6H PRN amlodipine 10 mg PO DAILY 90 days aspirin 81 mg PO DAILY 90 days atorvastatin 80 mg PO BEDTIME 90 days betamethasone valerate 0.1% 1 appl topical BID PRN 14 days cetirizine 10 mg PO DAILY PRN 30 days clonidine 1 patch topical QWEEK donepezil 10 mg PO DAILY famotidine 20 mg PO DAILY 14 days fluticasone propion-salmeterol 250-50 mcg/dose (Wixela Inhub) 1 inh inhalation Q12H 30 days furosemide 40 mg PO DAILY hydralazine 50 mg See Protocol PO BID 30 days levothyroxine (Synthroid) 37.5 mcg (1.5 x 25 mcg) PO DAILY 90 days magnesium oxide 400 mg PO BID 90 days memantine 10 mg PO BID 90 days mometasone 50 mcg/actuation 2 sprays intranasal BID PRN montelukast 10 mg PO BEDTIME 90 days omeprazole 20 mg PO DAILY 90 days sertraline 100 mg PO BEDTIME 90 days spironolactone 50 mg PO DAILY 90 days Tobacco use date assessed: 08/25/24 Fall risk assessment: 2 + Falls in past year Last assessed Fall Risk: 08/25/24 Dental Screening Dental Screen Date: 08/25/24 Did you have a dental visit in the last 12 months?: Yes Did you have a dental problem in the last 6 months where you did not have access to dental care?: No Was dental information given to patient?: No HPI Extended exam with f/u labs and health maint HPI Details Patient?presents?for?an?extended?exam She?notes?she?is?always?thirsty?because?she?decrease?his?water?intake?due?to?incontinence?problems. She?is?wearing?a?brief?and?does?also?try?to?schedule?voids She?has?been?followed?by?Urology Creatinine?level?is?still?elevated?though?improved. As?above?she?does?restrict?her?water?intake Feels?well.??No?new?complaints. [facility] Medical History Dermatitis Contact dermatitis Rash Rash Respiratory failure Cough Cough Abnormal lung sounds Productive cough Cellulitis Acute on chronic anemia UTI (urinary tract infection) Dysuria Increased frequency of urination Dehydration JESUS (acute kidney injury) Hypokalemia Hyperkalemia Troponin level elevated Essential hypertension OAB (overactive bladder) H/O placement of stent in anterior descending branch of left coronary artery Dementia Hypothyroidism History of non-ST elevation myocardial infarction (NSTEMI) Systolic heart failure CHF (congestive heart failure) COPD (chronic obstructive pulmonary disease) Asthma CVA (cerebral vascular accident) Hypertension LBBB (left bundle branch block) Surgical History Hx of heart artery stent History of knee replacement procedure of right knee Hx of cataract surgery History of hysterectomy Family History Father No problems noted. Mother No problems noted. Brother No problems noted. Brother No problems noted. Sister No problems noted. Son No problems noted. Daughter No problems noted. Daughter No problems noted. Daughter No problems noted. Daughter No problems noted. Social History Household Members: Spouse Housing: Assisted Living Facility Do you presently have visiting nurse or other home services: No Alcohol intake: former Patient Tobacco Use Status: Former Tobacco user e-Cigarette/Vaping Use: Never Used Second Hand Smoke Exposure: No service: No Current occupational status: retired Current occupational exposures/hazards: No Cognitive needs: No Hearing needs: No Vision needs: No Questionnaire PHQ-9 Over the last 2 weeks, how often have you been bothered by any of the following problems? 1. Little interest or pleasure in doing things: not at all 2. Feeling down, depressed, or hopeless: not at all 3. Trouble falling or staying asleep, or sleeping too much: not at all 4. Feeling tired or having little energy: not at all 5. Poor appetite or overeating: not at all 6. Feeling bad about yourself - or that you are a failure or have let yourself or your family down: not at all 7. Trouble concentrating on things, such as reading the newspaper or watching television: not at all 8. Moving or speaking so slowly that other people could have noticed. Or the opposite - being so fidgety or restless that you have been moving around a lot more than usual: not at all 9. Thoughts that you would be better off or of hurting yourself in some way: nearly every day Total score: 3 Depression Screening Interpretation: Negative Depression Screening Done: Yes 28136 - PHQ-9 Billing: Yes Source: Developed by Drs. Rashad Ramirez, Carola Rutherford, Jaun Reeves and colleagues, with an educational berto from [employer]. Thrive Questionnaire Date Thrive assessed: 08/25/24 I am a: Patient What is your living situation today?: I have a steady place to live Within the past 12 months, did the food you bought not last and you didn't have the money to get more?: Never true Within the past 12 months, did you worry whether your food would run out before you got money to buy more?: Never true Do you have trouble paying for medicines?: No Do you have trouble getting transportation to medical appointments?: No Do you have trouble paying your heating and electricity bill?: No Do you have trouble taking care of your child, family member or friend?: No Do you have trouble with day-to-day activities such as bathing, preparing meals, shopping, managing finances, etc.?: No Are you currently unemployed and looking for a job?: No Are you interested in more education?: No Please select the resources that you would like help with: None Currently or been in a relationship where the following occur: No concerns reported THRIVE Score: 0 AUDIT C Alcohol Use Questionnaire (AUDIT-C) 1. How often do you have a drink containing alcohol?: Never Total Score: 0 Score Reviewed/Action Taken: Yes ANNA-7 AMB Questionnaire ANNA-7 Date ANNA - 7 assessed: 08/25/24 Feeling nervous, anxious, or on edge: 0 = Not at all Not being able to stop or control worryin = Not at all Worrying too much about different things: 0 = Not at all Trouble relaxin = Not at all Being so restless that it is hard to sit still: 0 = Not at all Becoming easily annoyed or irritable: 0 = Not at all Feeling afraid as if something awful might happen: 0 = Not at all Total ANNA-7 score (0-4 normal; 5-9 mild; 10-14 moderate; 15-21 severe): 0 Source: Developed by Drs. Rashad Ramirez, Carola Rutherford, Jaun Reeves and colleagues, with an educational berto from [employer]. ANNA-7 Assessment Billing ANNA-7 Assessment Tool: ANNA-7 Assessment 71154 Review of Systems Const Denies chills, Denies fatigue, Denies fever(s), Denies headache(s) and Denies weakness Eyes Denies change in vision ENT Denies dizziness, Denies headache(s), Denies hearing loss, Denies nasal congestion, Denies sinus pain, Denies sinus pressure and Denies sore throat Card Denies chest pain, Denies lightheadedness, Denies dyspnea and Denies other (palpitations) Resp Denies cough, Denies dyspnea and Denies wheezing GI Denies abdominal pain, Denies melena, Denies hematochezia, Denies change in bowel habits, Denies dyspepsia and Denies nausea Details: Incontinent?of?urine Denies hematuria and Denies dysuria Musc Denies abnormal gait, Denies myalgias, Denies arthralgias, Denies numbness and Denies tingling Skin/Breast Denies rash, Denies unusual bruising and Denies wounds Neuro Denies abnormal gait, Denies dizziness, Denies headache(s), Denies memory loss, Denies numbness, Denies Sensory deficit (Neuro), Denies tingling and Denies weakness Psych Denies anxiety, Denies depression and Denies memory loss Endo Denies cold intolerance, Denies fatigue, Denies heat intolerance, Denies polydipsia and Denies polyuria Nasir/Lymph Denies easy bleeding and Denies easy bruising Aller/Immun Denies wheezing Physical exam (Primary Care) Vital Signs: Last Vital Signs Temp 97.4 F 08/25/24 14:17 Pulse 60 08/25/24 14:17 Resp 14 08/25/24 14:17 BP 120/60 08/25/24 14:17 Pulse Ox 95 08/25/24 14:17 Oxygen Delivery Method Room Air 08/25/24 14:17 BMI result Body Mass Index 26.5 Tobacco/Smoking Status: Tobacco use Status Tobacco use date assessed 08/25/24 08/25/24 14:23 Patient Tobacco Use Status Former Tobacco user 08/25/24 14:07 e-Cigarette/Vaping Use Never Used 08/25/24 14:07 PHQ-9: PHQ-9 Score PHQ-9: Total score 3 08/25/24 14:23 Depression Screening Interpretation: Negative Thrive Assessment: Date of Thrive Assessment Date Thrive assessed 08/25/24 08/25/24 14:23 Currently or been in a relationship where the following occur: No concerns reported Const General: no acute distress, well developed, alert and awake Nutritional Appearance: well nourished Orientation/consciousness: patient oriented x3 HENMT Head: Yes normocephalic and Yes atraumatic Ears: hearing grossly normal bilaterally and TM's normal bilaterally General nose exam: Normal external nose present and Normal nares present Mouth: Normal oral and palatal mucosa present and mucous membranes dry Teeth and gingiva: dentition normal Throat: Yes posterior oropharynx normal Eyes Pupils: Equal, round and reactive pupils present and Pupil accommodation reflex normal EOM: EOMs intact bilaterally Neck Neck: Yes normal visual inspection, Yes no lymphadenopathy and Yes trachea midline Thyroid: Thyroid normal Carotids: no bruits Lymphatic: no lymphadenopathy noted Chest Chest palpation & inspection: normal inspection of the chest Resp Effort & Inspection: normal respiratory effort Auscultation: clear to auscultation bilaterally Cardio Rate: regular rate Rhythm: regular rhythm Heart sounds: S1 normal heart sound present, S2 normal heart sound present, no gallops, no murmurs and no rubs Bruits: no abdominal aortic bruits and no carotid bruits GI Palpation (GI): No Abdominal aortic bruit present, Soft to palpation, nontender, No hepatosplenomegaly present and No Rebound tenderness present Auscultation: normal bowel sounds General: Yes no CVA tenderness Back/Spine/Pelvis Back: no CVA tenderness Cervical Spine: cervical ROM normal and No Cervical spine tenderness Thoracic/Lumbar Spine: thoraco-lumbar ROM normal, No pain with thoraco-lumbar ROM, No thoracic spinal tenderness and No lumbar spinal tenderness Skin Lesions: no lesions Rashes: no rashes Trauma: no lacerations or abrasions Wounds: no wounds Nails: normal Neuro General: patient oriented x3, gait normal and CN's II-XI intact bilaterally Cranial nerves: Yes Equal, round and reactive pupils present Cognition (Neuro): normal cognition Gait exam (Neuro): gait abnormal (Unsteady?gait?and?uses?walker) Motor exam (neuro): 5/5 motor strength present throughout Sensory Exam: No Sensory deficit (Neuro) Deep tendon reflexes (DTR's): Right patellar reflex intensity grade: 2+ and Left patellar reflex intensity grade: 2+ Extrem General: Yes normal to inspection and No edema Psych Appearance: grossly normal Affect: normal affect Attitude: cooperative Thought process: Normal thought process present Coding Level of Care Code Est Pt Level 4 (49492) Diagnoses Hypertension I10 CAD (coronary artery disease) I25.10 Hypothyroidism E03.9 CRF (chronic renal failure) N18.9 COPD (chronic obstructive pulmonary disease) J44.9 Unstable gait R26.81 Mild anemia D64.9 Urinary incontinence R32 Screening for osteoporosis Z13.820 Neoplasm of uncertain behavior of skin D48.5 Additional Codes ANNA-7 Assessment Billing - ANNA-7 Assessment Tool: ANNA-7 Assessment 22326 ([id number]) PHQ-9 - 87977 - PHQ-9 Billing: Yes ([id number]) Assessment & Plan Assessment & Plan (1) Hypertension: Code(s): I10 - Essential (primary) hypertension Category: Medical Plan: Blood?pressure?is?controlled.??Goal?is?less?than?130/80 Continue?current?medication?regimen (2) CAD (coronary artery disease): Code(s): I25.10 - Atherosclerotic heart disease of [place] coronary artery without angina pectoris Category: Medical Plan: Stable (3) Hypothyroidism: Code(s): E03.9 - Hypothyroidism, unspecified Category: Medical Plan: Due?to?recheck?thyroid?hormone?levels. Labs?ordered?and?we?will?review?at?next?visit (4) CRF (chronic renal failure): Code(s): N18.9 - Chronic kidney disease, unspecified Category: Medical Plan: Creatinine?level?is?improved?slightly. She?restricts?water?due?to?incontinence. Advised?she?take?small?frequent?sips?throughout?her?day. (5) COPD (chronic obstructive pulmonary disease): Comment: PULMONARY FUNCTION TEST DID NOT GO ALONG WITH COPD. WORKING DX : HYPERSENSITIVITY BRONCHIAL ASTHMA IS MORE LIKELY . Code(s): J44.9 - Chronic obstructive pulmonary disease, unspecified Category: Medical Plan: Breathing?easily Lungs?are?clear?to?auscultation Continue?inhaled?medications?as?prescribed (6) Unstable gait: Code(s): R26.81 - Unsteadiness on feet Category: Medical Plan: Continue?using?walker (7) Mild anemia: Code(s): D64.9 - Anemia, unspecified Category: Medical Plan: Mild?stable?anemia Rechecking?this?with?next?blood?draw (8) Urinary incontinence: Code(s): R32 - Unspecified urinary incontinence Category: Medical Plan: As?above, Using?briefs?and?scheduling?voids. Can?follow-up?with?urology?as?recommended (9) Screening for osteoporosis: Code(s): Z13.820 - Encounter for screening for osteoporosis Category: Medical Plan: DEXA?scan?ordered (10) Neoplasm of uncertain behavior of skin: Code(s): D48.5 - Neoplasm of uncertain behavior of skin Category: Medical Plan: 0.75cm melanotic?lesion?with?excoriations?mid?back. Referred?to?Dermatology Orders: Orders Triiodothyronine T3 Total Today E03.9 - Hypothyroidism, unspecified Comprehensive Met. Panel Today E03.9 - Hypothyroidism, unspecified XR DEXA axial skeleton Today E03.9 - Hypothyroidism, unspecified, M81.0 - Age-related osteoporosis without current pathological fracture Complete Blood Count Auto Diff Today D64.9 - Anemia, unspecified, Z00.00 - Encounter for general adult medical examination without abnormal findings IRON PROFILE Today D64.9 - Anemia, unspecified Vitamin B12 and Folate Today D64.9 - Anemia, unspecified, E53.8 - Deficiency of other specified B group vitamins Free T4 (Free Thyroxine) Today E03.9 - Hypothyroidism, unspecified Thyroid Stimulating Hormone Today E03.9 - Hypothyroidism, unspecified Reticulocyte Count Today D64.9 - Anemia, unspecified Referrals Dermatology Referral D48.5 - Neoplasm of uncertain behavior of skin
[2024-08-25 14:17] VITALS: BP 120/60; PULSE 60; RESP 14; TEMP 36.3; O2SAT 95; BMI 26.5
== END 2024-08-25 14:41 | disposition home or self-care (01) ==
LOC: HO.HMCFM 14:01
PROVIDERS: PCP Family Medicine; Visit Provider Family Medicine
DX: I12.9 Hypertensive chronic kidney disease with stage 1 through stage 4 chronic kidney disease, or unspecified chronic kidney disease (principal); I25.10 Atherosclerotic heart disease of native coronary artery without angina pectoris; N18.9 Chronic kidney disease, unspecified; J44.9 Chronic obstructive pulmonary disease, unspecified; E03.9 Hypothyroidism, unspecified; R26.81 Unsteadiness on feet; D64.9 Anemia, unspecified; R32 Unspecified urinary incontinence; Z13.820 Encounter for screening for osteoporosis; D48.5 Neoplasm of uncertain behavior of skin

== ENCOUNTER → 2024-08-25 14:00 | Outpatient (BNVA) | payer BC, SELFPAY | PROVIDERS: PCP Family Medicine; Visit Provider Family Medicine | DX: I12.9 Hypertensive chronic kidney disease with stage 1 through stage 4 chronic kidney disease, or unspecified chronic kidney disease (principal); N18.9 Chronic kidney disease, unspecified; I25.10 Atherosclerotic heart disease of native coronary artery without angina pectoris; E03.9 Hypothyroidism, unspecified; J44.9 Chronic obstructive pulmonary disease, unspecified; R26.81 Unsteadiness on feet; D64.9 Anemia, unspecified; R32 Unspecified urinary incontinence; D48.5 Neoplasm of uncertain behavior of skin | CPT/HCPCS: 96127 ==

== ENCOUNTER 2024-08-28 12:11 | Outpatient (AMB) | payer BC, SELFPAY ==
--- NOTE | 2024-08-28 12:11 | A.OFFVIS_ITS ---
Intake Visit Reasons: 3 month follow up Intake Note: Patient presents today for tele visit follow up on: OAB/[facility] Medication: none Blood Thinner: aspirin Visual Associate Required: No Allergies peanut Allergy (Severe, Verified 08/28/24 21:54) Facial Swelling latex [LATEX] Allergy (Unknown, Verified 08/28/24 21:54) RASH, ITCHY Medication List - Last Reconciled 08/28/24 by JAYA Mann albuterol sulfate 90 mcg/actuation (Proventil HFA) 2 puffs inhalation Q4-6H PRN amlodipine 10 mg PO DAILY 90 days aspirin 81 mg PO DAILY 90 days atorvastatin 80 mg PO BEDTIME 90 days betamethasone valerate 0.1% 1 appl topical BID PRN 14 days cetirizine 10 mg PO DAILY PRN 30 days clonidine 1 patch topical QWEEK donepezil 10 mg PO DAILY famotidine 20 mg PO DAILY 14 days fluticasone propion-salmeterol 250-50 mcg/dose (Wixela Inhub) 1 inh inhalation Q12H 30 days furosemide 40 mg PO DAILY hydralazine 50 mg See Protocol PO BID 30 days levothyroxine (Synthroid) 37.5 mcg (1.5 x 25 mcg) PO DAILY 90 days magnesium oxide 400 mg PO BID 90 days memantine 10 mg PO BID 90 days mometasone 50 mcg/actuation 2 sprays intranasal BID PRN montelukast 10 mg PO BEDTIME 90 days omeprazole 20 mg PO DAILY 90 days sertraline 100 mg PO BEDTIME 90 days spironolactone 50 mg PO DAILY 90 days HPI Comments Details: Ann Padilla is a 84 year old female patient of Dr. Lockwood who is accompanied by her daughter during today's telehealth appointment. She has a past medical history of asthma, CHF/systolic heart failure, COPD, CVA, dementia, NSTEMI, hypertension, hypothyroidism, left bundle-branch block, and overactive bladder. In discussion with the patient today she continues to report ongoing bothersome urinary issues however feels they are less bothersome when she is out and about. She reports noting frequent episodes of mixed urinary incontinence while at home however feels when she has planned days outside of her home she does not experience these incontinent episodes. Previously patient has trialed VESIcare however had increase in postvoid residuals. She had also briefly trialled Gemtesa however had an increase in co-payment and therefore this was discontinued. She continues to live at our in [facility] with her in the independent living. When asked she denies hematuria, dysuria, foul smelling urine, changes to urinary stream, flank pain, fever, and or chills. We discussed importance of timed/scheduled voiding as well as further treatment options such as in office urodynamics for further assessment evaluation. This procedure was discussed in all questions were answered. She otherwise offers no other issues or concerns at this time. [facility] Medical History Dermatitis Contact dermatitis Rash Rash Respiratory failure Cough Cough Abnormal lung sounds Productive cough Cellulitis Acute on chronic anemia UTI (urinary tract infection) Dysuria Increased frequency of urination Dehydration JESUS (acute kidney injury) Hypokalemia Hyperkalemia Troponin level elevated Essential hypertension OAB (overactive bladder) H/O placement of stent in anterior descending branch of left coronary artery Dementia Hypothyroidism History of non-ST elevation myocardial infarction (NSTEMI) Systolic heart failure CHF (congestive heart failure) COPD (chronic obstructive pulmonary disease) Asthma CVA (cerebral vascular accident) Hypertension LBBB (left bundle branch block) Surgical History Hx of heart artery stent History of knee replacement procedure of right knee Hx of cataract surgery History of hysterectomy Family History Father No problems noted. Mother No problems noted. Brother No problems noted. Brother No problems noted. Sister No problems noted. Son No problems noted. Daughter No problems noted. Daughter No problems noted. Daughter No problems noted. Daughter No problems noted. Social History Household Members: Spouse Housing: Assisted Living Facility Do you presently have visiting nurse or other home services: No Alcohol intake: former Patient Tobacco Use Status: Former Tobacco user e-Cigarette/Vaping Use: Never Used Second Hand Smoke Exposure: No service: No Current occupational status: retired Current occupational exposures/hazards: No Cognitive needs: No Hearing needs: No Vision needs: No Review of Systems Const Reports as per HPI Eyes Reports no additional complaints ENT Reports no additional complaints Card Reports as per HPI Resp Reports as per HPI GI Reports no additional complaints Reports as per HPI Neuro Reports as per HPI Psych Reports as per HPI Endo Reports no additional complaints Physical Exam Const General: cooperative Orientation/consciousness: oriented to person Resp Effort & Inspection: able to speak in complete sentences Neuro General: oriented to person Psych Speech and movement: Clear speech present Attitude: cooperative Thought content: Normal thought content present Insight: Fair insight present (Psych) Judgement: Fair judgement present (Psych) Telehealth Telehealth Telehealth Platform: Telephone Location of provider rendering services: practice address Location of patient: address on file Patient Identification confirmed using: Name, : Yes Telehealth method: voice only Patient verbally consented to treatment: Yes Patient verbally consented to billing insurance company: Yes Patient informed of any privacy concerns related to visit: Yes Minutes spent on Phone/Video with Pt.: 15 Assessment & Plan Assessment & Plan (1) Urinary incontinence: Code(s): R32 - Unspecified urinary incontinence Category: Medical (2) OAB (overactive bladder): Code(s): N32.81 - Overactive bladder Category: Medical Plan We discussed further treatment options of lower urinary tract symptoms patient was experiencing in risks and benefits of these treatment options. We discussed importance of timed/scheduled voiding Discussed consideration of retroperitoneal ultrasound for further assessment evaluation. All questions were answered. Patient and or patients daughter will call for follow up Patient Instructions: The patient had an opportunity to ask questions regarding the treatment plan. All questions were answered. Physical exam, labs, and imaging were discussed and reviewed in detail. As well as risks, benefits, and discussion of treatment choices. No major barriers to understanding were identified. The patient expressed understanding and agreement with the above treatment plan. The patient was made aware they should contact our office by phone for worsening of their current condition, the appearance of new symptoms, or with any questions or concerns. Compliance is encouraged with any medications and follow up testing that is ordered. It is a privilege to be allowed the opportunity to participate in? your urological care.? Again, if you have any questions or concerns If you have any questions or concerns please do not hesitate to contact me. The office is [phone]. This note is constructed using voice recognition software. While every effort has been made to ensure accuracy elementary esl teacher errors may have been included. Yours sincerely, JAYA Mann Coding Level of Care Code Tele Est Pt Level 3 (34961) Complex EM visit Add On G2211 Diagnoses Urinary incontinence R32 OAB (overactive bladder) N32.81
--- OUTSIDE RECORDS SUMMARY | 2024-08-28 14:26 | XMS_ITS | Patient Health Record ---
Author Organization [facility] Billing Info Address [address] [place] [address] [place] [address] Care Team Providers Care Blood Bank Order Control Clerk Name Role Phone DR TERRENCE NATH Primary [...] Date Status Comme nts PNEUMOCOCCAL 13 CONJ ([id number]) IM Intramuscular 04/16/2015 Administered FLU (Past vaccine [...] Problem Status W/U Status Risk Notes Problem 812029500 Other hyperlipidemia (E78.4) Active confirmed Problem 1468388 Unspecified osteoarthritis, unspecified site (M19.90) Active confirmed Problem 81001643 Pain in left kne e (M25.562) Active confirmed pt to follow up with ortho Problem 731004758 Localized edema (R60.0) Active confirmed Problem 717216124 Asthma (J45.909) Active confirmed Problem 394688983 SOB (shortness o f breath) (R06.02) Active confirmed Problem 86288003 Essential hypertension (I10) Active confirmed Problem 601326365 TIA (transient ischemic attack) (G45.9) Active confirmed Problem 589180038 Unsteady gait (R26.81) Active confirmed Problem Amnesia (60123276) Memory changes (R41.3) Active confirmed Problem 78265094 LBBB (left bundl e branch block) (I44.7) Active confirmed Problem 131921367 Non-cardiac ches t pain (R07.89) Active confirmed Problem 636393580 Acute hand eczem a (L30.9) 09/23/19 17 Active confirmed Problem 96385142 Bakers cyst, lef t (M71.22) 07/15/19 17 Active confirmed Problem 630598097 Seasonal allergi c rhinitis, unspecified allergic rhinitis trigger (J30.2) Active confirmed Plan Of Treatment Future Test Test Name Order Date Basic Metabolic Panel (8) ([id number] ) 12/27/2017 US- CAROTID DOPPLER ([id number])(AIC-CAROTID) 03/17/2019 Insurance Providers Payer Name Payer Address Payer Phone Subscriber Number Group Number Insured Name Patient Relationship to Insured Coverage Start Date Coverage End Date [facility] [employer] PLAN [address] [place] [phone] [id number] Carlos King Spouse - patient is the spouse of the insured 5 6 Medications Administered Medication Instructions Date of Administration Dosage Notes zMethylprednisolone Acetate 40 mg (Depo Medrol) 02/29/2016 1 mL Dexamethasone Na Phosphate 02/29/2016 1 mL Medical (General) History Medical History History ICD Code 1. Noncardiac chest pain a. 10/1999 stress echocardiog taina: [facility] cardiology: No resting wall motion abnormalities. No [...]
== END 2024-08-28 16:50 | disposition home or self-care (01) ==
LOC: HO.HUSH 12:11
PROVIDERS: PCP Family Medicine; Visit Provider Nurse Practitioner Family
DX: R32 Unspecified urinary incontinence (principal); N32.81 Overactive bladder
CPT/HCPCS: 99213

== ENCOUNTER → 2024-08-28 12:11 | Outpatient (BNVA) | payer BC, SELFPAY | PROVIDERS: PCP Family Medicine; Visit Provider Nurse Practitioner Family ==

== ENCOUNTER 2024-08-29 11:04 | Outpatient (REF) | payer BC, SELFPAY ==
--- OUTSIDE RECORDS SUMMARY | 2024-08-29 11:53 | XMS_ITS | Patient Health Record ---
Author Organization [facility] Billing Info Address [address] [place] [address] [place] [address] Care Team Providers Care Other Sports Official Name Role Phone DR TERRENCE NATH Primary [...] Date Status Comme nts PNEUMOCOCCAL 13 CONJ ([id number]) IM Intramuscular 04/16/2015 Administered FLU (Past vaccine [...] Problem Status W/U Status Risk Notes Problem 240208768 Other hyperlipidemia (E78.4) Active confirmed Problem 4433788 Unspecified osteoarthritis, unspecified site (M19.90) Active confirmed Problem 15116314 Pain in left kne e (M25.562) Active confirmed pt to follow up with ortho Problem 839991800 Localized edema (R60.0) Active confirmed Problem 248378612 Asthma (J45.909) Active confirmed Problem 340212775 SOB (shortness o f breath) (R06.02) Active confirmed Problem 49006651 Essential hypertension (I10) Active confirmed Problem 491330163 TIA (transient ischemic attack) (G45.9) Active confirmed Problem 392780411 Unsteady gait (R26.81) Active confirmed Problem Amnesia (87920674) Memory changes (R41.3) Active confirmed Problem 88134674 LBBB (left bundl e branch block) (I44.7) Active confirmed Problem 227855075 Non-cardiac ches t pain (R07.89) Active confirmed Problem 601317567 Acute hand eczem a (L30.9) 09/23/19 17 Active confirmed Problem 14339299 Bakers cyst, lef t (M71.22) 07/15/19 17 Active confirmed Problem 991423761 Seasonal allergi c rhinitis, unspecified allergic rhinitis trigger (J30.2) Active confirmed Plan Of Treatment Future Test Test Name Order Date Basic Metabolic Panel (8) ([id number] ) 12/27/2017 US- CAROTID DOPPLER ([id number])(AIC-CAROTID) 03/17/2019 Insurance Providers Payer Name Payer Address Payer Phone Subscriber Number Group Number Insured Name Patient Relationship to Insured Coverage Start Date Coverage End Date [facility] [employer] PLAN [address] [place] [address] [id number] Carlos King Spouse - patient is the spouse of the insured 5 6 Medications Administered Medication Instructions Date of Administration Dosage Notes zMethylprednisolone Acetate 40 mg (Depo Medrol) 02/29/2016 1 mL Dexamethasone Na Phosphate 02/29/2016 1 mL Medical (General) History Medical History History ICD Code 1. Noncardiac chest pain a. 10/1999 stress echocardiog taina: [facility] cardiology: No resting wall motion abnormalities. [...]
[2024-08-29 14:08] LABS: MANUAL DIFF FLAG NO
[2024-08-29 14:12] LABS: Basophils Absolute Auto 0.1 X10*3/uL (0.0-0.2); Eosinophils Absolute Auto 0.2 X10*3/uL (0.0-0.4); Eosinophils Percent Auto 3.6 % (0-4); Hematocrit 31.5 % (37.0-47.0); Hemoglobin 9.9 g/dl (12.0-16.0); Imm Gran Abs Auto 0.05 X10*3/uL (0.00-0.03); Imm Gran Pct Auto 0.9 % (0.0-0.4); Immature Retic Fraction 22.2 % (3.0-15.9); Lymphocytes Absolute Auto 0.4 X10*3/uL (1.2-4.9); Lymphocytes Percent Auto 7.4 % (20-40); Mean Corpuscular HGB Conc 31.4 g/dl (31.0-35.0); Mean Corpuscular Hemoglobin 26.2 pg (27.0-33.0); Mean Corpuscular Volume 83.3 fL (80.0-98.0); Mean Platelet Volume 10.2 fL (9.4-12.3); Monocytes Absolute Auto 0.3 X10*3/uL (0.1-1.2); Monocytes Percent Auto 5.3 % (2-11); Neutrophils Absolute Auto 4.8 x10*3/uL (2.0-8.3); Neutrophils Percent Auto 81.8 % (45-73); Platelet Count 206 X10*3/uL (160-400); Red Blood Count 3.78 X10*6/uL (4.20-5.50); Red Cell Distribution Width 15.9 % (11.0-16.0); Retic HGB Equivalent 27.2 pg (30.0-35.0); Reticulocyte Percent 2.1 % (0.5-1.8); Reticulocytes Absolute 0.078 X10*6/uL (0.026-0.095); White Blood Count 5.8 X10*3/uL (4.8-10.8)
[2024-08-29 14:29] LABS: Alanine Aminotransferase 25 U/L (0-31); Alkaline Phosphatase 158 U/L (39-117); Anion Gap 11 (12-20); Aspartate Amino Transferase 29 U/L (5-31); Bilirubin Total 0.4 mg/dL (0.0-1.0); Blood Urea Nitrogen 32 mg/dL (9-16); Calcium 8.9 mg/dL (8.4-10.2); Carbon Dioxide 23 mmol/L (22-29); Chloride 110 mmol/L (96-108); Estimated Glomerular Filt Rate 32; Glucose Random 111 mg/dL (60-115); Iron 30 mcg/dL (30-160); Percent Iron Saturation 9 % (15-50); Potassium 4.3 mmol/L (3.3-5.1); Sodium 140 mmol/L (135-145); Total Iron Binding Capacity 318 mcg/dL (228-428); Total Protein 6.6 g/dL (6.5-8.0); Unsaturated Iron Binding 288 ug/dL
[2024-08-29 14:56] LABS: Folate 14.8 ng/mL (> or = 4.0); Vitamin B12 546 pg/mL (200-900)
[2024-08-29 14:57] LABS: Free T4 (Free Thyroxine) 0.87 ng/dL (0.71-1.85); Thyroid Stimulating Hormone 3.63 uIU/mL (0.32-4.0)
[2024-08-30 08:29] LABS: Triiodothyronine T3 Total 66 ng/dL (76-181)
== END 2024-08-29 11:05 | disposition home or self-care (01) ==
LOC: HO.WFDLDS 11:04
PROVIDERS: Visit Provider Family Medicine
DX: Z00.00 Encounter for general adult medical examination without abnormal findings (principal); D64.9 Anemia, unspecified; E03.9 Hypothyroidism, unspecified; E53.8 Deficiency of other specified B group vitamins
CPT/HCPCS: 36415; 80053; 82607; 82746; 83540; 84439; 84443; 84480; 85025; 85045

== ENCOUNTER → 2024-09-25 13:30 | Outpatient (BNV) | payer BC, SELFPAY | PROVIDERS: PCP Family Medicine; Visit Provider Radiology Diagnostic Radiology | DX: E28.39 Other primary ovarian failure (principal) | CPT/HCPCS: 77080 ==

== ENCOUNTER 2024-09-25 13:40 | Outpatient (REF) | payer BC, SELFPAY ==
--- NOTE | ~2024-09-25 | MM_ITS ---
EXAMINATION: DXA BONE DENSITY AXIAL HISTORY: M81.0 - Age-related osteoporosis without current pathological fracture TECHNIQUE: OptiNose Dual energy absorptiometry (DEXA) of the lumbar spine, total left hip, and femoral neck was performed. COMPARISON: Comparison is made with the prior examination dated 11/19/2019. FINDINGS: The bone mineral density of the lumbar spine is 0.922, corresponding to a T-score of -2.0, and a Z-score of -0.2. This is indicative of osteopenia. This represents a BMD change of -9.8% compared to the prior exam. This is statistically significant. The bone mineral density of the left total hip is 0.714, corresponding to a T-score of -2.3, and a Z-score of -0.1. This is indicative of osteopenia. This represents a BMD change of -21.5% compared to the prior exam. This is statistically significant. The bone mineral density of the left femoral neck is 0.670, corresponding to a T-score of -2.6, and a Z-score of -0.3. This is indicative of osteoporosis. This represents a BMD change of -21.5% compared to the prior exam. MM/XR DEXA axial skeleton IMPRESSION: Based on bone mineral density, and according to World Health Organization (WHO) criteria, the diagnosis is consistent with osteoporosis. All bone density values are in grams per centimeter squared (g/cm2). Statistically, 68% of repeat scans fall within 1 SD (+/- 0.010 g/cm2 for AP spine L1-L4) and 1 SD (+/- 0.012 g/cm2 for femur total) FRAX is a trademark of the [employer]'s [employer] Metabolic Bone Disease, a World Health Organization (WHO) Collaborating Center. Electronically signed by: Rashad Garibay MD 09/25/2024 03:03 PM EDT
--- OUTSIDE RECORDS SUMMARY | 2024-09-25 13:52 | XMS_ITS | Patient Health Record ---
Author Organization [facility] Billing Info Address [address] [place] [address] [place] [address] Care Team Providers Care Jet Piercer Operator Name Role Phone DR TERRENCE NATH Primary [...] Date Status Comme nts PNEUMOCOCCAL 13 CONJ ([id number]) IM Intramuscular 04/16/2015 Administered FLU (Past vaccine [...] Problem Status W/U Status Risk Notes Problem 598808758 Other hyperlipidemia (E78.4) Active confirmed Problem 3602814 Unspecified osteoarthritis, unspecified site (M19.90) Active confirmed Problem 11363304 Pain in left kne e (M25.562) Active confirmed pt to follow up with ortho Problem 413734085 Localized edema (R60.0) Active confirmed Problem 565459681 Asthma (J45.909) Active confirmed Problem 050500755 SOB (shortness o f breath) (R06.02) Active confirmed Problem 96849417 Essential hypertension (I10) Active confirmed Problem 292845235 TIA (transient ischemic attack) (G45.9) Active confirmed Problem 530104664 Unsteady gait (R26.81) Active confirmed Problem Memory changes (R41.3) Active confirmed Problem 82710579 LBBB (left bundl e branch block) (I44.7) Active confirmed Problem 156050096 Non-cardiac ches t pain (R07.89) Active confirmed Problem 855143853 Acute hand eczem a (L30.9) 7 Active confirmed Problem 93816071 Bakers cyst, lef t (M71.22) 7 Active confirmed Problem 357633679 Seasonal allergi c rhinitis, unspecified allergic rhinitis trigger (J30.2) Active confirmed Plan Of Treatment Future Test Test Name Order Date Basic Metabolic Panel (8) ([id number] ) 12/27/2017 US- CAROTID DOPPLER ([id number])(AIC-CAROTID) 03/17/2019 Insurance Providers Payer Name Payer Address Payer Phone Subscriber Number Group Number Insured Name Patient Relationship to Insured Coverage Start Date Coverage End Date [facility] [employer] EM[employer]EE PLAN [address] [place] [address] [phone] [id number] Carlos King Spouse - patient is the spouse of the insured 5 6 Medications Administered Medication Instructions Date of Administration Dosage Notes zMethylprednisolone Acetate 40 mg (Depo Medrol) 02/29/2016 1 mL Dexamethasone Na Phosphate 02/29/2016 1 mL Medical (General) History Medical History History ICD Code 1. Noncardiac chest pain a. 10/1999 stress echocardiog taina: [facility] cardiology: No resting wall motion abnormalities. [...]
== END 2024-09-25 13:41 | disposition home or self-care (01) ==
LOC: HO.MAMMO 13:40
PROVIDERS: PCP Family Medicine; Visit Provider Family Medicine
DX: M81.0 Age-related osteoporosis without current pathological fracture (principal); E03.9 Hypothyroidism, unspecified
CPT/HCPCS: 77080

== ENCOUNTER 2024-10-02 11:52 | Outpatient (AMB) | payer BC, SELFPAY ==
--- NOTE | 2024-10-02 11:24 | MHC.PC.OV ---
Intake Visit Reasons: high blood pressure, Intake Note: patient is scheduled to review labs and b/p pt would also like to talk about her bone scan Shellfish Weigher Required: No Allergies peanut Allergy (Severe, Verified 10/02/24 11:25) Facial Swelling latex [LATEX] Allergy (Unknown, Verified 10/02/24 11:25) RASH, ITCHY Medication List - Last Reconciled 10/02/24 by Claus Lockwood MD albuterol sulfate 90 mcg/actuation (Proventil HFA) 2 puffs inhalation Q4-6H PRN amlodipine 10 mg PO DAILY 90 days aspirin 81 mg PO DAILY 90 days atorvastatin 80 mg PO BEDTIME 90 days betamethasone valerate 0.1% 1 appl topical BID PRN 14 days cetirizine 10 mg PO DAILY PRN 30 days clonidine 1 patch topical QWEEK donepezil 10 mg PO DAILY famotidine 20 mg PO DAILY 14 days fluticasone propion-salmeterol 250-50 mcg/dose (Wixela Inhub) 1 inh inhalation Q12H 30 days furosemide 40 mg PO DAILY hydralazine 50 mg See Protocol PO BID 30 days levothyroxine (Synthroid) 37.5 mcg (1.5 x 25 mcg) PO DAILY 90 days magnesium oxide 400 mg PO BID 90 days memantine 10 mg PO BID 90 days mometasone 50 mcg/actuation 2 sprays intranasal BID PRN montelukast 10 mg PO BEDTIME 90 days omeprazole 20 mg PO DAILY 90 days sertraline 100 mg PO BEDTIME 90 days spironolactone 50 mg PO DAILY 90 days Tobacco use date assessed: 08/25/24 Dental Screening Dental Screen Date: 08/25/24 HPI high blood pressure, HPI Details 84 y/o female presents to f/u thyroid labs, anemia, HTN. Labs drawn 08/29/24. Reviewed labs with pt. Ongoing anemia. Creatinine level worsened from 1.47 to 1.54. TSH 3.63 uIU/mL. Free T4 0.87 ng/dL. Total T3 66 ng/dL. Bone density 09/25/24 showed osteoporosis. Denies blood in stools. [facility] Medical History Dermatitis Contact dermatitis Rash Rash Respiratory failure Cough Cough Abnormal lung sounds Productive cough Cellulitis Acute on chronic anemia UTI (urinary tract infection) Dysuria Increased frequency of urination Dehydration JESUS (acute kidney injury) Hypokalemia Hyperkalemia Troponin level elevated Essential hypertension OAB (overactive bladder) H/O placement of stent in anterior descending branch of left coronary artery Dementia Hypothyroidism History of non-ST elevation myocardial infarction (NSTEMI) Systolic heart failure CHF (congestive heart failure) COPD (chronic obstructive pulmonary disease) Asthma CVA (cerebral vascular accident) Hypertension LBBB (left bundle branch block) Surgical History Hx of heart artery stent History of knee replacement procedure of right knee Hx of cataract surgery History of hysterectomy Family History Father No problems noted. Mother No problems noted. Brother No problems noted. Brother No problems noted. Sister No problems noted. Son No problems noted. Daughter No problems noted. Daughter No problems noted. Daughter No problems noted. Daughter No problems noted. Social History Household Members: Spouse Housing: Assisted Living Facility Do you presently have visiting nurse or other home services: No Alcohol intake: former Patient Tobacco Use Status: Former Tobacco user e-Cigarette/Vaping Use: Never Used Second Hand Smoke Exposure: No service: No Current occupational status: retired Current occupational exposures/hazards: No Cognitive needs: No Hearing needs: No Vision needs: No Questionnaire Thrive Questionnaire Date Thrive assessed: 08/25/24 ANNA-7 AMB Questionnaire ANNA-7 Date ANNA - 7 assessed: 08/25/24 Source: Developed by Drs. Rashad Ramirez, Carola Rutherford, Janu Reeves and colleagues, with an educational berto from [employer] Review of Systems Const Denies chills, Denies fatigue, Denies fever(s), Denies headache(s) and Denies weakness ENT Denies dizziness and Denies headache(s) Card Denies dyspnea Resp Denies cough, Denies dyspnea, Denies wheezing and Denies other (shortness of breath) Musc Denies numbness and Denies tingling Neuro Denies dizziness, Denies headache(s), Denies numbness, Denies tingling and Denies weakness Psych Denies anxiety and Denies depression Endo Denies fatigue Aller/Immun Denies wheezing Physical exam (Primary Care) Tobacco/Smoking Status: Tobacco use Status Tobacco use date assessed 08/25/24 10/02/24 11:26 Patient Tobacco Use Status Former Tobacco user 10/02/24 11:26 e-Cigarette/Vaping Use Never Used 10/02/24 11:26 Thrive Assessment: Date of Thrive Assessment Date Thrive assessed 08/25/24 10/02/24 11:26 Telehealth Telehealth Telehealth Platform: Telephone Location of provider rendering services: practice address Location of patient: address on file Patient Identification confirmed using: Name, : Yes Telehealth method: voice only Patient verbally consented to treatment: Yes Patient verbally consented to billing insurance company: Yes Patient informed of any privacy concerns related to visit: Yes Minutes spent on Phone/Video with Pt.: 13 Coding Level of Care Code Tele Est Pt Level 2 (51708) Diagnoses Anemia D64.9 CRF (chronic renal failure) N18.9 Osteoporosis M81.0 Hypothyroidism E03.9 Assessment & Plan Assessment & Plan (1) Anemia: Code(s): D64.9 - Anemia, unspecified Category: Medical Plan: ongoing anemia and slightly worsened. Retic count is appropriately elevated MCV at lower end and iron is borderline low likely iron deficiency. she denies any bleeding will add an iron tablet and follow-up in 1 month. If not improving or worsens will discuss possible transfusion or referral to Hematology-Oncology (2) CRF (chronic renal failure): Code(s): N18.9 - Chronic kidney disease, unspecified Category: Medical Plan: stable advised good hydration (3) Osteoporosis: Code(s): M81.0 - Age-related osteoporosis without current pathological fracture Category: Medical Plan: bone density shows osteoporosis discussed alendronate risks/ benefits in she would like to try this sent script (4) Hypothyroidism: Code(s): E03.9 - Hypothyroidism, unspecified Category: Medical Plan: T3 low TSH and T4 within normal range will recheck this with next blood draw Plan she will return in 1 month to follow-up anemia and thyroid hormone levels will also follow-up on hypertension Orders: Orders Free T4 (Free Thyroxine) 10/02/24 E03.9 - Hypothyroidism, unspecified Triiodothyronine T3 Total 10/02/24 E03.9 - Hypothyroidism, unspecified Comprehensive Met. Panel 10/02/24 E03.9 - Hypothyroidism, unspecified Complete Blood Count Auto Diff 10/02/24 D64.9 - Anemia, unspecified, Z00.00 - Encounter for general adult medical examination without abnormal findings IRON PROFILE 10/02/24 D64.9 - Anemia, unspecified Thyroid Stimulating Hormone 10/02/24 E03.9 - Hypothyroidism, unspecified Medications: New alendronate 70 mg PO QWEEK 28 days 4 tabs 3RF M81.0 - Age-related osteoporosis without current pathological fracture ferrous sulfate 325 mg PO DAILY 90 days 90 tabs 3RF
--- OUTSIDE RECORDS SUMMARY | 2024-10-02 12:04 | XMS_ITS | Patient Health Record ---
Author Organization [facility] Billing Info Address [address] [place] [address] [place] [address] Care Team Providers Care Cherry Dipper Name Role Phone DR TERRENCE NATH Primary [...] Date Status Comme nts PNEUMOCOCCAL 13 CONJ ([id number]) IM Intramuscular 04/16/2015 Administered FLU (Past vaccine [...] Problem Status W/U Status Risk Notes Problem 786241180 Other hyperlipidemia (E78.4) Active confirmed Problem 5768538 Unspecified osteoarthritis, unspecified site (M19.90) Active confirmed Problem 47349882 Pain in left kne e (M25.562) Active confirmed pt to follow up with ortho Problem 762851527 Localized edema (R60.0) Active confirmed Problem 800239629 Asthma (J45.909) Active confirmed Problem 556029726 SOB (shortness o f breath) (R06.02) Active confirmed Problem 61080216 Essential hypertension (I10) Active confirmed Problem 594866150 TIA (transient ischemic attack) (G45.9) Active confirmed Problem 020203008 Unsteady gait (R26.81) Active confirmed Problem Memory changes (R41.3) Active confirmed Problem 82083098 LBBB (left bundl e branch block) (I44.7) Active confirmed Problem 410369614 Non-cardiac ches t pain (R07.89) Active confirmed Problem 118241551 Acute hand eczem a (L30.9) 7 Active confirmed Problem 37852916 Bakers cyst, lef t (M71.22) 7 Active confirmed Problem 891888863 Seasonal allergi c rhinitis, unspecified allergic rhinitis trigger (J30.2) Active confirmed Plan Of Treatment Future Test Test Name Order Date Basic Metabolic Panel (8) ([id number] ) 12/27/2017 US- CAROTID DOPPLER ([id number])(AIC-CAROTID) 03/17/2019 Insurance Providers Payer Name Payer Address Payer Phone Subscriber Number Group Number Insured Name Patient Relationship to Insured Coverage Start Date Coverage End Date [facility] [employer] EM[employer] PLAN [address] [place] [address] [phone] [id number] Carlos King Spouse - patient is the spouse of the insured 5 6 Medications Administered Medication Instructions Date of Administration Dosage Notes zMethylprednisolone Acetate 40 mg (Depo Medrol) 02/29/2016 1 mL Dexamethasone Na Phosphate 02/29/2016 1 mL Medical (General) History Medical History History ICD Code 1. Noncardiac chest pain a. 10/1999 stress echocardiog taina: [facility] cardiology: No resting wall motion abnormalities. [...]
== END 2024-10-02 17:07 | disposition home or self-care (01) ==
LOC: HO.HMCFM 11:52
PROVIDERS: PCP Family Medicine; Visit Provider Family Medicine
DX: D64.9 Anemia, unspecified (principal); N18.9 Chronic kidney disease, unspecified; M81.0 Age-related osteoporosis without current pathological fracture; E03.9 Hypothyroidism, unspecified

== ENCOUNTER → 2024-10-02 11:52 | Outpatient (BNVA) | payer BC, SELFPAY | PROVIDERS: PCP Family Medicine; Visit Provider Family Medicine | DX: Z13.89 Encounter for screening for other disorder (principal) ==

== ENCOUNTER 2024-10-31 11:43 | Outpatient (REF) | payer BC, SELFPAY ==
--- OUTSIDE RECORDS SUMMARY | 2024-10-31 12:53 | XMS_ITS | Patient Health Record ---
Author Organization [facility] Billing Info Address [address] [place] [address] [place] [address] Care Team Providers Care Security Patrol Officer Name Role Phone DR TERRENCE NATH Primary [...] Vaccine Route Administration Date Status Comme nts FLU (Past vaccine of unknown type) Unknown 08/21/2013 Administered FLU (Past vaccine of unknown type) Unknown 02/07/2017 Administered PNEUMOCOCCAL (Past vaccine of unknown type) Unknown 08/21/2013 Administered PNEUMOCOCCAL 13 CONJ ([id number]) IM Intramuscular 04/16/2015 Administered TDAP (BOOSTRIX) IM Intramuscular 02/18/2016 Administered zFLU 3V (FLUZONE HIGH DOSE), 65 YRS+, NO PRES - ALL PAYORS IM Intramuscular 03/25/2014 Administered Double Dose zFLU 3V (FLUZONE HIGH DOSE), 65 YRS+, NO PRES - ALL PAYORS IM Intramuscular 03/01/2015 Administered Problems Problem Type SNOMED Code ICD Code Onset Dates Problem Status W/U Status Risk Notes Problem 372811761 Other hyperlipidemia (E78.4) Active confirmed Problem 3115457 Unspecified osteoarthritis, unspecified site (M19.90) Active confirmed Problem 18092995 Pain in left kne e (M25.562) Active confirmed pt to follow up with ortho Problem 945106154 Localized edema (R60.0) Active confirmed Problem 365564290 Asthma (J45.909) Active confirmed Problem 995603837 SOB (shortness o f breath) (R06.02) Active confirmed Problem 57854721 Essential hypertension (I10) Active confirmed Problem 411451401 TIA (transient ischemic attack) (G45.9) Active confirmed Problem 196850144 Unsteady gait (R26.81) Active confirmed Problem Memory changes (R41.3) Active confirmed Problem 64098423 LBBB (left bundl e branch block) (I44.7) Active confirmed Problem 185939561 Non-cardiac ches t pain (R07.89) Active confirmed Problem 478425186 Acute hand eczem a (L30.9) 7 Active confirmed Problem 82952980 Bakers cyst, lef t (M71.22) 7 Active confirmed Problem 306513595 Seasonal allergi c rhinitis, unspecified allergic rhinitis trigger (J30.2) Active confirmed Plan Of Treatment Future Test Test Name Order Date Basic Metabolic Panel (8) ([id number] ) 12/27/2017 US- CAROTID DOPPLER (08841)(AIC-CAROTID) 03/17/2019 Insurance Providers Payer Name Payer Address Payer Phone Subscriber Number Group Number Insured Name Patient Relationship to Insured Coverage Start Date Coverage End Date [facility] [employer] PLAN [address] [place] [address] [id number] Carlos King Spouse - patient is the spouse of the insured 5 6 Medications Administered Medication Instructions Date of Administration Dosage Notes Dexamethasone Na Phosphate 02/29/2016 1 mL zMethylprednisolone Acetate 40 mg (Depo Medrol) 02/29/2016 1 mL Medical (General) History Medical History History ICD Code 1. Noncardiac chest pain a. 10/1999 stress echocardiog taina: [facility] cardiology: No resting wall motion [...]
[2024-10-31 14:07] LABS: MANUAL DIFF FLAG NO
[2024-10-31 14:13] LABS: Appearance Urine Clear; Color Urine Yellow; Glucose Urine UA Negative (Negative); Leukocyte Esterase Urine Negative (Negative); Nitrite Urine Negative (Negative); Urine Blood Negative (Negative); Urine Ketones Negative (Negative); Urine Protein Negative (Neg-Trace)
[2024-10-31 14:18] LABS: Basophils Absolute Auto 0.1 X10*3/uL (0.0-0.2); Basophils Percent Auto 0.9 % (0-2); Eosinophils Absolute Auto 0.2 X10*3/uL (0.0-0.4); Eosinophils Percent Auto 2.6 % (0-4); Hematocrit 35.8 % (37.0-47.0); Hemoglobin 11.3 g/dl (12.0-16.0); Imm Gran Abs Auto 0.05 X10*3/uL (0.00-0.03); Imm Gran Pct Auto 0.9 % (0.0-0.4); Lymphocytes Absolute Auto 0.4 X10*3/uL (1.2-4.9); Mean Corpuscular HGB Conc 31.6 g/dl (31.0-35.0); Mean Corpuscular Volume 85.4 fL (80.0-98.0); Mean Platelet Volume 10.7 fL (9.4-12.3); Monocytes Absolute Auto 0.3 X10*3/uL (0.1-1.2); Monocytes Percent Auto 5.3 % (2-11); Neutrophils Absolute Auto 4.9 x10*3/uL (2.0-8.3); Neutrophils Percent Auto 83.3 % (45-73); Platelet Count 221 X10*3/uL (160-400); Red Blood Count 4.19 X10*6/uL (4.20-5.50); Red Cell Distribution Width 18.2 % (11.0-16.0); White Blood Count 5.8 X10*3/uL (4.8-10.8)
[2024-10-31 14:39] LABS: Alanine Aminotransferase 23 U/L (0-31); Albumin Level 4.4 g/dL (3.5-5.0); Alkaline Phosphatase 148 U/L (39-117); Anion Gap 15 (12-20); Aspartate Amino Transferase 28 U/L (5-31); Bilirubin Total 0.4 mg/dL (0.0-1.0); Blood Urea Nitrogen 31 mg/dL (9-16); Calcium 8.9 mg/dL (8.4-10.2); Carbon Dioxide 22 mmol/L (22-29); Chloride 105 mmol/L (96-108); Cholesterol 95 mg/dL (<200); Estimated Glomerular Filt Rate 29; Glucose Fasting 109 mg/dL (60-99); Glucose Random 108 mg/dL (60-115); HDL Cholesterol 35 mg/dL (>40); Iron 120 mcg/dL (30-160); LDL Cholesterol Calculated 17 mg/dL (<100); Percent Iron Saturation 37 % (15-50); Potassium 4.2 mmol/L (3.3-5.1); Sodium 138 mmol/L (135-145); Total Iron Binding Capacity 325 mcg/dL (228-428); Total Protein 7.1 g/dL (6.5-8.0); Triglycerides 215 mg/dL (<150); Unsaturated Iron Binding 205 ug/dL
[2024-10-31 14:55] LABS: Free T4 (Free Thyroxine) 0.84 ng/dL (0.71-1.85); TSH reflex Free T4 4.07 uIU/mL (0.32-4.0); Thyroid Stimulating Hormone 4.07 uIU/mL (0.32-4.0)
[2024-10-31 15:07] LABS: Creatinine Urine 85.02 mg/dL; Microalbum/Creatinine Ratio Ur 48.2 ug/mg cr (<30)
[2024-11-01 09:47] LABS: Triiodothyronine T3 Total 67 ng/dL (76-181)
== END 2024-10-31 11:44 | disposition home or self-care (01) ==
LOC: HO.WFDLDS 11:43
PROVIDERS: Visit Provider Family Medicine
DX: Z00.00 Encounter for general adult medical examination without abnormal findings (principal); I10 Essential (primary) hypertension; E03.9 Hypothyroidism, unspecified; D64.9 Anemia, unspecified
CPT/HCPCS: 36415; 80053; 80061; 81003; 82043; 82570; 83540; 84439; 84443; 84480; 85025

== ENCOUNTER 2024-11-05 15:27 | Outpatient (AMB) | payer BC, SELFPAY ==
--- NOTE | 2024-11-05 15:31 | MHC.PC.OV ---
Vital Signs 11/05/24 15:38 Height 5 ft 4 in Weight 156 lb 6 oz BMI 26.8 BP 124/60 Blood Pressure Location Rt brachial Position Sitting Respiration 14 Pulse 57 Pulse Source Pulse Oximeter Temp 98.2 F Temp Source Temporal Artery Scan Pulse Oximetry (%) 95 Oxygen Delivery Method Room Air Intake Visit Reasons: f/u anemia, thyroid hormone levels and HTN Intake Note: Ann presents in the office today for a follow up. Allergies peanut Allergy (Severe, Verified 11/05/24 15:35) Facial Swelling latex (LATEX) Allergy (Unknown, Verified 11/05/24 15:35) RASH, ITCHY Tobacco use date assessed: 11/05/24 Dental Screening Dental Screen Date: 11/05/24 Did you have a dental visit in the last 12 months?: Yes Did you have a dental problem in the last 6 months where you did not have access to dental care?: No Was dental information given to patient?: Patient has dentist HPI f/u anemia, thyroid hormone levels and HTN HPI Details 84 y/o female presents to f/u anemia, hypertension, thyroid hormone levels. Labs drawn 10/31/24. Reviewed labs with pt. Improving anemia. Fasting glucose 109. Iron levels improved from 30 mcg/dL to 120 mcg/dL. Triglycerides 216. TC 95. LDL 17. HDL low at 35. TSH level 4.07 uIU/mL, Free T4 0.84 ng/dL. Total T3 67 ng/dL. Microalb/Creat ratio 48.2 ug/mg cr. Blood pressure today 124/60, 57p. She is on spironolactone 50mg, amlodipine 10mg daily. Pt reports ongoing unsteady gait and did have a fall on the steps. Did not hit her head. HPI Comments History of Present Illness Details Documentation assistance for Claus Lockwood MD, was provided by Kenn Dixon,? [employer] on 11/05/2024 at 4:01 PM EST. I, Dr. Lockwood, have read, observed, and verified documentation. ?? [facility] Medical History Dermatitis Contact dermatitis Rash Rash Respiratory failure Cough Cough Abnormal lung sounds Productive cough Cellulitis Acute on chronic anemia UTI (urinary tract infection) Dysuria Increased frequency of urination Dehydration JESUS (acute kidney injury) Hypokalemia Hyperkalemia Troponin level elevated Essential hypertension OAB (overactive bladder) H/O placement of stent in anterior descending branch of left coronary artery Dementia Hypothyroidism History of non-ST elevation myocardial infarction (NSTEMI) Systolic heart failure CHF (congestive heart failure) COPD (chronic obstructive pulmonary disease) Asthma CVA (cerebral vascular accident) Hypertension LBBB (left bundle branch block) Surgical History Hx of heart artery stent History of knee replacement procedure of right knee Hx of cataract surgery History of hysterectomy Family History Father No problems noted. Mother No problems noted. Brother No problems noted. Brother No problems noted. Sister No problems noted. Son No problems noted. Daughter No problems noted. Daughter No problems noted. Daughter No problems noted. Daughter No problems noted. Social History (Updated 11/05/24 @ 15:38 by Honey Gilmore MA) Household Members: Spouse Housing: Assisted Living Facility Do you presently have visiting nurse or other home services: No Alcohol intake: former Patient Tobacco Use Status: Former Tobacco user e-Cigarette/Vaping Use: Never Used Second Hand Smoke Exposure: No service: No Current occupational status: retired Current occupational exposures/hazards: No Cognitive needs: No Hearing needs: No Vision needs: No Questionnaire Thrive Questionnaire Date Thrive assessed: 08/25/24 I am a: Patient What is your living situation today?: I have a steady place to live Within the past 12 months, did the food you bought not last and you didn't have the money to get more?: Never true Within the past 12 months, did you worry whether your food would run out before you got money to buy more?: Never true Do you have trouble paying for medicines?: No Do you have trouble getting transportation to medical appointments?: No Do you have trouble paying your heating and electricity bill?: No Do you have trouble taking care of your child, family member or friend?: No Do you have trouble with day-to-day activities such as bathing, preparing meals, shopping, managing finances, etc.?: No Are you currently unemployed and looking for a job?: No Are you interested in more education?: No Please select the resources that you would like help with: None Currently or been in a relationship where the following occur: No concerns reported THRIVE Score: 0 ANNA-7 AMB Questionnaire ANNA-7 Date ANNA - 7 assessed: 08/25/24 Source: Developed by Drs. Rashad Ramirez, Carola Rutherford, Jaun Reeves and colleagues, with an educational berto from [employer]. Review of Systems Const Denies chills, Denies fatigue, Denies fever(s), Denies headache(s) and Denies weakness ENT Denies dizziness and Denies headache(s) Card Denies dyspnea Resp Denies cough, Denies dyspnea, Denies wheezing and Denies other (shortness of breath) Musc Denies numbness and Denies tingling Neuro Denies dizziness, Denies headache(s), Denies numbness, Denies tingling and Denies weakness Psych Denies anxiety and Denies depression Endo Denies fatigue Aller/Immun Denies wheezing Physical exam (Primary Care) Vital Signs: Last Vital Signs Temp 98.2 F 11/05/24 15:38 Pulse 57 11/05/24 15:38 Resp 14 11/05/24 15:38 BP 124/60 11/05/24 15:38 Pulse Ox 95 11/05/24 15:38 Oxygen Delivery Method Room Air 11/05/24 15:38 BMI result Body Mass Index 26.8 Tobacco/Smoking Status: Tobacco use Status Tobacco use date assessed 11/05/24 11/05/24 15:40 Patient Tobacco Use Status Former Tobacco user 11/05/24 15:38 e-Cigarette/Vaping Use Never Used 11/05/24 15:38 Thrive Assessment: Date of Thrive Assessment Date Thrive assessed 08/25/24 11/05/24 15:33 Currently or been in a relationship where the following occur: No concerns reported Const General: well developed; No acute distress Nutritional Appearance: well nourished Orientation/consciousness: patient oriented x3 HENMT Head: Yes normocephalic and Yes atraumatic Eyes General: appearance normal, both eyes and all related structures Pupils: Equal, round and reactive pupils present EOM: EOMs intact bilaterally Resp Effort & Inspection: normal respiratory effort Neuro General: patient oriented x3 and No gait normal Cranial nerves: Yes Equal, round and reactive pupils present Extrem Other: 4/5 weakness at upper extremities bilaterally Psych Affect: normal affect Coding Level of Care Code Est Pt Level 5 (07158) Diagnoses Hypertension I10 CAD (coronary artery disease) I25.10 Mild anemia D64.9 Hypothyroidism E03.9 CRF (chronic renal failure) N18.9 Osteoporosis M81.0 Unstable gait R26.81 Upper extremity weakness R29.898 Fall W19.XXXA Lower extremity weakness R29.898 Assessment & Plan Assessment & Plan (1) Hypertension: Code(s): I10 - Essential (primary) hypertension Category: Medical Plan: Blood?pressure?is?well?controlled.??Goal?is?less?than?130/80 Continue?current?medication?regimen (2) CAD (coronary artery disease): Code(s): I25.10 - Atherosclerotic heart disease of [place] coronary artery without angina pectoris Category: Medical Plan: Stable (3) Mild anemia: Code(s): D64.9 - Anemia, unspecified Category: Medical Plan: H&H?significantly?improved?with?iron?supplementation Continue?iron (4) Hypothyroidism: Code(s): E03.9 - Hypothyroidism, unspecified Category: Medical Plan: T3?is?again?low?normal?range?in?TSH?mildly?elevated Will?increase?levothyroxine?from?37.5?mcg?daily?to?50?mcg?daily (5) CRF (chronic renal failure): Code(s): N18.9 - Chronic kidney disease, unspecified Category: Medical Plan: Rising?creatinine?level?and?worsening?eGFR Patient?avoids?drinking?water?due?to?incontinence Encouraged?water?intake?as?tolerated Will?refer?her?to?Nephrology (6) Osteoporosis: Code(s): M81.0 - Age-related osteoporosis without current pathological fracture Category: Medical Plan: Patient?recently?started?alendronate?and?is?tolerating?this Will?check?bone?density?test?at?appropriate?time (7) Unstable gait: Code(s): R26.81 - Unsteadiness on feet Category: Medical Plan: Patient?uses?a?walker?for?unsteady?gait Some?lower?extremity?weakness?and?knee?pain Start?physical?therapy Continue?using?walker (8) Upper extremity weakness: Code(s): R29.898 - Other symptoms and signs involving the musculoskeletal system Category: Medical Plan: Patient?notes?some?upper?extremity?weakness?when?trying?to?climb?bus?stairs Was?unable?to?lift?herself?up?in?hold?on?so?she?slipped?and?fell?towards?the?stairs.??No?head?injury. Upper?extremities?4/5?strength?bilaterally.??Likely?getting?fatigued?easily?however. Start?physical?therapy (9) Fall: Code(s): W19.XXXA - Unspecified fall, initial encounter Category: Medical Plan: As?above (10) Lower extremity weakness: Code(s): R29.898 - Other symptoms and signs involving the musculoskeletal system Category: Medical Plan: As?above Orders: Orders Thyroid Stimulating Hormone Today E03.9 - Hypothyroidism, unspecified PT Evaluation and Treatment Today M17.12 - Unilateral primary osteoarthritis, left knee, R26.81 - Unsteadiness on feet, R29.898 - Other symptoms and signs involving the musculoskeletal system Free T4 (Free Thyroxine) Today E03.9 - Hypothyroidism, unspecified Triiodothyronine T3 Total Today E03.9 - Hypothyroidism, unspecified Complete Blood Count Auto Diff Today D64.9 - Anemia, unspecified, Z00.00 - Encounter for general adult medical examination without abnormal findings Comprehensive Met. Panel Today D64.9 - Anemia, unspecified Referrals Nephrology Referral N18.9 - Chronic kidney disease, unspecified Medications: Changed From levothyroxine (Synthroid) 37.5 mcg (1.5 x 25 mcg) PO DAILY 90 days 135 tabs 0RF To levothyroxine 50 mcg PO DAILY 90 tabs 3RF 90 days
[2024-11-05 15:38] VITALS: BP 124/60; PULSE 57; RESP 14; TEMP 36.8; O2SAT 95; BMI 26.8
--- OUTSIDE RECORDS SUMMARY | 2024-11-05 15:41 | XMS_ITS | Patient Health Record ---
Author Organization [facility] Billing Info Address [address] [place] [address] [place] [address] Care Team Providers Care Technician Inventory Specialist Name Role Phone DR TERRENCE NATH [...] type) Unknown 08/21/2013 Administered PNEUMOCOCCAL 13 CONJ ([id number]) IM Intramuscular 04/16/2015 Administered TDAP (BOOSTRIX) IM Intramuscular 02/18/2016 Administered zFLU 3V (FLUZONE HIGH DOSE), 65 YRS+, NO PRES - ALL PAYORS IM Intramuscular 03/25/2014 Administered Double Dose zFLU 3V (FLUZONE HIGH DOSE), 65 YRS+, NO PRES - ALL PAYORS IM Intramuscular 03/01/2015 Administered Problems Problem Type SNOMED Code ICD Code Onset Dates Problem Status W/U Status Risk Notes Problem 327527000 Other hyperlipidemia (E78.4) Active confirmed Problem 0738863 Unspecified osteoarthritis, unspecified site (M19.90) Active confirmed Problem 97762859 Pain in left kne e (M25.562) Active confirmed pt to follow up with ortho Problem 982489580 Localized edema (R60.0) Active confirmed Problem 410781647 Asthma (J45.909) Active confirmed Problem 581090585 SOB (shortness o f breath) (R06.02) Active confirmed Problem 79624518 Essential hypertension (I10) Active confirmed Problem 519777976 TIA (transient ischemic attack) (G45.9) Active confirmed Problem 128866209 Unsteady gait (R26.81) Active confirmed Problem Memory changes (R41.3) Active confirmed Problem 76263917 LBBB (left bundl e branch block) (I44.7) Active confirmed Problem 958679769 Non-cardiac ches t pain (R07.89) Active confirmed Problem 078066706 Acute hand eczem a (L30.9) 7 Active confirmed Problem 20227943 Bakers cyst, lef t (M71.22) 7 Active confirmed Problem 400212609 Seasonal allergi c rhinitis, unspecified allergic rhinitis trigger (J30.2) Active confirmed Plan Of Treatment Future Test Test Name Order Date Basic Metabolic Panel (8) ([id number] ) 12/27/2017 US- CAROTID DOPPLER (28796)(AIC-CAROTID) 03/17/2019 Insurance Providers Payer Name Payer Address Payer Phone Subscriber Number Group Number Insured Name Patient Relationship to Insured Coverage Start Date Coverage End Date [facility] [employer] PLAN [address] [place] [address] [phone] [id number] Carlos King Spouse - patient is the spouse of the insured 5 6 Medications Administered Medication Instructions Date of Administration Dosage Notes Dexamethasone Na Phosphate 02/29/2016 1 mL zMethylprednisolone Acetate 40 mg (Depo Medrol) 02/29/2016 1 mL Medical (General) History Medical History History ICD Code 1. Noncardiac chest pain a. 10/1999 stress echocardiog taina: [facility] cardiology: No resting wall motion abnormalities. [...]
== END 2024-11-05 16:05 | disposition home or self-care (01) ==
LOC: HO.HMCFM 15:28
PROVIDERS: PCP Family Medicine; Visit Provider Family Medicine
DX: I12.9 Hypertensive chronic kidney disease with stage 1 through stage 4 chronic kidney disease, or unspecified chronic kidney disease (principal); I25.10 Atherosclerotic heart disease of native coronary artery without angina pectoris; N18.9 Chronic kidney disease, unspecified; D64.9 Anemia, unspecified; E03.9 Hypothyroidism, unspecified; M81.0 Age-related osteoporosis without current pathological fracture; R26.81 Unsteadiness on feet; R29.898 Other symptoms and signs involving the musculoskeletal system; W19.XXXA Unspecified fall, initial encounter

== ENCOUNTER 2024-11-14 10:35 | Outpatient (AMB) | payer BC, SELFPAY ==
--- NOTE | 2024-11-13 20:06 | A.OFFVIS_ITS ---
Intake Visit Reasons: UroD Allergies peanut Allergy (Severe, Verified 11/05/24 15:35) Facial Swelling latex (LATEX) Allergy (Unknown, Verified 11/05/24 15:35) RASH, ITCHY HPI Comments Details: 11/14/2024 Ann is here for urodynamics. The patient has complaints of urinary incontinence. PMH--CHF/systolic heart failure, COPD, CVA, dementia, NSTEMI, hypertension, hypothyroidism, left bundle-branch block, Interpretation: During the filling phase there was [] sensation, [] sensory urgency was noted, [] strong desire was noted at [] mL. Bladder capacity was [] less than average, the patient felt that they were at capacity at [] mL and voided [] mL. Leakage [] was [] was not observed during cough or valsalva stress. Findings consistent with ISD [] less than average functional bladder cap acity, [] detrusor overactivity. EMG- Appropriate changes in the waveforms were noted through out the study. . Ann Padilla is a 84 year old female patient of Dr. Lockwood who is a ccompanied by her daughter during today's telehealth appointment. She has a past medical history of asthma, CHF/systolic heart failure, COPD, CVA, dementia, NSTEMI, hypertension, hypothyroidism, left bundle-branch block, and overactive bladder. In discussion with the patient today she continues to report ongoing bothersome urinary issues however feels they are less bothersome when she is out and about. She reports noting frequent episodes of mixed urinary incontinence while at home however feels when she has planned days outside of her home she does not experience these incontinent episodes. Previously patient has trialed VESIcare however had increase in postvoid residuals. She had also briefly trialled Gemtesa however had an increase in co-payment and therefore this was discontinued. She continues to live at our in [facility] with her in the independent living. When asked she denies hematuria, dysuria, foul smelling urine, changes to urinary stream, flank pain, fever, and or chills. We discussed importance of timed/scheduled voiding as well as further treatment options such as in office urodynamics for further assessment evaluation. This procedure was discussed in all questions were answered. She otherwise offers no other issues or concerns at this time. PFSH Medical History Dermatitis Contact dermatitis Rash Rash Respiratory failure Cough Cough Abnormal lung sounds Productive cough Cellulitis Acute on chronic anemia UTI (urinary tract infection) Dysuria Increased frequency of urination Dehydration JESUS (acute kidney injury) Hypokalemia Hyperkalemia Troponin level elevated Essential hypertension OAB (overactive bladder) H/O placement of stent in anterior descending branch of left coronary artery Dementia Hypothyroidism History of non-ST elevation myocardial infarction (NSTEMI) Systolic heart failure CHF (congestive heart failure) COPD (chronic obstructive pulmonary disease) Asthma CVA (cerebral vascular accident) Hypertension LBBB (left bundle branch block) Surgical History Hx of heart artery stent History of knee replacement procedure of right knee Hx of cataract surgery History of hysterectomy Family History Father No problems noted. Mother No problems noted. Brother No problems noted. Brother No problems noted. Sister No problems noted. Son No problems noted. Daughter No problems noted. Daughter No problems noted. Daughter No problems noted. Daughter No problems noted. Social History (Updated 11/05/24 @ 15:38 by Honey Gilmore MA) Household Members: Spouse Housing: Assisted Living Facility Do you presently have visiting nurse or other home services: No Alcohol intake: former Patient Tobacco Use Status: Former Tobacco user e-Cigarette/Vaping Use: Never Used Second Hand Smoke Exposure: No service: No Current occupational status: retired Current occupational exposures/hazards: No Cognitive needs: No Hearing needs: No Vision needs: No Office Procedures Urodynamic Studies Consent Discussed risk and benefit or proposed procedure with the patient. Information consent for procedure given to the patient. Discussed technical aspects, risks, benefits and alternatives in full. Addressed all of the patient's questions and concerns regarding the procedure. The patient demonstrated knowledge and understanding. They wish to proceed with this procedure. Preparation The patient was prepped in the usual manner. A yarn handler was present and in the room. Genitalia was prepped with betadine solution in a sterile manner. Procedure Complex Uroflow Unable to perform. Patient had no urge to void for uroflow. Cystometrogram ? Vaginal/rectal catheter type: Vaginal First sensation at (mL): 21 mL First desire at (mL): 41 mL Strong desire to void occurred at (mL): 42 mL Strong desire detrusor pressure (cm H2O): 26 Maximum Capacity (mL): 51 mL Voiding Summary Voided with max detrusor pressure of (cm H2O): 32 Maximum flow rate (mL/second): 3.1 mL/s Voided volume (mL): ? 36ml Calculated PVR: 0 mL Stress Testing Unable to perform stress testing due to severe uncontrolled DO. DO Dry: n/a DO Wet: 51ml Prep: The patient was prepped in the usual manner. A yarn handler was present and in the room. Genitalia was prepped with betadine solution in a sterile manner. 57356-Phbndpzhaojxjk w/ BORING MACHINE OPERATOR VERTICAL 84569-Qqavsvn-Qrcwhousufok 40323-Xkkt/Urinary Muscle Study 71841-Sfkpm-Drycqaslt Pressure Test Procedure code (CPT) selection complete Results AMB Urinalysis, Automated UA Leukoctes 0 Stephany/uL Last Edit by Jo-Ann Alamo RN on 11/14/24 11:53 UA Nitrite Negative Last Edit by Jo-Ann Alamo RN on 11/14/24 11:53 UA Urobilinogen 0.2 mg/dL Last Edit by Jo-Ann Alamo RN on 11/14/24 11: 53 UA Protein 0 mg/dL Last Edit by Jo-Ann Alamo RN on 11/14/24 11:53 UA pH 6.0 Last Edit by Jo-Ann Alamo RN on 11/14/24 11:53 UA Blood 0 Chalino/uL Last Edit by Jo-Ann Alamo RN on 11/14/24 11:53 UA Specific [place] 1.0 Last Edit by Jo-Ann Alamo RN on 11/14/24 11:5 3 UA Ketone Negative Last Edit by Jo-Ann Alamo RN on 11/14/24 11:53 UA Bilirubin 0 mg/dL Last Edit by Jo-Ann Alamo RN on 11/14/24 11:53 UA Glucose 0 mg/dL Last Edit by Jo-Ann Alamo RN on 11/14/24 11:53 Results Reviewed Results Reviewed: Laboratory Last Values Urine pH (Auto) 6.0 11/14/24 11:52 Specific [place] (Auto) 1.0 11/14/24 11:52 Urine Protein (Auto) 0 mg/dL 11/14/24 11:52 Glucose (UA)(Auto) 0 mg/dL 11/14/24 11:52 Urine Ketones (Auto) Negative 11/14/24 11:52 Urine Blood (Auto) 0 Chalino/uL 11/14/24 11:52 Urine Nitrite (Auto) Negative 11/14/24 11:52 Urine Bilirubin (Auto) 0 mg/dL 11/14/24 11:52 Urine Urobilinogen (Auto) 0.2 mg/dL 11/14/24 11:52 Leukocyte Esterase (Auto) 0 Stephany/uL 11/14/24 11:52 Assessment & Plan Assessment & Plan Orders: Orders AMB Urinalysis Automated Today Z13.9 - Encounter for screening, unspecified Coding CPT Codes Urodynamic Studies - CPT: 69319-Oiinobsskxcqch w/ BORING MACHINE OPERATOR VERTICAL ([id number]) Urodynamic Studies - CPT: 55327-Mvbxzwi-Sancnpfaniww ([id number]) Urodynamic Studies - CPT: 11294-Qtir/Urinary Muscle Study ([id number]) Urodynamic Studies - CPT: 13448-Oncel-Sxfxngzts Pressure Test ([id number])
--- OUTSIDE RECORDS SUMMARY | 2024-11-14 11:08 | XMS_ITS | Patient Health Record ---
Author Organization [facility] Billing Info Address [address] [place] [address] [place] [address] Care Team Providers Care City Administrator Name Role Phone DR TERRENCE NATH Primary [...] type) Unknown 08/21/2013 Administered PNEUMOCOCCAL 13 CONJ ([id number]) IM Intramuscular 04/16/2015 Administered TDAP (BOOSTRIX) IM Intramuscular 02/18/2016 Administered zFLU 3V (FLUZONE HIGH DOSE), 65 YRS+, NO PRES - ALL PAYORS IM Intramuscular 03/25/2014 Administered Double Dose zFLU 3V (FLUZONE HIGH DOSE), 65 YRS+, NO PRES - ALL PAYORS IM Intramuscular 03/01/2015 Administered Problems Problem Type SNOMED Code ICD Code Onset Dates Problem Status W/U Status Risk Notes Problem 940111307 Other hyperlipidemia (E78.4) Active confirmed Problem 5369008 Unspecified osteoarthritis, unspecified site (M19.90) Active confirmed Problem 27502987 Pain in left kne e (M25.562) Active confirmed pt to follow up with ortho Problem 062663248 Localized edema (R60.0) Active confirmed Problem 838991983 Asthma (J45.909) Active confirmed Problem 985400828 SOB (shortness o f breath) (R06.02) Active confirmed Problem 16463879 Essential hypertension (I10) Active confirmed Problem 497974339 TIA (transient ischemic attack) (G45.9) Active confirmed Problem 519658330 Unsteady gait (R26.81) Active confirmed Problem Memory changes (R41.3) Active confirmed Problem 64131366 LBBB (left bundl e branch block) (I44.7) Active confirmed Problem 668152066 Non-cardiac ches t pain (R07.89) Active confirmed Problem 146536727 Acute hand eczem a (L30.9) 7 Active confirmed Problem 88102741 Bakers cyst, lef t (M71.22) 7 Active confirmed Problem 539710550 Seasonal allergi c rhinitis, unspecified allergic rhinitis trigger (J30.2) Active confirmed Plan Of Treatment Future Test Test Name Order Date Basic Metabolic Panel (8) ([id number] ) 12/27/2017 US- CAROTID DOPPLER (37595)(AIC-CAROTID) 03/17/2019 Insurance Providers Payer Name Payer Address Payer Phone Subscriber Number Group Number Insured Name Patient Relationship to Insured Coverage Start Date Coverage End Date [facility] [employer] EM[employer] PLAN [address] [place] [address] [id number] Carlos King Spouse - patient is the spouse of the insured 5 6 Medications Administered Medication Instructions Date of Administration Dosage Notes Dexamethasone Na Phosphate 02/29/2016 1 mL zMethylprednisolone Acetate 40 mg (Depo Medrol) 02/29/2016 1 mL Medical (General) History Medical History History ICD Code 1. Noncardiac chest pain a. 10/1999 stress echocardiog taina: [facility] cardiology: No resting wall motion [...]
== END 2024-11-14 12:25 | disposition home or self-care (01) ==
LOC: HO.HUSH 10:35
PROVIDERS: PCP Family Medicine; Visit Provider Urology
DX: R32 Unspecified urinary incontinence (principal); Z13.9 Encounter for screening, unspecified
CPT/HCPCS: 51728; 51741; 51784; 51797

== ENCOUNTER → 2024-11-14 10:35 | Outpatient (BNVA) | payer BC, SELFPAY | PROVIDERS: PCP Family Medicine; Visit Provider Urology | DX: N39.46 Mixed incontinence (principal) | CPT/HCPCS: 51728; 51741; 51784; 51797; 81003 ==

== ENCOUNTER 2024-12-05 15:08 | Outpatient (RCR) | payer BC, SELFPAY ==
--- NOTE | 2024-11-18 14:19 | MHC.PT.EP ---
[facility] [place] Office [place] Office [place] Office [address] Myron Mckay [address] [phone] F: [phone] F: [phone] F: [phone] F: [phone] Physical Therapy Plan of Care Date of Evaluation: 11/18/24 Date of Surgery: NA Diagnosis: OA L KNEE Assessment: Pt IS 84 YO F REFERRED TO PT FROM DR MORROW WITH L KNEE OA AND BALANCE ISSUES. Pt HAD A TRIP ABOUT A MONTH AGO GOING UP STEPS INTO [place] FROM [facility]. HAS HAD A FALL BEFORE THAT ALSO. PRESENTS TO PT WITH GENERALIZED WEAKNESS. Pt USES [facility] FOR AMBULATION WITHOUT GROSS LOB. SOME DECREASED STABILITY NOTED WITH TRANSFERS SIT<>STAND AND BED MOBILITY (ROLLING). SHOULD BENEFIT FROM PT TO HELP WITH OVERALL STRENGTH AND ENDURANCE Frequency and Duration: The patient will be seen 2X/WK X 2 WKS THEN 1X/WK X 2 WKS Short Term Goals: 1. INCREASED AWARENESS OF [facility] SAFETY ( 2. Pt TO REPORT IMPROVED ENDURANCE (?USE OF ROLLATOR FOR LONGER DISTANCES) Residential Goals: 1. I HEP 2. NO FALLS Treatment Plan: Modalities to reduce pain, spasms and effusion. Manual therapy to restore motion and function. Therapeutic exercise to improve strength and flexibility. Neuromuscular re-education for posture and balance. Therapeutic activities to return to functional activities of daily living. Electronically signed by: SHABNAM JACOB PT Please sign and return to therapist. Thank you for your referral.
--- NOTE | 2025-01-13 10:02 | MHC.PT.DC ---
[facility] [place] Office [place] Office [place] Office [address] Myron Mckay [address] [phone] F: [phone] F: [phone] F: [phone] F: [phone] Physical Therapy Discharge Report Diagnosis: OA L KNEE Date of Surgery: NA Date of Evaluation: 11/18/24 Date of Discharge: 01/13/25 Treatments to Date: 4 Cancellations to Date: No Shows to Date: Discharge Status: Independent with HEP Patient Elected to Stop Recommend MD Follow-up Discharge Summary: PER ASSESSMENT FROM LAST SESSION POOR ABILITY TO WT SHIFT, DIFFICULTY WITH ROLLING. WILL HAVE ONE WEEK TO WORK ON EXS THEN FU Pt WAS IN ER FOR BACK/HIP PAIN. SAW PCP WHO RECOMMENDED CONTINUE WITH EXS AT HOME GENTLY Electronically signed by: SHABNAM JACOB PT Please sign and return to therapist. Thank you for your referral.
== END 2025-01-13 10:06 | disposition home or self-care (01) ==
LOC: HO.PT 15:08
PROVIDERS: PCP Family Medicine; Visit Provider Family Medicine
DX: R29.898 Other symptoms and signs involving the musculoskeletal system (principal); M17.12 Unilateral primary osteoarthritis, left knee; R26.81 Unsteadiness on feet
CPT/HCPCS: 97110; 97112; 97116; 97162; 97530; 97535

== ENCOUNTER 2024-12-07 10:47 | Emergency (ER) | payer BC, SELFPAY ==
--- NOTE | ~2024-12-07 | XR_ITS ---
CLINICAL HISTORY: ACUTE ONSET RIGHT LOW BACK PAIN 3 views lumbar spine Comparison: None provided Findings: 8 mm anterolisthesis L4 on L5. No acute fractures or dislocation. Diffuse osteopenia. No significant vertebral body compression deformity. Severe L5-S1 disc space narrowing with endplate osteophytes. Advanced facet degenerative changes L5-S1. There are multiple intrapelvic clips. There is calcific plaque throughout the abdominal aorta. 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 IMPRESSION: 1. No acute fracture in the lumbar spine. 2. Advanced disc and facet degenerative changes at L5-S1. This document has been electronically signed by: Yeni Booth DO on 12/07/2024 13:06:29
--- NOTE | ~2024-12-07 | XR_ITS ---
CLINICAL HISTORY: ACUTE ONSET RIGHT HIP PAIN 3 view, pelvis and right hip Comparison: None provided Findings: No acute fracture or dislocation. Heterogeneous sclerotic densities in the bilateral femoral heads. Tnrb-rb-[id number] narrowing of the bilateral acetabulofemoral joints. Prominent degenerative changes at the lumbosacral junction. Multiple intrapelvic clips. IMPRESSION: 1. No acute fracture or dislocation. 2. 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 This document has been electronically signed by: Yeni Booth DO on 12/07/2024 13:09:38
[2024-12-07 10:53] VITALS: BP 144/58; PULSE 54; RESP 16; TEMP 36.6; O2SAT 92; BMI 26.6
--- NOTE | 2024-12-07 11:38 | ED.BACK ---
HPI - Back Pain/Injury General Chief Complaint: Back Pain/Injury Stated Complaint: right hip pain, no known injury Time Seen by Provider: 12/07/24 11:04 Source: patient, family (daughter) and EMS Mode of arrival: EMS Limitations: no limitations History of Present Illness ED Provider: ANNELISE JEFFERY PA-C HPI Narrative: 84 year old female with pmhx significant for COPD, NSTEMI, CHF, osteoarthritis, hypothyroidism, asthma presents to the ED today for evaluation right lower back/hip pain x today. Patient reports getting up out of bed early this morning to use the bathroom however upon waking, had sudden pain to her right low back/hip. She was eventually able to get out of bed and ambulate to the bathroom assisted by her walker. Reports applying voltaren to her back and was able to fall back asleep. Her daughter arrived at her home around 0900 to take her to [facility] however she was still having pain, worse with movement/ ambulation, prompting her daughter to call EMS. Pain is localized to right lower back/buttock/hip. No pain radiation down her LEs. Denies any numbness/tingling/weakness of the LEs. Denies recent blunt injury/trauma/ falls. She has been in physical therapy x2-3 weeks for strength conditioning and completed a PT session 3 days ago. Denies any dysuria or hematuria. Denies hx of spinal surgery or IVDU. Denies fever, chills, saddle anesthesia, bowel or bladder incontinence or retention. Related Data Previous Rx's ?Medication ?Instructions ?Recorded cetirizine 10 mg tablet 10 mg PO DAILY PRN allergy 06/20/22 symptoms 30 days #30 tabs albuterol sulfate 90 mcg/actuation 2 puff inhalation Q4-6H PRN 05/03/23 aerosol inhaler (Proventil HFA) shortness of breath or wheezing #8.5 grams fluticasone 250 mcg-salmeterol 50 1 inh inhalation Q12H 30 days #60 04/10/24 mcg/dose blistr powdr for ea inhalation (Wixela Inhub) betamethasone valerate 0.1 % 1 appl topical BID PRN skin 04/16/24 topical cream irritation 14 days #45 grams famotidine 20 mg tablet 20 mg PO DAILY 14 days #14 tabs 04/16/24 mometasone 50 mcg/actuation nasal 2 spray intranasal BID PRN nasal 06/27/24 spray congestion #17 grams alendronate 70 mg tablet 70 mg PO QWEEK 28 days #4 tabs 10/02/24 ferrous sulfate 325 mg (65 mg 325 mg PO DAILY 90 days #90 tabs 10/02/24 iron) tablet amlodipine 10 mg tablet 10 mg PO DAILY 90 days #90 tabs 10/15/24 atorvastatin 80 mg tablet 80 mg PO BEDTIME 90 days #90 tabs 10/17/24 donepezil 10 mg tablet 10 mg PO DAILY #90 tabs 10/17/24 furosemide 40 mg tablet 40 mg PO DAILY #90 tabs 10/17/24 memantine 10 mg tablet 10 mg PO BID 90 days #180 tabs 10/17/24 omeprazole 20 mg capsule,delayed 20 mg PO DAILY 90 days #90 caps 10/17/24 release sertraline 100 mg tablet 100 mg PO BEDTIME 90 days #90 tabs 10/17/24 spironolactone 50 mg tablet 50 mg PO DAILY 90 days #90 tabs 10/17/24 levothyroxine 50 mcg tablet 50 mcg PO DAILY 90 days #90 tabs 11/05/24 clonidine 0.2 mg/24 hr weekly 1 patch topical QWEEK #4 patches 11/12/24 transdermal patch hydralazine 50 mg tablet 50 mg PO BID 30 days #60 tabs 11/12/24 montelukast 10 mg tablet 10 mg PO BEDTIME 90 days #90 tabs 11/12/24 aspirin 81 mg tablet,delayed 81 mg PO DAILY #90 tabs 11/13/24 release trospium 20 mg tablet 20 mg PO BID #60 tabs 11/14/24 magnesium oxide 400 mg PO BID 90 days #180 caps 11/17/24 cefuroxime axetil 250 mg tablet 250 mg PO BID 7 days #14 tabs 12/07/24 lidocaine 5 % topical patch 1 patch topical DAILY #15 ea 12/07/24 (Lidoderm) Allergies Allergy/AdvReac Type Severity Reaction Status Date / Time peanut Allergy Severe Facial Verified 12/07/24 10:56 Swelling latex (LATEX) Allergy Unknown RASH, ITCHY Verified 12/07/24 10:56 Review of Systems Review of Systems: Yes all other systems are reviewed and are negative PMFSH Past Medical History Attestation statement: The following information was validated with the patient. Source: old records reviewed and nursing notes reviewed Medical History Dermatitis Contact dermatitis Rash Rash Respiratory failure Cough Cough Abnormal lung sounds Productive cough Cellulitis Acute on chronic anemia UTI (urinary tract infection) Dysuria Increased frequency of urination Dehydration JESUS (acute kidney injury) Hypokalemia Hyperkalemia Troponin level elevated Essential hypertension OAB (overactive bladder) H/O placement of stent in anterior descending branch of left coronary artery Dementia Hypothyroidism History of non-ST elevation myocardial infarction (NSTEMI) Systolic heart failure CHF (congestive heart failure) COPD (chronic obstructive pulmonary disease) Asthma CVA (cerebral vascular accident) Hypertension LBBB (left bundle branch block) Surgical History Hx of heart artery stent History of knee replacement procedure of right knee Hx of cataract surgery History of hysterectomy Family History Family History Father No problems noted. Mother No problems noted. Brother No problems noted. Brother No problems noted. Sister No problems noted. Son No problems noted. Daughter No problems noted. Daughter No problems noted. Daughter No problems noted. Daughter No problems noted. Social History Social History Household Members: Spouse Housing: Assisted Living Facility Do you presently have visiting nurse or other home services: No Alcohol intake: former Patient Tobacco Use Status: Former Tobacco user e-Cigarette/Vaping Use: Never Used Second Hand Smoke Exposure: No service: No Current occupational status: retired Current occupational exposures/hazards: No Cognitive needs: No Hearing needs: No Vision needs: No Physical Exam Vital Signs: Vital Signs: Last Vital Signs Temp 98.4 F 12/07/24 15:00 Pulse 51 12/07/24 15:00 Resp 18 12/07/24 15:00 BP 135/51 L 12/07/24 15:00 Pulse Ox 95 12/07/24 15:00 O2 Del Method Room Air 12/07/24 15:00 BMI result Body Mass Index 26.6 vital signs stable, afebrile General: Well appearing, in no acute distress. Skin: Warm, dry, intact. No rashes or lesions. Head: Normocephalic, atraumatic. EENT: Hearing is intact b/l. Conjunctiva clear. Sclera is anicteric. PERRLA. EOM intact. Moist mucous membranes.? Neck: Supple without LAD Cardiac: Chest wall symmetric. RRR Lungs: Normal respiratory effort without accessory muscle use. CTA bilaterally Abdomen: Soft, non-tender, non-distended. No rebound tenderness or guarding. Positive BS x4. no cvat. Back: +no midline spinous tenderness or step off deformity. positive straight leg raise on right. Ext: +FROM intact to right hip, some pain on flexion. no overlying skin changes/ swelling. no tenderness to palpation over right hip. Neuro: AOx3. Normal speech. Strength 4/5 intact throughout. No saddle anesthesia. Sensation intact to light touch. NV intact distally. Ambulating with steady gait assisted. Course Course Course Narrative: X-ray lumbar spine showing advanced disc and facet degenerative changes at L5/S1, no acute fracture. 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 Urinalysis showing mild UTI. Will treat with Ceftin. > discussed imaging findings with orthopedic [facility] Zayas - no acute surgical intervention warranted on their part. Advising outpatient follow up with ortho. > on re-evaluation, patient reports improvement in symptoms after receiving Tylenol and lidocaine patch. ? AVN with a component of sciatica, likely exacerbated by patient's recent physical therapy. Discussed symptomatic treatment with pain control. she has been up and ambulating to the bathroom. she is well appearing and anxious for discharge home. Will send lidocaine patches to her pharmacy. Referral to ortho provided. Advised outpatient follow-up. Patient has remained stable throughout ED visit today. Discussed worrisome signs and symptoms and when to return to the ED. All questions answered at this time. Patient is agreeable with disposition and stable for discharge. Medications Administered Discontinued Medications Generic Name Dose Route Start Last Admin Trade Name Freq PRN Reason Stop Dose Admin Acetaminophen 975 mg 12/07/24 11:48 12/07/24 12:34 Acetaminophen 325 Mg Tablet PO 12/07/24 11:49 975 mg ONCE ONE Administration Lidocaine 1 patch 12/07/24 11:48 12/07/24 12:34 Lidocaine 4 % Patch Adh..Patch TRANSDERMA 12/07/24 11:49 1 patch ONCE ONE Administration Protocol Medical Decision Making Medical Decision Making [facility] Narrative: 84 year old female with pmhx significant for COPD, NSTEMI, CHF, osteoarthritis, hypothyroidism, asthma presents to the ED today for evaluation right lower back/hip pain x today. Vital signs stable. She is well-appearing and in no acute distress. On exam, no midline spinous tenderness or step off deformity. positive straight leg raise on right. there is FROM intact to right hip, some pain on flexion. no overlying skin changes/ swelling. no tenderness to palpation over right hip. nv intact distally. Ambulating with steady gait assisted. Differential diagnosis includes arthritis, sciatica, tendonitis, bursitis, fracture, dislocation. Unlikely neurovascular compromise, threat to limb, compartment syndrome, DVT, cauda equina, Guillain-Reinbeck, epidural abscess, cord compression. Plan for imaging, UA, pain control, re-evaluation. Differential Diagnosis Differential Diagnoses: The differential diagnosis associated with the presentation includes as above. Admission/Observation not indicated. Lab Data [facility] Lab Attestation statement: I reviewed the patient's lab results. as above. Labs: Lab Results 12/07/24 Range/Units 14:19 Urine Color Yellow Urine Appearance Clear Urine pH 6.5 (5.0-9.0) Ur Specific [place] 1.015 (1.005-1.025) Urine Protein Negative (Neg-Trace) mg/dL Urine Glucose (UA) Negative (Negative) mg/dL Urine Ketones Negative (Negative) mg/dL Urine Blood Negative (Negative) Urine Nitrite Negative (Negative) Ur Leukocyte Esterase Small (1+) H (Negative) Urine RBC 0-2 (0-2) /HPF Urine WBC 6-10 H (0-5) /HPF Ur Squamous Epith Cells 0-2 (0-2) /HPF Urine Bacteria 2+ (None Seen) Hyaline Casts 0-2 (0-2) /LPF Independent Interpretation I performed an independent interpretation of an: Plain X-Ray Interpretation: xr right hip without fracture or dislocation xr lumbar spine without compression fracture Radiology Impression Discussion of test interpretation with radiology: I have reviewed the radiologist's reading. Radiologist Impression: Date of Service: 12/07/24 Procedure(s): XR hip RT w PEL1V Accession Number(s): [id number] cc: Claus Lockwood MD; Annelise Jeffery~ CLINICAL HISTORY: ACUTE ONSET RIGHT HIP PAIN 3 view, pelvis and right hip Comparison: None provided Findings: No acute fracture or dislocation. Heterogeneous sclerotic densities in the bilateral femoral heads. [id number] narrowing of the bilateral acetabulofemoral joints. Prominent degenerative changes at the lumbosacral junction. Multiple intrapelvic clips. IMPRESSION: 1. No acute fracture or dislocation. 2. 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 This document has been electronically signed by: Yeni Booth DO on 12/07/2024 13:09:38 Date of Service: 12/07/24 Procedure(s): XR lumbar spine 2-3V Accession Number(s): [id number] cc: Claus Lockwood MD; Annelise Jeffery~ CLINICAL HISTORY: ACUTE ONSET RIGHT LOW BACK PAIN 3 views lumbar spine Comparison: None provided Findings: 8 mm anterolisthesis L4 on L5. No acute fractures or dislocation. Diffuse osteopenia. No significant vertebral body compression deformity. Severe L5-S1 disc space narrowing with endplate osteophytes. Advanced facet degenerative changes L5-S1. There are multiple intrapelvic clips. There is calcific plaque throughout the abdominal aorta. 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 IMPRESSION: 1. No acute fracture in the lumbar spine. 2. Advanced disc and facet degenerative changes at L5-S1. This document has been electronically signed by: Yeni Booth DO on 12/07/2024 13:06:29 Independent Historian Clinical information obtained from an independent historian. History obtained from or confirmed by: Other (daughter) External Record Review External record reviewed: Inpatient record Prescription Management I considered prescription management with: Pain Medication and Antibiotic (Ceftin) Chronic Conditions Patient?s care impacted by: Other (osteoporosis) Social Determinants Patient?s care significantly limited by Social Determinants of Health including: Other Social Determinant of Health Critical Care Time Critical Care Time Critical Care Time: No Discharge Plan Discharge Clinical Impression: AVN of femur, Acute UTI Patient Disposition: Home, Self-Care Instructions: Alendronate (By mouth), Urinary Tract Infection in Women (ED) Additional Instructions: You were evaluated in the ED today for right hip/ right lower back pain. The xray of your lumbar spine showed advanced degenerative changes consistent with the aging process/ arthritis. There is no fracture. The xray of your right hip/ pelvis shows osteonecrosis of both hips. I have suspicion that this is due to your current osteoporosis medication (alendronate). I recommend holding this medication until you are able to follow up with either your primary care provider or consumer marketing specialist. You have been provided with a referral to [facility]. Call them to establish care, they will not call you. In the mean time, I suggest tylenol and motrin at home for pain. I am also sending lidocaine patches to your pharmacy. Apply these to your back as needed for pain control. Your urine shows a urinary tract infection. I am starting you on ceftin, an antibiotic, for treatment. Take this to completion. Return with any new or worsening symptoms. In the case of an emergency call 911. Prescriptions: New cefuroxime axetil 250 mg tablet 250 mg PO BID 7 Days Qty: 14 0RF lidocaine [Lidoderm] 5 % adhesive patch,medicated 1 patch topical DAILY Qty: 15 0RF Rx Instructions: leave on most painful area for up to 12 hrs No Action fluticasone propion-salmeterol [Wixela Inhub] 250-50 mcg/dose blister with device 1 inh inhalation Q12H 30 Days Qty: 60 0RF mometasone 50 mcg/actuation spray,non-aerosol 2 spray intranasal BID PRN (Reason: nasal congestion) Qty: 17 0RF Rx Instructions: administer into each nostril amlodipine 10 mg tablet 10 mg PO DAILY 90 Days Qty: 90 0RF donepezil 10 mg tablet 10 mg PO DAILY Qty: 90 0RF atorvastatin 80 mg tablet 80 mg PO BEDTIME 90 Days Qty: 90 0RF sertraline 100 mg tablet 100 mg PO BEDTIME 90 Days Qty: 90 0RF spironolactone 50 mg tablet 50 mg PO DAILY 90 Days Qty: 90 0RF memantine 10 mg tablet 10 mg PO BID 90 Days Qty: 180 0RF furosemide 40 mg tablet 40 mg PO DAILY Qty: 90 0RF omeprazole 20 mg capsule,delayed release(DR/EC) 20 mg PO DAILY 90 Days Qty: 90 0RF montelukast 10 mg tablet 10 mg PO BEDTIME 90 Days Qty: 90 0RF hydralazine 50 mg tablet 50 mg PO BID 30 Days Qty: 60 0RF Protocol: Hold for SBP< HOLD for SBP < : 90 clonidine 0.2 mg/24 hr patch weekly 1 patch topical QWEEK Qty: 4 0RF aspirin 81 mg tablet,delayed release (DR/EC) 81 mg PO DAILY Qty: 90 3RF magnesium oxide 400 mg magnesium capsule 400 mg PO BID 90 Days Qty: 180 0RF cetirizine 10 mg tablet 10 mg PO DAILY PRN (Reason: allergy symptoms) 30 Days Qty: 30 2RF albuterol sulfate [Proventil HFA] 90 mcg/actuation HFA aerosol inhaler 2 puff inhalation Q4-6H PRN (Reason: shortness of breath or wheezing) Qty: 8.5 5RF alendronate 70 mg tablet 70 mg PO QWEEK 28 Days Qty: 4 3RF ferrous sulfate 325 mg (65 mg iron) tablet 325 mg PO DAILY 90 Days Qty: 90 3RF trospium 20 mg tablet 20 mg PO BID Qty: 60 3RF Rx Instructions: administer on an empty stomach one hour prior or two hours after a meal levothyroxine 50 mcg tablet 50 mcg PO DAILY 90 Days Qty: 90 3RF famotidine 20 mg tablet 20 mg PO DAILY 14 Days Qty: 14 0RF betamethasone valerate 0.1 % cream 1 appl topical BID PRN (Reason: skin irritation) 14 Days Qty: 45 2RF Referrals: [facility] [Provider Group] Claus Lockwood MD [Primary Care Provider, Internal Medicine] Interventions: ED Discharge Assessment Last Done: 12/07/24 15:00 Discharge Date/Time: 12/07/24 15:01 Print Language: Romansh
[2024-12-07] MEDS: Lidocaine 4 % Patch ADH..PATCH 1 PATCH TRANSDERMA (12:34)
[2024-12-07 14:26] LABS: Appearance Urine Clear; Glucose Urine UA Negative (Negative); PH 6.5 (5.0-9.0); Specific Gravity - Urine 1.015 (1.005-1.025); UMIC TRIGGER UACC YES
[2024-12-07 14:28] LABS: UACC Culture Trigger YES
[2024-12-07 14:41] VITALS: BP 135/51; PULSE 51; RESP 18; O2SAT 95
[2024-12-07 15:00] VITALS: BP 135/51; PULSE 51; RESP 18; TEMP 36.9; O2SAT 95
== END 2024-12-07 15:01 | disposition home or self-care (01) ==
PROVIDERS: Physician Assistant Medical; Emergency Provider Emergency Medicine; PCP Family Medicine
DX: M87.9 Osteonecrosis, unspecified (principal); N39.0 Urinary tract infection, site not specified; M25.551 Pain in right hip; G47.33 Obstructive sleep apnea (adult) (pediatric); I21.4 Non-ST elevation (NSTEMI) myocardial infarction; J45.909 Unspecified asthma, uncomplicated
CPT/HCPCS: 72100; 73502; 81001; 87086; 99283; 99284

== ENCOUNTER → 2024-12-07 11:46 | Outpatient (BNV) | payer BC, SELFPAY | PROVIDERS: Emergency Provider Emergency Medicine; PCP Family Medicine; Visit Provider Radiology Diagnostic Radiology | DX: M25.551 Pain in right hip (principal); M51.360 Other intervertebral disc degeneration, lumbar region with discogenic back pain only | CPT/HCPCS: 72100; 73502 ==

== ENCOUNTER 2024-12-15 10:31 | Outpatient (AMB) | payer BC, SELFPAY ==
--- NOTE | 2024-12-15 10:33 | A.OFFPC_ITS ---
Vital Signs 12/15/24 10:38 Height 5 ft 3 in Weight 159 lb BMI 28.2 BP 144/64 H Blood Pressure Location Rt brachial Position Sitting Respiration 12 Pulse 73 Pulse Source Pulse Oximeter Temp 96.3 F L Temp Source Temporal Artery Scan Pulse Oximetry (%) 96 Oxygen Delivery Method Room Air Intake Visit Reasons: [facility] ED on 12/07/2024 Intake Note: [facility] Follow up [employer] Specialist Required: No Allergies peanut Allergy (Severe, Verified 12/15/24 10:34) Facial Swelling latex (LATEX) Allergy (Unknown, Verified 12/15/24 10:34) RASH, ITCHY Medication List - Last Reconciled 12/15/24 by Claus Lockwood MD albuterol sulfate 90 mcg/actuation (Proventil HFA) 2 puffs inhalation Q4-6H PRN alendronate 70 mg PO QWEEK 28 days amlodipine 10 mg PO DAILY 90 days aspirin 81 mg PO DAILY atorvastatin 80 mg PO BEDTIME 90 days betamethasone valerate 0.1% 1 appl topical BID PRN 14 days cefuroxime axetil 250 mg PO BID 7 days cetirizine 10 mg PO DAILY PRN 30 days clonidine 1 patch topical QWEEK donepezil 10 mg PO DAILY famotidine 20 mg PO DAILY 14 days ferrous sulfate 325 mg PO DAILY 90 days fluticasone propion-salmeterol 250-50 mcg/dose (Wixela Inhub) 1 inh inhalation Q12H 30 days furosemide 40 mg PO DAILY hydralazine 50 mg See Protocol PO BID 30 days levothyroxine 50 mcg PO DAILY 90 days lidocaine 5% (Lidoderm) 1 patch topical DAILY magnesium oxide 400 mg PO BID 90 days memantine 10 mg PO BID 90 days mometasone 50 mcg/actuation 2 sprays intranasal BID PRN montelukast 10 mg PO BEDTIME 90 days omeprazole 20 mg PO DAILY 90 days sertraline 100 mg PO BEDTIME 90 days spironolactone 50 mg PO DAILY 90 days trospium 20 mg PO BID Tobacco use date assessed: 12/15/24 Fall risk assessment: 1 Fall in past year Last assessed Fall Risk: 12/15/24 Dental Screening Dental Screen Date: 12/15/24 Did you have a dental visit in the last 12 months?: No Did you have a dental problem in the last 6 months where you did not have access to dental care?: No Was dental information given to patient?: Patient has dentist HPI [facility] on 12/07/2024 HPI Details 84 y/o female presents to /[facility] for lower back/hip pain. Had sudden pain to her R low back/hip. X-ray of lumbar spine showed advanced degenerative changes consistent with aging process/arthritis. X-ray of R hip/pelvis showed osteonecrosis of both hips. They had recommended holding alendronate. She was given lidocaine patches & Tylenol and her pain improved. She was referred to Ortho. Urine had also shown a UTI. Started her on ceftin for treatment. They note she has currently stopped alendronate for now. BP today 144/64, 73p. Hx of CAD. [facility] Medical History Dermatitis Contact dermatitis Rash Rash Respiratory failure Cough Cough Abnormal lung sounds Productive cough Cellulitis Acute on chronic anemia UTI (urinary tract infection) Dysuria Increased frequency of urination Dehydration JESUS (acute kidney injury) Hypokalemia Hyperkalemia Troponin level elevated Essential hypertension OAB (overactive bladder) H/O placement of stent in anterior descending branch of left coronary artery Dementia Hypothyroidism History of non-ST elevation myocardial infarction (NSTEMI) Systolic heart failure CHF (congestive heart failure) COPD (chronic obstructive pulmonary disease) Asthma CVA (cerebral vascular accident) Hypertension LBBB (left bundle branch block) Surgical History Hx of heart artery stent History of knee replacement procedure of right knee Hx of cataract surgery History of hysterectomy Family History Father No problems noted. Mother No problems noted. Brother No problems noted. Brother No problems noted. Sister No problems noted. Son No problems noted. Daughter No problems noted. Daughter No problems noted. Daughter No problems noted. Daughter No problems noted. Social History Household Members: Spouse Housing: Assisted Living Facility Do you presently have visiting nurse or other home services: No Alcohol intake: former Patient Tobacco Use Status: Former Tobacco user e-Cigarette/Vaping Use: Never Used Second Hand Smoke Exposure: No service: No Current occupational status: retired Current occupational exposures/hazards: No Cognitive needs: No Hearing needs: No Vision needs: No Questionnaire Thrive Questionnaire Date Thrive assessed: 08/25/24 I am a: Patient What is your living situation today?: I have a steady place to live Within the past 12 months, did the food you bought not last and you didn't have the money to get more?: Never true Within the past 12 months, did you worry whether your food would run out before you got money to buy more?: Never true Do you have trouble paying for medicines?: No Do you have trouble getting transportation to medical appointments?: No Do you have trouble paying your heating and electricity bill?: No Do you have trouble taking care of your child, family member or friend?: No Do you have trouble with day-to-day activities such as bathing, preparing meals, shopping, managing finances, etc.?: No Are you currently unemployed and looking for a job?: No Are you interested in more education?: No Please select the resources that you would like help with: None Currently or been in a relationship where the following occur: No concerns reported THRIVE Score: 0 ANNA-7 AMB Questionnaire ANNA-7 Date ANNA - 7 assessed: 08/25/24 Source: Developed by Drs. Rashad Ramirez, Carola Rutherford, Jaun Reeves and colleagues, with an educational berto from [employer]. Review of Systems Const Denies chills, Denies fatigue, Denies fever(s), Denies headache(s) and Denies weakness ENT Denies dizziness and Denies headache(s) Card Denies dyspnea Resp Denies cough, Denies dyspnea, Denies wheezing and Denies other (shortness of breath) Musc Denies numbness and Denies tingling Neuro Denies dizziness, Denies headache(s), Denies numbness, Denies tingling and Denies weakness Psych Denies anxiety and Denies depression Endo Denies fatigue Aller/Immun Denies wheezing Physical exam (Primary Care) Vital Signs: Last Vital Signs Temp 96.3 F L 12/15/24 10:38 Pulse 73 12/15/24 10:38 Resp 12 12/15/24 10:38 BP 144/64 H 12/15/24 10:38 Pulse Ox 96 12/15/24 10:38 Oxygen Delivery Method Room Air 12/15/24 10:38 BMI result Body Mass Index 28.2 Tobacco/Smoking Status: Tobacco use Status Tobacco use date assessed 12/15/24 12/15/24 10:36 Patient Tobacco Use Status Former Tobacco user 12/15/24 10:36 e-Cigarette/Vaping Use Never Used 12/15/24 10:36 Thrive Assessment: Date of Thrive Assessment Date Thrive assessed 08/25/24 12/15/24 10:36 Currently or been in a relationship where the following occur: No concerns reported Const General: well developed; No acute distress Nutritional Appearance: well nourished Orientation/consciousness: patient oriented x3 HENMT Head: Yes normocephalic and Yes atraumatic Eyes General: appearance normal, both eyes and all related structures Pupils: Equal, round and reactive pupils present EOM: EOMs intact bilaterally Resp Effort & Inspection: normal respiratory effort Neuro General: patient oriented x3 and gait normal Cranial nerves: Yes Equal, round and reactive pupils present Psych Affect: normal affect Coding Level of Care Code Est Pt Level 4 (41781) Diagnoses 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 Acute UTI N39.0 Hypertension I10 CAD (coronary artery disease) I25.10 Unstable gait R26.81 Osteoporosis M81.0 Assessment & Plan Assessment & Plan (1) AVN of femur: Code(s): 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 - Idiopathic aseptic necrosis of unspecified femur Category: Medical (2) Acute UTI: Code(s): N39.0 - Urinary tract infection, site not specified Category: Medical (3) Hypertension: Code(s): I10 - Essential (primary) hypertension Category: Medical (4) CAD (coronary artery disease): Code(s): I25.10 - Atherosclerotic heart disease of campo coronary artery without angina pectoris Category: Medical (5) Unstable gait: Code(s): R26.81 - Unsteadiness on feet Category: Medical (6) Osteoporosis: Code(s): M81.0 - Age-related osteoporosis without current pathological fracture Category: Medical Plan ED visit for Hip pain and some low back pain. XR Lumbar spine showed significant degenerative changes but no acute findings. XR of hips showed Probable bilateral femoral head osteonecrosis . Dx AVN with component of Sciatica as well and may have been exacerbated by recent Physical therapy started bc pt had LE weakness and unsteadiness. She was given lidocaine patches & Tylenol and her pain improved. She was referred to Ortho. Should f/u w/ ortho Continue medications including Tylenol, Voltaren gel & Lidocaine Hold alendronate She will try physical therapy again and give therapist more feedback. If still having increased pain, will have to discontinue Will send a message to PT to slower. Roney Walker for unsteady gait Blood pressure is above goal. She says she took blood pressure medication late this morning. She has a blood pressure monitor at home and family members will help use it. They will call me if blood pressures are home Patient had a likely UTI and was given cefuroxime at the ED She has finished all the medication and symptoms have resolved.
[2024-12-15 10:38] VITALS: BP 144/64; PULSE 73; RESP 12; TEMP 35.7; O2SAT 96; BMI 28.2
--- OUTSIDE RECORDS SUMMARY | 2024-12-15 11:09 | XMS_ITS | Patient Health Record ---
Author Organization [facility] Billing Info Address [address] [place] [address] [place] [address] Care Team Providers Care Examination Scorer Name Role Phone DR TERRENCE NATH Primary [...] type) Unknown 08/21/2013 Administered PNEUMOCOCCAL 13 CONJ ([id number]) IM Intramuscular 04/16/2015 Administered TDAP (BOOSTRIX) IM Intramuscular 02/18/2016 Administered zFLU 3V (FLUZONE HIGH DOSE), 65 YRS+, NO PRES - ALL PAYORS IM Intramuscular 03/25/2014 Administered Double Dose zFLU 3V (FLUZONE HIGH DOSE), 65 YRS+, NO PRES - ALL PAYORS IM Intramuscular 03/01/2015 Administered Problems Problem Type SNOMED Code ICD Code Onset Dates Problem Status W/U Status Risk Notes Problem 736532535 Other hyperlipidemia (E78.4) Active confirmed Problem 3377391 Unspecified osteoarthritis, unspecified site (M19.90) Active confirmed Problem 32364070 Pain in left kne e (M25.562) Active confirmed pt to follow up with ortho Problem 722600793 Localized edema (R60.0) Active confirmed Problem 945846426 Asthma (J45.909) Active confirmed Problem 923107048 SOB (shortness o f breath) (R06.02) Active confirmed Problem 54519544 Essential hypertension (I10) Active confirmed Problem 248922059 TIA (transient ischemic attack) (G45.9) Active confirmed Problem 085324645 Unsteady gait (R26.81) Active confirmed Problem Memory changes (R41.3) Active confirmed Problem 60546429 LBBB (left bundl e branch block) (I44.7) Active confirmed Problem 042847108 Non-cardiac ches t pain (R07.89) Active confirmed Problem 606712880 Acute hand eczem a (L30.9) 7 Active confirmed Problem 20701142 Bakers cyst, lef t (M71.22) 7 Active confirmed Problem 470261249 Seasonal allergi c rhinitis, unspecified allergic rhinitis trigger (J30.2) Active confirmed Plan Of Treatment Future Test Test Name Order Date Basic Metabolic Panel (8) ([id number] ) 12/27/2017 US- CAROTID DOPPLER (48285)(AIC-CAROTID) 03/17/2019 Insurance Providers Payer Name Payer Address Payer Phone Subscriber Number Group Number Insured Name Patient Relationship to Insured Coverage Start Date Coverage End Date [facility] [employer] [address] [place] [address] [id number] Carlos King Spouse - patient is the spouse of the insured 5 6 Medications Administered Medication Instructions Date of Administration Dosage Notes Dexamethasone Na Phosphate 02/29/2016 1 mL zMethylprednisolone Acetate 40 mg (Depo Medrol) 02/29/2016 1 mL Medical (General) History Medical History History ICD Code 1. Noncardiac chest pain a. 10/1999 stress echocardiog taina: [facility] cardiology: No resting wall motion abnormalities. [...]
== END 2024-12-15 11:12 | disposition home or self-care (01) ==
LOC: HO.HMCFM 10:32
PROVIDERS: PCP Family Medicine; Visit Provider Family Medicine
DX: M87.059 Idiopathic aseptic necrosis of unspecified femur (principal); N39.0 Urinary tract infection, site not specified; I10 Essential (primary) hypertension; I25.10 Atherosclerotic heart disease of native coronary artery without angina pectoris; R26.81 Unsteadiness on feet; M81.0 Age-related osteoporosis without current pathological fracture

== ENCOUNTER 2024-12-15 10:31 | Outpatient (REF) | payer BC, SELFPAY ==
[2024-12-15 15:30] LABS: Hematocrit 36.5 % (37.0-47.0); Hemoglobin 11.9 g/dl (12.0-16.0); Mean Corpuscular HGB Conc 32.6 g/dl (31.0-35.0); Mean Corpuscular Hemoglobin 28.7 pg (27.0-33.0); Mean Corpuscular Volume 88.0 fL (80.0-98.0); NRBC Abs Auto 0.000 X10*3/uL (0.0-0.012); NRBC Pct Auto 0.0 /100WBC (0.0-0.2); Platelet Count 203 X10*3/uL (160-400); Red Blood Count 4.15 X10*6/uL (4.20-5.50); White Blood Count 7.1 X10*3/uL (4.8-10.8)
[2024-12-15 16:00] LABS: Alanine Aminotransferase 28 U/L (0-31); Albumin Level 4.7 g/dL (3.5-5.0); Alkaline Phosphatase 128 U/L (39-117); Anion Gap 14 (12-20); Aspartate Amino Transferase 27 U/L (5-31); Blood Urea Nitrogen 43 mg/dL (9-16); Calcium 8.6 mg/dL (8.4-10.2); Carbon Dioxide 23 mmol/L (22-29); Chloride 108 mmol/L (96-108); Estimated Glomerular Filt Rate 33; Potassium 4.8 mmol/L (3.3-5.1); Sodium 140 mmol/L (135-145); Total Protein 7.3 g/dL (6.5-8.0)
== END 2024-12-15 10:32 | disposition home or self-care (01) ==
LOC: HO.LAB 10:31
PROVIDERS: PCP Family Medicine; Visit Provider Internal Medicine Hypertension Specialist
DX: I12.9 Hypertensive chronic kidney disease with stage 1 through stage 4 chronic kidney disease, or unspecified chronic kidney disease (principal); N18.9 Chronic kidney disease, unspecified; Z87.891 Personal history of nicotine dependence
CPT/HCPCS: 36415; 80053; 85027

== ENCOUNTER 2024-12-15 13:41 | Outpatient (AMB) | payer BC, SELFPAY ==
--- NOTE | 2024-12-15 13:40 | HO.NEPHOV ---
Vital Signs 12/15/24 13:45 Height 5 ft 3 in Weight 159 lb BMI 28.2 BP 132/60 Blood Pressure Location Lt brachial Position Sitting Pulse 73 Pulse Source Pulse Oximeter Pulse Oximetry (%) 95 Oxygen Delivery Method Room Air Intake Visit Reasons: INP: CKD/ Conf Controls Project Engineer Required: No Accompanied by: Daughter Allergies peanut Allergy (Severe, Verified 12/15/24 13:48) Facial Swelling latex (LATEX) Allergy (Unknown, Verified 12/15/24 13:48) RASH, ITCHY Medication List - Last Reconciled 12/15/24 by Jaleel Chavira MD alendronate 70 mg PO QWEEK 28 days Held on 12/15/24. Instructions: Doctor's Order amlodipine 10 mg PO DAILY 90 days aspirin 81 mg PO DAILY atorvastatin 80 mg PO BEDTIME 90 days clobetasol 0.05% 1 appl topical BID PRN clonidine 1 patch topical QWEEK donepezil 10 mg PO DAILY ferrous sulfate 325 mg PO DAILY 90 days fluticasone propion-salmeterol 250-50 mcg/dose (Wixela Inhub) 1 inh inhalation Q12H 30 days furosemide 40 mg PO DAILY hydralazine 50 mg See Protocol PO BID 30 days levothyroxine 50 mcg PO DAILY 90 days levothyroxine mcg PO lidocaine 5% (Lidoderm) 1 patch topical DAILY magnesium oxide 400 mg PO BID 90 days memantine 10 mg PO BID 90 days mometasone 50 mcg/actuation 2 sprays intranasal BID PRN montelukast 10 mg PO BEDTIME 90 days omeprazole 20 mg PO DAILY 90 days sertraline 100 mg PO BEDTIME 90 days spironolactone 50 mg PO DAILY 90 days trospium 20 mg PO BID HPI Comments Details: The patient is an 84-year-old female presenting with chronic kidney disease. The patient's kidney function has been declining over the years, with the most recent test showing a function of about 30%. In previous years, the function ranged between 30% and 40%, indicating a gradual decline. There have been no previous consultations with a health actuary, although the patient has seen a urologist for bladder issues. In 2020 serum creatinine was 1.5 with a EGFR of around 30-33 mL/minute. The patient also reports urinary incontinence, which has been managed with absorbent products and previous medication trials. Recent urodynamic studies were conducted to assess bladder pressure, Hypertension : managed with multiple antihypertensive medications including amlodipine, clonidine, furosemide, hydralazine, and spironolactone. The patient has a history of coronary artery disease, with a stent placement performed in 2022. She is on Lasix 40 mg along with spironolactone 50 mg. Not on any KAMLA inhibitors or ARB is. She does not take any NSAIDs. [facility] Medical History Dermatitis Contact dermatitis Rash Rash Respiratory failure Cough Cough Abnormal lung sounds Productive cough Cellulitis Acute on chronic anemia UTI (urinary tract infection) Dysuria Increased frequency of urination Dehydration JESUS (acute kidney injury) Hypokalemia Hyperkalemia Troponin level elevated Essential hypertension OAB (overactive bladder) H/O placement of stent in anterior descending branch of left coronary artery Dementia Hypothyroidism History of non-ST elevation myocardial infarction (NSTEMI) Systolic heart failure CHF (congestive heart failure) COPD (chronic obstructive pulmonary disease) Asthma CVA (cerebral vascular accident) Hypertension LBBB (left bundle branch block) Surgical History Hx of heart artery stent History of knee replacement procedure of right knee Hx of cataract surgery History of hysterectomy Family History Father No problems noted. Mother No problems noted. Brother No problems noted. Brother No problems noted. Sister No problems noted. Son No problems noted. Daughter No problems noted. Daughter No problems noted. Daughter No problems noted. Daughter No problems noted. Social History Household Members: Spouse Housing: Assisted Living Facility Do you presently have visiting nurse or other home services: No Alcohol intake: former Patient Tobacco Use Status: Former Tobacco user e-Cigarette/Vaping Use: Never Used Second Hand Smoke Exposure: No service: No Current occupational status: retired Current occupational exposures/hazards: No Cognitive needs: No Hearing needs: No Vision needs: No Review of Systems Const Denies anorexia, Denies fever(s) and Denies weakness Eyes Denies blurry vision Card Denies no additional complaints and Denies dyspnea Resp Reports no additional complaints, Reports cough and Denies dyspnea GI Denies melena and Denies diarrhea Denies hematuria Musc Denies tingling Skin/Breast Denies rash Neuro Denies focal weakness, Denies tingling, Denies tremor(s) and Denies weakness Physical Exam Vital Signs: Last Vital Signs Pulse 73 12/15/24 13:45 BP 132/60 12/15/24 13:45 Pulse Ox 95 12/15/24 13:45 Oxygen Delivery Method Room Air 12/15/24 13:45 BMI result Body Mass Index 28.2 Comfortable Neck supple no JVD. Lungs entry equal no rales. Heart S1-S2 heard no gallop or rub. Abdomen soft nontender. Neuro alert awake oriented. No asterixis. Extremities 1+ edema. Results Reviewed Nephrology Results: Hgb, (12.0-16.0) 11.3 g/dl L 10/31/24 WBC, (4.8-10.8) 5.8 X10*3/uL 10/31/24 Plt Count, (160-400) 221 X10*3/uL 10/31/24 Sodium, (135-145) 138 mmol/L 10/31/24 Potassium, (3.3-5.1) 4.2 mmol/L 10/31/24 Chloride, (96-108) 105 mmol/L 10/31/24 Carbon Dioxide, (22-29) 22 mmol/L 10/31/24 BUN, (9-16) 31 mg/dL H 10/31/24 Creatinine, (0.5-1.4) 1.69 mg/dL H 10/31/24 Calcium, (8.4-10.2) 8.9 mg/dL 10/31/24 Urine Protein, (Neg-Trace) Negative mg/dL 12/07/24 Urine Creatinine 85.02 mg/dL 10/31/24 Renal US 08/04/20 Assessment & Plan Assessment & Plan (1) CRF (chronic renal failure): Code(s): N18.9 - Chronic kidney disease, unspecified Category: Medical Plan 84-year-old woman with chronic kidney disease in the setting of longstanding hypertension and coronary disease. There could be a component of acute kidney injury from hypoperfusion. Even though she has had bladder issues clinically I do not think she has ongoing obstruction and and this is supported by recent ultrasonogram. Recent urine sediments were bland therefore glomerular nephritis or interstitial disease seem unlikely. Recommendations Check metabolic panel along with CBC. Based on the labs I will gradually lower the diuretics. First step would be to decrease spironolactone from 50 to 25 mg a day. She should stay on low-sodium diet I had a lengthy discussion with her. Continue to avoid nephrotoxic agents including NSAIDs. Goal is to slow the progression of renal disease Optimize blood pressure and avoid hypotension. Further workup will depend on the outcome of the above baseline investigations Orders: Orders Complete Blood Count no Diff Today N18.9 - Chronic kidney disease, unspecified Comprehensive Met. Panel Today N18.9 - Chronic kidney disease, unspecified Coding Level of Care Code New Pt Level 4 (00450) Diagnoses CRF (chronic renal failure) N18.9
[2024-12-15 13:45] VITALS: BP 132/60; PULSE 73; O2SAT 95; BMI 28.2
== END 2024-12-15 14:07 | disposition home or self-care (01) ==
LOC: HO.HKA 13:42
PROVIDERS: PCP Family Medicine; Referring Provider Family Medicine; Visit Provider Internal Medicine Hypertension Specialist
DX: N18.9 Chronic kidney disease, unspecified (principal)
CPT/HCPCS: 99204

== ENCOUNTER 2024-12-18 14:11 | Outpatient (AMB) | payer BC, SELFPAY ==
[2024-12-18 14:23] VITALS: BP 138/64; PULSE 66; O2SAT 95; BMI 28.0
--- NOTE | 2024-12-18 14:23 | A.OFFVIS_ITS ---
Vital Signs 12/18/24 14:23 Height 5 ft 3 in Weight 158 lb 0.7 oz BMI 28.0 BP 138/64 Blood Pressure Location Lt brachial Position Sitting Pulse 66 Pulse Source Pulse Oximeter Pulse Oximetry (%) 95 Oxygen Delivery Method Room Air Intake Visit Reasons: cough Intake Note: pt is here for follow up and still has cough, that is has some production thick and sticky and has been happening day and night. She does try mucinex at night before bed. Radiation Physicist Required: No Allergies peanut Allergy (Severe, Verified 12/18/24 14:35) Facial Swelling latex (LATEX) Allergy (Unknown, Verified 12/18/24 14:35) RASH, ITCHY Medication List - Last Reconciled 12/18/24 by Belén Sierra MD alendronate 70 mg PO QWEEK 28 days Held on 12/15/24. Instructions: Doctor's Order amlodipine 10 mg PO DAILY 90 days aspirin 81 mg PO DAILY atorvastatin 80 mg PO BEDTIME 90 days cetirizine (Children's Zyrtec Allergy) 10 mg PO DAILY clobetasol 0.05% 1 appl topical BID PRN clonidine 1 patch topical QWEEK donepezil 10 mg PO DAILY ferrous sulfate 325 mg PO DAILY 90 days furosemide 40 mg PO DAILY hydralazine 50 mg See Protocol PO BID 30 days levothyroxine 50 mcg PO DAILY 90 days levothyroxine mcg PO lidocaine 5% (Lidoderm) 1 patch topical DAILY magnesium oxide 400 mg PO BID 90 days memantine 10 mg PO BID 90 days mometasone 50 mcg/actuation 2 sprays intranasal BID PRN montelukast 10 mg PO BEDTIME 90 days omeprazole 20 mg PO DAILY 90 days sertraline 100 mg PO BEDTIME 90 days spironolactone 50 mg PO DAILY 90 days trospium 20 mg PO BID Do you need a note to return to daycare/school/sports/work: No HPI HPI cough: Details: 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 PREVIOUSLY HAS BEEN TREATED FOR INTERMITTENT BRONCHIAL ASTHMA/COUGH. SHE WAS ON WIXELA 250-51 INHALATION B.I.D. BUT MOSTLY PRN. SHE HAS NOT USE WIXELA FOR A WHILE BECAUSE SHE DID NOT THINK SHE NEEDS IT. SHE DOES HAVE HISTORY OF INTERMITTENT NASAL CONGESTION WITH POSTNASAL DISCHARGE. THIS IS THOUGHT TO BE DUE TO ENVIRONMENTAL ALLERGIES. SHE IS TAKING MONTELUKAST 10 MG DAILY AND ALSO CETIRIZINE 10 MG ONCE A DAY P.R.N. SHE IS ALSO USING MOMETASONE 50 MCG NASAL SPRAY 2 SQUIRTS IN EACH NOSTRIL DAILY. NOW FOR THE PAST FEW WEEKS SHE IS HAVING INCREASED COUGH, SHE FEELS SOMEWHAT CONGESTED UP IN THE SINUSES, THE COUGH IS QUITE BOTHERSOME, WITH THICK MUCOUS AND DIFFICULT TO EXPECTORATE. FOR[facility]LY [facility] Medical History Dermatitis Contact dermatitis Rash Rash Respiratory failure Cough Cough Abnormal lung sounds Productive cough Cellulitis Acute on chronic anemia UTI (urinary tract infection) Dysuria Increased frequency of urination Dehydration JESUS (acute kidney injury) Hypokalemia Hyperkalemia Troponin level elevated Essential hypertension OAB (overactive bladder) H/O placement of stent in anterior descending branch of left coronary artery Dementia Hypothyroidism History of non-ST elevation myocardial infarction (NSTEMI) Systolic heart failure CHF (congestive heart failure) COPD (chronic obstructive pulmonary disease) Asthma CVA (cerebral vascular accident) Hypertension LBBB (left bundle branch block) Surgical History Hx of heart artery stent History of knee replacement procedure of right knee Hx of cataract surgery History of hysterectomy Family History Father No problems noted. Mother No problems noted. Brother No problems noted. Brother No problems noted. Sister No problems noted. Son No problems noted. Daughter No problems noted. Daughter No problems noted. Daughter No problems noted. Daughter No problems noted. Social History Household Members: Spouse Housing: Assisted Living Facility Do you presently have visiting nurse or other home services: No Alcohol intake: former Patient Tobacco Use Status: Former Tobacco user e-Cigarette/Vaping Use: Never Used Second Hand Smoke Exposure: No service: No Current occupational status: retired Current occupational exposures/hazards: No Cognitive needs: No Hearing needs: No Vision needs: No Review of Systems Const All systems reviewed & are unremarkable except as noted in HPI and below ENT Reports nasal congestion and Reports nasal discharge Card Denies chest pain and Reports dyspnea on exertion (mild, as the activity is generally slow .) Resp Reports cough (as decribed above) and Reports dyspnea on exertion (mild, as the activity is generally slow .) Neuro Reports memory loss Psych Reports memory loss Physical Exam Vital Signs: Last Vital Signs Pulse 66 12/18/24 14:23 BP 138/64 12/18/24 14:23 Pulse Ox 95 12/18/24 14:23 Oxygen Delivery Method Room Air 12/18/24 14:23 BMI result Body Mass Index 28.0 Const General: healthy appearing, comfortable, no acute distress, alert, awake and other (but slow in conversation . ) Orientation/consciousness: patient oriented x3 HEENT Head: Yes normal to inspection General nose exam: No nasal polyps present and No nasal discharge present Face and sinus: Yes sinuses nontender Mouth: oropharynx normal Throat: Yes posterior oropharynx normal Eyes General: appearance normal, both eyes and all related structures Neck Neck: Yes normal visual inspection, Yes no lymphadenopathy, Yes trachea midline and Yes no JVD Thyroid: Thyroid normal Chest Chest palpation & inspection: normal inspection of the chest, normal palpation of entire chest wall and no tenderness Resp Effort & Inspection: normal respiratory effort and prolonged expiratory phase Auscultation: clear to auscultation bilaterally, no crackles, no rales, no wheezes and diminished lung sounds Cardio Palpation: normal PMI Rate: regular rate Rhythm: regular rhythm Heart sounds: no gallops and no murmurs Peripheral pulses: Peripheral pulses 2+ throughout GI Palpation (GI): Soft to palpation, nontender, No hepatosplenomegaly present and no masses Auscultation: normal bowel sounds Back/Spine/Pelvis Thoracic/Lumbar Spine: thoracic and lumbar spine normal to inspection Skin General skin exam: no rashes or lesions noted Neuro General: patient oriented x3 and no focal motor deficits Cranial nerves: Yes CN's II-XII intact bilaterally Extrem General: Yes normal to inspection, Yes no clubbing, cyanosis or edema, Yes no calf tenderness and No venous stasis dermatitis Psych Appearance: grossly normal and well kempt Speech and movement: Normal speech and movement present Office Procedures Spirometry Testing Spirometry Comments: In office spirometry completed with results given to Dr Sierra. 14543- Spirometry Results Reviewed Results Reviewed: Spirometry performed in the office today is essentially normal. There is no evidence of obstructive or restrictive airway disorder. Assessment & Plan Assessment & Plan (1) COPD (chronic obstructive pulmonary disease): Comment: PULMONARY FUNCTION TEST( spirometry ) DID NOT GO ALONG WITH COPD. WORKING DX : HYPERSENSITIVITY BRONCHIAL ASTHMA IS MORE LIKELY . Code(s): J44.9 - Chronic obstructive pulmonary disease, unspecified Category: Medical Plan: I ADVISED HER THAT WHEN SHE HAS FLARE UP OF COUGH , SHE CAN USE WIXELA 250-51 INHALATION B.I.D. ON A P.R.N. BASIS. (2) Reactive airway disease: Comment: SHE GIVES HISTORY OF HAVING BOUTS OF COUGH IF SHE IS IN CROWDED PLACES, LIKE IN [place], OR IN THE CAVITY AREA. THIS INDICATES THAT SHE IS PROBABLY HYPERSENSITIVE TO THE PERFUMES, BODY ODOR AND OTHER ENVIRONMENTAL FACTORS. Code(s): J45.909 - Unspecified asthma, uncomplicated Category: Medical Plan: AGAIN ADVISED THAT IT MAY BE BETTER TO USE WIXELA 250 MG ONCE A DAY IN THE MORN ING, AND THEN FOR THE REST OF THE DAY JUST USE 2ND TIME IN THE EVENING IF NEEDED. (3) Seasonal allergies: Comment: [place] : SHE HAS SOME NASAL CONGESTION WITH POSTNASAL DRIP AND COUGH, USUALLY AT THE CHANGE OF SEASONS, CONTROLLED WITH P.R.N. USE OF ANTIHISTAMINIC AGENT, . AND MONTELUKAST 10 MG DAILY, ALSO USES MOMETASONE 50 MCG 2 SPRAY INTRANASAL B.I.D. BUT ONLY P.R.N.. Code(s): J30.2 - Other seasonal allergic rhinitis Category: Medical Plan: NOW THAT SHE HAS PERSISTENT COUGH WITH FEELING OF POSTNASAL CONGESTION, I THINK SHE MAY BE HAVING A LOW-GRADE RHINOSINUSITIS. I HAVE ORDERED Z-LES( CANCELLED , LOT OF INTERACTIONS ) DOXYCYCLINE 100 MG BID X 10 DAYS TO TREAT FOR POSSIBLE RESPIRATORY INFECTION.( RHINOSINUSITIS/BRONCHITIS ) Orders: Orders AMB Spirometry Testing Today J44.9 - Chronic obstructive pulmonary disease, unspecified Medications: New fluticasone propion-salmeterol 250-50 mcg/dose (Wixela Inhub) 1 inh inhalation Q12H 60 ea 2RF ASTHMA/COUGH 30 days doxycycline hyclate 100 mg PO BID 20 tabs 0RF RHINOSINUSITIS 10 days Coding Level of Care Code Est Pt Level 4 (26672) Diagnoses COPD (chronic obstructive pulmonary disease) J44.9 Reactive airway disease J45.909 Seasonal allergies J30.2 CPT Codes Spirometry - CPT: 38283- Spirometry ([id number])
--- OUTSIDE RECORDS SUMMARY | 2024-12-18 14:59 | XMS_ITS | Patient Health Record ---
Author Organization [facility] Yeni berger Billing Info Address [address] [place] [address] [place] [address] Care Team Providers Care Fabrication And Assembly Supervisor Name Role Phone DR TERRENCE NATH Primary [...] type) Unknown 08/21/2013 Administered PNEUMOCOCCAL 13 CONJ ([id number]) IM Intramuscular 04/16/2015 Administered TDAP (BOOSTRIX) IM Intramuscular 02/18/2016 Administered zFLU 3V (FLUZONE HIGH DOSE), 65 YRS+, NO PRES - ALL PAYORS IM Intramuscular 03/25/2014 Administered Double Dose zFLU 3V (FLUZONE HIGH DOSE), 65 YRS+, NO PRES - ALL PAYORS IM Intramuscular 03/01/2015 Administered Problems Problem Type SNOMED Code ICD Code Onset Dates Problem Status W/U Status Risk Notes Problem 840164670 Other hyperlipidemia (E78.4) Active confirmed Problem 1763225 Unspecified osteoarthritis, unspecified site (M19.90) Active confirmed Problem 83726613 Pain in left kne e (M25.562) Active confirmed pt to follow up with ortho Problem 436603828 Localized edema (R60.0) Active confirmed Problem 566149878 Asthma (J45.909) Active confirmed Problem 422245030 SOB (shortness o f breath) (R06.02) Active confirmed Problem 17971483 Essential hypertension (I10) Active confirmed Problem 006289552 TIA (transient ischemic attack) (G45.9) Active confirmed Problem 281482607 Unsteady gait (R26.81) Active confirmed Problem Memory changes (R41.3) Active confirmed Problem 77503338 LBBB (left bundl e branch block) (I44.7) Active confirmed Problem 644847264 Non-cardiac ches t pain (R07.89) Active confirmed Problem 160885006 Acute hand eczem a (L30.9) 7 Active confirmed Problem 06258680 Bakers cyst, lef t (M71.22) 7 Active confirmed Problem 100966505 Seasonal allergi c rhinitis, unspecified allergic rhinitis trigger (J30.2) Active confirmed Plan Of Treatment Future Test Test Name Order Date Basic Metabolic Panel (8) ([id number] ) 12/27/2017 US- CAROTID DOPPLER (48121)(AIC-CAROTID) 03/17/2019 Insurance Providers Payer Name Payer Address Payer Phone Subscriber Number Group Number Insured Name Patient Relationship to Insured Coverage Start Date Coverage End Date [employer] [address] [place] [address] [id number] Carlos King Spouse - patient is the spouse of the insured 5 6 Medications Administered Medication Instructions Date of Administration Dosage Notes Dexamethasone Na Phosphate 02/29/2016 1 mL zMethylprednisolone Acetate 40 mg (Depo Medrol) 02/29/2016 1 mL Medical (General) History Medical History History ICD Code 1. Noncardiac chest pain a. 10/1999 stress echocardiog taina: [facility] cardiology: No resting wall motion [...]
== END 2024-12-18 15:06 | disposition home or self-care (01) ==
LOC: HO.HPS 14:12
PROVIDERS: PCP Family Medicine; Visit Provider Internal Medicine
DX: J44.9 Chronic obstructive pulmonary disease, unspecified (principal); J45.909 Unspecified asthma, uncomplicated; J30.2 Other seasonal allergic rhinitis
CPT/HCPCS: 94010; 99214

== ENCOUNTER → 2024-12-18 14:11 | Outpatient (BNVA) | payer BC, SELFPAY | PROVIDERS: PCP Family Medicine; Visit Provider Internal Medicine | DX: J44.9 Chronic obstructive pulmonary disease, unspecified (principal); J30.2 Other seasonal allergic rhinitis | CPT/HCPCS: 94010 ==

== ENCOUNTER 2024-12-19 10:22 | Outpatient (AMB) | payer BC, SELFPAY ==
[2024-12-19 10:29] VITALS: BMI 28.0
--- NOTE | 2024-12-19 10:29 | A.OFFVIS_ITS ---
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 Patient was referred and seen by [facility] 12/07/24, patient had lower back pain and right hip pain. Patient was seen by physical therapy X2-3 times a week and was discharged on 12/05/24. Lumbar spine and Hip/Pelvis X Ray's were done at that visit. At today's visit patient is with Bonnie (daughter)who states she has noticed her mother walk a little faster s/p P.T however last session was a little longer than usual and might have flare up her pain. She was then diagnose with UTI. Patient mentioned she had a fall going into her van and was advise to do P.T to improve her balance and stability. Catracho numbness or tingling. Allergies peanut Allergy (Severe, Verified 12/19/24 10:34) Facial Swelling latex (LATEX) Allergy (Unknown, Verified 12/19/24 10:34) RASH, ITCHY HPI Comments Details: She woke up one morning, 2 weeks ago, couldn't get up from bed or turnover. Ultimately brought to ER. She lives in independent living. Was doing well before that. Known arthritis for knees and ankles. History of right TKR. Prior to incident, no hip, groin or back pain. History of osteoporosis, started on Alendronate 2-3 weeks prior to incident. Has been stopped since ER visit. She had a trip and fall mid October. PCP recommended PT and had 4 sessions. No xrays done at that time. Last PT session was few days before ER visit. She was still doing fine that day. No past fractures. No steroid injections. No oral steroids. Only complaining of knee, hands but no groin pain, hip or back pain. [facility] Medical History (Updated 12/19/24 @ 11:14 by Mona Olivier MD) Osteoporosis Dermatitis Contact dermatitis Rash Rash Respiratory failure Cough Cough Abnormal lung sounds Productive cough Cellulitis Acute on chronic anemia UTI (urinary tract infection) Dysuria Increased frequency of urination Dehydration JESUS (acute kidney injury) Hypokalemia Hyperkalemia Troponin level elevated Essential hypertension OAB (overactive bladder) H/O placement of stent in anterior descending branch of left coronary artery Dementia Hypothyroidism History of non-ST elevation myocardial infarction (NSTEMI) Systolic heart failure CHF (congestive heart failure) COPD (chronic obstructive pulmonary disease) Asthma CVA (cerebral vascular accident) Hypertension LBBB (left bundle branch block) Surgical History Hx of heart artery stent History of knee replacement procedure of right knee Hx of cataract surgery History of hysterectomy Family History Father No problems noted. Mother No problems noted. Brother No problems noted. Brother No problems noted. Sister No problems noted. Son No problems noted. Daughter No problems noted. Daughter No problems noted. Daughter No problems noted. Daughter No problems noted. Social History Household Members: Spouse Housing: Assisted Living Facility Do you presently have visiting nurse or other home services: No Alcohol intake: former Patient Tobacco Use Status: Former Tobacco user e-Cigarette/Vaping Use: Never Used Second Hand Smoke Exposure: No service: No Current occupational status: retired Current occupational exposures/hazards: No Cognitive needs: No Hearing needs: No Vision needs: No Review of Systems Const All systems reviewed & are unremarkable except as noted in HPI and below Physical Exam Exam Exam: Constitutional: Patient appears to be in no acute distress, well nourished and well developed. Patient was appropriately conversant and oriented. Good historian. MSK: No specific abnormalities found on inspection of the spine and all extremities. No pain with palpation over the lumbar area. Difficulty getting up from seated position but did so independently. No edema on legs. No effusion on knees. Neurological: Edwards?s negative bilaterally. Clonus was negative. Vital Signs: BMI result Body Mass Index 28.0 Results Reviewed Results Reviewed: I independently reviewed the results of the following: Hip x-ray did not show irregular contour on femoral head. Ordering Physician: Annelise Jeffery Date of Service: 12/07/24 Procedure(s): XR hip RT w PEL1V Accession Number(s): [id number] cc: Claus Lockwood MD; Annelise Jeffery~ CLINICAL HISTORY: ACUTE ONSET RIGHT HIP PAIN 3 view, pelvis and right hip Comparison: None provided Findings: No acute fracture or dislocation. Heterogeneous sclerotic densities in the bilateral femoral heads. [id number] narrowing of the bilateral acetabulofemoral joints. Prominent degenerative changes at the lumbosacral junction. Multiple intrapelvic clips. IMPRESSION: 1. No acute fracture or dislocation. 2. 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 This document has been electronically signed by: Yeni Booth DO on 12/07/2024 13:09:38 Ordering Physician: Annelise Jeffery Date of Service: 12/07/24 Procedure(s): XR lumbar spine 2-3V Accession Number(s): [id number] cc: Claus Lockwood MD; Annelise Jeffery~ CLINICAL HISTORY: ACUTE ONSET RIGHT LOW BACK PAIN 3 views lumbar spine Comparison: None provided Findings: 8 mm anterolisthesis L4 on L5. No acute fractures or dislocation. Diffuse osteopenia. No significant vertebral body compression deformity. Severe L5-S1 disc space narrowing with endplate osteophytes. Advanced facet degenerative changes L5-S1. There are multiple intrapelvic clips. There is calcific plaque throughout the abdominal aorta. 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 IMPRESSION: 1. No acute fracture in the lumbar spine. 2. Advanced disc and facet degenerative changes at L5-S1. This document has been electronically signed by: Yeni Booth DO on 12/07/2024 13:06:29 Ordering Physician: Claus Lockwood MD Results: Date of Service: 09/25/24 Follow Up: Procedure(s): XR DEXA axial skeleton Accession Number(s): [id number] cc: Claus Lockwood MD~ EXAMINATION: DXA BONE DENSITY AXIAL HISTORY: M81.0 - Age-related osteoporosis without current pathological fracture TECHNIQUE: [employer] Dual energy absorptiometry (DEXA) of the lumbar spine, total left hip, and femoral neck was performed. COMPARISON: Comparison is made with the prior examination dated 11/19/2019. FINDINGS: The bone mineral density of the lumbar spine is 0.922, corresponding to a T-score of -2.0, and a Z-score of -0.2. This is indicative of osteopenia. This represents a BMD change of -9.8% compared to the prior exam. This is statistically significant. The bone mineral density of the left total hip is 0.714, corresponding to a T-score of -2.3, and a Z-score of -0.1. This is indicative of osteopenia. This represents a BMD change of -21.5% compared to the prior exam. This is statistically significant. The bone mineral density of the left femoral neck is 0.670, corresponding to a T-score of -2.6, and a Z-score of -0.3. This is indicative of osteoporosis. This represents a BMD change of -21.5% compared to the prior exam. MM/XR DEXA axial skeleton IMPRESSION: Based on bone mineral density, and according to World Health Organization (WHO) criteria, the diagnosis is consistent with osteoporosis. All bone density values are in grams per centimeter squared (g/cm2). Statistically, 68% of repeat scans fall within 1 SD (+/- 0.010 g/cm2 for AP spine L1-L4) and 1 SD (+/- 0.012 g/cm2 for femur total) FRAX is a trademark of the [employer]'s [place] for Metabolic Bone Disease, a World Health Organization (WHO) Collaborating Center. I reviewed records from the following: ER PCP Assessment & Plan Assessment & Plan (1) Bilateral hip osteonecrosis: Code(s): M87.9 - Osteonecrosis, unspecified Category: Medical (2) Osteoporosis: Code(s): M81.0 - Age-related osteoporosis without current pathological fracture Category: Medical Qualifiers: Osteoporosis type: age-related Presence of current pathological fracture: without current pathological fracture Qualified Code(s): M81.0 - Age- related osteoporosis without current pathological fracture (3) Risk for falls: Code(s): Z91.81 - History of falling Category: Medical (4) Poor mobility: Code(s): Z74.09 - Other reduced mobility Category: Medical Plan Sudden onset back pain few weeks ago. Denies any prior inciting injury or any further back/hip/groin pain now. Question of osteonecrosis on both hips raised by radiologist. We looked at the images and the femur head contour did not appear jagged as would see in AVN. We discussed that to rule out AVN, we should get an MRI. However given age and other medical condition, she would not want or qualify for surgical management anyway. She again denies any further pain related to the hips. 1. Holding off on MRI unless further pain develops 2. Switch to home PT. Outpatient therapy may have been too aggressive for her causing the pain. However she does need to maintain a level of moblity and walking. 3. Osteoporosis - ER discontinued Alendronate, although Alendronate has been known to be used for AVN treatment. We will get Endrocinology opinion on how to proceed with osteoporosis treatment. Assessment and plan discussed with patient, and patient was agreeable. All questions were answered thoroughly. Mona Olivier MD, AMELIA Board Certified, [place] [employer] and Rehabilitation (ABPMR) Board Certified, [place] [employer] Electrodiagnostic Medicine (ABEM) Orders: Referrals Endocrinology Referral M81.0 - Age-related osteoporosis without current pathological fracture, M87.9 - Osteonecrosis, unspecified Home Health Referral M81.0 - Age-related osteoporosis without current pathological fracture, M87.9 - Osteonecrosis, unspecified, Z74.09 - Other reduced mobility, Z91.81 - History of falling Coding Level of Care Code New Pt Level 4 (11504) Diagnoses Bilateral hip osteonecrosis M87.9 Age-related osteoporosis without current pathological fracture M81.0 Osteoporosis type: age-related Presence of current pathological fracture: without current pathological fracture Risk for falls Z91.81 Poor mobility Z74.09
--- OUTSIDE RECORDS SUMMARY | 2024-12-19 10:31 | XMS_ITS | Patient Health Record ---
Author Organization [facility] Billing Info Address [address] [place] [address] [place] [address] Care Team Providers Care Kiln Furniture Saw Tender Name Role Phone DR TERRENCE NATH Primary [...] type) Unknown 08/21/2013 Administered PNEUMOCOCCAL 13 CONJ ([id number]) IM Intramuscular 04/16/2015 Administered TDAP (BOOSTRIX) IM Intramuscular 02/18/2016 Administered zFLU 3V (FLUZONE HIGH DOSE), 65 YRS+, NO PRES - ALL PAYORS IM Intramuscular 03/25/2014 Administered Double Dose zFLU 3V (FLUZONE HIGH DOSE), 65 YRS+, NO PRES - ALL PAYORS IM Intramuscular 03/01/2015 Administered Problems Problem Type SNOMED Code ICD Code Onset Dates Problem Status W/U Status Risk Notes Problem 098156794 Other hyperlipidemia (E78.4) Active confirmed Problem 8581309 Unspecified osteoarthritis, unspecified site (M19.90) Active confirmed Problem 26651486 Pain in left kne e (M25.562) Active confirmed pt to follow up with ortho Problem 601548680 Localized edema (R60.0) Active confirmed Problem 412654413 Asthma (J45.909) Active confirmed Problem 741375865 SOB (shortness o f breath) (R06.02) Active confirmed Problem 76158703 Essential hypertension (I10) Active confirmed Problem 963623649 TIA (transient ischemic attack) (G45.9) Active confirmed Problem 012691906 Unsteady gait (R26.81) Active confirmed Problem Memory changes (R41.3) Active confirmed Problem 18684310 LBBB (left bundl e branch block) (I44.7) Active confirmed Problem 331980433 Non-cardiac ches t pain (R07.89) Active confirmed Problem 039256876 Acute hand eczem a (L30.9) 7 Active confirmed Problem 26128095 Bakers cyst, lef t (M71.22) 7 Active confirmed Problem 444315404 Seasonal allergi c rhinitis, unspecified allergic rhinitis trigger (J30.2) Active confirmed Plan Of Treatment Future Test Test Name Order Date Basic Metabolic Panel (8) ([id number] ) 12/27/2017 US- CAROTID DOPPLER ([id number])(AIC-CAROTID) 03/17/2019 Insurance Providers Payer Name Payer Address Payer Phone Subscriber Number Group Number Insured Name Patient Relationship to Insured Coverage Start Date Coverage End Date [facility] [employer]AN [address] [place] [address] [id number] Carlos King Spouse - patient is the spouse of the insured 5 6 Medications Administered Medication Instructions Date of Administration Dosage Notes Dexamethasone Na Phosphate 02/29/2016 1 mL zMethylprednisolone Acetate 40 mg (Depo Medrol) 02/29/2016 1 mL Medical (General) History Medical History History ICD Code 1. Noncardiac chest pain a. 10/1999 stress echocardiog taina: [facility] cardiology: No resting wall motion abnormalities. [...]
== END 2024-12-19 11:21 | disposition home or self-care (01) ==
LOC: HO.HOS 10:22
PROVIDERS: PCP Family Medicine; Visit Provider Physical Medicine & Rehabilitation
DX: M87.9 Osteonecrosis, unspecified (principal); M81.0 Age-related osteoporosis without current pathological fracture; Z91.81 History of falling; Z74.09 Other reduced mobility
CPT/HCPCS: 99204

== ENCOUNTER 2025-01-07 15:50 | Outpatient (AMB) | payer BC, SELFPAY ==
--- NOTE | 2025-01-07 15:52 | MHC.OFFVIS ---
Intake Visit Reasons: 8w/med review Intake Note: Patient presents today for tele visit 8w/ med review Urology Medication: none Blood Thinner: aspirin Sprinkler Irrigation Equipment Mechanic Required: No Accompanied by: Daughter Allergies peanut Allergy (Severe, Verified 01/07/25 16:06) Facial Swelling latex (LATEX) Allergy (Unknown, Verified 01/07/25 16:06) RASH, ITCHY Medication List - Last Reconciled 01/07/25 by TERESA Mann- alendronate 70 mg PO QWEEK 28 days Held on 12/15/24. Instructions: Doctor's Order amlodipine 10 mg PO DAILY 90 days aspirin 81 mg PO DAILY atorvastatin 80 mg PO BEDTIME 90 days cetirizine (Children's Zyrtec Allergy) 10 mg PO DAILY clobetasol 0.05% 1 appl topical BID PRN clonidine 1 patch topical QWEEK donepezil 10 mg PO DAILY doxycycline hyclate 100 mg PO BID 10 days ferrous sulfate 325 mg PO DAILY 90 days fluticasone propion-salmeterol 250-50 mcg/dose (Wixela Inhub) 1 inh inhalation Q12H 30 days furosemide 40 mg PO DAILY hydralazine 50 mg See Protocol PO BID 30 days levothyroxine 50 mcg PO DAILY 90 days levothyroxine mcg PO lidocaine 5% (Lidoderm) 1 patch topical DAILY magnesium oxide 400 mg PO BID 90 days memantine 10 mg PO BID 90 days mometasone 50 mcg/actuation 2 sprays intranasal BID PRN montelukast 10 mg PO BEDTIME 90 days omeprazole 20 mg PO DAILY 90 days sertraline 100 mg PO BEDTIME 90 days spironolactone 50 mg PO DAILY 90 days trospium 20 mg PO BID HPI Comments Details: Ann Padilla is a 85 year old female patient of Dr. Lockwood who is accompanied by her daughter during today's video telehealth appointment. She has a past medical history of asthma, CHF/systolic heart failure, COPD, CVA, dementia, NSTEMI, hypertension, hypothyroidism, left bundle-branch block, and overactive bladder. OF note, patient was last seen approximately 2 months ago at which time she underwent an office urodynamics with Dr. Edmar Oreilly in recommendations were made for trospium 20 mg b.i.d.. In discussion with the patient today she reports significant improvement with Tropsium as prescribed. She discusses having better bladder control and episodes of nocturnal incontinence have improved.. She has previously trialed VESIcare and Gemtesa without improvement. She continues to live at our in [facility] with her in the independent living. When asked she denies hematuria, dysuria, foul smelling urine, changes to urinary stream, flank pain, fever, and or chills. We discussed importance of timed/scheduled voiding. She reports be happy with her current voiding parameters and would like to continue with current management. All questions were answered. She otherwise offers no other issues or concerns at this time. FOR[facility]LY [facility], [facility] Medical History Osteoporosis Dermatitis Contact dermatitis Rash Rash Respiratory failure Cough Cough Abnormal lung sounds Productive cough Cellulitis Acute on chronic anemia UTI (urinary tract infection) Dysuria Increased frequency of urination Dehydration JESUS (acute kidney injury) Hypokalemia Hyperkalemia Troponin level elevated Essential hypertension OAB (overactive bladder) H/O placement of stent in anterior descending branch of left coronary artery Dementia Hypothyroidism History of non-ST elevation myocardial infarction (NSTEMI) Systolic heart failure CHF (congestive heart failure) COPD (chronic obstructive pulmonary disease) Asthma CVA (cerebral vascular accident) Hypertension LBBB (left bundle branch block) Surgical History Hx of heart artery stent History of knee replacement procedure of right knee Hx of cataract surgery History of hysterectomy Family History Father No problems noted. Mother No problems noted. Brother No problems noted. Brother No problems noted. Sister No problems noted. Son No problems noted. Daughter No problems noted. Daughter No problems noted. Daughter No problems noted. Daughter No problems noted. Social History Household Members: Spouse Housing: Assisted Living Facility Do you presently have visiting nurse or other home services: No Alcohol intake: former Patient Tobacco Use Status: Former Tobacco user e-Cigarette/Vaping Use: Never Used Second Hand Smoke Exposure: No service: No Current occupational status: retired Current occupational exposures/hazards: No Cognitive needs: No Hearing needs: No Vision needs: No Review of Systems Const Reports as per HPI Eyes Reports no additional complaints ENT Reports no additional complaints Card Reports as per [facility] Resp Reports as per [facility] GI Reports no additional complaints Reports as per [facility] Neuro Reports as per [facility] Psych Reports as per [facility] Endo Reports no additional complaints Physical Exam Const General: cooperative, healthy appearing, comfortable, no acute distress, well developed, alert and awake Orientation/consciousness: oriented to person Limitations: ambulation with walker Resp Effort & Inspection: able to speak in complete sentences Neuro General: oriented to person Psych Appearance: well kempt Speech and movement: Clear speech present Attitude: cooperative Thought content: Normal thought content present Insight: Fair insight present (Psych) Judgement: Fair judgement present (Psych) Telehealth Telehealth Telehealth Platform: [employer] Location of provider rendering services: practice address Location of patient: address on file Patient Identification confirmed using: Name, : Yes Telehealth method: video Patient verbally consented to treatment: Yes Patient verbally consented to billing insurance company: Yes Patient informed of any privacy concerns related to visit: Yes Minutes spent on Phone/Video with Pt.: 15 Assessment & Plan Assessment & Plan (1) Urinary incontinence: Code(s): R32 - Unspecified urinary incontinence Category: Medical (2) OAB (overactive bladder): Code(s): N32.81 - Overactive bladder Category: Medical Plan Patient reports be happy with current voiding parameters on 20 mg of trospium b.i.d.. She currently denies any bothersome urinary issues or concerns. We will continue with surveillance monitoring. We discussed the importance of continuing with timed/scheduled voiding. All questions were answered. Follow-up in 3-6 months with PVR; or sooner with any issues, concerns, and or questions. Medications: Changed From trospium administer on an empty stomach one hour prior or two hours after a meal 20 mg PO BID 60 tabs 3RF To trospium administer on an empty stomach one hour prior or two hours after a meal 20 mg PO BID 180 tabs 3RF 90 days Patient Instructions: The patient had an opportunity to ask questions regarding the treatment plan. All questions were answered. Physical exam, labs, and imaging were discussed and reviewed in detail. As well as risks, benefits, and discussion of treatment choices. No major barriers to understanding were identified. The patient expressed understanding and agreement with the above treatment plan. The patient was made aware they should contact our office by phone for worsening of their current condition, the appearance of new symptoms, or with any questions or concerns. Compliance is encouraged with any medications and follow up testing that is ordered. It is a privilege to be allowed the opportunity to participate in? your urological care.? Again, if you have any questions or concerns If you have any questions or concerns please do not hesitate to contact me. The office is [phone]. This note is constructed using voice recognition software. While every effort has been made to ensure accuracy boat garnisher errors may have been included. Yours sincerely, JAYA Mann Coding Level of Care Code Tele Est Pt Level 3 (95064) Diagnoses Urinary incontinence R32 OAB (overactive bladder) N32.81
--- OUTSIDE RECORDS SUMMARY | 2025-01-07 17:43 | XMS_ITS | Patient Health Record ---
Author Organization [facility] Billing Info Address [address] [place] [address] [place] [address] Care Team Providers Care Caterpillar Operator Name Role Phone DR TERRENCE NATH [...] type) Unknown 08/21/2013 Administered PNEUMOCOCCAL 13 CONJ ([id number]) IM Intramuscular 04/16/2015 Administered TDAP (BOOSTRIX) IM Intramuscular 02/18/2016 Administered zFLU 3V (FLUZONE HIGH DOSE), 65 YRS+, NO PRES - ALL PAYORS IM Intramuscular 03/25/2014 Administered Double Dose zFLU 3V (FLUZONE HIGH DOSE), 65 YRS+, NO PRES - ALL PAYORS IM Intramuscular 03/01/2015 Administered Problems Problem Type SNOMED Code ICD Code Onset Dates Problem Status W/U Status Risk Notes Problem 007435318 Other hyperlipidemia (E78.4) Active confirmed Problem 5486784 Unspecified osteoarthritis, unspecified site (M19.90) Active confirmed Problem 48468462 Pain in left kne e (M25.562) Active confirmed pt to follow up with ortho Problem 285266877 Localized edema (R60.0) Active confirmed Problem 361567240 Asthma (J45.909) Active confirmed Problem 674839229 SOB (shortness o f breath) (R06.02) Active confirmed Problem 04516058 Essential hypertension (I10) Active confirmed Problem 975667703 TIA (transient ischemic attack) (G45.9) Active confirmed Problem 194931669 Unsteady gait (R26.81) Active confirmed Problem Amnesia (85658873) Memory changes (R41.3) Active confirmed Problem 70369855 LBBB (left bundl e branch block) (I44.7) Active confirmed Problem 818194141 Non-cardiac ches t pain (R07.89) Active confirmed Problem 412786858 Acute hand eczem a (L30.9) 09/23/19 17 Active confirmed Problem 69146691 Bakers cyst, lef t (M71.22) 07/15/19 17 Active confirmed Problem 476278508 Seasonal allergi c rhinitis, unspecified allergic rhinitis trigger (J30.2) Active confirmed Plan Of Treatment Future Test Test Name Order Date Basic Metabolic Panel (8) ([id number] ) 12/27/2017 US- CAROTID DOPPLER (97697)(AIC-CAROTID) 03/17/2019 Insurance Providers Payer Name Payer Address Payer Phone Subscriber Number Group Number Insured Name Patient Relationship to Insured Coverage Start Date Coverage End Date [facility] [employer] [address] [place] [address] [id number] Carlos King Spouse - patient is the spouse of the insured 5 6 Medications Administered Medication Instructions Date of Administration Dosage Notes Dexamethasone Na Phosphate 02/29/2016 1 mL zMethylprednisolone Acetate 40 mg (Depo Medrol) 02/29/2016 1 mL Medical (General) History Medical History History ICD Code 1. Noncardiac chest pain a. 10/1999 stress echocardiog taina: [facility] cardiology: No resting wall motion [...]
== END 2025-01-07 16:21 | disposition home or self-care (01) ==
LOC: HO.HUSH 15:50
PROVIDERS: PCP Family Medicine; Visit Provider Nurse Practitioner Family
DX: R32 Unspecified urinary incontinence (principal); N32.81 Overactive bladder
CPT/HCPCS: 99213

== ENCOUNTER 2025-01-12 15:28 | Outpatient (AMB) | payer BC, SELFPAY ==
[2025-01-12 15:31] VITALS: BP 139/60; PULSE 67; O2SAT 96; BMI 28.2
--- NOTE | 2025-01-12 15:31 | HO.NEPHOV ---
Vital Signs 01/12/25 15:31 Height 5 ft 3 in Weight 159 lb BMI 28.2 BP 139/60 Blood Pressure Location Lt brachial Position Sitting Pulse 67 Pulse Source Pulse Oximeter Pulse Oximetry (%) 96 Oxygen Delivery Method Room Air Intake Visit Reasons: 3-4wk f/u w/labs-LVM Service Station Console Operator Required: No Accompanied by: Daughter Allergies peanut Allergy (Severe, Verified 01/12/25 15:34) Facial Swelling latex (LATEX) Allergy (Unknown, Verified 01/12/25 15:34) RASH, ITCHY Medication List - Last Reconciled 01/12/25 by Jaleel Chavira MD alendronate 70 mg PO QWEEK 28 days Held on 12/15/24. Instructions: Doctor's Order amlodipine 10 mg PO DAILY 90 days aspirin 81 mg PO DAILY atorvastatin 80 mg PO BEDTIME 90 days cetirizine (Children's Zyrtec Allergy) 10 mg PO DAILY clobetasol 0.05% 1 appl topical BID PRN clonidine 1 patch topical QWEEK donepezil 10 mg PO DAILY doxycycline hyclate 100 mg PO BID 10 days ferrous sulfate 325 mg PO DAILY 90 days fluticasone propion-salmeterol 250-50 mcg/dose (Wixela Inhub) 1 inh inhalation Q12H 30 days furosemide 40 mg PO DAILY hydralazine 50 mg See Protocol PO BID 30 days levothyroxine 50 mcg PO DAILY 90 days levothyroxine mcg PO lidocaine 5% (Lidoderm) 1 patch topical DAILY magnesium oxide 400 mg PO BID 90 days memantine 10 mg PO BID 90 days mometasone 50 mcg/actuation 2 sprays intranasal BID PRN montelukast 10 mg PO BEDTIME 90 days omeprazole 20 mg PO DAILY 90 days sertraline 100 mg PO BEDTIME 90 days spironolactone 50 mg PO DAILY 90 days trospium 20 mg PO BID 90 days HPI Comments Details: The patient is an 84-year-old female presenting with chronic kidney disease. The patient's kidney function has been declining over the years, with the most recent test showing a function of about 30%. In previous years, the function ranged between 30% and 40%, indicating a gradual decline. There have been no previous consultations with a circular tank cooper, although the patient has seen a urologist for bladder issues. In 2020 serum creatinine was 1.5 with a EGFR of around 30-33 mL/minute. The patient also reports urinary incontinence, which has been managed with absorbent products and previous medication trials. Recent urodynamic studies were conducted to assess bladder pressure, Hypertension : managed with multiple antihypertensive medications including amlodipine, clonidine, furosemide, hydralazine, and spironolactone. The patient has a history of coronary artery disease, with a stent placement performed in 2022. She is on Lasix 40 mg along with spironolactone 50 mg. Not on any KAMLA inhibitors or ARB is. She does not take any NSAIDs. 01/12/25 The patient is an 85-year-old female presenting with chronic kidney disease and hypertension. She reports nocturia, previously four to five times nightly, improved with medication for overactive bladder prescribed in November. The patient experiences arthralgia in hands, knees, and feet, worsened by weather changes. She takes ibuprofen 400 mg occasionally for pain but is advised to use Tylenol to avoid kidney injury. Medical History: - Chronic Kidney Disease - Hypertension - Overactive Bladder - Edema - Arthralgia Medications: - Furosemide 40 mg, taken in the morning for edema - Medication for overactive bladder, prescribed in November - Ibuprofen 400 mg, taken occasionally for arthralgia Social History: - Family status: Has four daughters [facility] Medical History Osteoporosis Dermatitis Contact dermatitis Rash Rash Respiratory failure Cough Cough Abnormal lung sounds Productive cough Cellulitis Acute on chronic anemia UTI (urinary tract infection) Dysuria Increased frequency of urination Dehydration JESUS (acute kidney injury) Hypokalemia Hyperkalemia Troponin level elevated Essential hypertension OAB (overactive bladder) H/O placement of stent in anterior descending branch of left coronary artery Dementia Hypothyroidism History of non-ST elevation myocardial infarction (NSTEMI) Systolic heart failure CHF (congestive heart failure) COPD (chronic obstructive pulmonary disease) Asthma CVA (cerebral vascular accident) Hypertension LBBB (left bundle branch block) Surgical History Hx of heart artery stent History of knee replacement procedure of right knee Hx of cataract surgery History of hysterectomy Family History Father No problems noted. Mother No problems noted. Brother No problems noted. Brother No problems noted. Sister No problems noted. Son No problems noted. Daughter No problems noted. Daughter No problems noted. Daughter No problems noted. Daughter No problems noted. Social History Household Members: Spouse Housing: Assisted Living Facility Do you presently have visiting nurse or other home services: No Alcohol intake: former Patient Tobacco Use Status: Former Tobacco user e-Cigarette/Vaping Use: Never Used Second Hand Smoke Exposure: No service: No Current occupational status: retired Current occupational exposures/hazards: No Cognitive needs: No Hearing needs: No Vision needs: No Physical Exam Vital Signs: Last Vital Signs Pulse 67 01/12/25 15:31 BP 139/60 01/12/25 15:31 Pulse Ox 96 01/12/25 15:31 Oxygen Delivery Method Room Air 01/12/25 15:31 BMI result Body Mass Index 28.2 Comfortable Neck supple no JVD. Lungs entry equal no rales. Heart S1-S2 heard no gallop or rub. Abdomen soft nontender. Neuro alert awake oriented. No asterixis. Extremities 1+ edema. Results Reviewed Nephrology Results: Hgb, (12.0-16.0) 11.9 g/dl L 12/15/24 WBC, (4.8-10.8) 7.1 X10*3/uL 12/15/24 Plt Count, (160-400) 203 X10*3/uL 12/15/24 Sodium, (135-145) 140 mmol/L 12/15/24 Potassium, (3.3-5.1) 4.8 mmol/L 12/15/24 Chloride, (96-108) 108 mmol/L 12/15/24 Carbon Dioxide, (22-29) 23 mmol/L 12/15/24 BUN, (9-16) 43 mg/dL H 12/15/24 Creatinine, (0.5-1.4) 1.52 mg/dL H 12/15/24 Calcium, (8.4-10.2) 8.6 mg/dL 12/15/24 Renal US 08/04/20 Assessment & Plan Assessment & Plan (1) CRF (chronic renal failure): Code(s): N18.9 - Chronic kidney disease, unspecified Category: Medical Plan 84-year-old woman with chronic kidney disease in the setting of longstanding hypertension and coronary disease. There could be a component of acute kidney injury from hypoperfusion. Even though she has had bladder issues clinically I do not think she has ongoing obstruction and and this is supported by recent ultrasonogram. Recent urine sediments were bland therefore glomerular nephritis or interstitial disease seem unlikely. Keep spironolactone 25 mg a day. She should stay on low-sodium diet I had a lengthy discussion with her. Continue to avoid nephrotoxic agents including NSAIDs. Goal is to slow the progression of renal disease Optimize blood pressure and avoid hypotension. The patient is on furosemide 40 mg for edema, taken in the morning, with no significant leg swelling currently. The dose is reduced to 20 mg to prevent dehydration and maintain kidney function. Orders: Orders Basic Metabolic Panel 3 Months N18.9 - Chronic kidney disease, unspecified Medications: New furosemide (Lasix) 20 mg PO DAILY 90 tabs 1RF Discontinued furosemide Discontinued Reason: Doctor's Order 40 mg PO DAILY 90 tabs 0RF I10 - Essential (primary) hypertension Coding Level of Care Code Est Pt Level 4 (33874) Diagnoses CRF (chronic renal failure) N18.9
--- OUTSIDE RECORDS SUMMARY | 2025-01-12 18:29 | XMS_ITS | Patient Health Record ---
Author Organization [facility] Billing Info Address [address] [place] [address] [place] [address] Care Team Providers Care Condemnation Engineer Name Role Phone DR TERRENCE NATH Primary [...] type) Unknown 08/21/2013 Administered PNEUMOCOCCAL 13 CONJ ([id number]) IM Intramuscular 04/16/2015 Administered TDAP (BOOSTRIX) IM Intramuscular 02/18/2016 Administered zFLU 3V (FLUZONE HIGH DOSE), 65 YRS+, NO PRES - ALL PAYORS IM Intramuscular 03/25/2014 Administered Double Dose zFLU 3V (FLUZONE HIGH DOSE), 65 YRS+, NO PRES - ALL PAYORS IM Intramuscular 03/01/2015 Administered Problems Problem Type SNOMED Code ICD Code Onset Dates Problem Status W/U Status Risk Notes Problem 014448309 Other hyperlipidemia (E78.4) Active confirmed Problem 0314627 Unspecified osteoarthritis, unspecified site (M19.90) Active confirmed Problem 14113116 Pain in left kne e (M25.562) Active confirmed pt to follow up with ortho Problem 526650718 Localized edema (R60.0) Active confirmed Problem 489348025 Asthma (J45.909) Active confirmed Problem 342968061 SOB (shortness o f breath) (R06.02) Active confirmed Problem 68258758 Essential hypertension (I10) Active confirmed Problem 247532756 TIA (transient ischemic attack) (G45.9) Active confirmed Problem 643623274 Unsteady gait (R26.81) Active confirmed Problem Amnesia (39768011) Memory changes (R41.3) Active confirmed Problem 91667613 LBBB (left bundl e branch block) (I44.7) Active confirmed Problem 893978850 Non-cardiac ches t pain (R07.89) Active confirmed Problem 813382780 Acute hand eczem a (L30.9) 09/23/19 17 Active confirmed Problem 15609136 Bakers cyst, lef t (M71.22) 07/15/19 17 Active confirmed Problem 051176530 Seasonal allergi c rhinitis, unspecified allergic rhinitis trigger (J30.2) Active confirmed Plan Of Treatment Future Test Test Name Order Date Basic Metabolic Panel (8) ([id number] ) 12/27/2017 US- CAROTID DOPPLER (60522)(AIC-CAROTID) 03/17/2019 Insurance Providers Payer Name Payer Address Payer Phone Subscriber Number Group Number Insured Name Patient Relationship to Insured Coverage Start Date Coverage End Date [facility] [employer] PLAN [address] [place] [address] [phone] [id number] Carlos King Spouse - patient is the spouse of the insured 5 6 Medications Administered Medication Instructions Date of Administration Dosage Notes Dexamethasone Na Phosphate 02/29/2016 1 mL zMethylprednisolone Acetate 40 mg (Depo Medrol) 02/29/2016 1 mL Medical (General) History Medical History History ICD Code 1. Noncardiac chest pain a. 10/1999 stress echocardiog taina: [facility] cardiology: No resting wall motion abnormalities. [...]
== END 2025-01-12 15:50 | disposition home or self-care (01) ==
LOC: HO.HKA 15:29
PROVIDERS: PCP Family Medicine; Visit Provider Internal Medicine Hypertension Specialist
DX: N18.9 Chronic kidney disease, unspecified (principal)
CPT/HCPCS: 99214

== ENCOUNTER → 2025-01-12 15:28 | Outpatient (BNVA) | payer BC, SELFPAY | PROVIDERS: PCP Family Medicine; Visit Provider Internal Medicine Hypertension Specialist | DX: I13.0 Hypertensive heart and chronic kidney disease with heart failure and stage 1 through stage 4 chronic kidney disease, or unspecified chronic kidney disease (principal); Z87.891 Personal history of nicotine dependence; I50.20 Unspecified systolic (congestive) heart failure; N18.32 Chronic kidney disease, stage 3b; Z79.82 Long term (current) use of aspirin; Z95.5 Presence of coronary angioplasty implant and graft; N39.44 Nocturnal enuresis; N32.81 Overactive bladder; Z13.89 Encounter for screening for other disorder ==

== ENCOUNTER 2025-01-20 15:24 | Outpatient (AMB) | payer BC, SELFPAY ==
--- NOTE | 2025-01-20 15:33 | A.OFFPC_ITS ---
Vital Signs 01/20/25 15:41 Height 5 ft 3 in Weight 162 lb 8 oz BMI 28.8 BP 122/68 Blood Pressure Location Rt brachial Position Sitting Respiration 14 Pulse 60 Pulse Source Pulse Oximeter Temp 97.9 F Temp Source Temporal Artery Scan Pulse Oximetry (%) 95 Oxygen Delivery Method Room Air Oxygen Flow Rate 97.9 Intake Visit Reasons: f/u chronic conditions Intake Note: Ann presents in the office today for a follow up. Allergies peanut Allergy (Severe, Verified 01/20/25 15:37) Facial Swelling latex (LATEX) Allergy (Unknown, Verified 01/20/25 15:37) RASH, ITCHY Medication List - Last Reconciled 01/20/25 by Claus Lockwood MD alendronate 70 mg PO QWEEK 28 days Held on 12/15/24. Instructions: Doctor's Order amlodipine 10 mg PO DAILY 90 days aspirin 81 mg PO DAILY atorvastatin 80 mg PO BEDTIME 90 days cetirizine (Children's Zyrtec Allergy) 10 mg PO DAILY clobetasol 0.05% 1 appl topical BID PRN clonidine 1 patch topical QWEEK donepezil 10 mg PO DAILY doxycycline hyclate 100 mg PO BID 5 days ferrous sulfate 325 mg PO DAILY 90 days fluticasone propion-salmeterol 250-50 mcg/dose (Wixela Inhub) 1 inh inhalation Q12H 30 days furosemide (Lasix) 20 mg PO DAILY hydralazine 50 mg See Protocol PO BID 30 days levothyroxine 50 mcg PO DAILY 90 days levothyroxine mcg PO magnesium oxide 400 mg PO BID 90 days memantine 10 mg PO BID 90 days mometasone 50 mcg/actuation 2 sprays intranasal BID PRN montelukast 10 mg PO BEDTIME 90 days omeprazole 20 mg PO DAILY 90 days sertraline 100 mg PO BEDTIME 90 days spironolactone 50 mg PO DAILY 90 days trospium 20 mg PO BID 90 days Tobacco use date assessed: 01/20/25 Dental Screening Dental Screen Date: 01/20/25 Did you have a dental visit in the last 12 months?: Yes Did you have a dental problem in the last 6 months where you did not have access to dental care?: No Was dental information given to patient?: Patient has dentist HPI f/u chronic conditions HPI Details 85 y/o female presents to f/u chronic co nditions. Had been following up with Nephrology for CRF. They reduced furosemide to 20mg to prevent dehydration and maintain kidney function. Was started on Wixela and pt notes breathing has improved. Does have complaints of a cough. She notes she is starting PT for her hips. [facility] Medical History Osteoporosis Dermatitis Contact dermatitis Rash Rash Respiratory failure Cough Cough Abnormal lung sounds Productive cough Cellulitis Acute on chronic anemia UTI (urinary tract infection) Dysuria Increased frequency of urination Dehydration JESUS (acute kidney injury) Hypokalemia Hyperkalemia Troponin level elevated Essential hypertension OAB (overactive bladder) H/O placement of stent in anterior descending branch of left coronary artery Dementia Hypothyroidism History of non-ST elevation myocardial infarction (NSTEMI) Systolic heart failure CHF (congestive heart failure) COPD (chronic obstructive pulmonary disease) Asthma CVA (cerebral vascular accident) Hypertension LBBB (left bundle branch block) Surgical History Hx of heart artery stent History of knee replacement procedure of right knee Hx of cataract surgery History of hysterectomy Family History Father No problems noted. Mother No problems noted. Brother No problems noted. Brother No problems noted. Sister No problems noted. Son No problems noted. Daughter No problems noted. Daughter No problems noted. Daughter No problems noted. Daughter No problems noted. Social History (Updated 01/20/25 @ 15:40 by Honey Gilmore CMA) Household Members: Spouse Housing: Assisted Living Facility Do you presently have visiting nurse or other home services: No Alcohol intake: former Patient Tobacco Use Status: Former Tobacco user e-Cigarette/Vaping Use: Never Used Second Hand Smoke Exposure: No service: No Current occupational status: retired Current occupational exposures/hazards: No Cognitive needs: No Hearing needs: No Vision needs: No Questionnaire Thrive Questionnaire Date Thrive assessed: 08/25/24 I am a: Patient What is your living situation today?: I have a steady place to live Within the past 12 months, did the food you bought not last and you didn't have the money to get more?: Never true Within the past 12 months, did you worry whether your food would run out before you got money to buy more?: Never true Do you have trouble paying for medicines?: No Do you have trouble getting transportation to medical appointments?: No Do you have trouble paying your heating and electricity bill?: No Do you have trouble taking care of your child, family member or friend?: No Do you have trouble with day-to-day activities such as bathing, preparing meals, shopping, managing finances, etc.?: No Are you currently unemployed and looking for a job?: No Are you interested in more education?: No Please select the resources that you would like help with: None Currently or been in a relationship where the following occur: No concerns reported THRIVE Score: 0 ANNA-7 AMB Questionnaire ANNA-7 Date ANNA - 7 assessed: 08/25/24 Source: Developed by Drs. Rashad Ramirez, Carola Rutherford, Jaun Reeves and colleagues, with an educational berto from [employer]. Review of Systems Const Denies chills, Denies fatigue, Denies fever(s), Denies headache(s) and Denies weakness ENT Denies dizziness and Denies headache(s) Card Denies dyspnea Resp Reports cough, Denies dyspnea, Denies wheezing and Denies other (shortness of breath) Musc Denies numbness and Denies tingling Neuro Denies dizziness, Denies headache(s), Denies numbness, Denies tingling and Denies weakness Psych Denies anxiety and Denies depression Endo Denies fatigue Aller/Immun Denies wheezing Physical exam (Primary Care) Vital Signs: Last Vital Signs Temp 97.9 F 01/20/25 15:41 Pulse 60 01/20/25 15:41 Resp 14 01/20/25 15:41 BP 122/68 01/20/25 15:41 Pulse Ox 95 01/20/25 15:41 Oxygen Delivery Method Room Air 01/20/25 15:41 Oxygen Flow Rate 97.9 01/20/25 15:41 BMI result Body Mass Index 28.8 Tobacco/Smoking Status: Tobacco use Status Tobacco use date assessed 01/20/25 01/20/25 15:43 Patient Tobacco Use Status Former Tobacco user 01/20/25 15:40 e-Cigarette/Vaping Use Never Used 01/20/25 15:40 Thrive Assessment: Date of Thrive Assessment Date Thrive assessed 08/25/24 01/20/25 15:35 Currently or been in a relationship where the following occur: No concerns reported Const General: well developed; No acute distress Nutritional Appearance: well nourished Orientation/consciousness: patient oriented x3 HENMT Head: Yes normocephalic and Yes atraumatic Eyes General: appearance normal, both eyes and all related structures Pupils: Equal, round and reactive pupils present EOM: EOMs intact bilaterally Resp Other: Significant secretion sounds Effort & Inspection: normal respiratory effort Auscultation: clear to auscultation bilaterally Cardio Rate: regular rate Rhythm: regular rhythm Heart sounds: S1 normal heart sound present, S2 normal heart sound present, no gallops, no murmurs and no rubs Neuro General: patient oriented x3 and gait normal Cranial nerves: Yes Equal, round and reactive pupils present Psych Affect: normal affect Coding Level of Care Code Est Pt Level 5 (25932) Diagnoses Hypertension I10 CAD (coronary artery disease) I25.10 CRF (chronic renal failure) N18.9 Bilateral hip osteonecrosis M87.9 Age-related osteoporosis without current pathological fracture M81.0 Osteoporosis type: age-related Presence of current pathological fracture: without current pathological fracture COPD (chronic obstructive pulmonary disease) J44.9 Immunization counseling Z71.85 Assessment & Plan Assessment & Plan (1) Hypertension: Code(s): I10 - Essential (primary) hypertension Category: Medical Plan: Blood pressure is controlled. Goal is less than 130/80 Continue current medications (2) CAD (coronary artery disease): Code(s): I25.10 - Atherosclerotic heart disease of [place] coronary artery without angina pectoris Category: Medical Plan: Stable (3) CRF (chronic renal failure): Code(s): N18.9 - Chronic kidney disease, unspecified Category: Medical Plan: Stable Nephrology decreased furosemide from 40 mg daily to 20 mg daily I advised her to watch salt and sodium in her diet, elevate her legs and let me know if she has any increased lower extremity edema Follow-up with nephrology as recommended (4) Bilateral hip osteonecrosis: Code(s): M87.9 - Osteonecrosis, unspecified Category: Medical Plan: Followed by Ortho/physiatry Starting physical therapy (5) Osteoporosis: Code(s): M81.0 - Age-related osteoporosis without current pathological fracture Category: Medical Qualifiers: Osteoporosis type: age-related Presence of current pathological fracture: without current pathological fracture Qualified Code(s): M81.0 - Age- related osteoporosis without current pathological fracture Plan: Holding alendronate and she has an upcoming appointment with endocrinology to consider other options for managing osteoporosis (6) COPD (chronic obstructive pulmonary disease): Comment: PULMONARY FUNCTION TEST( spirometry ) DID NOT GO ALONG WITH COPD. WORKING DX : HYPERSENSITIVITY BRONCHIAL ASTHMA IS MORE LIKELY . Code(s): J44.9 - Chronic obstructive pulmonary disease, unspecified Category: Medical Plan: Started Wixela and she says she is breathing more easily However she has significant secretions sounds and a cough Will extend her doxycycline which was given by pulmonology Continue Wixela and inhaled meds (7) Immunization counseling: Code(s): Z71.85 - Encounter for immunization safety counseling Category: Medical Plan: Recommended high dose flu shot and COVID Recommended Shingrix and she can get this subsequently Medications: Changed From doxycycline hyclate 100 mg PO BID 10 days 20 tabs 0RF RHINOSINUSITIS To doxycycline hyclate 100 mg PO BID 10 tabs 0RF 5 days Discontinued alendronate Discontinued Reason: Doctor's Order 70 mg PO QWEEK 28 days 4 tabs 3RF M81.0 - Age-related osteoporosis without current pathological fracture
[2025-01-20 15:41] VITALS: BP 122/68; PULSE 60; RESP 14; TEMP 36.6; O2SAT 95; BMI 28.8
--- OUTSIDE RECORDS SUMMARY | 2025-01-20 18:47 | XMS_ITS | Patient Health Record ---
Author Organization [facility] Billing Info Address [address] [place] [address] [place] [address] Care Team Providers Care Tallow Maker Name Role Phone DR TERRENCE NATH Primary [...] type) Unknown 08/21/2013 Administered PNEUMOCOCCAL 13 CONJ ([id number]) IM Intramuscular 04/16/2015 Administered TDAP (BOOSTRIX) IM Intramuscular 02/18/2016 Administered zFLU 3V (FLUZONE HIGH DOSE), 65 YRS+, NO PRES - ALL PAYORS IM Intramuscular 03/25/2014 Administered Double Dose zFLU 3V (FLUZONE HIGH DOSE), 65 YRS+, NO PRES - ALL PAYORS IM Intramuscular 03/01/2015 Administered Problems Problem Type SNOMED Code ICD Code Onset Dates Problem Status W/U Status Risk Notes Problem 647251386 Other hyperlipidemia (E78.4) Active confirmed Problem 0463856 Unspecified osteoarthritis, unspecified site (M19.90) Active confirmed Problem 26646164 Pain in left kne e (M25.562) Active confirmed pt to follow up with ortho Problem 162129480 Localized edema (R60.0) Active confirmed Problem 931390301 Asthma (J45.909) Active confirmed Problem 899083354 SOB (shortness o f breath) (R06.02) Active confirmed Problem 56673141 Essential hypertension (I10) Active confirmed Problem 059945675 TIA (transient ischemic attack) (G45.9) Active confirmed Problem 718495878 Unsteady gait (R26.81) Active confirmed Problem Amnesia (86660846) Memory changes (R41.3) Active confirmed Problem 13730158 LBBB (left bundl e branch block) (I44.7) Active confirmed Problem 574043361 Non-cardiac ches t pain (R07.89) Active confirmed Problem 460695931 Acute hand eczem a (L30.9) 09/23/19 17 Active confirmed Problem 56948817 Bakers cyst, lef t (M71.22) 07/15/19 17 Active confirmed Problem 676082407 Seasonal allergi c rhinitis, unspecified allergic rhinitis trigger (J30.2) Active confirmed Plan Of Treatment Future Test Test Name Order Date Basic Metabolic Panel (8) ([id number] ) 12/27/2017 US- CAROTID DOPPLER (71350)(AIC-CAROTID) 03/17/2019 Insurance Providers Payer Name Payer Address Payer Phone Subscriber Number Group Number Insured Name Patient Relationship to Insured Coverage Start Date Coverage End Date [facility] [employer] PLAN [address] [place] [address] [id number] Carlos King Spouse - patient is the spouse of the insured 5 6 Medications Administered Medication Instructions Date of Administration Dosage Notes Dexamethasone Na Phosphate 02/29/2016 1 mL zMethylprednisolone Acetate 40 mg (Depo Medrol) 02/29/2016 1 mL Medical (General) History Medical History History ICD Code 1. Noncardiac chest pain a. 10/1999 stress echocardiog taina: [facility] cardiology: No resting wall motion [...]
== END 2025-01-20 16:07 | disposition home or self-care (01) ==
LOC: HO.HMCFM 15:25
PROVIDERS: PCP Family Medicine; Visit Provider Family Medicine
DX: I12.9 Hypertensive chronic kidney disease with stage 1 through stage 4 chronic kidney disease, or unspecified chronic kidney disease (principal); M87.9 Osteonecrosis, unspecified; J44.9 Chronic obstructive pulmonary disease, unspecified; N18.9 Chronic kidney disease, unspecified; I25.10 Atherosclerotic heart disease of native coronary artery without angina pectoris; M81.0 Age-related osteoporosis without current pathological fracture; Z71.85 Encounter for immunization safety counseling

== ENCOUNTER 2025-02-03 15:30 | Outpatient (AMB) | payer BC, SELFPAY ==
--- NOTE | 2025-02-03 15:34 | MHC.OFFVIS ---
Vital Signs 02/03/25 15:39 Height 5 ft 3.09 in Weight 163 lb 2.273 oz BMI 28.8 BP 114/54 L Blood Pressure Location Lt brachial Position Sitting Pulse 66 Pulse Source Pulse Oximeter Pulse Oximetry (%) 96 Oxygen Delivery Method Room Air Intake Visit Reasons: Age-related osteoporosis without current pathologi Intake Note: New patient internally referred by Physiatry for Age-related Osteoporosis. Per ER visit this December for acute pain, xray reported possible AVN hips, ER recommended to stop Alendronate. Dual Rate Dealer Required: No Accompanied by: Daughter Allergies peanut Allergy (Severe, Verified 02/03/25 15:40) Facial Swelling latex (LATEX) Allergy (Unknown, Verified 02/03/25 15:40) RASH, ITCHY HPI Comments Details: 85 YO Female is seen in consultation at the request of PCP for Osteoporosis. First diagnosed in recently.Never saw specialist before Received treatment in the past for 2-3 wks with alendronate Did not Tolerated treatment well No history of pathologic fracture or ONJ. Has several servings of dietary calcium per day in the form of cheese . Not Takes Calcium supplement mg daily in divided doses. Not Takes IU of Vitamin D daily. Takes PPI, -anticoagulant, -antiepileptic - glucocorticoid medication. 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 UTD on dental cleanings and sees dentist every 6 months. No planned upcoming dental work or extractions. DXA dated 09/25/24 :FINDINGS: The bone mineral density of the lumbar spine is 0.922, corresponding to a T-score of -2.0, and a Z-score of -0.2. This is indicative of osteopenia. This represents a BMD change of -9.8% compared to the prior exam. This is statistically significant. The bone mineral density of the left total hip is 0.714, corresponding to a T-score of -2.3, and a Z-score of -0.1. This is indicative of osteopenia. This represents a BMD change of -21.5% compared to the prior exam. This is statistically significant. The bone mineral density of the left femoral neck is 0.670, corresponding to a T-score of -2.6, and a Z-score of -0.3. This is indicative of osteoporosis. This represents a BMD change of -21.5% compared to the prior exam. Labs: [facility] Medical History Osteoporosis Dermatitis Contact dermatitis Rash Rash Respiratory failure Cough Cough Abnormal lung sounds Productive cough Cellulitis Acute on chronic anemia UTI (urinary tract infection) Dysuria Increased frequency of urination Dehydration JESUS (acute kidney injury) Hypokalemia Hyperkalemia Troponin level elevated Essential hypertension OAB (overactive bladder) H/O placement of stent in anterior descending branch of left coronary artery Dementia Hypothyroidism History of non-ST elevation myocardial infarction (NSTEMI) Systolic heart failure CHF (congestive heart failure) COPD (chronic obstructive pulmonary disease) Asthma CVA (cerebral vascular accident) Hypertension LBBB (left bundle branch block) Surgical History Hx of heart artery stent History of knee replacement procedure of right knee Hx of cataract surgery History of hysterectomy Family History Father No problems noted. Mother No problems noted. Brother No problems noted. Brother No problems noted. Sister No problems noted. Son No problems noted. Daughter No problems noted. Daughter No problems noted. Daughter No problems noted. Daughter No problems noted. Social History Household Members: Spouse Housing: Assisted Living Facility Do you presently have visiting nurse or other home services: No Alcohol intake: former Patient Tobacco Use Status: Former Tobacco user e-Cigarette/Vaping Use: Never Used Second Hand Smoke Exposure: No service: No Current occupational status: retired Current occupational exposures/hazards: No Cognitive needs: No Hearing needs: No Vision needs: No Physical Exam Vital Signs: Last Vital Signs Pulse 66 02/03/25 15:39 BP 114/54 L 02/03/25 15:39 Pulse Ox 96 02/03/25 15:39 Oxygen Delivery Method Room Air 02/03/25 15:39 BMI result Body Mass Index 28.8 There are no Cushingoid features. Absence of blue sclera. Absence of kyphosis. Thyroid gland is of nl size and weighs 15 gms. There are no thyroid nodules palpated. Lungs CTA. Heart S1 S2 Reg R/R Abdominal exam benign. Muscle strength 5/5 . Examination of spine reveals absence of tenderness on palpation Assessment & Plan Assessment & Plan (1) Osteoporosis: Code(s): M81.0 - Age-related osteoporosis without current pathological fracture Category: Medical Qualifiers: Osteoporosis type: age-related Presence of current pathological fracture: without current pathological fracture Qualified Code(s): M81.0 - Age-related osteoporosis without current pathological fracture Plan: This 85-year-old white female with a history of borderline osteoporosis in the setting of CKD stage IIIB. Partial secondary workup has been performed Plan is to complete the secondary workup by checking 25 hydroxy vitamin-D, phosphorus level, urine immunofixation, . Assuming secondary workup is normal, treatment options are limited to Prolia considering degree of stage IIIB CKD. We will check bone specific alkaline phosphatase and PTH if both increased less likely adynamic bone and may be able to use agent like Prolia should it be necessary. Patient should follow up with Nephrology to optimize CKD-BMD. Orders: Orders Vitamin D 25-OH Total Today M81.0 - Age-related osteoporosis without current pathological fracture Immunofixation, Random Urine Today M81.0 - Age-related osteoporosis without current pathological fracture Phosphorus Today M81.0 - Age-related osteoporosis without current pathological fracture Parathyroid Hormone Intact Today M81.0 - Age-related osteoporosis without current pathological fracture Alkaline Phosphatase Bone Today M81.0 - Age-related osteoporosis without current pathological fracture Coding Level of Care Code New Pt Level 4 (60183) Diagnoses Age-related osteoporosis without current pathological fracture M81.0 Osteoporosis type: age-related Presence of current pathological fracture: without current pathological fracture
[2025-02-03 15:39] VITALS: BP 114/54; PULSE 66; O2SAT 96; BMI 28.8
--- OUTSIDE RECORDS SUMMARY | 2025-02-03 16:46 | XMS_ITS | Patient Health Record ---
Author Organization [facility] Billing Info Address [address] [place] [address] [place] [address] Care Team Providers Care Tube Cutter Name Role Phone DR TERRENCE NATH Primary [...] type) Unknown 08/21/2013 Administered PNEUMOCOCCAL 13 CONJ ([id number]) IM Intramuscular 04/16/2015 Administered TDAP (BOOSTRIX) IM Intramuscular 02/18/2016 Administered zFLU 3V (FLUZONE HIGH DOSE), 65 YRS+, NO PRES - ALL PAYORS IM Intramuscular 03/25/2014 Administered Double Dose zFLU 3V (FLUZONE HIGH DOSE), 65 YRS+, NO PRES - ALL PAYORS IM Intramuscular 03/01/2015 Administered Problems Problem Type SNOMED Code ICD Code Onset Dates Problem Status W/U Status Risk Notes Problem 629648244 Other hyperlipidemia (E78.4) Active confirmed Problem 9333308 Unspecified osteoarthritis, unspecified site (M19.90) Active confirmed Problem 53586438 Pain in left kne e (M25.562) Active confirmed pt to follow up with ortho Problem 710228294 Localized edema (R60.0) Active confirmed Problem 710124468 Asthma (J45.909) Active confirmed Problem 621030980 SOB (shortness o f breath) (R06.02) Active confirmed Problem 50604632 Essential hypertension (I10) Active confirmed Problem 678826631 TIA (transient ischemic attack) (G45.9) Active confirmed Problem 072457652 Unsteady gait (R26.81) Active confirmed Problem Amnesia (54714927) Memory changes (R41.3) Active confirmed Problem 31021090 LBBB (left bundl e branch block) (I44.7) Active confirmed Problem 434006029 Non-cardiac ches t pain (R07.89) Active confirmed Problem 163410660 Acute hand eczem a (L30.9) 09/23/19 17 Active confirmed Problem 87955914 Bakers cyst, lef t (M71.22) 07/15/19 17 Active confirmed Problem 125974706 Seasonal allergi c rhinitis, unspecified allergic rhinitis trigger (J30.2) Active confirmed Plan Of Treatment Future Test Test Name Order Date Basic Metabolic Panel (8) ([id number] ) 12/27/2017 US- CAROTID DOPPLER (50652)(AIC-CAROTID) 03/17/2019 Insurance Providers Payer Name Payer Address Payer Phone Subscriber Number Group Number Insured Name Patient Relationship to Insured Coverage Start Date Coverage End Date [facility] FED[employer]AL EM[employer]EE PLAN [address] [place] [phone] [id number] Carlos King Spouse - patient is the spouse of the insured 5 6 Medications Administered Medication Instructions Date of Administration Dosage Notes Dexamethasone Na Phosphate 02/29/2016 1 mL zMethylprednisolone Acetate 40 mg (Depo Medrol) 02/29/2016 1 mL Medical (General) History Medical History History ICD Code 1. Noncardiac chest pain a. 10/1999 stress echocardiog taina: [facility] cardiology: No resting wall motion [...]
== END 2025-02-03 16:25 | disposition home or self-care (01) ==
LOC: HO.ENCR 15:31
PROVIDERS: PCP Family Medicine; Visit Provider Internal Medicine Endocrinology, Diabetes & Metabolism
DX: M81.0 Age-related osteoporosis without current pathological fracture (principal)
CPT/HCPCS: 99204

== ENCOUNTER 2025-03-04 11:12 | Outpatient (AMB) | payer BC, SELFPAY ==
[2025-03-04 11:24] VITALS: BP 130/58; PULSE 84; BMI 26.7
--- NOTE | 2025-03-04 11:24 | MHC.OFFVIS ---
Vital Signs 03/04/25 11:24 Height 5 ft 3.9 in Weight 155 lb 3.287 oz BMI 26.7 BP 130/58 L Blood Pressure Location Lt brachial Position Sitting Pulse 84 Pulse Source Pulse Oximeter Intake Visit Reasons: Follow up Intake Note: f/up- Manager Search Engine Required: No Accompanied by: Daughter Allergies peanut Allergy (Severe, Verified 02/05/25 15:49) Facial Swelling latex (LATEX) Allergy (Unknown, Verified 02/05/25 15:49) RASH, ITCHY Medication List - Last Reconciled 03/04/25 by Kofi Plata MD amlodipine 10 mg PO DAILY 90 days aspirin 81 mg PO DAILY atorvastatin 80 mg PO BEDTIME 90 days cetirizine (Children's Zyrtec Allergy) 10 mg PO DAILY clobetasol 0.05% 1 appl topical BID PRN clonidine 1 patch topical QWEEK donepezil 10 mg PO DAILY ferrous sulfate 325 mg PO DAILY 90 days fluticasone propion-salmeterol 250-50 mcg/dose (Wixela Inhub) 1 ea PO Q12H furosemide (Lasix) 20 mg PO BID hydralazine 50 mg See Protocol PO BID 30 days levothyroxine 50 mcg PO DAILY 90 days levothyroxine mcg PO magnesium oxide 400 mg PO BID 90 days memantine 10 mg PO BID 90 days mometasone 50 mcg/actuation 2 sprays intranasal BID PRN montelukast 10 mg PO BEDTIME 90 days omeprazole 20 mg PO DAILY 90 days sertraline 100 mg PO BEDTIME 90 days spironolactone 50 mg PO DAILY 90 days trospium 20 mg PO BID 90 days HPI Comments Details: 85-year-old female here for follow-up. She has background history of hypertension, kidney disease and coronary disease. He had LAD diagonal bifurcation stenting in June 2020 when she presented with NSTEMI and had drop in ejection fraction with LAD wall motion abnormality. Her ejection fraction improved subsequently. She is on aspirin monotherapy. She also has concern for renal artery stenosis but with antihypertensive therapy she has been doing well. Blood pressure is well controlled. No symptoms reported on follow-up. COUNTS INCLUDE 234 BEDS AT THE [facility] Medical History Osteoporosis Dermatitis Contact dermatitis Rash Rash Respiratory failure Cough Cough Abnormal lung sounds Productive cough Cellulitis Acute on chronic anemia UTI (urinary tract infection) Dysuria Increased frequency of urination Dehydration JESUS (acute kidney injury) Hypokalemia Hyperkalemia Troponin level elevated Essential hypertension OAB (overactive bladder) H/O placement of stent in anterior descending branch of left coronary artery Dementia Hypothyroidism History of non-ST elevation myocardial infarction (NSTEMI) Systolic heart failure CHF (congestive heart failure) COPD (chronic obstructive pulmonary disease) Asthma CVA (cerebral vascular accident) Hypertension LBBB (left bundle branch block) Surgical History Hx of heart artery stent History of knee replacement procedure of right knee Hx of cataract surgery History of hysterectomy Family History Father No problems noted. Mother No problems noted. Brother No problems noted. Brother No problems noted. Sister No problems noted. Son No problems noted. Daughter No problems noted. Daughter No problems noted. Daughter No problems noted. Daughter No problems noted. Social History Household Members: Spouse Housing: Assisted Living Facility Do you presently have visiting nurse or other home services: No Alcohol intake: former Patient Tobacco Use Status: Former Tobacco user e-Cigarette/Vaping Use: Never Used Second Hand Smoke Exposure: No service: No Current occupational status: retired Current occupational exposures/hazards: No Cognitive needs: No Hearing needs: No Vision needs: No Review of Systems Const Denies chills, Denies fatigue, Denies fever(s), Denies frequent falls, Denies weakness, Denies weight gain and Denies weight loss ENT Denies dizziness Card Denies chest pain, Denies leg edema, Denies lightheadedness, Denies palpitations, Denies dyspnea and Denies dyspnea on exertion Resp Denies cough, Denies dyspnea and Denies dyspnea on exertion GI Denies hematochezia Musc Denies abnormal gait, Denies muscle weakness, Denies numbness, Denies radiating pain into limb and Denies tingling Neuro Denies abnormal gait, Denies dizziness, Denies frequent falls, Denies numbness, Denies tingling and Denies weakness Endo Denies fatigue and Denies palpitations Physical Exam Vital Signs: Last Vital Signs Pulse 84 03/04/25 11:24 BP 130/58 L 03/04/25 11:24 BMI result Body Mass Index 26.7 GENERAL APPEARANCE: in no acute distress, pleasant. NECK: no carotid bruit, no jugular venous distention. SKIN: no suspicious lesions, warm and dry. HEART: no murmurs, regular rate and rhythm. LUNGS: clear to auscultation bilaterally. ABDOMEN: soft, nontender. EXTREMITIES: no edema. PERIPHERAL PULSES: equal. NEUROLOGIC: No gross deficits, AAO X 3 Assessment & Plan Assessment & Plan (1) Hypertension: Code(s): I10 - Essential (primary) hypertension Category: Medical (2) Stented coronary artery: Code(s): Z95.5 - Presence of coronary angioplasty implant and graft Category: Medical Plan Pleasant 85 year female here for follow-up. She has known history of coronary disease underwent LAD diagonal bifurcation PCI in the past. She also has renal artery stenosis and is managed with medication currently and no procedures were done in the past. Chronic kidney disease which is stable. No anginal symptoms to report. Doing well on medications. She will see us back in 6 months. Thank you for allowing me to participate in the care of your patient. Please feel free to contact me if you have any questions. Coding Level of Care Code Est Pt Level 4 (26733) Diagnoses Hypertension I10 Stented coronary artery Z95.5
--- OUTSIDE RECORDS SUMMARY | 2025-03-04 14:11 | XMS_ITS | Patient Health Record ---
Author Organization [facility] Billing Info Address [address] [place] [address] [place] [address] Care Team Providers Care Mechanical Field Engineer Name Role Phone DR TERRENCE NATH [...] Date Status Comme nts PNEUMOCOCCAL 13 CONJ ([id number]) IM Intramuscular 04/16/2015 Administered FLU (Past vaccine [...] Problem Status W/U Status Risk Notes Problem 800306797 Other hyperlipidemia (E78.4) Active confirmed Problem 6641300 Unspecified osteoarthritis, unspecified site (M19.90) Active confirmed Problem 61598287 Pain in left kne e (M25.562) Active confirmed pt to follow up with ortho Problem 242898509 Localized edema (R60.0) Active confirmed Problem 301667359 Asthma (J45.909) Active confirmed Problem 751605454 SOB (shortness o f breath) (R06.02) Active confirmed Problem 76699346 Essential hypertension (I10) Active confirmed Problem 510028526 TIA (transient ischemic attack) (G45.9) Active confirmed Problem 351863103 Unsteady gait (R26.81) Active confirmed Problem Amnesia (47976595) Memory changes (R41.3) Active confirmed Problem 25155142 LBBB (left bundl e branch block) (I44.7) Active confirmed Problem 659564283 Non-cardiac ches t pain (R07.89) Active confirmed Problem 340704410 Acute hand eczem a (L30.9) 09/23/19 17 Active confirmed Problem 50259423 Bakers cyst, lef t (M71.22) 07/15/19 17 Active confirmed Problem 831260161 Seasonal allergi c rhinitis, unspecified allergic rhinitis trigger (J30.2) Active confirmed Plan Of Treatment Future Test Test Name Order Date Basic Metabolic Panel (8) ([id number] ) 12/27/2017 US- CAROTID DOPPLER (09538)(AIC-CAROTID) 03/17/2019 Insurance Providers Payer Name Payer Address Payer Phone Subscriber Number Group Number Insured Name Patient Relationship to Insured Coverage Start Date Coverage End Date [facility] [address] [place] [address] [id number] Carlos Robles Spouse - patient is the spouse of the insured 5 6 Medications Administered Medication Instructions Date of Administration Dosage Notes zMethylprednisolone Acetate 40 mg (Depo Medrol) 02/29/2016 1 mL Dexamethasone Na Phosphate 02/29/2016 1 mL Medical (General) History Medical History History ICD Code 1. Noncardiac chest pain a. 10/1999 stress echocardiog taina: [facility] cardiology: No resting wall motion abnormalities. [...]
== END 2025-03-04 12:32 | disposition home or self-care (01) ==
LOC: HO.HCS 11:13
PROVIDERS: PCP Family Medicine; Visit Provider Internal Medicine Cardiovascular Disease
DX: I10 Essential (primary) hypertension (principal); Z95.5 Presence of coronary angioplasty implant and graft
CPT/HCPCS: 99214

== ENCOUNTER 2025-03-09 15:19 | Outpatient (AMB) | payer BC, SELFPAY ==
[2025-03-09 15:30] VITALS: BP 124/60; PULSE 70; O2SAT 95; BMI 28.1
--- NOTE | 2025-03-09 15:30 | A.OFFVIS_ITS ---
Vital Signs 03/09/25 15:30 Height 5 ft 3.9 in Weight 163 lb 2.273 oz BMI 28.1 BP 124/60 Blood Pressure Location Lt brachial Position Sitting Pulse 70 Pulse Source Pulse Oximeter Pulse Oximetry (%) 95 Oxygen Delivery Method Room Air Intake Visit Reasons: cough Intake Note: pt is here for follow up and states the cough is still there, using mucinex [facility] Sales Consultant Required: No Java J2Ee Lead: Java J2Ee Lead offered & declined Allergies peanut Allergy (Severe, Verified 03/09/25 15:49) Facial Swelling latex (LATEX) Allergy (Unknown, Verified 03/09/25 15:49) RASH, ITCHY Medication List - Last Reconciled 03/09/25 by Belén Sierra MD amlodipine 10 mg PO DAILY 90 days aspirin 81 mg PO DAILY atorvastatin 80 mg PO BEDTIME 90 days cetirizine (Children's Zyrtec Allergy) 10 mg PO DAILY clobetasol 0.05% 1 appl topical BID PRN clonidine 1 patch topical QWEEK donepezil 10 mg PO DAILY ferrous sulfate 325 mg PO DAILY 90 days fluticasone propion-salmeterol 250-50 mcg/dose (Wixela Inhub) 1 ea PO Q12H furosemide (Lasix) 20 mg PO BID hydralazine 50 mg See Protocol PO BID 30 days levothyroxine 50 mcg PO DAILY 90 days levothyroxine mcg PO magnesium oxide 400 mg PO BID 90 days memantine 10 mg PO BID 90 days mometasone 50 mcg/actuation 2 sprays intranasal BID PRN montelukast 10 mg PO BEDTIME 90 days omeprazole 20 mg PO DAILY 90 days sertraline 100 mg PO BEDTIME 90 days spironolactone 50 mg PO DAILY 90 days trospium 20 mg PO BID 90 days Do you need a note to return to daycare/school/sports/work: No HPI HPI cough: Details: TACHO, 85 YEARS OLD, VERY PLEASANT FEMALE IS HERE FOR FOLLOW-UP AFTER 6 MONTHS. STATES THAT SHE IS AT HER BASELINE. HE DOES HAVE COUGH MOSTLY DRY. OFF AND ON, AND ESPECIALLY WHEN SHE CHANGES THE ENVIRONMENTS. LIKE WHEN SHE GOES FROM HERE TO HER [place] SHE MAY START HAVING COUGH WHICH TAKES A FEW. MINUTES TO SETTLED DOWN SHE DOES KEEP VENTOLIN INHALER ON HAND BUT HARDLY NEEDS TO USE IT. THESE DAYS SHE IS USING WIXELA 250-51 INHALATION ONLY ONCE A DAY IN THE MORNING HOURS. THE COUGH IS MOSTLY DRY AND . NOTHING COMES UP SHE DOES USE MUCINEX P.R.N. SHE IS ALSO USING CETIRIZINE 10 MG DAILY AND MONTELUKAST 10 MG DAILY. WALKS AROUND WITH THE WALKER, SLOWLY. [facility] Medical History Osteoporosis Dermatitis Contact dermatitis Rash Rash Respiratory failure Cough Cough Abnormal lung sounds Productive cough Cellulitis Acute on chronic anemia UTI (urinary tract infection) Dysuria Increased frequency of urination Dehydration JESUS (acute kidney injury) Hypokalemia Hyperkalemia Troponin level elevated Essential hypertension OAB (overactive bladder) H/O placement of stent in anterior descending branch of left coronary artery Dementia Hypothyroidism History of non-ST elevation myocardial infarction (NSTEMI) Systolic heart failure CHF (congestive heart failure) COPD (chronic obstructive pulmonary disease) Asthma CVA (cerebral vascular accident) Hypertension LBBB (left bundle branch block) Surgical History Hx of heart artery stent History of knee replacement procedure of right knee Hx of cataract surgery History of hysterectomy Family History Father No problems noted. Mother No problems noted. Brother No problems noted. Brother No problems noted. Sister No problems noted. Son No problems noted. Daughter No problems noted. Daughter No problems noted. Daughter No problems noted. Daughter No problems noted. Social History Household Members: Spouse Housing: Assisted Living Facility Do you presently have visiting nurse or other home services: No Alcohol intake: former Patient Tobacco Use Status: Former Tobacco user e-Cigarette/Vaping Use: Never Used Second Hand Smoke Exposure: No service: No Current occupational status: retired Current occupational exposures/hazards: No Cognitive needs: No Hearing needs: No Vision needs: No Review of Systems Const All systems reviewed & are unremarkable except as noted in HPI and below ENT Reports nasal congestion and Reports nasal discharge Card Denies chest pain and Reports dyspnea on exertion (mild, as the activity is generally slow .) Resp Reports cough (as decribed above) and Reports dyspnea on exertion (mild, as the activity is generally slow .) Neuro Reports memory loss Psych Reports memory loss Physical Exam Vital Signs: Last Vital Signs Pulse 70 03/09/25 15:30 BP 124/60 03/09/25 15:30 Pulse Ox 95 03/09/25 15:30 Oxygen Delivery Method Room Air 03/09/25 15:30 BMI result Body Mass Index 28.1 Const General: healthy appearing, comfortable, no acute distress, alert, awake and other (but slow in conversation . ) Orientation/consciousness: patient oriented x3 HEENT Head: Yes normal to inspection General nose exam: No nasal polyps present and No nasal discharge present Face and sinus: Yes sinuses nontender Mouth: oropharynx normal Throat: Yes posterior oropharynx normal Eyes General: appearance normal, both eyes and all related structures Neck Neck: Yes normal visual inspection, Yes no lymphadenopathy, Yes trachea midline and Yes no JVD Thyroid: Thyroid normal Chest Chest palpation & inspection: normal inspection of the chest, normal palpation of entire chest wall and no tenderness Resp Effort & Inspection: normal respiratory effort and prolonged expiratory phase Auscultation: clear to auscultation bilaterally, no crackles, no rales, no wheezes and diminished lung sounds Cardio Palpation: normal PMI Rate: regular rate Rhythm: regular rhythm Heart sounds: no gallops and no murmurs Peripheral pulses: Peripheral pulses 2+ throughout GI Palpation (GI): Soft to palpation, nontender, No hepatosplenomegaly present and no masses Auscultation: normal bowel sounds Back/Spine/Pelvis Thoracic/Lumbar Spine: thoracic and lumbar spine normal to inspection Skin General skin exam: no rashes or lesions noted Neuro General: patient oriented x3 and no focal motor deficits Cranial nerves: Yes CN's II-XII intact bilaterally Extrem General: Yes normal to inspection, Yes no clubbing, cyanosis or edema, Yes no calf tenderness and No venous stasis dermatitis Psych Appearance: grossly normal and well kempt Speech and movement: Normal speech and movement present Assessment & Plan Assessment & Plan (1) Asthma: Comment: PATIENT HAS HISTORY OF INTERMITTENT BOUTS OF COUGH SECONDARY TO REACTIVE AIRWAYS SHE HAS BEEN USING WIXELA 250-50 1 INHALATION DAILY IN THE MORNING, AND SUPPOSED TO INCREASE TO TWICE A DAY IF COUGH GETS ANY WORSE. SHE IS DOING FAIRLY WELL. Code(s): J45.909 - Unspecified asthma, uncomplicated Category: Medical Plan: USE WIXELA 250-51 INHALATION ONCE A DAY IN THE MORNING BUT MAY INCREASE TO TWICE A DAY IF COUGH BECOMES WORSE (2) Reactive airway disease: Comment: SHE GIVES HISTORY OF HAVING BOUTS OF COUGH IF SHE IS IN CROWDED PLACES, LIKE IN [place], OR IN THE CAVITY AREA. THIS INDICATES THAT SHE IS PROBABLY HYPERSENSITIVE TO THE PERFUMES, BODY ODOR AND OTHER ENVIRONMENTAL FACTORS. Code(s): J45.909 - Unspecified asthma, uncomplicated Category: Medical Plan: ABOVE UNDER ASTHMA (3) Seasonal allergies: Comment: [place] : SHE HAS SOME NASAL CONGESTION WITH POSTNASAL DRIP AND COUGH, USUALLY AT THE CHANGE OF SEASONS, CONTROLLED WITH P.R.N. USE OF ANTIHISTAMINIC AGENT, . AND MONTELUKAST 10 MG DAILY, ALSO USES MOMETAS ONE 50 MCG 2 SPRAY INTRANASAL B.I.D. BUT ONLY P.R.N.. Code(s): J30.2 - Other seasonal allergic rhinitis Category: Medical Plan: ABOVE Coding Level of Care Code Est Pt Level 3 (81869) Diagnoses Asthma J45.909 Reactive airway disease J45.909 Seasonal allergies J30.2
--- OUTSIDE RECORDS SUMMARY | 2025-03-09 16:36 | XMS_ITS | Patient Health Record ---
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 Name Role Phone DR TERRENCE NATH Primary [...] Date Status Comme nts PNEUMOCOCCAL 13 CONJ ([id number]) IM Intramuscular 04/16/2015 Administered FLU (Past vaccine [...] Problem Status W/U Status Risk Notes Problem 369950282 Other hyperlipidemia (E78.4) Active confirmed Problem 4322306 Unspecified osteoarthritis, unspecified site (M19.90) Active confirmed Problem 29605988 Pain in left kne e (M25.562) Active confirmed pt to follow up with ortho Problem 092080311 Localized edema (R60.0) Active confirmed Problem 338793042 Asthma (J45.909) Active confirmed Problem 974120164 SOB (shortness o f breath) (R06.02) Active confirmed Problem 12342422 Essential hypertension (I10) Active confirmed Problem 583603474 TIA (transient ischemic attack) (G45.9) Active confirmed Problem 277536976 Unsteady gait (R26.81) Active confirmed Problem Amnesia (73919320) Memory changes (R41.3) Active confirmed Problem 28303153 LBBB (left bundl e branch block) (I44.7) Active confirmed Problem 938084034 Non-cardiac ches t pain (R07.89) Active confirmed Problem 555474801 Acute hand eczem a (L30.9) 09/23/19 17 Active confirmed Problem 57431552 Bakers cyst, lef t (M71.22) 07/15/19 17 Active confirmed Problem 550167675 Seasonal allergi c rhinitis, unspecified allergic rhinitis trigger (J30.2) Active confirmed Plan Of Treatment Future Test Test Name Order Date Basic Metabolic Panel (8) ([id number] ) 12/27/2017 US- CAROTID DOPPLER (39740)(AIC-CAROTID) 03/17/2019 Insurance Providers Payer Name Payer Address Payer Phone Subscriber Number Group Number Insured Name Patient Relationship to Insured Coverage Start Date Coverage End Date [facility] [address] [place] [address] [id number] Carlos Robles Spouse - patient is the spouse of the insured 5 6 Medications Administered Medication Instructions Date of Administration Dosage Notes zMethylprednisolone Acetate 40 mg (Depo Medrol) 02/29/2016 1 mL Dexamethasone Na Phosphate 02/29/2016 1 mL Medical (General) History Medical History History ICD Code 1. Noncardiac chest pain a. 10/1999 stress echocardiog taina: [facility] cardiology: No resting wall [...]
== END 2025-03-09 15:51 | disposition home or self-care (01) ==
LOC: HO.HPS 15:20
PROVIDERS: PCP Family Medicine; Visit Provider Internal Medicine
DX: J45.909 Unspecified asthma, uncomplicated (principal); J30.2 Other seasonal allergic rhinitis
CPT/HCPCS: 99213

== ENCOUNTER 2025-04-10 13:25 | Outpatient (REF) | payer BC, SELFPAY ==
[2025-04-10 13:44] LABS: MANUAL DIFF FLAG NO
[2025-04-10 14:02] LABS: Hematocrit 40.7 % (37.0-47.0); Hemoglobin 13.1 g/dl (12.0-16.0); Imm Gran Abs Auto 0.10 X10*3/uL (0.00-0.03); Imm Gran Pct Auto 1.5 % (0.0-0.4); Lymphocytes Absolute Auto 0.4 X10*3/uL (1.2-4.9); Mean Corpuscular HGB Conc 32.2 g/dl (31.0-35.0); Mean Corpuscular Hemoglobin 29.8 pg (27.0-33.0); Mean Corpuscular Volume 92.7 fL (80.0-98.0); NRBC Abs Auto 0.000 X10*3/uL (0.0-0.012); NRBC Pct Auto 0.0 /100WBC (0.0-0.2); Platelet Count 193 X10*3/uL (160-400); Red Blood Count 4.39 X10*6/uL (4.20-5.50); White Blood Count 6.5 X10*3/uL (4.8-10.8)
[2025-04-10 17:39] LABS: Parathyroid Hormone Intact 125.9 pg/mL (8.7-77.1)
[2025-04-10 18:31] LABS: Alanine Aminotransferase 31 U/L (0-31); Albumin Level 4.7 g/dL (3.5-5.0); Alkaline Phosphatase 162 U/L (39-117); Anion Gap 14 (12-20); Aspartate Amino Transferase 29 U/L (5-31); Blood Urea Nitrogen 28 mg/dL (9-16); Calcium 9.2 mg/dL (8.4-10.2); Carbon Dioxide 23 mmol/L (22-29); Chloride 109 mmol/L (96-108); Estimated Glomerular Filt Rate 33; Potassium 4.5 mmol/L (3.3-5.1); Sodium 141 mmol/L (135-145); Total Protein 7.2 g/dL (6.5-8.0)
[2025-04-10 18:41] LABS: Free T4 (Free Thyroxine) 0.93 ng/dL (0.71-1.85)
[2025-04-10 18:53] LABS: Thyroid Stimulating Hormone 3.35 uIU/mL (0.32-4.0)
== END 2025-04-10 13:26 | disposition home or self-care (01) ==
LOC: HO.LAB 13:25
PROVIDERS: Internal Medicine Endocrinology, Diabetes & Metabolism; PCP Family Medicine; Visit Provider Internal Medicine Hypertension Specialist
DX: Z00.00 Encounter for general adult medical examination without abnormal findings (principal); M81.0 Age-related osteoporosis without current pathological fracture; E03.9 Hypothyroidism, unspecified; D64.9 Anemia, unspecified
CPT/HCPCS: 36415; 80053; 82306; 83970; 84075; 84439; 84443; 84480; 85025

== ENCOUNTER 2025-04-13 15:32 | Outpatient (AMB) | payer BC, SELFPAY ==
[2025-04-13 15:39] VITALS: BP 122/50; PULSE 65; O2SAT 96; BMI 27.9
--- NOTE | 2025-04-13 15:39 | HO.NEPHOV ---
Vital Signs 04/13/25 15:39 Height 5 ft 3.9 in Weight 162 lb BMI 27.9 BP 122/50 L Blood Pressure Location Lt brachial Position Sitting Pulse 65 Pulse Source Pulse Oximeter Pulse Oximetry (%) 96 Oxygen Delivery Method Room Air Intake Visit Reasons: Dec f/u w/labs-Conf Support Merchandiser Required: No Accompanied by: Daughter Allergies peanut Allergy (Severe, Verified 04/13/25 15:41) Facial Swelling latex (LATEX) Allergy (Unknown, Verified 04/13/25 15:41) RASH, ITCHY Medication List - Last Reconciled 04/13/25 by Jaleel Chavira MD amlodipine 10 mg PO DAILY 90 days aspirin 81 mg PO DAILY atorvastatin 80 mg PO BEDTIME 90 days cetirizine (Children's Zyrtec Allergy) 10 mg PO DAILY clobetasol 0.05% 1 appl topical BID PRN clonidine 1 patch topical QWEEK donepezil 10 mg PO DAILY ferrous sulfate 325 mg PO DAILY 90 days fluticasone propion-salmeterol 250-50 mcg/dose (Wixela Inhub) 1 ea PO Q12H furosemide (Lasix) 20 mg PO BID hydralazine 50 mg See Protocol PO BID 30 days levothyroxine 50 mcg PO DAILY 90 days levothyroxine mcg PO magnesium oxide 400 mg PO BID 90 days memantine 10 mg PO BID 90 days mometasone 50 mcg/actuation 2 sprays intranasal BID PRN montelukast 10 mg PO BEDTIME 90 days omeprazole 20 mg PO DAILY 90 days sertraline 100 mg PO BEDTIME 90 days spironolactone 50 mg PO DAILY 90 days trospium 20 mg PO BID 90 days HPI Comments Details: The patient is an 84-year-old female presenting with chronic kidney disease. The patient's kidney function has been declining over the years, with the most recent test showing a function of about 30%. In previous years, the function ranged between 30% and 40%, indicating a gradual decline. There have been no previous consultations with a licensing analyst, although the patient has seen a urologist for bladder issues. In 2020 serum creatinine was 1.5 with a EGFR of around 30-33 mL/minute. The patient also reports urinary incontinence, which has been managed with absorbent products and previous medication trials. Recent urodynamic studies were conducted to assess bladder pressure, Hypertension : managed with multiple antihypertensive medications including amlodipine, clonidine, furosemide, hydralazine, and spironolactone. The patient has a history of coronary artery disease, with a stent placement performed in 2022. She is on Lasix 40 mg along with spironolactone 50 mg. Not on any KAMLA inhibitors or ARB is. She does not take any NSAIDs. 01/12/25 The patient is an 85-year-old female presenting with chronic kidney disease and hypertension. She reports nocturia, previously four to five times nightly, improved with medication for overactive bladder prescribed in November. The patient experiences arthralgia in hands, knees, and feet, worsened by weather changes. She takes ibuprofen 400 mg occasionally for pain but is advised to use Tylenol to avoid kidney injury. Medical History: - Chronic Kidney Disease - Hypertension - Overactive Bladder - Edema - Arthralgia Medications: - Furosemide 40 mg, taken in the morning for edema - Medication for overactive bladder, prescribed in November - Ibuprofen 400 mg, taken occasionally for arthralgia Social History: - Family status: Has four daughters 04/13/25 The patient is an 85 year old female presenting for a follow-up visit for hypertension and chronic kidney disease. Her kidney function has been stable, with a recent blood test showing a function of 33%, which is consistent with her December result and an improvement from 29% in October. Her kidney function has been very stable over the last four years. The patient's medications include Furosemide twice a day and Spironolactone 50 mg daily. Her weight has fluctuated but is currently noted to be relatively stable. The patient reports a problem with choking when she eats, which does not occur on a consistent basis. An episode can last for 1.5 to 2 minutes, during which she is unable to talk, with the most recent episode occurring yesterday. She has discussed this with her primary doctor. She denies any shortness of breath or swelling in her legs. [facility] Medical History Osteoporosis Dermatitis Contact dermatitis Rash Rash Respiratory failure Cough Cough Abnormal lung sounds Productive cough Cellulitis Acute on chronic anemia UTI (urinary tract infection) Dysuria Increased frequency of urination Dehydration JESUS (acute kidney injury) Hypokalemia Hyperkalemia Troponin level elevated Essential hypertension OAB (overactive bladder) H/O placement of stent in anterior descending branch of left coronary artery Dementia Hypothyroidism History of non-ST elevation myocardial infarction (NSTEMI) Systolic heart failure CHF (congestive heart failure) COPD (chronic obstructive pulmonary disease) Asthma CVA (cerebral vascular accident) Hypertension LBBB (left bundle branch block) Surgical History Hx of heart artery stent History of knee replacement procedure of right knee Hx of cataract surgery History of hysterectomy Family History Father No problems noted. Mother No problems noted. Brother No problems noted. Brother No problems noted. Sister No problems noted. Son No problems noted. Daughter No problems noted. Daughter No problems noted. Daughter No problems noted. Daughter No problems noted. Social History Household Members: Spouse Housing: Assisted Living Facility Do you presently have visiting nurse or other home services: No Alcohol intake: former Patient Tobacco Use Status: Former Tobacco user e-Cigarette/Vaping Use: Never Used Second Hand Smoke Exposure: No service: No Current occupational status: retired Current occupational exposures/hazards: No Cognitive needs: No Hearing needs: No Vision needs: No Physical Exam Vital Signs: Last Vital Signs Pulse 65 04/13/25 15:39 BP 122/50 L 04/13/25 15:39 Pulse Ox 96 04/13/25 15:39 Oxygen Delivery Method Room Air 04/13/25 15:39 BMI result Body Mass Index 27.9 Comfortable Neck supple no JVD. Lungs entry equal no rales. Heart S1-S2 heard no gallop or rub. Abdomen soft nontender. Neuro alert awake oriented. No asterixis. Extremities 1+ edema. Results Reviewed Nephrology Results: Hgb, (12.0-16.0) 13.1 g/dl 04/10/25 WBC, (4.8-10.8) 6.5 X10*3/uL 04/10/25 Plt Count, (160-400) 193 X10*3/uL 04/10/25 Sodium, (135-145) 141 mmol/L 04/10/25 Potassium, (3.3-5.1) 4.5 mmol/L 04/10/25 Chloride, (96-108) 109 mmol/L H 04/10/25 Carbon Dioxide, (22-29) 23 mmol/L 04/10/25 BUN, (9-16) 28 mg/dL H 04/10/25 Creatinine, (0.5-1.4) 1.49 mg/dL H 04/10/25 Calcium, (8.4-10.2) 9.2 mg/dL Δ 04/10/25 PTH Intact, (8.7-77.1) 125.9 pg/mL H 04/10/25 Renal US 08/04/20 Assessment & Plan Assessment & Plan (1) CRF (chronic renal failure): Code(s): N18.9 - Chronic kidney disease, unspecified Category: Medical Plan 84-year-old woman with chronic kidney disease in the setting of longstanding hypertension and coronary disease. There could be a component of acute kidney injury from hypoperfusion. Even though she has had bladder issues clinically I do not think she has ongoing obstruction and and this is supported by recent ultrasonogram. Recent urine sediments were bland therefore glomerular nephritis or interstitial disease seem unlikely. Renal function has improved Keep spironolactone 25 mg a day. and current dose of Lasix She should stay on low-sodium diet I had a lengthy discussion with her. Continue to avoid nephrotoxic agents including NSAIDs. Goal is to slow the progression of renal disease Optimize blood pressure and avoid hypotension. Orders: Orders Complete Blood Count no Diff 5 Months N18.9 - Chronic kidney disease, unspecified Total Protein Urine Random 5 Months N18.9 - Chronic kidney disease, unspecified Basic Metabolic Panel 5 Months N18.9 - Chronic kidney disease, unspecified Creatinine Urine 5 Months N18.9 - Chronic kidney disease, unspecified UA and rflx microscopic 5 Months N18.9 - Chronic kidney disease, unspecified Coding Level of Care Code Est Pt Level 4 (05776) Diagnoses CRF (chronic renal failure) N18.9
== END 2025-04-13 15:54 | disposition home or self-care (01) ==
LOC: HO.HKA 15:32
PROVIDERS: PCP Family Medicine; Visit Provider Internal Medicine Hypertension Specialist
DX: N18.9 Chronic kidney disease, unspecified (principal)
CPT/HCPCS: 99214

== ENCOUNTER 2025-04-24 10:55 | Outpatient (REF) | payer BC, SELFPAY ==
--- NOTE | ~2025-04-24 | XR_ITS ---
EXAMINATION: XR HAND, LEFT CLINICAL INFORMATION: M79.642 - Pain in left hand COMPARISON: None available. TECHNIQUE: PA, lateral, and oblique views of the left hand. FINDINGS: Bony erosions, sclerosis along the articular surfaces and joint space narrowing, middle and distal interphalangeal joints of the digits as well as the first and second carpometacarpal joints and radiocarpal joints. Deformities of the digits. Osteopenia versus osteoporosis. Over hanging marginal osteophyte formation in the medial distal interphalangeal joints of the digits. No acute fracture or dislocation. XR/XR hand LT min 3V IMPRESSION: Moderate to severe osteoarthritis/osteoarthrosis with associated deformities. 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 Electronically signed by: Ray Lim MD 04/24/2025 12:26 PM CECI CONTRERAS
--- OUTSIDE RECORDS SUMMARY | 2025-04-24 12:48 | XMS_ITS | Patient Health Record ---
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 Allergies Allergen (clinical drug ingredient) Drug/Non Drug Allergy documented on EMR Reaction Allergy Type Onset Date Status LATEX itching Drug Allergy Active Reason For Referral No Information Medications Medication SIG (Take, Route, Frequency, Duration) Notes Start Date End Date Diagnosis (ICD Code) Status Zafirlukast 20 MG Tablet 1 tablet Orally Twice a day; Duration: 90 days Active Mobic 15 MG Tablet 1 tablet Orally Once a day; Duration: 90 days 05/25/2017 Active HydrALAZINE HCl 50 MG Tablet 1 tablet with food Orally Two times a day; Duration: 90 days 01/15/2019 SOB (shortness of breath) (ICD_10 - R06.02) Active Hyzaar 100-25 MG Tablet 1 tablet Orally Once a day; Duration: 90 days Active Lipitor 40 MG Tablet 1 tablet Orally Once a day; Duration: 30 day(s) Active Advair Diskus 500-50 MCG/DOSE Aerosol Powder Breath Activated 1 inhalation orally Twice a day; Duration: 90 days Active Namzaric 21-10 MG Capsule Extended Release 24 Hour 1 capsule in the evening Orally Once a day; Duration: 30 day(s) Active Clonidine HCl 0.2 MG Tablet 1 tablet Orally Twice a day Active Hydrochlorothiazide 25 MG Tablet 1 tablet in the morning Orally Once a day; Duration: 30 day(s) Active Nexium 20 MG Capsule Delayed Release 1 capsule Orally Once a day Active Proventil HFA 108 (90 Base) MCG/ACT Aerosol Solution 2 puffs as needed Inhalation every 4 hrs; Duration: 90 days Active Synthroid 25 MCG Tablet 1 tablet on an empty stomach in the morning Orally Once a day Active Aspirin 81 MG Tablet Chewable 1 tablet Orally Once a day; Duration: 30 day(s) Active Nasonex 50 MCG/ACT Suspension 2 sprays in each nostril Nasally Once a day; Duration: 90 days Asthma (ICD_10 - J45.909) Active Losartan Potassium 100 MG Tablet 1 tablet Orally Once a day; Duration: 30 day(s) Active HydrALAZINE HCl 100 MG Tablet TAKE 1 TABLET BY MOUTH TWICE A DAY W/FOOD; Duration: 90 Active Immunizations Status Vaccine Route Administration Date Visit Date Comments Administered FLU (Past vaccine of unknown type) Unknown 02/07/2017 FLU (Past vaccine of unknown type) Unknown 08/21/2013 TDAP (BOOSTRIX) IM Intramuscular 02/18/2016 PNEUMOCOCCAL 13 CONJ ([id number]) IM Intramuscular 04/16/20 15 zFLU 3V (FLUZONE HIGH DOSE), 65 YRS+, NO PRES - ALL PAYORS IM Intramuscular 03/01/2015 zFLU 3V (FLUZONE HIGH DOSE), 65 YRS+, NO PRES - ALL PAYORS IM Intramuscular 03/25/2014 Double Dose PNEUMOCOCCAL (Past vaccine of unknown type) Unknown Social History Sex Observation Social History Observation Description Sex Observation Female Social History Social History Social Info Question Answer Notes Alcohol Use: Patient uses alcohol wine with dinne r one glass Ambulatory Status: : uses cane Additional Details Category Social Info Options Details Social History 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, 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 Marital Status: Lives with: spouse Problems Problem Type SNOMED Code ICD Code Dates Problem Status W/U Status Risk Notes Problem Hyperlipidemia (50816618) Other hyperlipidemia (E78.4) Added On:04/16 Active confirmed Problem Osteoarthritis (168755528) Unspecified osteoarthritis, unspecified site (M19.90) Added On:05/14 Active confirmed Problem Pain of left knee joint (finding) (200995760379210) Pain in left knee (M25.562) Added On:09/22 Active confirmed pt to follow up with ortho Problem Localized edema (8333964) Localized edema (R60.0) Added On:07/12 Active confirmed Problem Asthma (329814681) Asthma (J45.909) Added On:03/01 Active confirmed Problem Dyspnea (845228938) SOB (shortness of breath) (R06.02) Added On:07/12 Active confirmed Problem Essential hypertension (57513415) Essential hypertension (I10) Added On:03/01 Active confirmed Problem Transient ischemic attack (750283198) TIA (transient ischemic attack) (G45.9) Added On:04/01 Active confirmed Problem Unsteady gait (63706670) Unsteady gait (R26.81) Added On:03/05 Active confirmed Problem Amnesia (34207051) Memory changes (R41.3) Added On:03/17 Active confirmed Problem Left bundle branch block (54087769) LBBB (left bundle branch block) (I44.7) Added On:07/12 Active confirmed Problem Non-cardiac chest pain (215536475) Non-cardiac chest pain (R07.89) Added On:03/01 Active confirmed Problem Acute hand eczema (696009224) Acute hand eczema (L30.9) Added On:09/22 Onset Date: 09/23/19 17 Active confirmed Problem Bakers cyst, lef t (M71.22) Added On:07/14 Onset Date: 07/15/19 17 Active confirmed Problem Seasonal allergic rhinitis (983843383) Seasonal allergic rhinitis, unspecified allergic rhinitis trigger (J30.2) Added On:01/26 Active confirmed Plan Of Treatment Future Test Test Name Order Date Basic Metabolic Panel (8) ([id number] ) 12/27/2017 US- CAROTID DOPPLER (55798)(AIC-CAROTID) 03/17/2019 Insurance Providers Payer Name Payer Address Payer Phone Subscriber Number Group Number Insured Name Patient Relationship to Insured Coverage Start Date Coverage End Date [facility] [employer] [address] [place] [address] [id number] Carlos Robles Spouse - patient is the spouse of the insured 5 6 Medications Administered Medication Instructions Date of Administration Dosage Diagnosis (ICD Code) Notes zMethylprednisolone Acetate 40 mg (Depo Medrol) 02/29/2016 1 mL Dexamethasone Na Phosphate 02/29/2016 1 mL Medical (General) History Medical History History ICD Code 1. Noncardiac chest pain a. 10/1999 stress echocardiog taina: [facility] cardiology: No resting wall motion abnormalities. [...]
== END 2025-04-24 10:56 | disposition home or self-care (01) ==
LOC: HO.HOSX 10:55
DX: M66.249 Spontaneous rupture of extensor tendons, unspecified hand (principal)
CPT/HCPCS: 73130

== ENCOUNTER 2025-04-24 12:12 | Outpatient (AMB) | payer BC, SELFPAY ==
[2025-04-24 12:27] VITALS: BMI 27.5
--- NOTE | 2025-04-24 12:27 | MHC.OFFVIS ---
Vital Signs 04/24/25 12:27 Height 5 ft 3.9 in Weight 160 lb BMI 27.5 Intake Visit Reasons: FC - Left Middle Finger Lac - 04/24/25 Intake Note: States on 04/24/25 while getting into a elevator she injured her left middle finger. States she has a laceration across her PIP joint, states she washed her hand and placed gauze to help with bleeding. Today patient states she feels a clicking in her finger, limited ROM, a burning sensation, bruising and discoloration. Denies numbness or tingling in finger tips. Allergies peanut Allergy (Severe, Verified 04/24/25 12:33) Facial Swelling latex (LATEX) Allergy (Unknown, Verified 04/24/25 12:33) RASH, ITCHY HPI HPI FC - Left Middle Finger Lac - 04/24/25: Details: States on 04/24/25 while getting into a elevator she injured her left middle finger. States she has a laceration across her PIP joint, states she washed her hand and placed gauze to help with bleeding. Today patient states she feels a clicking in her finger when attempting to flex, limited ROM, a burning sensation, bruising and discoloration. Denies numbness or tingling in finger tips. Patient does deny significant pain. [facility] Medical History Osteoporosis Dermatitis Contact dermatitis Rash Rash Respiratory failure Cough Cough Abnormal lung sounds Productive cough Cellulitis Acute on chronic anemia UTI (urinary tract infection) Dysuria Increased frequency of urination Dehydration JESUS (acute kidney injury) Hypokalemia Hyperkalemia Troponin level elevated Essential hypertension OAB (overactive bladder) H/O placement of stent in anterior descending branch of left coronary artery Dementia Hypothyroidism History of non-ST elevation myocardial infarction (NSTEMI) Systolic heart failure CHF (congestive heart failure) COPD (chronic obstructive pulmonary disease) Asthma CVA (cerebral vascular accident) Hypertension LBBB (left bundle branch block) Surgical History Hx of heart artery stent History of knee replacement procedure of right knee Hx of cataract surgery History of hysterectomy Family History Father No problems noted. Mother No problems noted. Brother No problems noted. Brother No problems noted. Sister No problems noted. Son No problems noted. Daughter No problems noted. Daughter No problems noted. Daughter No problems noted. Daughter No problems noted. Social History Household Members: Spouse Housing: Assisted Living Facility Do you presently have visiting nurse or other home services: No Alcohol intake: former Patient Tobacco Use Status: Former Tobacco user e-Cigarette/Vaping Use: Never Used Second Hand Smoke Exposure: No service: No Current occupational status: retired Current occupational exposures/hazards: No Cognitive needs: No Hearing needs: No Vision needs: No Review of Systems Const All systems reviewed & are unremarkable except as noted in HPI and below Physical Exam Vital Signs: BMI result Body Mass Index 27.5 Extrem Other: Patient is alert, oriented, and in no acute distress. Neuro: Normal sensation of the tips of all digits of the left hand at this time Vascular: Cap refill brisk Pain: Minimal tenderness to palpation about laceration site on dorsal PIP joint of left middle finger No tenderness to palpation anywhere else in the left hand ROM: Patient is able to flex and extend at all joints of the left hand However, at the PIP joint of the left middle finger, there is a visible and palpable snapping sensation, concerning for extensor tendon subluxation Skin: There is an approximately 2-3 cm in length, C-shaped incision over the dorsal PIP joint of the left middle finger General: No ecchymosis, erythema, or evidence of infection. Psych: Appears grossly normal Affect normal Attitude cooperative Results Reviewed Results Reviewed: X-rays obtained in the office today and independently reviewed by me, Marquez Lisa PA-C, demonstrate no fracture or acute bony abnormality of the left middle finger. Assessment & Plan Assessment & Plan (1) Nontraumatic subluxation of extensor tendon at MCP joint of hand: Code(s): M66.249 - Spontaneous rupture of extensor tendons, unspecified hand Category: Medical Plan 1. Laceration of the left middle finger Date of injury 04/23/2025 Patient is educated about this condition Patient is educated about the typical recovery course At this time, unfortunately, it is too late to be able to suture the laceration closed, so Steri-Strips are applied Before Steri-Strips are applied, copious irrigation is performed on the laceration Patient is educated she can wash the laceration with soap and water in the sink of the shower, but no under water activities 2 lb weight limit in left hand Five day course of Augmentin sent to the patient's pharmacy Keep dressing on at all times, keep clean, dry, intact when not washing Patient is educated on signs and symptoms of worsening infection, and should call our office for reassessment if these occur Dressing to act as splint to limit to the extremes of range of motion Patient understands this and is amenable to this plan 2. Extensor Tendon subluxation of the left middle finger Case was discussed with Dr. Mcfadden, and a collaborative treatment plan was formed: Dr. Mcfadden feels it is best to wait for the laceration to heal prior to any surgical intervention for tendon subluxation Therefore, there is no acute intervention indicated at this visit, and patient is booked a follow-up in [address] Mcfadden to discuss any potential surgical intervention indicated at that time Patient understands this and is amenable to this plan Orders: Orders XR hand LT min 3V Today M79.642 - Pain in left hand Medications: New amoxicillin-pot clavulanate 875-125 mg 1 tab PO BID 10 tabs 0RF 5 days amoxicillin-pot clavulanate 875-125 mg 1 tab PO BID 7 days 14 tabs 0RF Coding Level of Care Code Est Pt Level 3 (61262) Diagnoses Nontraumatic subluxation of extensor tendon at MCP joint of hand M66.249
== END 2025-04-24 12:59 | disposition home or self-care (01) ==
LOC: HO.HOS 12:13
PROVIDERS: PCP Family Medicine
DX: M66.242 Spontaneous rupture of extensor tendons, left hand (principal)
CPT/HCPCS: 99213

== ENCOUNTER → 2025-04-24 12:14 | Outpatient (BNV) | payer BC, SELFPAY | PROVIDERS: Visit Provider Radiology Diagnostic Radiology | DX: M19.042 Primary osteoarthritis, left hand (principal) | CPT/HCPCS: 73130 ==

== ENCOUNTER 2025-05-05 12:36 | Outpatient (AMB) | payer BC, SELFPAY ==
--- NOTE | 2025-05-05 12:39 | A.OFFVIS_ITS ---
Vital Signs 05/05/25 12:40 Height 5 ft 3.9 in Weight 164 lb 7.437 oz BMI 28.3 BP 130/62 Blood Pressure Location Lt brachial Position Sitting Pulse 58 Pulse Source Monitor Intake Visit Reasons: increased weight gain/ prior stent (KM) Intake Note: Increased weight gain prior stent of 4 lbs and abdomen is stiff Creative Strategist Required: No Senior Pharmacy Technician: Senior Pharmacy Technician Present Allergies peanut Allergy (Severe, Verified 05/05/25 12:45) Facial Swelling latex (LATEX) Allergy (Unknown, Verified 05/05/25 12:45) RASH, ITCHY Medication List - Last Reconciled 05/07/25 by ROBIN Soto amlodipine 10 mg PO DAILY 90 days aspirin 81 mg PO DAILY atorvastatin 80 mg PO BEDTIME 90 days cetirizine (Children's Zyrtec Allergy) 10 mg PO DAILY clobetasol 0.05% 1 appl topical BID PRN clonidine 1 patch topical QWEEK donepezil 10 mg PO DAILY ferrous sulfate 325 mg PO DAILY 90 days fluticasone propion-salmeterol 250-50 mcg/dose (Wixela Inhub) 1 ea PO Q12H furosemide (Lasix) 20 mg PO BID hydralazine 50 mg See Protocol PO BID 30 days levothyroxine 50 mcg PO DAILY 90 days levothyroxine mcg PO magnesium oxide 400 mg PO BID 90 days memantine 10 mg PO BID 90 days mometasone 50 mcg/actuation 2 sprays intranasal BID PRN montelukast 10 mg PO BEDTIME 90 days omeprazole 20 mg PO DAILY 90 days sertraline 100 mg PO BEDTIME 90 days spironolactone 50 mg PO DAILY 90 days trospium 20 mg PO BID 90 days HPI Comments Details: History of Present Illness The patient is an 85 year old female presenting for follow-up regarding weight gain, with associated concern for congestive heart failure. She has noted the weight gain mostly in her abdomen, causing her jeans to feel tighter. She does not believe her diet has changed significantly, apart from the holidays. Her past medical history is significant for hypertension, hyperlipidemia, chronic kidney disease, CHF and coronary artery disease with a prior NSTEMI. She underwent stenting of the LAD and diagonal bifurcation in June 2020, and had an initial drop in ejection fraction which subsequently improved. She also has a history of renal artery stenosis, with a prior ultrasound suspicious for right renal artery narrowing. Regarding symptoms, she denies any change in her breathing, wheezing, orthopnea, chest pain, pressure, heaviness, palpitations, or dizzy spells. She reports a chronic cough for which she uses Mucinex. She feels her legs are a little spongy but has not noted significant swelling. Recent diagnostic studies include an echocardiogram from 09/15/2020, which showed an EF of 60-65% with moderate LVH and normal cardiac dopplers. An EKG on 06/06/2024 showed sinus bradycardia at a rate of 49, a first-degree AV block, and a left bundle branch block. Labs from 04/10/2025 showed a potassium of 4.5 and creatinine of 1.49, which was stable. Her current cardiac medications include amlodipine, aspirin, atorvastatin, Lasix 20 mg twice daily, hydralazine, and spironolactone, Daughter is present. [facility]LY [facility] Medical History Osteoporosis Dermatitis Contact dermatitis Rash Rash Respiratory failure Cough Cough Abnormal lung sounds Productive cough Cellulitis Acute on chronic anemia UTI (urinary tract infection) Dysuria Increased frequency of urination Dehydration JESUS (acute kidney injury) Hypokalemia Hyperkalemia Troponin level elevated Essential hypertension OAB (overactive bladder) H/O placement of stent in anterior descending branch of left coronary artery Dementia Hypothyroidism History of non-ST elevation myocardial infarction (NSTEMI) Systolic heart failure CHF (congestive heart failure) COPD (chronic obstructive pulmonary disease) Asthma CVA (cerebral vascular accident) Hypertension LBBB (left bundle branch block) Surgical History Hx of heart artery stent History of knee replacement procedure of right knee Hx of cataract surgery History of hysterectomy Family History Father No problems noted. Mother No problems noted. Brother No problems noted. Brother No problems noted. Sister No problems noted. Son No problems noted. Daughter No problems noted. Daughter No problems noted. Daughter No problems noted. Daughter No problems noted. Social History Household Members: Spouse Housing: Assisted Living Facility Do you presently have visiting nurse or other home services: No Alcohol intake: former Patient Tobacco Use Status: Former Tobacco user e-Cigarette/Vaping Use: Never Used Second Hand Smoke Exposure: No service: No Current occupational status: retired Current occupational exposures/hazards: No Cognitive needs: No Hearing needs: No Vision needs: No Review of Systems Const All systems reviewed & are unremarkable except as noted in HPI and below Denies chills, Denies fatigue, Denies fever(s), Denies frequent falls, Denies weakness, Reports weight gain (around abdomen) and Denies weight loss ENT Reports dizziness Card Denies chest pain, Denies chest pain at rest, Denies chest pain with activity, Denies rapid heart rate, Denies pedal edema, Denies edema, Denies leg edema, Denies lightheadedness, Denies palpitations, Denies dyspnea, Denies dyspnea on e xertion and Denies orthopnea Resp Denies cough, Denies dyspnea and Denies dyspnea on exertion GI Denies hematochezia and Denies change in stool character Musc Denies abnormal gait, Denies muscle weakness, Denies numbness, Denies radiating pain into limb, Denies stiffness and Denies tingling Neuro Denies abnormal gait, Reports dizziness, Denies frequent falls, Denies numbness, Denies tingling and Denies weakness Endo Denies fatigue and Denies palpitations Physical Exam Vital Signs: Last Vital Signs Pulse 58 05/05/25 12:40 BP 130/62 05/05/25 12:40 BMI result Body Mass Index 28.3 Const General: cooperative, healthy appearing, comfortable and no acute distress Orientation/consciousness: patient oriented x3 Neck Neck: Yes normal visual inspection and Yes no JVD Resp Effort & Inspection: normal respiratory effort Auscultation: clear to auscultation bilaterally, no rales, no rhonchi and no wheezes Cardio Jugular venous distension: no JVD Rate: regular rate Rhythm: regular rhythm Heart sounds: S1 normal heart sound present, S2 normal heart sound present, no gallops, no murmurs and no rubs GI Inspection: Yes normal to inspection Neuro General: patient oriented x3 Extrem General: Yes normal to inspection, No no pedal edema and No calf tenderness Psych Appearance: grossly normal Mental Status: mental status grossly normal Speech and movement: Normal speech and movement present Assessment & Plan Assessment & Plan (1) Weight gain: Code(s): R63.5 - Abnormal weight gain Category: Medical Plan: No clinical signs of Heart failure on exam. Continue to monitor weight and for symptoms. No med changes. Echo prior to next visit. (2) CHF (congestive heart failure): Code(s): I50.9 - Heart failure, unspecified Category: Medical (3) CAD (coronary artery disease): Code(s): I25.10 - Atherosclerotic heart disease of [place] coronary artery without angina pectoris Category: Medical Plan: CAD with LAD stent - stable at present. (4) Stented coronary artery: Code(s): Z95.5 - Presence of coronary angioplasty implant and graft Category: Surgical (5) Hypertension: Code(s): I10 - Essential (primary) hypertension Category: Medical Plan: BP goal < 130/80, well controlled. No med changes made. Plan Plan 1. Weight Gain The patient's weight is up by a couple of pounds, but the physical exam shows no signs of fluid overload or acute congestive heart failure. The current diuretic regimen consisting of Lasix 20 mg twice daily and spironolactone will be continued without change, exercising caution due to her impaired kidney function . The patient was advised to avoid added salt in her diet and to monitor her weight daily in the morning. She was educated that minor weight fluctuations are normal, but she should report any persistent upward trend in her weight. 2. Congestive Heart Failure, Unspecified The patient's risk for congestive heart failure was discussed. Although she does not currently show signs or symptoms of an acute exacerbation, a contingency plan was established. If she develops shortness of breath or increased leg swelling, she is to take an additional tablet of Lasix once daily for three days before returning to her usual dose. The patient was instructed to keep an eye on these symptoms and contact the office if they appear. Her last echo in 2020 showed normal EF. She does have any underlying LBBB which in some patients can cause cardiomyopathy - will update echo prior to her next visit. 3. CAD/ stented LAD. She has no report of anginal symptoms. Continue current med mgt for stable CAD including aspirin indefinitely, High dose atorvastatin with LDL goal < 70, meds for good BP control. Discussion Notes I discussed with the patient that although her weight has increased by a couple ( 2-3lbs) of pounds, my physical examination today shows no signs of fluid overload or congestive heart failure. I explained that in heart failure, fluid can back up into the lungs causing shortness of breath or into the legs causing swelling, neither of which she has at present. We reviewed that her heart was pumping strongly on her last echocardiogram and she is not having any cardiac symptoms. I advised that no changes to her water pills, Lasix and spironolactone, are needed right now, as increasing them without clear signs of fluid overload could be risky for her kidneys. I provided a contingency plan: if she develops shortness of breath or significant leg swelling, she should take an extra Lasix pill for 3 days and then resume her normal regimen. I emphasized the importance of monitoring her weight daily, avoiding added salt, and contacting us if her weight continues to climb or if concerning symptoms develop. Patient Instructions - Weigh yourself every morning after you use the bathroom and before you eat. - It is normal for your weight to change by a pound or two from day to day. - Avoid adding salt to your food, as this can make your body hold onto extra fluid. - Continue taking your current medications as prescribed. - If you notice new or worse shortness of breath or significant new swelling in your legs, take one extra Lasix pill (in addition to your normal two pills) each day for 3 days. - Call our office if your weight continues to go up for no reason, or if you develop shortness of breath or leg swelling. Patient was informed and verbally consented to the use of an ambient scribe for clinic note documentation during this visit. Visit time spent on chart review, interview, assessment, orders, documentation. Orders: Orders CA echo transthoracic complete 2 Months I25.10 - Atherosclerotic heart disease of [place] coronary artery without angina pectoris, I50.9 - Heart failure, unspecified Coding Level of Care Code Est Pt Level 4 (14109) Add On Problem Visit Only Diagnoses Weight gain R63.5 CHF (congestive heart failure) I50.9 CAD (coronary artery disease) I25.10 Stented coronary artery Z95.5 Hypertension I10 Time Spent (min) 28
[2025-05-05 12:40] VITALS: BP 130/62; PULSE 58; BMI 28.3
--- OUTSIDE RECORDS SUMMARY | 2025-05-05 16:32 | XMS_ITS | Patient Health Record ---
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 Name Role Phone DR TERRENCE NATH Primary [...] (BOOSTRIX) IM Intramuscular 02/18/2016 PNEUMOCOCCAL 13 CONJ ([id number]) IM Intramuscular 04/16/20 15 zFLU 3V (FLUZONE [...] Status W/U Status Risk Notes Problem Hyperlipidemia (73044930) Other hyperlipidemia (E78.4) Added On:04/16 Active confirmed Problem Osteoarthritis (254536194) Unspecified osteoarthritis, unspecified site (M19.90) Added On:05/14 Active confirmed Problem Pain of left knee joint (finding) (156187796585695) Pain in left knee (M25.562) Added On:09/22 Active confirmed pt to follow up with ortho Problem Localized edema (5890627) Localized edema (R60.0) Added On:07/12 Active confirmed Problem Asthma (249393230) Asthma (J45.909) Added On:03/01 Active confirmed Problem Dyspnea (147184998) SOB (shortness of breath) (R06.02) Added On:07/12 Active confirmed Problem Essential hypertension (54955104) Essential hypertension (I10) Added On:03/01 Active confirmed Problem Transient ischemic attack (618842310) TIA (transient ischemic attack) (G45.9) Added On:04/01 Active confirmed Problem Unsteady gait (61692453) Unsteady gait (R26.81) Added On:03/05 Active confirmed Problem Amnesia (49819379) Memory changes (R41.3) Added On:03/17 Active confirmed Problem Left bundle branch block (04375189) LBBB (left bundle branch block) (I44.7) Added On:07/12 Active confirmed Problem Non-cardiac chest pain (330179120) Non-cardiac chest pain (R07.89) Added On:03/01 Active confirmed Problem Acute hand eczema (444110515) Acute hand eczema (L30.9) Added On:09/22 Onset Date: 09/23/19 17 Active confirmed Problem Bakers cyst, lef t (M71.22) Added On:07/14 Onset Date: 07/15/19 17 Active confirmed Problem Seasonal allergic rhinitis (313119955) Seasonal allergic rhinitis, unspecified allergic rhinitis trigger (J30.2) Added On:01/26 Active confirmed Plan Of Treatment Future Test Test Name Order Date Basic Metabolic Panel (8) ([id number] ) 12/27/2017 US- CAROTID DOPPLER (39779)(AIC-CAROTID) 03/17/2019 Insurance Providers Payer Name Payer Address Payer Phone Subscriber Number Group Number Insured Name Patient Relationship to Insured Coverage Start Date Coverage End Date [facility] [address] [place] [phone] [id number] Carlos Robles Spouse - patient is the spouse of the insured 5 6 Medications Administered Medication Instructions Date of Administration Dosage Diagnosis (ICD Code) Notes zMethylprednisolone Acetate 40 mg (Depo Medrol) 02/29/2016 1 mL Dexamethasone Na Phosphate 02/29/2016 1 mL Medical (General) History Medical History History ICD Code 1. Noncardiac chest pain a. 10/1999 stress echocardiog [place]: [facility] cardiology: No resting wall motion abnormalities. No [...]
== END 2025-05-05 13:10 | disposition home or self-care (01) ==
PROVIDERS: Family Provider Family Medicine; Visit Provider Nurse Practitioner Family
DX: R63.5 Abnormal weight gain (principal); I50.9 Heart failure, unspecified; I25.10 Atherosclerotic heart disease of native coronary artery without angina pectoris; Z95.5 Presence of coronary angioplasty implant and graft; I10 Essential (primary) hypertension
CPT/HCPCS: 99214

== ENCOUNTER 2025-05-05 13:20 | Outpatient (AMB) | payer BC, SELFPAY ==
--- NOTE | 2025-05-05 13:24 | A.OFFVIS_ITS ---
Vital Signs 05/05/25 13:41 Height 5 ft 3.9 in Weight 164 lb BMI 28.2 Intake Visit Reasons: OV-Left Middle Finger Lac -04/24/25-W/xrays? Intake Note: Ann 85 yr old - hand dominant female presents today for her follow up visit for her laceration of the left middle finger Date of injury 04/23/2025. He was last seen with Brendon Zayas who advise patient to let her laceration heal and also to follow up with Dr Mcfadden to discuss any potential surgical intervention indicated at that time. Today patient states she is doing better. She is still limited in ROM in her finger. Allergies peanut Allergy (Severe, Verified 05/05/25 12:45) Facial Swelling latex (LATEX) Allergy (Unknown, Verified 05/05/25 12:45) RASH, ITCHY HPI HPI OV-Left Middle Finger Lac -04/24/25-W/xrays?: Details: Ann is an 85 year old right hand dominant woman who presents for a follow-up of her left middle finger laceration & extensor tendon subluxation, DOI: 04/23/25. She was seen by MAMTA Zayas on 04/24/25 and put on PO Augmentin. 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' grandmother She says she is healing well but has a snapping sensation in her middle finger when making a fist [facility] Medical History Osteoporosis Dermatitis Contact dermatitis Rash Rash Respiratory failure Cough Cough Abnormal lung sounds Productive cough Cellulitis Acute on chronic anemia UTI (urinary tract infection) Dysuria Increased frequency of urination Dehydration JESUS (acute kidney injury) Hypokalemia Hyperkalemia Troponin level elevated Essential hypertension OAB (overactive bladder) H/O placement of stent in anterior descending branch of left coronary artery Dementia Hypothyroidism History of non-ST elevation myocardial infarction (NSTEMI) Systolic heart failure CHF (congestive heart failure) COPD (chronic obstructive pulmonary disease) Asthma CVA (cerebral vascular accident) Hypertension LBBB (left bundle branch block) Surgical History (Reviewed 05/05/25 @ 13:41 by Anju Hernandez [facility]) Hx of heart artery stent History of knee replacement procedure of right knee Hx of cataract surgery History of hysterectomy Family History Father No problems noted. Mother No problems noted. Brother No problems noted. Brother No problems noted. Sister No problems noted. Son No problems noted. Daughter No problems noted. Daughter No problems noted. Daughter No problems noted. Daughter No problems noted. Social History Household Members: Spouse Housing: Assisted Living Facility Do you presently have visiting nurse or other home services: No Alcohol intake: former Patient Tobacco Use Status: Former Tobacco user e-Cigarette/Vaping Use: Never Used Second Hand Smoke Exposure: No service: No Current occupational status: retired Current occupational exposures/hazards: No Cognitive needs: No Hearing needs: No Vision needs: No Review of Systems Const All systems reviewed & are unremarkable except as noted in HPI and below Physical Exam Vital Signs: BMI result Body Mass Index 28.2 Const General: cooperative, healthy appearing and no acute distress Orientation/consciousness: patient oriented x3 HEENT Head: Yes normocephalic and Yes atraumatic Eyes EOM: EOMs intact bilaterally Resp Effort & Inspection: normal respiratory effort and able to speak in complete sentences Cardio Jugular venous distension: no JVD Skin General skin exam: turgor normal Rashes: no rashes Neuro General: patient oriented x3 Extrem Other: Evaluation of Left Upper Extremity: The patient is alert, oriented, and in no acute distress Neuro: Median, Ulnar, Radial nerves motor and sensory intact and sensation is normal to the tips of all digits Vascular: Cap refill brisk ROM: She can make a fist and extend all her digits She has full active extension of the middle finger, with good strength When making a fist, there is subluxation of the radial lateral band of the middle finger, over an arthritic spur Skin: There is an ~2-3 cm in length, C-shaped incision over the dorsal ulnar PIP joint of the middle finger, healing well General: No Ecchymosis. No Erythema or evidence of infection. Radiographs: 3 views of the left hand from 04/24/25 were reviewed by me today in clinic. They show no fractures or dislocations. Psych Appearance: grossly normal Affect: normal affect Attitude: cooperative Assessment & Plan Assessment & Plan (1) Snapping lateral band due to ligament laxity: Comment: Juan GALE radial band Code(s): M24.20 - Disorder of ligament, unspecified site Category: Medical (2) Laceration of left middle finger: Code(s): S61.213A - Laceration without foreign body of left middle finger without damage to nail, initial encounter Category: Medical (3) CAD (coronary artery disease): Code(s): I25.10 - Atherosclerotic heart disease of [place] coronary artery without angina pectoris Category: Medical (4) CHF (congestive heart failure): Code(s): I50.9 - Heart failure, unspecified Category: Medical (5) CRF (chronic renal failure): Code(s): N18.9 - Chronic kidney disease, unspecified Category: Medical (6) COPD (chronic obstructive pulmonary disease): Comment: PULMONARY FUNCTION TEST( spirometry ) DID NOT GO ALONG WITH COPD. WORKING DX : HYPERSENSITIVITY BRONCHIAL ASTHMA IS MORE LIKELY . Code(s): J44.9 - Chronic obstructive pulmonary disease, unspecified Category: Medical Plan Assessment & Plan: 1. Left middle finger laceration DOI: 04/23/25 Healing well 2. Left middle finger radial lateral band subluxation With PIP joint flexion I educated her about this condition I discussed operative and non-operative treatment options I recommend we continue to manage this conservatively, and she is in agreement I explained the signs and symptoms of infection, if the patient develops any new or worsening erythema, drainage, pain, or warmth they should contact the clinic or attend the ED. I discussed activity modifications, she is to lift nothing heavier than a cellphone for the next 4 weeks. She will perform gentle ROM exercises at home if her symptoms persist or worsen in the next 4-6 weeks,s he can follow up to discuss treatment options, likely extension splinting of the PIP joint with active DIP joint flexion Otherwise she can follow up prn. Scribed for Dolly Mcfadden MD by Feroz Leblanc, caregivers non medical, on 05/05/25 at 1:35 PM, EST. Coding Level of Care Code New Pt Level 4 (15737) Diagnoses Snapping lateral band due to ligament laxity M24.20 Laceration of left middle finger S61.213A CAD (coronary artery disease) I25.10 CHF (congestive heart failure) I50.9 CRF (chronic renal failure) N18.9 COPD (chronic obstructive pulmonary disease) J44.9
[2025-05-05 13:41] VITALS: BMI 28.2
== END 2025-05-05 14:00 | disposition home or self-care (01) ==
LOC: HO.HOS 13:21
PROVIDERS: Visit Provider Orthopaedic Surgery
DX: M24.20 Disorder of ligament, unspecified site (principal); S61.213A Laceration without foreign body of left middle finger without damage to nail, initial encounter; I25.10 Atherosclerotic heart disease of native coronary artery without angina pectoris; I50.9 Heart failure, unspecified; N18.9 Chronic kidney disease, unspecified; J44.9 Chronic obstructive pulmonary disease, unspecified
CPT/HCPCS: 99203